=== PATIENT | male | born 1945 | race Caucasian/White ===

== ENCOUNTER 2023-01-15 10:12 | Outpatient (OUT) | payer OTHER, SELFPAY ==
[2023-01-15 10:37] LABS: Basophils Percent Auto 0.3 % (0.2-2.0); Eosinophils Absolute Auto 0.2 10^3/uL (0.0-0.7); Eosinophils Percent Auto 2.5 % (0.9-7.0); Hemoglobin 14.4 g/dL (14.0-18.0); Immature Granulocytes Abs Auto 0.03 10^3/uL (0.00-0.03); Immature Granulocytes Pct Auto 0.3 % (0.0-0.5); Lymphocytes Absolute Auto 1.6 10^3/uL (1.2-3.8); Lymphocytes Percent Auto 17.2 % (20.5-60.0); Mean Corpuscular HGB Conc 32.7 g/dL (29.9-35.2); Mean Corpuscular Hemoglobin 30.8 pg (25.9-34.0); Mean Corpuscular Volume 94.2 fL (80.0-94.0); Mean Platelet Volume 9.5 fL (9.5-13.5); Monocytes Percent Auto 10.6 % (1.7-12.0); Neutrophils Absolute Auto 6.4 10^3/uL (1.4-6.5); Neutrophils Percent Auto 69.1 % (43.0-75.0); Platelet Count 206 10^3/uL (150-450); Red Blood Count 4.67 10^6/uL (4.70-6.10); Red Cell Distribution Width 13.1 % (11.0-15.0); White Blood Count 9.3 10^3/uL (4.0-11.0)
[2023-01-15 11:14] LABS: Alanine Aminotransferase 27 U/L (16-63); Albumin Level 3.5 g/dL (3.4-5.0); Alkaline Phosphatase 115 U/L (46-116); Anion Gap 12.1; Aspartate Amino Transferase 23 U/L (15-37); BUN Creatinine Ratio 26.5; Bilirubin Total 0.8 mg/dL (0.2-1.0); Calcium 8.9 mg/dL (8.5-10.1); Carbon Dioxide 27.3 mmol/L (21.0-32.0); Chloride 105 mmol/L (98-107); Estimated GFR (African America >60 (>=60); Estimated GFR (Non-African Ame >60 (>=60); Globulin 3.5 g/dL; Glucose 100 mg/dL (74-106); Potassium 4.4 mmol/L (3.5-5.1); Sodium 140 mmol/L (136-145)
[2023-01-15 11:37] LABS: Magnesium 2.1 mg/dL (1.8-2.4)
== END 2023-01-15 10:13 | disposition home or self-care (01) ==
LOC: LAB 10:15
PROVIDERS: PCP Internal Medicine; Visit Provider Nurse Practitioner Acute Care
DX: I49.3 Ventricular premature depolarization (principal)
CPT/HCPCS: 36415; 80053; 83735; 85025

== ENCOUNTER 2023-01-25 09:32 | Outpatient (OUT) | payer OTHER, SELFPAY ==
[2023-01-25 10:06] LABS: Estimated Average Glucose 128 mg/dL; Glycohemoglobin A1C 6.1 % (4.5-6.2)
[2023-01-25 10:56] LABS: Chol HDL Ratio 3.4; Cholesterol 148 mg/dL (<=200); HDL Cholesterol 43 mg/dL (40-60); Thyroid Stimulating Hormone 1.427 uIU/mL (0.358-3.740); Triglycerides 153 mg/dL (<=150); VLDL CHOLESTEROL 30.6 mg/dL
== END 2023-01-25 09:33 | disposition home or self-care (01) ==
LOC: LAB 09:34
PROVIDERS: PCP Internal Medicine; Visit Provider Internal Medicine
DX: E78.5 Hyperlipidemia, unspecified (principal); R73.09 Other abnormal glucose; R63.5 Abnormal weight gain
CPT/HCPCS: 36415; 80061; 83036; 84443

== ENCOUNTER 2023-02-15 07:38 | Outpatient (RCR) | payer OTHER, SELFPAY | END 2023-02-16 11:01 | disposition home or self-care (01) | LOC: PT 07:38 | PROVIDERS: PCP Internal Medicine; Visit Provider Internal Medicine | DX: M25.561 Pain in right knee (principal); M25.562 Pain in left knee; G89.29 Other chronic pain; M54.42 Lumbago with sciatica, left side; M54.41 Lumbago with sciatica, right side; R29.3 Abnormal posture | CPT/HCPCS: 97110; 97161 ==

== ENCOUNTER 2023-03-07 15:27 | Outpatient (OUT) | payer OTHER, SELFPAY | END 2023-03-07 15:28 | disposition home or self-care (01) | LOC: MN 15:30 | PROVIDERS: PCP Internal Medicine | DX: Z71.3 Dietary counseling and surveillance (principal) | CPT/HCPCS: 97802 ==

== ENCOUNTER 2023-08-29 11:09 | Outpatient (OUT) | payer OTHER, SELFPAY ==
--- OUTSIDE RECORDS SUMMARY | 2023-08-29 11:32 | XMS_ITS ---
Patient Summarization (C-CDA 2.1 CCD) Created on: August 29, 2023 BELÉN KEENAN : 1945 Sex: Male Author Organization Sample organization Care Team Providers Care [place] Hand Name Role Phone PHYSICIAN, DEFAULT Unavailable Unavailable PHYSICIAN, DEFAULT Unavailable Unavailable JUAN HAYES Unavailable Unavailable DUPPS, BLAIR J Unavailable Unavailable DUPPS, BLAIR J Unavailable Unavailable DUPPS, BLAIR J Unavailable Unavailable DUPPS, BLAIR J Unavailable Unavailable DUPPS, BLAIR J Unavailable Unavailable DUPPS, BLAIR J Unavailable Unavailable DUPPS, BLAIR J Unavailable Unavailable DUPPS, BLAIR J Unavailable Unavailable DUPPS, BLAIR J Unavailable Unavailable DUPPS, BLAIR J Unavailable Unavailable Amburn, Estefani R Primary Care Provider Unavaila ble DENIA PIKE Referring Unavailable AMBURN, ESTEFANI R Primary Care Unavailable DENIA PIKE Referring Unavailable AMBURN, ESTEFANI R Primary Care Unavailable Sheldon Ball Unavailable DO Chaka Pulido Jr Attending Provider NON STAFF Primary Care Provider Unavailabl e FAWWAD, CHAUDHARI H Admitting Unavailable FAWWAD, CHAUDHARI H Attending Unavailable FAWWAD, CHAUDHARI H Primary Care Unavailable DR Rhonda Stevenson Consulting Unavailable FAWWAD, CHAUDHARI H Consulting Unavailable MISC, DR MURDOCK Admitting Unavailable MISC, DR MURDOCK Attending Unavailable FAWWAD, CHAUDHARI H Primary Care Unavailable MISCDR MURDOCK Consulting Unavailable FAWWAD, CHAUDHARI H Admitting Unavailable FAWWAD, CHAUDHARI H Attending Unavailable FAWWAD, CHAUDHARI H Primary Care Unavailable DR MARION LUIS V Consulting Unavailable FAWWAD, CHAUDHARI H Consulting Unavailable FAWWAD, CHAUDHARI H Admitting Unavailable FAWWAD, CHAUDHARI H Attending Unavailable FAWWAD, CHAUDHARI H Primary Care Unavailable FAWWAD, CHAUDHARI H Admitting Unavailable FAWWAD, CHAUDHARI H Attending Unavailable FAWWAD, CHAUDHARI H Primary Care Unavailable ELTAHAWY, DR STEARNS Admitting Unavailable ELTAHAWY, DR STEARNS Attending Unavailable FAWWAD, CHAUDHARI H Primary Care Unavailable WEST, DR MARION Herbert Consulting Unavailable ELTAHAWY, DR STEARNS Consulting Unavailable FAWWAD, CHAUDHARI H Admitting Unavailable FAWWAD, CHAUDHARI H Attending Unavailable FAWWAD, CHAUDHARI H Primary Care Unavailable FAWWAD, CHAUDHARI H Consulting Unavailable FAWWAD, CHAUDHARI H Admitting Unavailable FAWWAD, CHAUDHARI H Attending Unavailable FAWWAD, CHAUDHARI H Primary Care Unavailable FAWWAD, CHAUDHARI H Consulting Unavailable MISC, DOCTOR Admitting Unavailable MISC, DOCTOR Attending Unavailable FAWWAD, CHAUDHARI H Primary Care Unavailable MISC, DOCTOR Consulting Unavailable DES Feldman Other Provider Unavailable DES Burns Other Provider Unavailable Silas RN Etta Other Provider Unavailable Kurt RN Sanjana Other Provider Unavailable DES Lawrence Other Provider Unavailable DES Dunbar Other Provider Unavailable MD Jimmie Martin Other Provider MD Aydin Bartholomew Other Provider JR Mcgill Other Provider DO Viviana Hicks Other Provider [phone] MD Paul Connell Other Provider DO Yoshi Ascencio Other Provider MD Dm Lozano Other Provider [phone] MD Yuliana Herzog Other Provider Cat, ANP-BC Rachel Other Provider MD Perez Mattson Other Provider MD Wander Velázquez Other Provider MD Cory Em Other Provider MD Leeroy Doll Other Provider DO Jamie Rodriguez Other Provider MD Dank Tong Other Provider MD Mina Johnson Other Provider GARRETT Feldman Other Provider [phone] MD Chavez Pagan Other Provider MD Patricio Cook Other Provider MD Fabricio Willams Other Provider DO Angelina Doll Other Provider DO Alen Wheeler Other Provider DO Ben Carrizales Other Provider [phone] JR Fontanez Other Provider DO Mando Guy Other Provider [phone] MD Fanny France Other Provider JR Doll Other Provider DES Wilkinson Other Provider Unavailable Chaka Pulido Jr Admitting Unavailable Chaka Pulido Jr Attending Unavailable NON STAFF Primary Care Unavailable NON STAFF Primary Care Unavailable Chaka Pulido Jr Attending Unavailable Ashok Castro Chaka Admitting Unavailable FranciaLeanna mahajanndra Consulting Unavailable Gearheart, Cher Consulting Unavailable Etta Rosen Consulting Unavailable Denslow, Sanjana Consulting Unavailable Melnida, Maribel Consulting Unavailable Layne Dunbar Consulting Unavailable Massouh, Rafik Consulting Unavailable Puma, Aydin K Consulting Unavailable Dials, Zee M Consulting Unavailable Kurt, Ronobir Consulting Unavailable Becki, Paul Consulting Unavailable Lindbloom, Yoshi Consulting UnavailDm Swanson Consulting Unavailable Mino Yuliana Consulting Unavailable Rachel Shelton Consulting Unavailable Perez Mattson Consulting Unavailable Wander Velázquez Consulting Unavailable Cory Em Consulting Unavailable Leeroy Doll Consulting Unavailable Jamie Rodriguez Consulting Unavailable Dank Tong Consulting Unavailable Mina Johnson Consulting Unavailable Swapna Feldman Consulting Unavailable Chavez Pagan Consulting Unavailab Patricio Jj Consulting Unavailable Екатерина, Fabricio Consulting Unavailable Angelina Doll Consulting Unavailable LiamAlen sanchez Consulting Unavailable MiniaciBen Consulting Unavailable Obika, Mervat Consulting Unavailable Mando Guy Consulting Unavailable Daromar, Fanny M Consulting Unavailable Tory Doll Consulting Unavailable Wilkinson, Patricia Consulting Unavailable ELTAHAWY, EHAB Admitting Unavailable ELTAHAWY, EHAB Attending Unavailable SCOTT, CAN Attending Unavailable ELTAHAWHeriberto, DOUGLASAB Attending Unavailable ELTAHAWY, EHAB Referring Unavailable SHAIKH SHARP Attending Unavailable PERFECTO, Attending Unavailable Encounters Encounter Date Encounter Type Care Provider Facility Start: 08-08-2023 End: 08-08-2023 ambulatory SHAIKH PERFECTO Not Available Start: 02-26-2023 End: 02-26-2023 ambulatory SHAIKH PERFECTO Not Available Start: 01-15-2023 End: 01-15-2023 ambulatory [facility] Start: 09-04-2022 End: 09-04-2022 ambulatory [facility]YA [facility] Start: 04-27-2022 End: 04-28-2022 ambulatory NON STAFF Facility:[facility] Start: 04-27-2022 End: 04-28-2022 Admission to same day surgery center DO Chaka Pulido Jr Work Phone: [facility] [place] Start: 04-27-2022 End: 04-28-2022 ambulatory NON STAFF [facility] Work Phone: Start: 04-18-2022 End: 04-19-2022 ambulatory Connie PERFECTO Facility: Start: 04-10-2022 End: 04-10-2022 ambulatory Chaka Pulido Jr Facility:[facility] Start: 04-10-2022 End: 04-10-2022 ambulatory NON STAFF [facility] Work Phone: Start: 04-10-2022 End: 04-10-2022 Patient encounter procedure DO Chaka Pulido Jr Work Phone: [facility] Work Phone: Start: 02-08-2022 End: 02-08-2022 ambulatory [facility] Start: 02-06-2022 End: 02-07-2022 ambulatory CHAUDHARI H FAWWAD Facility:[facility] Start: 01-11-2022 End: 01-12-[address] DIYA BROWN Facility:[facility] Start: 11-29-2021 End: 11-29-2021 ambulatory Sheldon Ball Other [facility] [employer] Other Start: 11-29-2021 Office outpatient ne w 30 minutes Sheldon Ball [facility] Start: 11-01-2021 End: 11-02-2021 ambulatory CHAUDHARI H FAWMOSHED Facility:[facility] Start: 10-25-2021 End: 10-26-[address] DOCTOR BROUSSARD Facility:[facility] Start: 08-22-2021 End: 09-16-2021 ambulatory CHAUDHARI H FAWWAD Facility:[facility] Start: 08-11-2021 ambulatory CHAUDHARI H FAWWAD Facilit y:[facility] Start: 08-03-2021 End: 08-04-2021 ambulatory CHAUDHARI H FAWWAD Facility:[facility] Start: 05-02-2021 End: 05-03-[address] DOCTOR BROUSSARD Facility:[facility] Start: 05-04-2020 End: 05-05-2020 Patient encounter procedure DENIA Lopez [facility] Start: 05-04-2020 End: 05-04-2020 Subsequent hospital visit by physician Estefani MARIE Laboratory Comment on above: BPH with obstruction /lower urinary tract symptoms; Nocturia; Urgency of urination Start: 09-25-2019 End: 09-26-2019 Patient encounter procedure [place] Jessica [facility] Start: 09-25-2019 End: 09-25-2019 Subsequent hospital visit by physician Estefani MARIE Laboratory Comment on above: Nocturia; Urgency incontinence Start: 02-07-2018 End: 02-12-2018 Patient encounter procedure BLAIR AN [facility] Start: 10-04-2017 End: 10-04-2017 Patient encounter procedure BLAIR AN [facility] Start: 09-13-2017 End: 09-17-2017 Patient encounter procedure BLAIR AN [facility] Start: 09-06-2017 End: 09-11-2017 Patient encounter procedure BLAIR AN [facility] Start: 08-30-2017 End: 09-03-2017 Patient encounter procedure BLAIR AN [facility] Start: 08-07-2017 End: 08-08-2017 Ambulatory DEFAULT PHYSICIAN Facility:[facility] Start: 06-07-2017 End: 06-14-2017 Patient encounter procedure BLAIR AN [facility] Start: 05-17-2017 End: 05-17-2017 Patient encounter procedure BLAIR AN [facility] Goals Date Patient Goal Desired Activity /State Immunizations Immunization Date Immunization Notes Care Provider Kwabena gillette 11-04-2021 COVID-19 mRNA, Comirnaty (Pfizer) DO Chaka Pulido Work Phone: [facility] 02-12-2021 COVID-19 mRNA, Comirnaty (Pfizer) [facility] 06-05-2020 COVID-19 mRNA, Com[facility]naty (Pfizer) [facility] 05-15-2020 COVID-19 mRNA, Comirnaty (Pfizer) DO Chaka [facility] Work Phone: [facility] Medications Current Medications Medication Drug Class(es) Dates Sig (Normalized) Sig (Original) Aspir-81 (1 source) Aspir-81 Active aspirin 81 mg oral tablet (3 sources) Platelet Aggregation Inhibitor, Nonsteroidal Anti-inflammatory Drug Start: 04-27-2022 take 81 mg by mouth twice daily Aspirin Active 81 MG PO Twice daily April 27, 2022 12:00am Start: 04-10-2022 End: 04-27-2022 take 1 tablet by mouth once daily Aspirin (Aspir-81) 81 mg Tablet,Delayed Release (Dr/Ec) Discontinued 81 MG PO Daily April 10, 2022 12:00am April 27, 2022 10:56am atorvastatin 40 mg oral tablet (5 sources) HMG-CoA Reductase Inhibitor Start: 04-10-2022 take 40 mg by mouth once daily Atorvastatin Active 40 MG PO Daily April 10, 2022 12:00am Start: 08-18-2019 take 1 tablet by elizabeth th once daily atorvastatin (LIPITOR) 40 MG tablet TAKE 1 TABLET BY MOUTH EVERY DAY 0 08/18/2019 Active carvedilol 3.125 mg oral tablet (3 sources) alpha-Adrenergic Abad, beta-Adrenergic Abad Start: 04-10-2022 take 3.125 mg by mouth twice daily at mealtime Carvedilol Active 3.125 MG PO Twice daily April 10, 2022 12:00am must administer with a meal/food take 1 tablet by elizabeth th every twelve hours Carvedilol 3.125 MG 1 tablet with food Orally Twice a day Active cyclobenzaprine hydrochloride 10 mg oral tablet (1 source) Muscle Relaxant Cyclobenzaprine HCl 10 MG Oral for 30 Days Active enalapril maleate 2.5 mg oral tablet (2 sources) Angiotensin Converting Enzyme Inhibitor enalapril (VASOTEC) 2.5 MG tablet Take by mouth 0 Active folic acid 1 mg / polysaccharide iron complex 150 mg / vitamin b12 0.025 mg oral capsule (2 sources) Vitamin B12 Start: 023 take 1 capsule by mouth once daily Iron Ps Extniwd-Z84-Knqgr Acid (Poly-Iron 150 Forte) 150-25-1 mg-mcg-mg capsule Active 1 CAP PO Daily April 10, 2022 12:00am furosemide 20 mg oral tablet (2 sources) Loop Diuretic Start: 020 take 1 tablet by mouth once daily in the morning furosemide (LASIX) 20 MG tablet TAKE 1 TABLET BY MOUTH EVERY MORNING 0 08/18/2019 Active Garlic preparation (2 sources) Non-Standardized Food Allergenic Extract Garlic 10 MG CAPS garlic 0 Active loratadine 10 mg oral tablet (2 sources) Start: 020 take 1 tablet by mouth once daily loratadine (CLARITIN) 10 MG tablet TAKE 1 TABLET BY MOUTH EVERY DAY 0 08/26/2019 Active meloxicam 15 mg oral tablet (1 source) Nonsteroidal Anti-inflammatory Drug Meloxicam 15 MG Oral for 30 Days Active metFORMIN hydrochloride 500 mg oral tablet (3 sources) Biguanide Start: 023 take 500 mg by mouth twice daily Metformin Active 500 MG PO Twice daily April 10, 2022 12:00am metFORMIN HCl 50 0 MG Oral for 90 Days Active Multiple Vitamins-Minerals (EYE VITAMINS) CAPS (2 sources) Multiple Vitamins-Minerals (EYE VITAMINS) CAPS Take by mouth 0 Active Multiple Vitamins-Minerals (MULTIVITAMIN ADULT EXTRA C PO) (2 sources) Multiple Vitamins-Minerals (MULTIVITAMIN ADULT EXTRA C PO) multivitamin 0 Active Emjiywyuklqg-Lxsxmupk-Bz tein (Multivitamin 50 Plus) Tablet (2 sources) Start: 023 Eemljlanjldw-Kujqmmhd-Iy tein (Multivitamin 50 Plus) Tablet Active 1 TAB PO Daily April 10, 2022 12:00am [place] 8-Vxd-Bui-Fish Oil (Fish Oil) 1,200 (144-216) mg Capsule (2 sources) Start: 023 take 1 capsule by mouth once daily [place] 7-Zzi-Acs-Fish Oil (Fish Oil) 1,200 (144-216) mg Capsule Active 1 CAP PO Daily April 10, 2022 12:00am omeprazole 20 mg delayed release oral tablet (5 sources) Proton Pump Inhibitor Start: take 20 mg by mouth once daily Omeprazole Active 20 MG PO Daily April 10, 2022 12:00am Start: 08-18-2019 take 1 capsule by mo nhh once daily omeprazole (PRILOSEC) 20 MG delayed release capsule TAKE 1 CAPSULE BY MOUTH EVERY DAY 0 08/18/2019 Active sertraline 50 mg oral tablet (5 sources) Serotonin Reuptake Inhibitor Start: 04-10-2022 take 75 mg by mouth once daily Sertraline Active 75 MG PO Daily April 10, 2022 12:00am Start: 09-03-2019 take 1 tablet by elizabeth th once daily sertraline (ZOLOFT) 50 MG tablet TAKE 1 TABLET BY MOUTH EVERY DAY 0 09/03/2019 Active spironolactone 25 mg oral tablet (1 source) Aldosterone Antagonist Spironolactone 25 MG Oral for 90 Days Active tamsulosin hydrochloride 0.4 mg oral capsule (5 sources) alpha-Adrenergic Abad Start: 04-10-19 take 0.4 mg by mouth once daily Tamsulosin Active 0.4 MG PO Daily April 10, 2022 12:00am Start: 09-25-2019 take 1 capsule by mo ut once daily in the evening tamsulosin (FLOMAX) 0.4 MG capsule Take 1 capsule by mouth every evening 90 capsule 3 11/04/2019 Active Vitamin B Complex (1 source) Start: 04-10-2022 take 1 tablet by mouth once daily Vitamin B Complex Active 1 TAB PO Daily April 10, 2022 12:00am Vitamin B Complex (Super B Complex) Tablet (1 source) Start: 04-10-2022 take 1 tablet by mouth once daily Vitamin B Complex (Super B Complex) Tablet Active 1 TAB PO Daily April 10, 2022 12:00am Vitamins A,C,E-Zwzt-Surmsz (1 source) Start: 04-10-2022 take 1 capsule by mouth once daily Vitamins A,C,W-Drix-Cecfsg Active 1 CAP PO Daily April 10, 2022 12:00am Vitamins A,C,L-Snnv-Ockdnr (Vision Formula (N-B-P-Zn-Reji)) 14,320-226-200 uizg-vz-kane Capsule (1 source) Start: 04-10-2022 take 1 capsule by mouth once daily Vitamins A,C,Z-Tcgl-Fkibfc (Vision Formula (E-R-H-Zn-Reji)) 14,320-226-200 jqav-uw-qbhq Capsule Active 1 CAP PO Daily April 10, 2022 12:00am Payers Date Payer Category Payer Self-pay 2020 Medicare [id number] 2019 Medicare AETNA MEDICARE A ETNA MEDICARE-ADVANTAGE PPO [id number] 2019-Present [address] [place] [address] Medicare [id number] 2019 Medicare [id number] 1959 Medicare [id number] 1945 Unknown [id number] 1945 Unknown [id number] 1945 Unknown [id number] 1945 Unknown [id number] [id number] 1945 Unknown [id number] 1945 Unknown [id number] 1945 Unknown [id number] [id number] 1945 Unknown [id number] [id number] 1945 Unknown [id number] [id number] 1945 Unknown [id number] [id number] 1945 Unknown [id number] [id number] 1945 Unknown [id number] [id number] 9 1945 Unknown [id number] 9 Medicare Medicare [id number] Unknown Unknown [facility] Life Insurance C o [id number] Unknown [id number] Unknown [id number] Plan of Treatment Date Care Activity Detail Author Start: 04-29-2022 Blood chemistry [facility] Start: 04-29-2022 [facility] Start: 04-27-2022 [facility] Start: 04-27-2022 Referral to clinical medical technologist chemistry [facility] Start: 04-27-2022 Referral to [employer] [facility] Start: 04-27-2022 Hospital admission [facility] Start: 04-27-2022 Referral to occupati onal therapist [facility] Start: 04-27-2022 [facility] Start: 04-10-2022 Bacteria identified in Urine by Culture [facility] Start: 02-15-2021 Prostate specific antigen measurement PSA counseling [facility] Work Phone: Start: 11-02-2020 End: 11-02-2020 Office Visit 11/02/2020 Office Visit Urology Denia Piek MANAGER [facility] - COMPLIANCE MANAGER [address] [place] [phone] [facility] Start: 11-11-2019 Influenza vaccination Flu vaccine (# 1) [place], [place] Start: 11-04-2019 End: 11-04-2019 Office Visit 11/04/2019 Office Visit Urology Denia Pike MANAGER [facility] - COMPLIANCE MANAGER [address] [place] [phone] [facility] Start: 09-25-2019 Annual Wellness Visi t (AWV) Annual Wellness Visit (AWV) [place], [place] Start: 01-01-2013 Creatinine measurement Creatinine mo nitoring [place] Start: 12-28-2011 Pneumococcal 65+ yea rs Vaccine (1 of 1 - PPSV23) Pneumococcal 65+ years Vaccine (1 of 1 - PPSV23) [place], [place] Start: 1996 Screening for malign ant neoplasm of colon Colon cancer screen colonoscopy [place], [place] Start: 1996 Shingles Vaccine (1 of 2) Shingles Vaccine (1 of 2) [place] Start: 1965 DTaP/Tdap/Td vaccine (1 - Tdap) DTaP/Tdap/Td vaccine (1 - Tdap) [place], [place] Start: 1962 COVID-19 Vaccine (1 of 2) COVID-19 Vaccine (1 of 2) [facility] Phone: Start: 1956 Lipid panel Lipid screen [place], [place] Start: 1945 Hepatitis C screening Hepatitis C sc reen [place], [place] Start: 1945 Potassium monitoring Potassium monit oring [place] End: 09-25-2019 Culture, Urine Culture, Urine Microbiology Routine Nocturia Urgency incontinence 1 Occurrences starting 09/25/2019 until 09/25/2019 [place] Comment on above: 1 Occurrences starti ng 09/25/2019 until 09/25/2019 Culture, Urine [place] End: 05-04-2020 Culture, Urine Culture, Urine Microbiology Routine BPH with obstruction/lower urinary tract symptoms Nocturia Urgency of urination 1 Occurrences starting 05/04/2020 until 05/04/2020 [facility] Phone: Comment on above: 1 Occurrences starti ng 05/04/2020 until 05/04/2020 Patient referral [facility] Work Phone: Problems Active Problems Problem Classification Problem Date Documented Date Episodic/Chronic Cardiac dysrhythmias (4 sources) Ventricular premature depolarization; Translations: [Atrial premature depolarization] Onset: 01-15-2023 Chronic Complication of device; implant or graft (1 source) Atherosclerosis of coronary artery bypass graft(s) without angina pectoris; Translations: [ATS CA BP GRAFT NO ANGINA PECTORIS] Onset: 01-16-2022 Chronic Coronary atherosclerosis and other heart disease (6 sources) Atherosclerotic heart disease of [place] coronary artery without angina pectoris; Translations: [ASHD [place] CA W/O ANGINA PECTORIS] Onset: 01-11-2022 Chronic Coronary atherosclerosis and other heart disease (2 sources) Presence of aortocoronary bypass graft; Translations: [Presence of aortocoronary bypass graft] Onset: 01-15-2023 Episodic Disorders of lipid metabolism (4 sources) Hyperlipidemia, unspecified; Translations: [HYPERLIPIDEMIA UNSPECIFIED] Onset: 02-06-2022 Chronic Essential hypertension (1 source) Essential (primary) hypertension; Translations: [ESSENTIAL PRIMARY HYPERTENSION] Onset: 02-11-2022 Chronic Fluid and electrolyte disorders (4 sources) Hyperkalemia; Translations: [HYPERKALEMIA] Onset: 04-18-2022 Episodic Genitourinary symptoms and ill-defined conditions (1 source) Urge incontinence of urine; Translations: [Urgency incontinence] Chronic Genitourinary symptoms and ill-defined conditions (3 sources) Nocturia; Translations: [Urgent desire to urinate] Episodic Heart valve disorders (2 sources) Nonrheumatic tricuspid valve disorder, unspecified; Translations: [Nonrheumatic tricuspid valve disorder, unspecified] Onset: 01-15-2023 Chronic Hyperplasia of prostate (2 sources) Benign prostatic hypertrophy with outflow obstruction; Translations: [BPH with obstruction/lower urinary tract symptoms] Onset: 11-04-2019 11-04-2019 Chronic Osteoarthritis (5 sources) Arthropathy of right hip joint; Translations: [Unilateral primary osteoarthritis, right hip] Onset: 11-29-2021 Resolved: 11-29-2021 Chronic Other non-traumatic joint disorders (1 source) Knee pain; Translations: [Knee pain, left] Episodic Residual codes; unclassified (2 sources) Other specified postprocedural states; Translations: [Other specified postprocedural states] Onset: 01-15-2023 Episodic Spondylosis; intervertebral disc disorders; other back problems (1 source) Lumbar spondylosis; Translations: [Spondylosis without myelopathy or radiculopathy, lumbar region] Chronic Sprains and strains (1 source) Strain of knee; Translations: [Strain of left knee] Episodic Unclassified (3 sources) LOW BACK PAIN, UNSPECIFIED; Translations: [LOW BACK PAIN, UNSPECIFIED] Onset: 11-03-2021 Unclassified (1 source) Unilateral primary osteoarthritis, right hip; Translations: [Unilateral primary osteoarthritis, right hip] Onset: 04-27-2022 Unclassified (1 source) Encounter for preprocedural laboratory examination; Translations: [Encounter for preprocedural laboratory examination] Onset: 04-10-2022 Past or Other Problems Problem Classification Problem Date Documented Da te Episodic/Chronic Acquired foot deformities (1 source) Foot drop, right foot Onset: 11-29-2021 Resolved: 11-29-2021 Episodic Acquired foot deformities (1 source) Foot drop, left foot Onset: 11-29-2021 Resolved: 11-29-2021 Episodic Other connective tissue disease (1 source) Trochanteric bursitis, right hip Onset: 11-29-2021 Resolved: 11-29-2021 Episodic Other non-traumatic joint disorders (5 sources) Pain in left knee; Translations: [PAIN IN LEFT KNEE] Onset: 08-05-2021 Episodic Other screening for suspected conditions (not mental disorders or infectious disease) (7 sources) Raised prostate specific antigen; Translations: [Elevated prostate specific antigen [PSA]] Onset: 11-04-2019 11-04-2019 Episodic Unclassified (1 source) LOW BACK PAIN, UNSPECIFIED; Translations: [LOW BACK PAIN, UNSPECIFIED] Onset: 11-01-2021 Procedures Date Procedure Procedure Detail Performing Clinician Start: 04-27-2022 Revision of hip arthroplasty DO Chaka Pulido Jr Work Phone: Start: 04-27-2022 Plain X-ray of right hip DO Chaka Pulido Jr Work Phone: Start: 04-10-2022 Urine culture DO Chaka Pulido Jr Work Phone: Start: 04-10-2022 Plain X-ray of right hip DO Chaka Pulido Jr Work Phone: Start: 10-25-2021 PSA screening SHAIKH KWABENA ROGERS Comment on above: Performed By: #### P SAD #### [facility] [address] [place] [address] Dr. Isha Haq Start: 05-02-2021 PSA screening SHAIKH KWABENA ROGERS Comment on above: Performed By: #### P SAD #### [facility] [address] [place] [address] Dr. Isha Haq Start: 05-04-2020 Urnls dip stick/tabl et reagent auto microscopy Denia Pike Work Phone: Start: 09-25-2019 Culture bacterial quanttative colony count urine DENIA PIKE Start: 09-25-2019 Urnls dip stick/tabl et reagent auto microscopy Denia Pike Work Phone: Results Test Name Value Interpretation Reference Range Facility Office Visiton 01-15-2023 Follow-up visit [id number] ReeFrancisco Gomez 1945 M Date Provider Department Center 01/15/2023 [id number] CHAVEZ [facility] Melanie Hos Family History Problem Relation Age of Onset Heart attack Other Family Status - Relation Status Age at Other Level of Service:[id number] [place] OFFICE/OUTPATIENT ESTABLISHED MOD MDM 30-39 MIN [facility] Office Vis[facility] 09-04-2022 Follow-up visit [id number] KeenanFrancisco Gomez 1945 M Date Provider Department Center 09/04/2022 [id number] BROWN JESSICA [facility] No family history on file Level of Service:37667 [place] OFFICE/OUTPATIENT ESTABLISHED LOW MDM 20-29 MIN [facility] Anisocytosis LM Ql (Bld)Orde red By: Madhu Richardson on 04-28-2022 Anisocytosis Ql (Bld) Slight [facility] Band form neutrophils/100 WB C Manual cnt (Bld)Ordered By: Madhu Richardson on 04-28-2022 Band form neutrophils/100 WBC (Bld) 6 % 0-5 [facility] Basic Metabolic Panelon 04-12 Anion gap [Moles/Vol] 6.0 mmol/L Normal 6.0-15.0 [facility] Comment on above: Performed By: #### B MP, DIFF CBC #### [facility] [address] [id number] [place] Calcium [Mass/Vol] 8.8 mg/dL Normal 8.2-10.2 [facility] Comment on above: Performed By: #### B MP, DIFF CBC #### [facility] [address] [place] [address] [place] Chloride [Moles/Vol] 108 mmol/L Normal 95-114 [facility] Comment on above: Performed By: #### B MP, DIFF CBC #### [facility] [address] [place] [address] [place] CO2 [Moles/Vol] 30.6 mmol/L High 22.0-30.0 [facility] Comment on above: Performed By: #### B MP, DIFF CBC #### [facility] [address] [place] [address] [place] Creatinine [Mass/Vol] 0.77 mg/dL Normal 0.64-1.27 [facility] Comment on above: Performed By: #### B MP, DIFF CBC #### [facility] [address] [place] [address] [place] Creatinine Clr Calc Pharmacy 90.86 [facility] Comment on above: Result Comment: PERF ORMED BY: [place] [address] PATHOLOGIST OUTPATIENT PROGRAM COORDINATOR DELFIN GUEVARA M.D. Performed By: #### B MP, DIFF CBC #### [facility] [address] Estimated GFR ( Katie > 60 [facility] Comment on above: Result Comment: GFR estimated reference range: According to KDOQI guidelines, <60 ml/min/1.73m2 is sufficient to diagnose a patient with chronic kidney disease. Performed By: #### B MP, DIFF CBC #### [facility] [address] [place] [address] [place] Estimated GFR (Non- Am > 60 [facility] Comment on above: Performed By: #### B MP, DIFF CBC #### [facility] [address] [place] [address] [place] Glucose [Mass/Vol] 145 mg/dL High 70-100 [facility] Comment on above: Result Comment: [place] om Glucose Reference Range is dependent on time and content of last meal. Glucose of more than 200 mg/dL in a nonstressed, ambulatory subject supports the diagnosis of Diabetes Mellitus. ADA recommended reference range Performed By: #### B MP, DIFF CBC #### [facility] [address] [place] [address] [place] Potassium [Moles/Vol] 4.6 mmol/L Normal 3.5-5.1 [facility] Comment on above: Performed By: #### B MP, DIFF CBC #### [facility] [address] Sodium [Moles/Vol] 140 mmol/L Normal 136-146 [facility] Comment on above: Performed By: #### B MP, DIFF CBC #### [facility] [address] Urea nitrogen [Mass/Vol] 22 mg/dL Normal 9-23 [facility] Comment on above: Performed By: #### B MP, DIFF CBC #### [facility] [address] Basophils Auto (Bld) [#/Vol] Ordered By: Madhu Richardson on 04-28-2022 Basophils (Bld) [#/Vol] N/A F [facility] Basophils/100 WBC Auto (Bld) Ordered By: Madhu Richardson on 04-28-2022 Basophils/100 WBC (Bld) N/A F [facility] Creatinine and Glomerular fi ltration rate.predicted panel (S/P/Bld)Ordered By: Madhu Richardson on 04-28-2022 Creatinine [Mass/Vol] 0.77 mg/dL 0.64-1.27 [facility] Diff and CBCon 04-28-2022 Anisocytosis Ql (Bld) Slight Normal [facility] Comment on above: Performed By: #### B MP, DIFF CBC #### [address] Band form neutrophils/100 WBC (Bld) 6 % High 0-5 [facility] Comment on above: Performed By: #### B MP, DIFF CBC #### [facility] [address] Erythrocyte distribution width (RBC) [Ratio] 14.4 % Normal 12.0-14.8 [facility] Comment on above: Performed By: #### B MP, DIFF CBC #### [facility] [address] [place] [address] [place] Hematocrit (Bld) [Volume fraction] 35.4 % Low 38.8-50.0 [facility] Comment on above: Performed By: #### B MP, DIFF CBC #### [address] Hemoglobin (Bld) [Mass/Vol] 11.7 g/dL Low 13.0-17.0 [facility] Comment on above: Performed By: #### B MP, DIFF CBC #### [address] Lymphocytes/100 WBC (Bld) 3 % Low 18-42 [facility] Comment on above: Performed By: #### B MP, DIFF CBC #### [address] MCH (RBC) [Entitic mass] 30.6 pg Normal 27.5-35.2 [facility] Comment on above: Performed By: #### B MP, DIFF CBC #### [address] MCV (RBC) [Entitic vol] 92.8 fL Normal 83.5-101 F [facility] Comment on above: Performed By: #### B MP, DIFF CBC #### [address] Mean Corpuscular HGB Conc 33.0 g/dL Normal 32.5-35.6 [facility] Comment on above: Performed By: #### B MP, DIFF CBC #### [address] Monocytes/100 WBC (Bld) 3 % Normal 2-11 F [facility] Comment on above: Performed By: #### B MP, DIFF CBC #### [address] Platelet Estimate Normal Normal Normal [facility] Comment on above: Performed By: #### B MP, DIFF CBC #### [address] Platelet mean volume (Bld) [Entitic vol] 8.1 fL Normal 6.6-10.1 [facility] Comment on above: Performed By: #### B MP, DIFF CBC #### [facility] [address] [place] [address] Platelet Morphology Normal Normal Normal [facility] Comment on above: Result Comment: PERF ORMED BY: [place] [address] PATHOLOGIST OUTPATIENT PROGRAM COORDINATOR DELFIN GUEVARA M.D. Performed By: #### B MP, DIFF CBC #### [facility] [address] Platelets (Bld) [#/Vol] 198 10*3/uL Normal 150-450 [facility] Comment on above: Performed By: #### B MP, DIFF CBC #### [address] RBC (Bld) [#/Vol] 3.81 10*6/uL Low 3.90-5.60 [facility] Comment on above: Performed By: #### B MP, DIFF CBC #### [address] RBC morphology finding Nom (Bld) Normal Normal Normal [facility] Comment on above: Performed By: #### B MP, DIFF CBC #### [address] Segmented neutrophils/100 WBC (Bld) 89 % High 50-70 [facility] Comment on above: Performed By: #### B MP, DIFF CBC #### [facility] [address] [place] [address] [place] WBC (Bld) [#/Vol] 17.4 10*3/uL High 4.1-10.5 [facility] Comment on above: Performed By: #### B MP, DIFF CBC #### [facility] [address] [place] [address] [place] Eosinophils Auto (Bld) [#/Vo l]Ordered By: Madhu Richardson on 04-28-2022 Eosinophils (Bld) [#/Vol] N/A [facility] Eosinophils/100 WBC Auto (Bl d)Ordered By: Madhu Richardson on 04-28-2022 Eosinophils/100 WBC (Bld) N/A [facility] Erythrocyte distribution wid th Auto (RBC) [Ratio]Ordered By: Madhu Richardson on 04-28-2022 Erythrocyte distribution width (RBC) [Ratio] 14.4 % 12.0-14.8 [facility] Estimated glomerular filtrat ion rate (GFR) non- AmericanOrdered By: Madhu Richardson on 04-28-2022 GFR/1.73 sq M.predicted among non-blacks MDRD (S/P/Bld) [Vol rate/Area] > 60 mL/Min [facility] Hematocrit Auto (Bld) [Volum e fraction]Ordered By: Madhu Richardson on 04-28-2022 Hematocrit (Bld) [Volume fraction] 35.4 % 38.8-50.0 [facility] Hemoglobin [Mass/volume] in BloodOrdered By: Madhu Richardson on 04-28-2022 Hemoglobin (Bld) [Mass/Vol] 11.7 g/dL 13.0-17.0 [facility] Leukocytes [#/volume] correc trena for nucleated erythrocytes in Blood by Automated counOrdered By: Madhu Richardson on 04-28-2022 WBC corrected for nucl RBC Auto (Bld) [#/Vol] 17.4 10*3/uL 4.1-10.5 [facility] Lymphocytes Auto (Bld) [#/Vo l]Ordered By: Madhu Richardson on 04-28-2022 Lymphocytes (Bld) [#/Vol] N/A [facility] Lymphocytes/100 WBC Auto (Bl d)Ordered By: Madhu Richardson on 04-28-2022 Lymphocytes/100 WBC (Bld) N/A [facility] Lymphocytes/100 WBC Manual c nt (Bld)Ordered By: Madhu Richardson on 04-28-2022 Lymphocytes/100 WBC (Bld) 3 % 18-42 [facility] MCH Auto (RBC) [Entitic mass ]Ordered By: Madhu Richardson on 04-28-2022 MCH (RBC) [Entitic mass] 30.6 pg 27.5-35.2 [facility] MCHC Auto (RBC) [Mass/Vol]Or dered By: Madhu Richardson on 04-28-2022 MCHC (RBC) [Mass/Vol] 33.0 g/dL 32.5-35.6 [facility] MCV Auto (RBC) [Entitic vol] Ordered By: Madhu Richardson on 04-28-2022 MCV (RBC) [Entitic vol] 92.8 fL 83.5-101 F [facility] Monocytes Auto (Bld) [#/Vol] Ordered By: Madhu Richardson on 04-28-2022 Monocytes (Bld) [#/Vol] N/A F [facility] Monocytes/100 WBC Auto (Bld) Ordered By: Madhu Richardson on 04-28-2022 Monocytes/100 WBC (Bld) N/A F [facility] Monocytes/100 WBC Manual cnt (Bld)Ordered By: Madhu Richardson on 04-28-2022 Monocytes/100 WBC (Bld) 3 % 2-11 [facility] Neutrophils Auto (Bld) [#/Vo l]Ordered By: Madhu Richardson on 04-28-2022 Neutrophils (Bld) [#/Vol] N/A [facility] Neutrophils/100 WBC Auto (Bl d)Ordered By: Madhu Richardson on 04-28-2022 Neutrophils/100 WBC (Bld) N/A [facility] No Panel InformationOrdered By: Madhu Richardson on 04-28-2022 Estimated GFR () > 60 mL/Min [facility] Comment on above: GFR estimated refere nce range: According to KDOQI guidelines, <60 ml/min/1.73m2 is sufficient to diagnose a patient with chronic kidney disease. Pharmacy Creatinine Clearance (Chem 90.86 [facility] Nucleated erythrocytes [Pres ence] in Blood by Automated countOrdered By: Madhu Richardson on 04-28-2022 Nucleated RBC Auto Ql (Bld) N/A [facility] Platelet adequacy [Presence] in Blood by Light microscopyOrdered By: Madhu Richardson on 04-28-2022 Platelets LM Ql (Bld) Normal Normal [facility] Platelet mean volume Auto (B ld) [Entitic vol]Ordered By: Madhu Richardson on 04-28-2022 Platelet mean volume (Bld) [Entitic vol] 8.1 fL 6.6-10.1 [facility] Platelet morphology finding [Identifier] in BloodOrdered By: Madhu Richardson on 04-28-2022 Platelet morphology finding Nom (Bld) Normal Normal [facility] Platelets Auto (Bld) [#/Vol] Ordered By: Madhu Richardson on 04-28-2022 Platelets (Bld) [#/Vol] 198 10*3/uL 150-450 [facility] RBC Auto (Bld) [#/Vol]Ordere d By: Madhu Richardson on 04-28-2022 RBC (Bld) [#/Vol] 3.81 10*6/uL 3.90-5.60 [facility] RBC morphologyOrdered By: Selma Richardson on 04-28-2022 RBC morphology finding Nom (Bld) Normal Normal [facility] Segmented neutrophils/100 WB C Manual cnt (Bld)Ordered By: Madhu Richardson on 04-28-2022 Segmented neutrophils/100 WBC (Bld) 89 % 50-70 [facility] Serum or plasma anion gap de terminationOrdered By: Madhu Richardson on 04-28-2022 Anion gap [Moles/Vol] 6.0 mmol/L 6.0-15.0 [facility] Serum or plasma calcium ernesto urement (mass/volume)Ordered By: Madhu Richardson on 04-28-2022 Calcium [Mass/Vol] 8.8 mg/dL 8.2-10.2 [facility] Serum or plasma chloride cristina surement (moles/volume)Ordered By: Madhu Richardson on 04-28-2022 Chloride [Moles/Vol] 108 mmol/L 95-114 [facility] Serum or plasma glucose ernesto urement (mass/volume)Ordered By: Madhu Richardson on 04-28-2022 Glucose [Mass/Vol] 145 mg/dL 70-100 [facility] Comment on above: ADA recommended refe rence rangeRandom Glucose Reference Range is dependent on time and content of last meal. Glucose of more than 200 mg/dL in a nonstressed, ambulatory subject supports the diagnosis of Diabetes Mellitus. Serum or plasma potassium me asurement (moles/volume)Ordered By: Madhu Richardson on 04-28-2022 Potassium [Moles/Vol] 4.6 mmol/L 3.5-5.1 [facility] Serum or plasma sodium measu rement (moles/volume)Ordered By: Madhu Richardson on 04-28-2022 Sodium [Moles/Vol] 140 mmol/L 136-146 [facility] Serum or plasma total carbon dioxide measurement (moles/volume)Ordered By: Madhu Richardson on 04-28-2022 CO2 [Moles/Vol] 30.6 mmol/L 22.0-30.0 [facility] Serum or plasma urea nitroge n measurement (mass/volume)Ordered By: Madhu Richardson on 04-28-2022 Urea nitrogen [Mass/Vol] 22 mg/dL 9- [facility] WBC Auto (Bld) [#/Vol]Ordere d By: Madhu Richardson on 04-28-2022 WBC (Bld) [#/Vol] 17.4 10*3/uL 4.1-10.5 [facility] Jesus 04-27-2022 L -- ---- Specimen: [id number] Received: 04/27/22 Status: SHANTA Alcocer Num: [id number] Spec Type: Surgical Subm Dr: Chaka Pulido Jr, DO Tissues: A Femoral Head - Other than Fracture (RT HIP) Procedures: HE/2, Gross/Micro L3, Decalcification ---- Age/ Patient Sex Location Account Attending Physician ---- Belén Keenan 76/M DC [id number] Chaka Pulido Jr, ---- SPEC NUM: [id number] RECD: 04/27/22 STATUS: SHANTA BRIAN NUM: [id number] [place]: 04/27/[address] [facility] [address]: Chaka Pulido Jr, DO ENTERED: 04/27/[address] [facility] [address]: CHELSIE TYPE: Surgical DEPT: S ORDERED: HE/2, Gross/Micro L3, Decalcification ORDERED: HE/2, Gross/Micro L3, Decalcification Supplemental Report Addendum 1 Entered: 05/04/22 This case was interpreted at [facility], [place] [address]. Addendum Signed (signature on file) Jax Mcdonald MD 05/04/22 1211 ---- Pathological Diagnosis Right hip bone/femoral head, right total hip arthroplasty: - Right femoral head with degenerative change consistent with osteoarthritis. - Fragments of benign bone with trilineage marrow. Clinical Information DJD ---- Specimen: [id number] Received: 04/27/22 Status: SHANTA Alcocer Num: [id number] Spec Type: Surgical Subm Dr: Chaka Pulido Jr, DO Tissues: A Femoral Head - Other than Fracture (RT HIP) Procedures: HE/2, Gross/Micro L3, Decalcification ---- Patient: Belén Keenan SR [id number] (Continued) ---- Specimen: [id number] Received: 04/27/22 (Continued) Signed (signature on file) Jax Mcdonald MD 05/01/22 1449 ---- Specimen: [id number] Received: 04/27/22 Status: SHANTA Alcocer Num: [id number] Spec Type: Surgical Subm Dr: Chaka Pulido Jr, DO Tissues: A Femoral Head - Other than Fracture (RT HIP) Procedures: HE/2, Gross/Micro L3, Decalcification ---- Patient: Belén Keenan SR [id number] (Continued) ---- Specimen: [id number] Received: 04/27/22 (Continued) Gross Description Received in formalin labeled with the patient's name, number and right hip bone and tissue is a 5.7 x 5.7 x 5.4 cm femoral head with a detached 10.0 x 8.5 x 5.7 cm aggregate of cortes red bone and soft tissue. The femoral head has an attached 3.0 x 1.3 x 0.7 cm de leon white ligament. The articular surface is smooth to granular, cortes red with eburnation identified. The cut surface is cortes red, trabecular. Business Office Technician are submitted following decalcification in two cassettes labeled A1-A2. Microscopic Description Two glass slides with H E stained material have been examined. The microscopic findings support the above pathologic diagnosis. CPT Codes 07825, 87927 ---- ---- Specimen: [id number] Received: 04/27/22 Status: SHANTA Alcocer Num: [id number] Spec Type: Surgical Subm Dr: Chaka Pulido Jr, DO Tissues: A Femoral Head - Other than Fracture (RT HIP) Procedures: HE/2, Gross/Micro L3, Decalcification ---- Patient: Belén Keenan SR [id number] (Continued) ---- Signed (signature on file) Jax Mcdonald MD 05/01/22 1449 Normal [facility] XR low pelvis w/RT x-table h ipon 04-27-2022 XR low pelvis w/[place] [address] XRay Report Signed Patient: Belén Keenan SR MR#: [id number] : 1945 Acct:[id number] Age/Sex: 76 / M ADM Date: 04/27/22 Loc: Room: [address] [place] [address] Type: [facility] Attending Dr: Chaka Pulido Jr DO Copies to: Chaka Pulido Jr, DO Madhu Richardson PA-C Ordering Provider: Madhu Richardson PA-C Date of Service: 04/27/22 XR/XR low pelvis w/RT x-table hip: Total hip, do in PACU Right hip 2 views. Reason for exam: Postop right hip replacement. COMPARISON: Right hip series 04/10/2022. FINDINGS: Soft tissues demonstrate postoperative changes. No evidence of hardware complication. XR/XR low pelvis w/RT x-table hip IMPRESSION: No evidence of hardware complication. Impression dictated by: Salvador Freitas Jr., DDwaineODwaine04/27/2022 2:04 PM Dictation Location: [place] [address] Transcribed By: [facility] 04/27/221403 Dictated By: Salvador Freitas Jr, DO 04/27/221403 Signed By: 04/27/22 1404 [facility] PROF CHEM 8 (BAS METB)on Anion gap [Moles/Vol] 12.4 mmol/L Normal [facility] Comment on above: Performed By: #### B MP #### [facility] [address] [place] [address] Dr. Isha Haq Calcium [Mass/Vol] 9.5 mg/dL Normal 8.5-10.1 [place] Comment on above: Performed By: #### B MP #### [facility] [address] [address] [address] Isha Haq Chloride [Moles/Vol] 106 mmol/L Normal 98-107 [facility] Comment on above: Performed By: #### B MP #### [facility] [address] [address] [address] Isha Haq CO2 [Moles/Vol] 26.0 mmol/L Normal 21.0-32.0 [facility] Comment on above: Performed By: #### B MP #### [facility] [address] [address] [address] Isha Haq Creatinine [Mass/Vol] 0.75 mg/dL Normal 0.70-1.30 [facility] Comment on above: Performed By: #### B MP #### [facility] [address] [address] [address] Isha Haq EGFR-AF BERMUDIAN >60 Normal >=60 [facility] Comment on above: Performed By: #### B MP #### [facility] [address] [address] [address] Isha Haq EGFR-NON AF BERMUDIAN >60 Normal >=60 [facility] Comment on above: Performed By: #### B MP #### [facility] [address] [place] [address] Dr. Isha Haq Glucose [Mass/Vol] 104 mg/dL Normal 74-106 [facility] Comment on above: Performed By: #### B MP #### [facility] [address] [place] [address] Dr. Isha Haq Potassium [Moles/Vol] 4.4 mmol/L Normal 3.5-5.1 [facility] Comment on above: Performed By: #### B MP #### [facility] [address] [place] [address] Dr. Isha Haq Sodium [Moles/Vol] 140 mmol/L Normal 136-145 [facility] Comment on above: Performed By: #### B MP #### [facility] [address] [address] [address] Isha Haq Urea nitrogen [Mass/Vol] 15.0 mg/dL Normal 7.0-18.0 [facility] Comment on above: Performed By: #### B MP #### [facility] [address] [address] [address] Isha Haq Urea nitrogen/Creatinine [Mass ratio] 20.0 mg/mg Normal [facility] Comment on above: Performed By: #### B MP #### [facility] [address] [address] [address] Isha Haq Basic Metabolic Panelon 03-14 Anion gap [Moles/Vol] 13.6 mmol/L Normal 6.0-15.0 [facility] Comment on above: Performed By: #### B MP, CBC #### [facility] [address] Calcium [Mass/Vol] 9.6 mg/dL Normal 8.2-10.2 [facility] Comment on above: Result Comment: PERF ORMED BY: [place] [address] PATHOLOGIST OUTPATIENT PROGRAM COORDINATOR DELFIN GUEVARA M.D. Performed By: #### B MP, CBC #### [facility] [address] Chloride [Moles/Vol] 103 mmol/L Normal 95-114 [facility] Comment on above: Performed By: #### B MP, CBC #### [facility] [address] [place] [address] [place] CO2 [Moles/Vol] 24.9 mmol/L Normal 22.0-30.0 [facility] Comment on above: Performed By: #### B MP, CBC #### [facility] [address] [place] [address] [place] Creatinine [Mass/Vol] 0.67 mg/dL Normal 0.64-1.27 [facility] Comment on above: Performed By: #### B MP, CBC #### [facility] [address] [place] [address] [place] Estimated GFR ( Katie > 60 [facility] Comment on above: Result Comment: GFR estimated reference range: According to KDOQI guidelines, <60 ml/min/1.73m2 is sufficient to diagnose a patient with chronic kidney disease. Performed By: #### B MP, CBC #### [facility] [address] [place] [id number] [place] Estimated GFR (Non- Am > 60 Normal [facility] Comment on above: Performed By: #### B MP, CBC #### [facility] [address] Glucose [Mass/Vol] 100 mg/dL Normal 70-100 [facility] Comment on above: Result Comment: [place] Glucose Reference Range is dependent on time and content of last meal. Glucose of more than 200 mg/dL in a nonstressed, ambulatory subject supports the diagnosis of Diabetes Mellitus. ADA recommended reference range Performed By: #### B MP, CBC #### [facility] [address] Potassium [Moles/Vol] 4.5 mmol/L Normal 3.5-5.1 [facility] Comment on above: Performed By: #### B MP, CBC #### [facility] [address] Sodium [Moles/Vol] 137 mmol/L Normal 136-146 [facility] Comment on above: Performed By: #### B MP, CBC #### [facility] [address] Urea nitrogen [Mass/Vol] 18 mg/dL Normal 9-23 [facility] Comment on above: Performed By: #### B MP, CBC #### [facility] [address] Basophils Auto (Bld) [#/Vol] Ordered By: Chaka Pulido on 04-10-2022 Basophils (Bld) [#/Vol] 0.1 10*3/uL 0.0-0.2 [facility] Basophils/100 WBC Auto (Bld) Ordered By: Chaka Pulido on 04-10-2022 Basophils/100 WBC (Bld) 0.8 % . F [facility] Bilirubin Test strip Ql (U)O rdered By: Chaka Pulido on 04-10-2022 Bilirubin Ql (U) Negative Negative [facility] Color Auto (U)Ordered By: José Miguel Pulido on 04-10-2022 Color (U) Dark yellow Yellow [facility] Complete Blood Count Auto Di ffon 04-10-2022 Basophils (Bld) [#/Vol] 0.1 10*3/uL Normal 0.0-0.2 [facility] Comment on above: Result Comment: PERF ORMED BY: [place] [address] PATHOLOGIST OUTPATIENT PROGRAM COORDINATOR DELFIN GUEVARA M.D. Performed By: #### B MP, CBC #### [address] Basophils/100 WBC (Bld) 0.8 % Normal . F [facility] Comment on above: Performed By: #### B MP, CBC #### [place] [address] [place] Eosinophils (Bld) [#/Vol] 0.3 10*3/uL Normal 0.0-0.45 [facility] Comment on above: Performed By: #### B MP, CBC #### [address] Eosinophils/100 WBC (Bld) 2.9 % Normal . [facility] Comment on above: Performed By: #### B MP, CBC #### [address] Erythrocyte distribution width (RBC) [Ratio] 14.3 % Normal 12.0-14.8 [facility] Comment on above: Performed By: #### B MP, CBC #### [address] Hematocrit (Bld) [Volume fraction] 43.1 % Normal 38.8-50.0 [facility] Comment on above: Performed By: #### B MP, CBC #### [place] [address] [place] Hemoglobin (Bld) [Mass/Vol] 14.4 g/dL Normal 13.0-17.0 [facility] Comment on above: Performed By: #### B MP, CBC #### [address] Lymphocytes (Bld) [#/Vol] 1.7 10*3/uL Normal 1.00-4.8 [facility] Comment on above: Performed By: #### B MP, CBC #### [facility] [address] [place] [address] [place] Lymphocytes/100 WBC (Bld) 17.6 % Normal . [facility] Comment on above: Performed By: #### B MP, CBC #### [facility] [address] MCH (RBC) [Entitic mass] 30.9 pg Normal 27.5-35.2 [facility] Comment on above: Performed By: #### B MP, CBC #### [facility] [address] MCV (RBC) [Entitic vol] 92.2 fL Normal 83.5-101 F [facility] Comment on above: Performed By: #### B MP, CBC #### [facility] [address] Mean Corpuscular HGB Conc 33.5 g/dL Normal 32.5-35.6 [facility] Comment on above: Performed By: #### B MP, CBC #### [facility] [address] [place] [address] [place] Monocytes (Bld) [#/Vol] 1.1 10*3/uL High 0.0-0.8 [facility] Comment on above: Performed By: #### B MP, CBC #### [facility] [address] [place] [address] [place] Monocytes/100 WBC (Bld) 11.7 % Normal . F [facility] Comment on above: Performed By: #### B MP, CBC #### [facility] [address] [place] [address] [place] Neutrophils (Bld) [#/Vol] 6.5 10*3/uL Normal 1.8-7.7 [facility] Comment on above: Performed By: #### B MP, CBC #### [facility] [address] [place] [id number] [facility] Neutrophils/100 WBC (Bld) 67.0 % Normal . [facility] Comment on above: Performed By: #### B MP, CBC #### [facility] [address] NRBC% 0.1 /100{WBC} Normal 0-0.5 [facility] Comment on above: Performed By: #### B MP, CBC #### [facility] [address] Platelet mean volume (Bld) [Entitic vol] 7.5 fL Normal 6.6-10.1 [facility] Comment on above: Performed By: #### B MP, CBC #### [facility] [address] Platelets (Bld) [#/Vol] 197 10*3/uL Normal 150-450 [facility] Comment on above: Performed By: #### B MP, CBC #### [address] RBC (Bld) [#/Vol] 4.67 10*6/uL Normal 3.90-5.60 [facility] Comment on above: Performed By: #### B MP, CBC #### [facility] [address] [place] [address] [place] WBC (Bld) [#/Vol] 9.8 10*3/uL Normal 4.1-10.5 [facility] Comment on above: Performed By: #### B MP, CBC #### [address] Creatinine and Glomerular fi ltration rate.predicted panel (S/P/Bld)Ordered By: Chaka Pulido on 04-10-2022 Creatinine [Mass/Vol] 0.67 mg/dL 0.64-1.27 [facility] Eosinophils Auto (Bld) [#/Vo l]Ordered By: Chaka Pulido on 04-10-2022 Eosinophils (Bld) [#/Vol] 0.3 10*3/uL 0.0-0.45 [facility] Eosinophils/100 WBC Auto (Bl d)Ordered By: Chaka Pulido on 04-10-2022 Eosinophils/100 WBC (Bld) 2.9 % . [facility] Erythrocyte distribution wid th Auto (RBC) [Ratio]Ordered By: Chaka Pulido on 04-10-2022 Erythrocyte distribution width (RBC) [Ratio] 14.3 % 12.0-14.8 [facility] Estimated glomerular filtrat ion rate (GFR) non- AmericanOrdered By: Chaka Pulido on 04-10-2022 GFR/1.73 sq M.predicted among non-blacks MDRD (S/P/Bld) [Vol rate/Area] > 60 mL/Min [facility] Hematocrit Auto (Bld) [Volum e fraction]Ordered By: Chaka Pulido on 04-10-2022 Hematocrit (Bld) [Volume fraction] 43.1 % 38.8-50.0 [facility] Hemoglobin [Mass/volume] in BloodOrdered By: Chaka Pulido on 04-10-2022 Hemoglobin (Bld) [Mass/Vol] 14.4 g/dL 13.0-17.0 [facility] Ketones Auto test strip (U) [Mass/Vol]Ordered By: Chaka Pulido on 04-10-2022 Ketones (U) [Mass/Vol] Trace Negative Fi [facility] Leukocytes [#/volume] correc trena for nucleated erythrocytes in Blood by Automated counOrdered By: Chaka Pulido on 04-10-2022 WBC corrected for nucl RBC Auto (Bld) [#/Vol] 9.8 10*3/uL 4.1-10.5 [facility] Lymphocytes Auto (Bld) [#/Vo l]Ordered By: Chaka Pulido on 04-10-2022 Lymphocytes (Bld) [#/Vol] 1.7 10*3/uL 1.00-4.8 [facility] Lymphocytes/100 WBC Auto (Bl d)Ordered By: Chaka Pulido on 04-10-2022 Lymphocytes/100 WBC (Bld) 17.6 % . [facility] MCH Auto (RBC) [Entitic mass ]Ordered By: Chaka Pulido on 04-10-2022 MCH (RBC) [Entitic mass] 30.9 pg 27.5-35.2 [facility] MCHC Auto (RBC) [Mass/Vol]Or dered By: Chaka Pulido on 04-10-2022 MCHC (RBC) [Mass/Vol] 33.5 g/dL 32.5-35.6 [facility] MCV Auto (RBC) [Entitic vol] Ordered By: Chaka Pulido on 04-10-2022 MCV (RBC) [Entitic vol] 92.2 fL 83.5-101 F [facility] Monocytes Auto (Bld) [#/Vol] Ordered By: Chaka Pulido on 04-10-2022 Monocytes (Bld) [#/Vol] 1.1 10*3/uL 0.0-0.8 [facility] Monocytes/100 WBC Auto (Bld) Ordered By: Chaka Pulido on 04-10-2022 Monocytes/100 WBC (Bld) 11.7 % . F [facility] Neutrophils Auto (Bld) [#/Vo l]Ordered By: Chaka Pulido on 04-10-2022 Neutrophils (Bld) [#/Vol] 6.5 10*3/uL 1.8-7.7 [facility] Neutrophils/100 WBC Auto (Bl d)Ordered By: Chaka Pulido on 04-10-2022 Neutrophils/100 WBC (Bld) 67.0 % . [facility] Nitrite Test strip Ql (U)Ord ered By: Chaka Pulido on 04-10-2022 Nitrite Ql (U) Negative Negative [facility] No Panel InformationOrdered By: Chaka Puldio on 04-10-2022 Estimated GFR () > 60 mL/Min [facility] Comment on above: GFR estimated refere nce range: According to KDOQI guidelines, <60 ml/min/1.73m2 is sufficient to diagnose a patient with chronic kidney disease. Pharmacy Creatinine Clearance (Chem N/A [facility] Nucleated erythrocytes [Pres ence] in Blood by Automated countOrdered By: Chaka Pulido on 04-10-2022 Nucleated RBC Auto Ql (Bld) 0.1 /100{WBC} 0-0.5 [facility] Platelet mean volume Auto (B ld) [Entitic vol]Ordered By: Chaka Pulido on 04-10-2022 Platelet mean volume (Bld) [Entitic vol] 7.5 fL 6.6-10.1 [facility] Platelets Auto (Bld) [#/Vol] Ordered By: Chaka Pulido on 04-10-2022 Platelets (Bld) [#/Vol] 197 10*3/uL 150-450 [facility] Protein Auto test strip (U) [Mass/Vol]Ordered By: Chaka Pulido on 04-10-2022 Protein (U) [Mass/Vol] Negative Negative [facility] RBC Auto (Bld) [#/Vol]Ordere d By: Chaka Pulido on 04-10-2022 RBC (Bld) [#/Vol] 4.67 10*6/uL 3.90-5.60 [facility] Serum or plasma anion gap de terminationOrdered By: Chaka Pulido on 04-10-2022 Anion gap [Moles/Vol] 13.6 mmol/L 6.0-15.0 [facility] Serum or plasma calcium ernesto urement (mass/volume)Ordered By: Chaka Pulido on 04-10-2022 Calcium [Mass/Vol] 9.6 mg/dL 8.2-10.2 [facility] Serum or plasma chloride cristina surement (moles/volume)Ordered By: Chaka Pulido on 04-10-2022 Chloride [Moles/Vol] 103 mmol/L 95-114 [facility] Serum or plasma glucose ernesto urement (mass/volume)Ordered By: Chaka Pulido on 04-10-2022 Glucose [Mass/Vol] 100 mg/dL 70-100 [facility] Comment on above: ADA recommended refe rence rangeRandom Glucose Reference Range is dependent on time and content of last meal. Glucose of more than 200 mg/dL in a nonstressed, ambulatory subject supports the diagnosis of Diabetes Mellitus. Serum or plasma potassium me asurement (moles/volume)Ordered By: Chaka Pulido on 04-10-2022 Potassium [Moles/Vol] 4.5 mmol/L 3.5-5.1 [facility] Serum or plasma sodium measu rement (moles/volume)Ordered By: Chaka Pulido on 04-10-2022 Sodium [Moles/Vol] 137 mmol/L 136-146 [facility] Serum or plasma total carbon dioxide measurement (moles/volume)Ordered By: Chaka Pulido on 04-10-2022 CO2 [Moles/Vol] 24.9 mmol/L 22.0-30.0 [facility] Serum or plasma urea nitroge n measurement (mass/volume)Ordered By: Chaka Pulido on 04-10-2022 Urea nitrogen [Mass/Vol] 18 mg/dL 9-23 [facility] Specific gravity Auto test s trip (U) [Rel density]Ordered By: Chaka Pulido on 04-10-2022 Specific gravity (U) [Rel density] 1.030 1.001-1.030 [facility] Urinalysison 04-10-2022 Appearance (U) Clear Normal Clear [facility] Comment on above: Order Comment: Comme nt do C S if indicated by + UA Name Collection Type:: Clean-Voided Midstream Performed By: #### U A #### [facility] [address] [place] [address] Bilirubin,Urine Negative Normal Negative [facility] Comment on above: Order Comment: Comme nt do C S if indicated by + UA Name Collection Type:: Clean-Voided Midstream Performed By: #### U A #### [facility] [address] [place] [address] [place] Color (U) Dark Yellow Critically abnormal Yellow [facility] Comment on above: Order Comment: Comme nt do C S if indicated by + UA Name Collection Type:: Clean-Voided Midstream Performed By: #### U A #### [facility] [address] [place] [address] [place] Glucose Ql (U) Normal Normal Normal [facility] Comment on above: Order Comment: Comme nt do C S if indicated by + UA Name Collection Type:: Clean-Voided Midstream Performed By: #### U A #### [facility] [address] [place] [address] [place] Ketones Ql (U) Trace High Negative [facility] Comment on above: Order Comment: Comme nt do C S if indicated by + UA Name Collection Type:: Clean-Voided Midstream Performed By: #### U A #### [facility] [address] [place] [address] [place] Leukocyte esterase Test strip Ql (U) Negative Normal Negative [facility] Comment on above: Order Comment: Comme nt do C S if indicated by + UA Name Collection Type:: Clean-Voided Midstream Performed By: #### U A #### [facility] [address] [place] [address] Nitrite,Urine Negative Normal Negative [facility] Comment on above: Order Comment: Comme nt do C S if indicated by + UA Name Collection Type:: Clean-Voided Midstream Performed By: #### U A #### [address] Occult Blood,Urine Negative Normal Negative [facility] Comment on above: Order Comment: Comme nt do C S if indicated by + UA Name Collection Type:: Clean-Voided Midstream Result Comment: PERF ORMED BY: [place] [address] PATHOLOGIST OUTPATIENT PROGRAM COORDINATOR DELFIN GUEVARA M.D. Performed By: #### U A #### [address] pH (U) 5.5 [pH] Normal 5.0-9.0 [facility] Comment on above: Order Comment: Comme nt do C S if indicated by + UA Name Collection Type:: Clean-Voided Midstream Performed By: #### U A #### [facility] [address] [place] [address] Protein,Urine Negative Normal Negative [facility] Comment on above: Order Comment: Comme nt do C S if indicated by + UA Name Collection Type:: Clean-Voided Midstream Performed By: #### U A #### [facility] [address] [place] [address] Specificy [place],Urine 1.030 Normal 1.001-1.030 [facility] Comment on above: Order Comment: Comme nt do C S if indicated by + UA Name Collection Type:: Clean-Voided Midstream Performed By: #### U A #### [address] Urobilinogen,Urine Normal Normal Normal [facility] Comment on above: Order Comment: Comme nt do C S if indicated by + UA Name Collection Type:: Clean-Voided Midstream Performed By: #### U A #### [facility] [address] [place] [address] [place] Urine Cultureon 04-10-2022 Bacteria identified Cx Nom (U) Comment do if indicated by + UA No Growth 2 Days PERFORMED BY: [place] [address] PATHOLOGIST OUTPATIENT PROGRAM COORDINATOR DELFIN GUEVARA M.D. [facility] Comment on above: Performed By: #### C UU #### [facility] [address] [place] [address] Urine clarity by refractomet ry automatedOrdered By: Chaka Pulido on 04-10-2022 Clarity Refractometry automated (U) Clear Clear [facility] Urine culture routineOrdered By: Chaka Pulido on 04-10-2022 Bacteria identified Cx Nom (U) No Growth 2 Days [facility] Urine glucose measurement by automated test strip (mass/volume)Ordered By: Chaka Pulido on 04-10-2022 Glucose Auto test strip (U) [Mass/Vol] Normal mg/dL Normal [facility] Urine hemoglobin detection b y automated test stripOrdered By: Chaka Pulido on 04-10-2022 Hemoglobin Auto test strip Ql (U) Negative Negative [facility] Urine leukocyte esterase det ection by automated test stripOrdered By: Chaka Pulido on 04-10-2022 Leukocyte esterase Auto test strip Ql (U) Negative Negative [facility] Urobilinogen Auto test strip (U) [Mass/Vol]Ordered By: Chaka Pulido on 04-10-2022 Urobilinogen (U) [Mass/Vol] Normal mg/dL Normal [facility] WBC Auto (Bld) [#/Vol]Ordere d By: Chaka Pulido on 04-10-2022 WBC (Bld) [#/Vol] 9.8 10*3/uL 4.1-10.5 [facility] XR hip RT min 2V(w/wo pelvis )*on 04-10-2022 XR hip RT min 2V(w/wo pelvis)* [facility] Main [place] [address] [place] [address] XRay Report Signed Patient: Belén Keenan SR MR#: [id number] : 1945 Acct:[id number] Age/Sex: 76 / M ADM Date: 04/10/22 Loc: Room: Type: [facility] Attending Dr: Chaka Pulido Jr DO Copies to: Chaka Pulido Jr, DO Ordering Provider: Chaka Pulido Jr, DO Date of Service: 04/10/22 XR/XR hip RT min 2V(w/wo pelvis)*: PST XR hip RT min 2V(w/wo pelvis)* 04/10/2022 12:24 PM SIGNS AND SYMPTOMS: Presurgical testing right hip arthroplasty PROTOCOL: Frontal radiograph of the pelvis with frontal and frog-leg views of the right hip COMPARISON: None. FINDINGS: There is moderate narrowing of the right hip joint space is mild narrowing of the left hip joint space. There is no fracture or dislocation. The visualized bony pelvis is intact. XR/XR hip RT min 2V(w/wo pelvis)* IMPRESSION: No fracture or dislocation. Degenerative changes are noted right greater than left. Impression dictated by: Damien Ball M.D.04/10/2022 3:12 PM Dictation Location: [place] [address] Transcribed By: [facility] 04/10/22 1512 Dictated By: Damien Ball II, MD 04/10/22 1509 Signed By: 04/10/22 151 Normal [facility] pH Auto test strip (U)Ordere d By: Chaka Pulido on 04-10-2022 pH (U) 5.5 [pH] 5.0-9.0 [facility] HPon 02-08-2022 HP Doing very well; no new symptoms from a cardiac standpoint Shared the fact that he is still depressed 5 years after his ; they have been for 41-1/2 years. He is on antidepressants. Echocardiogram 10/05/2020 Global left ventricular systolic function is normal with akinesia of the basal inferolateral wall. Mildly dilated right ventricle with mildly reduced systolic function. Grade 3 diastolic dysfunction. Mild aortic regurgitation. Mitral valve s/p ring repair with normal function. Moderately elevated right-sided pressures. No pericardial effusion. Labs 04/05/2021: Creatinine 0.75 LFTs normal Cholesterol 157, HDL 42, triglycerides 205, LDL 74 The patient requires upcoming knee surgery ROS Patient reports no dry eyes and no irritation; diplopia. He reports difficulty hearing but reports no ear pain. He reports arthralgias/joint pain and back pain but reports no muscle aches, no muscle weakness, and no swelling in the extremities. He reports no chest pressure, no lightheadedness, no chest pain, no dyspnea on exertion, no fatigue, no leg edema, no syncope, no orthopnea, no palpitations, no PND, no shortness of breath, and no claudication. He reports no fever, no night sweats, no significant weight gain, no significant weight loss, and no exercise intolerance. He reports no frequent nosebleeds and no nose/sinus problems. He reports no sore throat, no bleeding gums, no snoring, no dry mouth, no mouth ulcers, no oral abnormalities, and no teeth problems. He reports no cough, no wheezing, no coughing up blood, and no sleep apnea. He reports no rash, no ulcer, no varicosities, no discoloration, and no pruritus. He reports no loss of consciousness, no weakness, no numbness, no seizures, no dizziness, and no headaches. He reports no depression, no sleep disturbances, feeling safe in relationship, and no alcohol abuse. He reports no swollen glands and no bruising. Physical Exam Basic Cardio PE: HEENT: normal thyroid, no bruit, and JVP < 6. Lungs: clear to auscultation. Cardio: no murmurs or gallops and s1 normal and s2 normal; RRR. Abdomen: non tender or distended and soft, normal bowel sounds, and no bruit; obese. Extremities: no edema and pulses 2+. Procedure Documentation None recorded. Patient: BELÉN KEENAN Exam Date: 01/11/2022 : 1945 Gender:M Ordering : DR DIYA BROWN M.D. Admission #: [id number] Family : Order #: [id number] CLICK HERE TO VIEW EXAM RADIOLOGY REPORT PROCEDURE: RADIONUCLIDE IMAGING STRESS/REST MULTI COMPARISON: None. INDICATIONS: Atherosclerosis of coronary artery without angina pectoris, TECHNIQUE: Exam Description: Stress/Rest one day protocol gated SPECT Rest Imagin.7 mCi Tc-99m Cardiolite IV on 01/11/2022 Stress Imaging 32.6 mCi Tc-99m Cardiolite IV on 01/11/2022 Exercise Protocol: 0.4 mg Lexiscan given IV Heart Rate (bpm): Rest: 62 Max: 70 PMHR: 48 Blood Pressure: Rest: 150/84 Max: 150/84 Symptoms: Rest and peak stress ECG findings were non-diagnostic and the exercise portion of the study was Non-diagnostic per attending physician Dr. Stein . For more details please see separate cardiac stress test report. FINDINGS: QUALITY OF STUDY: Good. PERFUSION DEFECT: LOCATION: Basal inferior. Mid-inferior. Apical inferior. [place]. SIZE: Medium (3-4 segments). SEVERITY: Moderate. TYPE: Mixed. WALL MOTION: Normal. LV SIZE: Enlarged; EDV 150 mL. TID / TCD: None; 0.9 LVEF: Normal. Calculated EF 60%. SUMMARY: Myocardial perfusion imaging study has ABNORMAL findings. CONCLUSION: 1. Moderate-sized moderate severity perfusion abnormality in the inferior wall, RCA distribution with suspected reversible ischemia in the basal inferior segment 2. Dilated left ventricle with end-diastolic volume of 152 milliliters 3. Nondiagnostic exercise test Dictated by: Marion Luis MD on 01/12/2022 at 07:01 Approved by: Marion Luis MD on 01/12/2022 at 07:05 Assessment / Plan 1. Coronary atherosclerosis - s/p CABG 2007 Denies any angina Continue ASA, statin, BB I25.10: Atherosclerotic heart disease of [place] coronary artery without angina pectoris 2. Mitral valve disorder - s/p Mitral ring I34.9: Nonrheumatic mitral valve disorder, unspecified MITRAL VALVE STENOSIS: CARE INSTRUCTIONS 3. Tricuspid valve disorder, non-rheumatic I36.9: Nonrheumatic tricuspid valve disorder, unspecified HEART VALVE DISEASE: CARE INSTRUCTIONS 4. Dyspnea on exertion - Stable R06.09: Other forms of dyspnea 5. Left ventricular diastolic dysfunction I50.30: Unspecified diastolic (congestive) heart failure 6. Preoperative evaluation; abnormal stress test Discussion Notes Plan: Given the need for better risk stratification prior to upcoming surgery and the abnormal stress test, we will proceed with coronary and graft angiography. Risks, benefits, and alternatives discussed with the patient. He understands (more content not included)... [facility] CBC AUTO DIFFon 02-06-2022 BASO # 0.0 103/ul Normal 0.0-0.1 [facility] Comment on above: Performed By: #### C BC #### [facility] [address] [place] [address] Dr. Isha Haq Basophils/100 WBC (Bld) 0.4 % Normal 0.2-2.0 [facility] Comment on above: Performed By: #### C BC #### [facility] [address] [place] [address] Dr. Isha Haq EO # 0.3 103/ul Normal 0.0-0.7 [facility] Comment on above: Performed By: #### C BC #### [facility] [address] [place] [address] Dr. Isha Haq Eosinophils/100 WBC (Bld) 3.8 % Normal 0.9-7.0 [facility] Comment on above: Performed By: #### C BC #### [facility] [address] [place] [address] Dr. Isha Haq Erythrocyte distribution width (RBC) [Ratio] 13.2 % Normal 11.0-15.0 [facility] Comment on above: Performed By: #### C BC #### [facility] [address] [place] [address] Dr. Isha Haq Hematocrit (Bld) [Volume fraction] 43.0 % Normal 42.0-54.0 [facility] Comment on above: Performed By: #### C BC #### [facility] [address] [place] [address] Dr. Isha Haq Hemoglobin (Bld) [Mass/Vol] 14.3 g/dL Normal 14.0-18.0 [facility] Comment on above: Performed By: #### C BC #### [facility] [address] [place] [address] Dr. Isha Haq IG # 0.04 10e3/ul Critically high 0.00-0.03 [facility] Comment on above: Performed By: #### C BC #### [facility] [address] [place] [address] Dr. Isha Haq IG % 0.4 % Normal 0.0-0.5 [facility] Comment on above: Performed By: #### C BC #### [facility] [address] [place] [address] Dr. Isha Haq LYMPH # 1.9 103/ul Normal 1.2-3.8 [facility] Comment on above: Performed By: #### C BC #### [facility] [address] [place] [address] Dr. Isha Haq Lymphocytes/100 WBC (Bld) 21.0 % Normal 20.5-60.0 [facility] Comment on above: Performed By: #### C BC #### [facility] [address] [place] [address] Dr. Isha Haq MANUAL DIFF REQ NO Normal [facility] Comment on above: Performed By: #### C BC #### [facility] [address] [place] [address] Dr. Isha Haq MCH (RBC) [Entitic mass] 30.4 pg Normal 25.9-34.0 [facility] Comment on above: Performed By: #### C BC #### [facility] [address] [place] [address] Dr. Isha Haq MCHC (RBC) [Mass/Vol] 33.3 g/dL Normal 29.9-35.2 [facility] Comment on above: Performed By: #### C BC #### [facility] [address] [place] [address] Dr. Isha Haq MCV (RBC) [Entitic vol] 91.3 fL Normal 80.0-94.0 [facility] Comment on above: Performed By: #### C BC #### [facility] [address] [place] [address] Dr. Isha Haq MONO # 1.0 103/ul Critically high 0.3-0.8 [facility] Comment on above: Performed By: #### C BC #### [facility] [address] [place] [address] [address] Isha Haq Monocytes/100 WBC (Bld) 11.4 % Normal 1.7-12.0 [facility] Comment on above: Performed By: #### C BC #### [facility] [address] [place] [address] Dr. Isha Haq NEUT # 5.6 103/ul Normal 1.4-6.5 [facility] Comment on above: Performed By: #### C BC #### [facility] [address] [place] [address] Dr. Isha Haq Neutrophils/100 WBC (Bld) 63.0 % Normal 43.0-75.0 [facility] Comment on above: Performed By: #### C BC #### [facility] [address] [place] [address] Dr. Isha Haq Platelet mean volume (Bld) [Entitic vol] 11.2 fL Normal 9.5-13.5 [facility] Comment on above: Performed By: #### C BC #### [facility] [address] [place] [address] Dr. Isha Haq PLT 191 103/ul Normal 150-450 [facility] Comment on above: Performed By: #### C BC #### [facility] [address] [place] [address] Dr. Isha Haq RBC 4.71 106/ul Normal 4.70-6.10 [facility] Comment on above: Performed By: #### C BC #### [facility] [address] [place] [address] Dr. Isha Haq WBC 8.9 103/ul Normal 4.0-11.0 [facility] Comment on above: Performed By: #### C BC #### [facility] [address] [place], [place] [id number] Dr. Isha Haq LIPID PROFILEon 02-06-2022 CHOL-HDL RATIO NORM SEE BELOW Normal [facility] Comment on above: Result Comment: 3.3 - 4.4 LOW RISK 4.4 - 7.1 AVERAGE RISK 7.1 - 11.0 MODERATE RISK >11.0 HIGH RISK Performed By: #### P SAD #### [facility] [address] [place] [address] [address] Isha Haq Cholesterol [Mass/Vol] 120 mg/dL Normal <=200 Th [facility] Comment on above: Performed By: #### P SAD #### [facility] [address] [address] [address] Isha Haq Cholesterol in HDL [Mass/Vol] 42 mg/dL Normal 40-60 [facility] Comment on above: Performed By: #### P SAD #### [facility] [address] [address] [address] Isha Haq Cholesterol in LDL [Mass/Vol] 46.2 mg/dL Normal [facility] Comment on above: Performed By: #### P SAD #### [facility] [address] [address] [address] Isha Haq Cholesterol.total/Domi sterol in HDL [Mass ratio] 2.9 {ratio} Normal [facility] Comment on above: Performed By: #### P SAD #### [facility] [address] [address] [address] Isha Haq HDL NORMAL > or = 60 mg/dl - LO W CARDIOVASCULAR RISK <40 mg/dl - HIGH CARDIOVASCULAR RISK Normal [facility] Comment on above: Performed By: #### P SAD #### [facility] [address] [address] [address] Isha Haq LDL CALC NORMAL SEE BELOW Normal [facility] Comment on above: Result Comment: <100 mg/dl OPTIMAL 100 - 129 mg/dl NEAR OR ABOVE OPTIMAL 130 - 159 mg/dl BORDERLINE HIGH 160 - 189 mg/dl HIGH >190 mg/dl VERY HIGH Performed By: #### P SAD #### [facility] [address] [address] [address] Isha Haq Triglyceride [Mass/Vol] 159 mg/dL Critically high <=150 [facility] Comment on above: Performed By: #### P SAD #### [facility] [address] [address] [address] Isha Haq VLDL CALC 31.8 mg/dL Normal [facility] Comment on above: Performed By: #### P SAD #### [facility] [address] [address] [address] Isha Haq PROF 14(COMP METB)on 02-06- 022 Albumin [Mass/Vol] 3.2 g/dL Critically low 3.4-5.0 [facility] Comment on above: Performed By: #### L IPID, CMP #### [facility] [address] [address] [address] Isha Haq Albumin/Globulin [Mass ratio] 0.8 {ratio} Normal [facility] Comment on above: Performed By: #### L IPID, CMP #### [facility] [address] [place] [address] Dr. Isha Haq ALP [Catalytic activity/Vol] 115 U/L Normal 46-116 [facility] Comment on above: Performed By: #### L IPID, CMP #### [facility] [address] [place] [address] Dr. Isha Haq ALT [Catalytic activity/Vol] 28 U/L Normal 16-63 [facility] Comment on above: Performed By: #### L IPID, CMP #### [facility] [address] [place] [address] Dr. Isha Haq Anion gap [Moles/Vol] 10.7 mmol/L Normal Th [facility] Comment on above: Performed By: #### L IPID, CMP #### [facility] [address] [address] [address] Isha Haq AST [Catalytic activity/Vol] 48 U/L Critically high 15-37 [facility] Comment on above: Performed By: #### L IPID, CMP #### [facility] [address] [address] [address] Isha Haq Bilirubin [Mass/Vol] 0.9 mg/dL Normal 0.2-1.0 [facility] Comment on above: Performed By: #### L IPID, CMP #### [facility] [address] [place] [address] Dr. Isha Haq Calcium [Mass/Vol] 9.2 mg/dL Normal 8.5-10.1 [facility] Comment on above: Performed By: #### L IPID, CMP #### [facility] [address] [place] [address] Dr. Isha Haq Chloride [Moles/Vol] 107 mmol/L Normal 98-107 [facility] Comment on above: Performed By: #### L IPID, CMP #### [facility] [address] [place] [address] Dr. Isha Haq CO2 [Moles/Vol] 24.5 mmol/L Normal 21.0-32.0 [facility] Comment on above: Performed By: #### L IPID, CMP #### [facility] [address] [place] [address] Dr. Isha Haq Creatinine [Mass/Vol] 0.52 mg/dL Critically low 0.70-1.30 [facility] Comment on above: Performed By: #### L IPID, CMP #### [facility] [address] [place] [address] Dr. Isha Haq EGFR-AF BERMUDIAN >60 Normal >=60 [facility] Comment on above: Performed By: #### L IPID, CMP #### [facility] [address] [place] [address] Dr. Isha Haq EGFR-NON AF BERMUDIAN >60 Normal >=60 [facility] Comment on above: Performed By: #### L IPID, CMP #### [facility] [address] [place] [address] Dr. Isha Haq Globulin (S) [Mass/Vol] 3.8 g/dL Normal T [facility] Comment on above: Performed By: #### L IPID, CMP #### [facility] [address] [place] [address] Dr. Isha Haq Glucose [Mass/Vol] 104 mg/dL Normal 74-106 [place] Comment on above: Performed By: #### L IPID, CMP #### [facility] [address] [place] [address] Dr. Isha Haq Potassium [Moles/Vol] 5.2 mmol/L Critically high 3.5-5.1 [facility] Comment on above: Performed By: #### L IPID, CMP #### [facility] [address] [place] [address] Dr. Isha Haq Protein [Mass/Vol] 7.0 g/dL Normal 6.4-8.2 [place] Comment on above: Performed By: #### L IPID, CMP #### [facility] [address] [place] [address] Dr. Isha Haq Sodium [Moles/Vol] 137 mmol/L Normal 136-145 [facility] Comment on above: Performed By: #### L IPID, CMP #### [facility] [address] [place] [address] Dr. Isha Haq Urea nitrogen [Mass/Vol] 25.0 mg/dL Critically high 7.0-18.0 [facility] Comment on above: Performed By: #### L IPID, CMP #### [facility] [address] [place] [address] Dr. Isha Haq Urea nitrogen/Creatinine [Mass ratio] 48.1 mg/mg Normal [facility] Comment on above: Performed By: #### L IPID, CMP #### [facility] [address] [place] [address] Dr. Isha Haq CARDIAC STRESS TESTon 2021 CARDIAC STRESS TEST CARDIAC STRESS TEST OPERATION DATE: 01/12/2022 SURGEON: Tl Kim M.D. PREOPERATIVE DIAGNOSIS: Nuclear sclerotic cataract right eye. POSTOPERATIVE DIAGNOSIS: Nuclear sclerotic cataract right eye. PROCEDURE: Cataract extraction with intraocular lens placed for the right eye. ANESTHESIA: Topical. ESTIMATED BLOOD LOSS: Zero. COMPLICATIONS: None. PROCEDURE: The patient was brought to the Operating Room in supine position. After proper identification, the right eye was prepped and draped in a sterile ophthalmic fashion. A paracentesis was created at the 11 o'clock position. Approximately 1 mL of unpreserved Xylocaine was injected into the anterior chamber followed by Amvisc Plus. Using a 2.6 mm Keratome blade, a clear corneal incision was created at the 9 o'clock limbus. A cystotome was then used to begin a curvilinear capsulorrhexis that was continued for 360 degrees with the Utrata forceps. BSS on a 26 gauge cannula was injected beneath the anterior capsule to hydrodissect as well as hydrodelineate the lens. After ensuring mobility, phacoemulsification was performed in a jdhdwpl-cax-yaceum-typ e fashion. After all nuclear material had been removed from the eye, IA was introduced and all residual cortical material was cleaned up. Additional Amvisc Plus was injected into the posterior bag and a lens model MX60, 23.0 diopters was injected and dialed into position. After ensuring centration, IA was reintroduced into the anterior chamber and all residual Amvisc Plus removed from the eye. BSS on a 30 gauge cannula was injected into the stroma of both the clear corneal incision as well as paracentesis to hydrate the wounds. Additional BSS was injected into the anterior chamber to pressurize the eye at approximately 20 to 22 mmHg by finger tension. 0.1 mL of antibiotic was injected into the anterior chamber. Weck-Lamar sponges were used to check the wounds to be watertight. One drop of apraclonidine and one drop of prednisolone acetate were placed into the eye and a shield was placed over top. The patient was sent to the postoperative area in satisfactory condition to follow up the following day for postoperative care. Normal [facility] NM STRESS/REST MULTIon 01-11 IN STRESS/REST MULTI Patient: KEVYN KEENAN Exam Date: 01/11/2022 : 1945 Gender:M Ordering : DR DIYA BROWN M.D. Admission #: [id number] Family : Order #: [id number] CLICK HERE TO VIEW EXAM RADIOLOGY REPORT PROCEDURE: RADIONUCLIDE IMAGING STRESS/REST MULTI COMPARISON: None. INDICATIONS: Atherosclerosis of coronary artery without angina pectoris, TECHNIQUE: Exam Description: Stress/Rest one day protocol gated SPECT Rest Imagin.7 mCi Tc-99m Cardiolite IV on 01/11/2022 Stress Imaging 32.6 mCi Tc-99m Cardiolite IV on 01/11/2022 Exercise Protocol: 0.4 mg Lexiscan given IV Heart Rate (bpm): Rest: 62 Max: 70 PMHR: 48 Blood Pressure: Rest: 150/84 Max: 150/84 Symptoms: Rest and peak stress ECG findings were non-diagnostic and the exercise portion of the study was Non-diagnostic per attending physician Dr. Stein . For more details please see separate cardiac stress test report. FINDINGS: QUALITY OF STUDY: Good. PERFUSION DEFECT: LOCATION: Basal inferior. Mid-inferior. Apical inferior. [place]. SIZE: Medium (3-4 segments). SEVERITY: Moderate. TYPE: Mixed. WALL MOTION: Normal. LV SIZE: Enlarged; EDV 150 mL. TID / TCD: None; 0.9 LVEF: Normal. Calculated EF 60%. SUMMARY: Myocardial perfusion imaging study has ABNORMAL findings. CONCLUSION: 1. Moderate-sized moderate severity perfusion abnormality in the inferior wall, RCA distribution with suspected reversible ischemia in the basal inferior segment 2. Dilated left ventricle with end-diastolic volume of 152 milliliters 3. Nondiagnostic exercise test Dictated by: Marion Luis MD on 01/12/2022 at 07:01 Approved by: Marion Luis MD on 01/12/2022 at 07:05 Normal [facility] MRI [facility] WO CONon 11-01-20 22 MRI [facility] WO CON EXAMINATION: MRI LSSTAPLES WO CON HISTORY: Low back pain COMPARISON: 10/18/2015 TECHNIQUE: A variety of imaging planes and parameters were utilized for visualization of suspected pathology. FINDINGS: For the purposes of numbering, sagittal T2 image # 9 extends from the 11th vertebral body superiorly to the S2-S3 level inferiorly. PARASPINAL AREA: Normal with no visible mass. BONES: Mild dextrocurvature. Moderate to severe diffuse degenerative spondylosis and facet osteoarthropathy. Modic 2 and 3 changes to the L1, L2, L4 and L5 vertebral bodies. Heterogeneous appearance of the marrow likely age-related CORD/CAUDA EQUINA: Normal caliber, contour, and signal intensity. DISC LEVELS: 12-L1: Early degenerative disc disease is present without focal protrusion or neural impingement. L1-L2: Disc collapse with endplate sclerosis. Moderate diffuse disc protrusion extending posteriorly up to 4.5 mm. And endplate hypertrophy. Moderate trefoil narrowing of the central canal. No right, mild to moderate left foraminal stenosis L2-L3: Mild disc space narrowing and disc desiccation. Mild diffuse disc/osteophyte complex and facet osteoarthropathy. No central canal stenosis. No right foraminal stenosis. Mild to moderate left foraminal stenosis L3-L4: Moderate disc space narrowing and disc desiccation. Moderate diffuse disc/osteophyte complex with right foraminal disc protrusion extending up to 3.5 mm. Ligamentum flavum hypertrophy and facet osteoarthropathy. Mild trefoil narrowing of the central canal. Moderate bilateral foraminal stenosis L4-L5: Moderate disc space narrowing and disc desiccation. Broad-based posterior disc herniation of the protrusion type extending posteriorly up to 5.7 mm. Moderate bilateral facet osteoarthropathy. No central canal stenosis. Moderate bilateral foraminal stenosis. L5-S1: Severe disc space narrowing and disc desiccation. Broad-based posterior central disc herniation the protrusion type measuring up to 4.4 mm. Facet osteoarthropathy. No central canal stenosis. Mild right and moderate left foraminal stenosis IMPRESSION: Progression of extensive degenerative changes with central and foraminal stenosis at multiple levels as detailed above Electronically authenticated by: MARION LUIS Date: 2021-11-01 18:11 Normal [facility] XR FOREIGN BODY EYEon 2021 XR FOREIGN BODY EYE EXAMINATION: XR FOREIGN BODY EYE HISTORY: Foreign body in eye COMPARISON: No relevant comparison available. FINDINGS: ORBITS: Negative for a metallic foreign body. OTHER: Negative. IMPRESSION: No metallic foreign body in the orbits Electronically authenticated by: MARION LUIS Date: 2021-11-01 10:33 Normal [facility] XR LSPINE 2_3 VIEWSon 2021 XR LSPINE 2_3 VIEWS EXAMINATION: XR LSPI NE 2_3 VIEWS HISTORY: Low back pain , chronic COMPARISON: MRI lumbar spine 10/18/2015 FINDINGS: BONES: Mild right convex curvature of the thoracolumbar spine. No fracture or spondylolisthesis. Moderate degenerative facet arthropathy L4-5, L5-S1. DISC SPACES: Moderate or greater narrowing at all lumbar levels and posterior disc-osteophyte complexes. Marked narrowing L5-S1. PARASPINOUS: Atherosclerotic disease of aorta without visible aneurysm. OTHER: Negative. IMPRESSION: 1. Multilevel moderate marked degenerative disc disease and moderate degenerative facet arthropathy likely narrowing the central canal and neural foramen. Allowing for differences in technique, findings have progressed since 2015. Electronically authenticated by: RHONDA STEVENSON Date: 2021-08-03 12:18 Normal [facility] Cult,Urineon 05-05-2020 Cult,Urine Specimen Description .CLEAN CATCH URINE Special Requests NOT REPORTED Culture NO GROWTH Report Status FINAL 05/05/2020 [facility] Comment on above: Performed By: #### U RC #### [facility] [address] [place], [place] [id number] Computer Consultant: Mendez Cabello MD [address] [place] [address] Computer Consultant: Marion Koo MD Urinalysis w/ Microon 2020 ----- Normal [facility] Comment on above: Performed By: #### U AMIC #### [address] [place], [place] [id number] Computer Consultant: Marion Koo MD Acetoacetic Acid,Ur Negative Normal NEG [facility] Comment on above: Performed By: #### U AMIC #### [address] [place], [place] [id number] Computer Consultant: Marion Koo MD Amorphous sediment LM Ql (Urine sed) TRACE Abnormal [facility] Comment on above: Performed By: #### U AMIC #### [address] [place], [place] [phone] Computer Consultant: Marion Koo MD Bacteria LM.HPF (Urine sed) [#/Area] TRACE Abnormal [facility] Comment on above: Performed By: #### U AMIC #### [address] [place], [place] [id number] Computer Consultant: Marion Koo MD Bilirubin, SemiQt,Ur Negative Normal NEG [facility] Comment on above: Performed By: #### U AMIC #### [address] [place] [address] Computer Consultant: Marion Koo MD Casts LM.LPF (Urine sed) [#/Area] NOT REPORTED [facility] Comment on above: Performed By: #### U AMIC #### [facility] [address] [place] [address] Dr. [place], [place] [phone] Computer Consultant: Marion Koo MD Color (U) YELLOW Normal YEL [facility] Comment on above: Performed By: #### U AMIC #### [facility] [address] [place], [place] [phone] Computer Consultant: Marion Koo MD Comment NOT REPORTED Normal [facility] Comment on above: Performed By: #### U AMIC #### [facility] [address] [place] [address] Dr. [place], [place] [phone] Computer Consultant: Marion Koo MD Crystals LM Nom (Urine sed) NOT REPORTED Normal NONE [facility] Comment on above: Performed By: #### U AMIC #### [address] [place], [place] [phone] Computer Consultant: Marion Koo MD Epithelial cells LM.HPF (Urine sed) [#/Area] 0 TO 2 Normal 0-5 [facility] Comment on above: Performed By: #### U AMIC #### [address] [place], [place] [phone] Computer Consultant: Marion Koo MD Epithelial, Renal NOT REPORTED Normal 0 [facility] Comment on above: Performed By: #### U AMIC #### [facility] [address] [place] [address] Dr. [place], [place] [phone] Computer Consultant: Marion Koo MD Glucose Ql (U) Negative Normal NEG [facility] Comment on above: Performed By: #### U AMIC #### [address] [place], [place] [phone] Computer Consultant: Marion Koo MD Hemoglobin, Ur Negative Normal NEG [facility] Comment on above: Performed By: #### U AMIC #### [facility] [address] [place] [address] Dr. [place], [place] [phone] Computer Consultant: Marion Koo MD Leukocyte esterase Test strip Ql (U) Negative Normal NEG [facility] Comment on above: Performed By: #### U AMIC #### [facility] [address] [place], [place] [phone] Computer Consultant: Marion Koo MD Mucus Strands 1+ Abnormal NONE [facility] Comment on above: Performed By: #### U AMIC #### [facility] [address] [place], [place] [phone] Computer Consultant: Marion Koo MD Nitrite,Ur Negative Normal NEG [facility] Comment on above: Performed By: #### U AMIC #### [facility] [address] [place] [address] Dr. [place], [place] [phone] Computer Consultant: Marion Koo MD Other Observations NOT REPORTED Normal NREQ [facility] Comment on above: Performed By: #### U AMIC #### [facility] [address] [place] [address] Dr. [place], [place] [id number] Computer Consultant: Marion Koo MD pH (U) 6.0 [pH] Normal 5.0-9.0 [facility] Comment on above: Performed By: #### U AMIC #### [facility] [address] [place] [address] Dr. [place], [place] [phone] Computer Consultant: Marion Koo MD Protein Ql (U) Negative Normal NEG [facility] Comment on above: Performed By: #### U AMIC #### [facility] [address] [place], [place] [phone] Computer Consultant: Marion Koo MD RBC (U) [#/Vol] None Normal 0-2 [facility] Comment on above: Performed By: #### U AMIC #### [facility] [address] [place], [place] [phone] Computer Consultant: Marion Koo MD Specific gravity (U) [Rel density] >1.030 High 1.010-1.020 [facility] Comment on above: Performed By: #### U AMIC #### [facility] [address] [place], [place] [phone] Computer Consultant: Marion Koo MD Trichomonas NOT REPORTED Normal [facility] Comment on above: Performed By: #### U AMIC #### [facility] [address] [place], [place] [phone] Computer Consultant: Marion Koo MD Turbidity CLEAR Normal CLEAR [facility] Comment on above: Performed By: #### U AMIC #### [facility] [address] [place] [address] Dr. [place], [place] [phone] Computer Consultant: Marion Koo MD Urobilinogen,Ur Normal Normal NORM [facility] Comment on above: Performed By: #### U AMIC #### [facility] [address] [place] [address] Dr. [place], [place] [phone] Computer Consultant: Marion Koo MD WBC (U) [#/Vol] 0 TO 2 Normal 0-5 [facility] Comment on above: Performed By: #### U AMIC #### [address] [place], [place] [phone] Computer Consultant: Marion Koo MD Yeast LM Ql (Urine sed) NOT REPORTED Normal [facility] Comment on above: Performed By: #### U AMIC #### [facility] [address] [place], [place] [phone] Computer Consultant: Marion Koo MD Urinalysis with Microscopico n 05-04-2020 Amorphous, UA TRACE Abnormal None [facility] Work Phone: Bacteria, UA TRACE Abnormal None [facility] Work Phone: Bilirubin Urine Negative NEGATIVE [facility] Work Phone: Casts UA NOT REPORTED /LPF [facility] Work Phone: Color, UA YELLOW YELLOW [facility] Work Phone: Crystals, UA NOT REPORTED None /HPF [facility] Work Phone: Epithelial Cells UA 0 TO 2 [facility] Work Phone: Glucose, Ur Negative NEGATIVE [facility] Work Phone: Interpretation and review of laboratory results Abnormal [facility] Work Phone: Ketones Ql (U) Negative NEGATIVE [facility] Work Phone: Leukocyte esterase Test strip Ql (U) Negative NEGATIVE [facility] Work Phone: Mucus, UA 1+ Abnormal None [facility] Work Phone: Nitrite, Urine Negative NEGATIVE [facility] Work Phone: Other Observations UA NOT REPORTED NOT REQ. M [facility] [employer] Work Phone: pH, UA 6.0 [facility] [employer] Work Phone: Protein (U) [Mass/Vol] Negative NEGATIVE [facility] Work Phone: RBC (U) [#/Vol] None [facility] Work Phone: Renal Epithelial, UA NOT REPORTED 0 /HPF [facility] Work Phone: Specific [place], UA >1.030 High [facility] [employer] Work Phone: Trichomonas, UA NOT REPORTED None [facility] Work Phone: Turbidity UA CLEAR CLEAR [facility] Work Phone: Urinalysis Comments NOT REPORTED [facility] [employer] Work Phone: Urine Hgb Negative NEGATIVE [facility] Work Phone: Urobilinogen, Urine Normal Normal [facility] Work Phone: WBC, UA 0 TO 2 [facility] Work Phone: Yeast, UA NOT REPORTED None [facility] [employer] Phone: - [facility] [employer] Phone: Cult,Urineon 09-26-2019 Cult,Urine Specimen Description .CLEAN CATCH URINE Special Requests NOT REPORTED Culture NO GROWTH Report Status FINAL 09/26/2019 [facility] Comment on above: Performed By: #### U RC #### [facility] [address] [place], [place] [phone] Computer Consultant: Mendez Cabello MD [address] [place] [address] Computer Consultant: Santos Solorio MD Urinalysis w/ Microon 2019 ----- [facility] Comment on above: Performed By: #### U AMIC #### [address] [place] [phone] Computer Consultant: Santos Solorio MD Acetoacetic Acid,Ur Negative Normal NEG [facility] Comment on above: Performed By: #### U AMIC #### [address] [place] [address] Computer Consultant: Santos Solorio MD Amorphous sediment LM Ql (Urine sed) NOT REPORTED Normal [facility] Comment on above: Performed By: #### U AMIC #### [facility] [address] [place] [phone] Computer Consultant: Santos Solorio MD Bacteria LM.HPF (Urine sed) [#/Area] NOT REPORTED Normal [facility] Comment on above: Performed By: #### U AMIC #### [facility] [address] [place] [address] Computer Consultant: Santos Solorio MD Bilirubin, SemiQt,Ur Negative Normal NEG [facility] Comment on above: Performed By: #### U AMIC #### [facility] [address] [place] [address] [place] [address] Computer Consultant: Santos Solorio MD Casts LM.LPF (Urine sed) [#/Area] NOT REPORTED Normal [facility] Comment on above: Performed By: #### U AMIC #### [facility] [address] [place] [address] Computer Consultant: Santos Solorio MD Color (U) YELLOW Normal YEL [facility] Comment on above: Performed By: #### U AMIC #### [facility] [address] [place] [address] Computer Consultant: Santos Solorio MD Comment NOT REPORTED Normal [facility] Comment on above: Performed By: #### U AMIC #### [facility] [address] [place] [address] Dr[address] [place], [place] [id number] Computer Consultant: Santos Solorio MD Crystals LM Nom (Urine sed) NOT REPORTED Normal NONE [facility] Comment on above: Performed By: #### U AMIC #### [address] [place] [address] Computer Consultant: Santos Solorio MD Epithelial cells LM.HPF (Urine sed) [#/Area] None Normal 0-5 [facility] Comment on above: Performed By: #### U AMIC #### [facility] [address] [place], [place] [id number] Computer Consultant: Santos Solorio MD Epithelial, Renal NOT REPORTED Normal 0 [facility] Comment on above: Performed By: #### U AMIC #### [facility] [address] [place] [address] Computer Consultant: Santos Solorio MD Glucose Ql (U) Negative Normal NEG [facility] Comment on above: Performed By: #### U AMIC #### [facility] [address] [place] [id number] Computer Consultant: Santos Solorio MD Hemoglobin, Ur Negative Normal NEG [facility] Comment on above: Performed By: #### U AMIC #### [facility] [address] [place] [address] Computer Consultant: Santos Solorio MD Leukocyte esterase Test strip Ql (U) Negative Normal NEG [facility] Comment on above: Performed By: #### U AMIC #### [facility] [address] [place] [address] Computer Consultant: Santos Solorio MD Mucus Strands NOT REPORTED Normal NONE [facility] Comment on above: Performed By: #### U AMIC #### [facility] [address] [place] [address] Computer Consultant: Santos Solorio MD Nitrite,Ur Negative Normal NEG [facility] Comment on above: Performed By: #### U AMIC #### [facility] [address] [place] [id number] Computer Consultant: Santos Solorio MD Other Observations NOT REPORTED Normal NREQ [facility] Comment on above: Performed By: #### U AMIC #### [address] [place] [address] Computer Consultant: Santos Solorio MD pH (U) 5.5 [pH] Normal 5.0-9.0 [facility] Comment on above: Performed By: #### U AMIC #### [facility] [address] [place] [address] Computer Consultant: Santos Solorio MD Protein Ql (U) Negative Normal NEG [facility] Comment on above: Performed By: #### U AMIC #### [facility] [address] [place] [address] Computer Consultant: Santos Solorio MD RBC (U) [#/Vol] None Normal 0-2 [facility] Comment on above: Performed By: #### U AMIC #### [facility] [address] [place] [address] Computer Consultant: Santos Solorio MD Specific gravity (U) [Rel density] 1.020 Normal 1.010-1.020 [facility] Comment on above: Performed By: #### U AMIC #### [facility] [address] [place] [id number] Computer Consultant: Santos Solorio MD Trichomonas NOT REPORTED Normal NONE [facility] Comment on above: Performed By: #### U AMIC #### [facility] [address] [place], [place] [phone] Computer Consultant: Santos Solorio MD Turbidity CLEAR Normal CLEAR [facility] Comment on above: Performed By: #### U AMIC #### [facility] [address] [place] [phone] Computer Consultant: Santos Solorio MD Urobilinogen,Ur Normal Normal NORM [facility] Comment on above: Performed By: #### U AMIC #### [facility] [address] [place] [address] Computer Consultant: Santos Solorio MD WBC (U) [#/Vol] None Normal 0-5 [facility] Comment on above: Performed By: #### U AMIC #### [facility] [address] [place] [address] Computer Consultant: Santos Solorio MD Yeast LM Ql (Urine sed) NOT REPORTED Normal [facility] Comment on above: Performed By: #### U AMIC #### [facility] [address] [place], [place] [phone] Computer Consultant: Santos Solorio MD Urinalysis with Microscopico n 09-25-2019 Amorphous, UA NOT REPORTED None [facility] [place], [place] Bacteria, UA NOT REPORTED None [facility] [place] Bilirubin Urine Negative NEGATIVE [facility] [place], [place] Casts UA NOT REPORTED /LPF [facility], [place] Color, UA YELLOW YELLOW [place], [place] Crystals, UA NOT REPORTED None /HPF [facility], [place] Epithelial Cells UA None [place], [place] Glucose, Ur Negative NEGATIVE [place] Ketones Ql (U) Negative NEGATIVE [place] Leukocyte esterase Test strip Ql (U) Negative NEGATIVE [place] Mucus, UA NOT REPORTED None [place] Nitrite, Urine Negative NEGATIVE [place] Other Observations UA NOT REPORTED NOT REQ. [facility], [place] pH, UA 5.5 [place] Protein (U) [Mass/Vol] Negative NEGATIVE [place] RBC (U) [#/Vol] None [place] Renal Epithelial, UA NOT REPORTED 0 /HPF [place], [place] Specific [place], UA 1.020 [place], [place] Trichomonas, UA NOT REPORTED None [place] Turbidity UA CLEAR CLEAR [place] Urinalysis Comments NOT REPORTED [place] Urine Hgb Negative NEGATIVE [place] Urobilinogen, Urine Normal Normal [place] WBC, UA None [place] Yeast, UA NOT REPORTED None [place] Auth for Release of Medical Recordson 09-02-2019 Auth for Release of Medical Records [id number] CD:127 Normal [facility] PROGRESSon 02-07-2018 Protein mass conc HNO ID: [id number]: Jamie (Res) Ray Heath: (none)Author Type: ResidentType: Progress NotesFiled: 02/07/2018 10:01 AMNote Text:Resolved ulcer Left eye, failed DSAEK and corneal scarWould still benefit from DSAEK repeat, then possible PTK for smoothing ofoptical centerPrimary open angle glaucomaOff PredForte OS for 3-4 weeks, ?discontinued by local optometristContinue glaucoma medsPatient interested in repeat DSAEK Normal [facility] Protein mass conc HNO ID: [id number]: Blair Green: (none)Author Type: PhysicianType: Progress NotesFiled: 02/07/2018 10:01 AMNote Text:Some limitation Left eye due to Primary open angle glaucoma (unable to seenerve today)Discuss with Dr. 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 I have seen andexamined this patient.I have discussed the case and the management of this patient's care withthe Resident/Fellow, if applicable. I also have reviewed and agree withthe assessment and plan as stated above and agree with all of its relevantcomponents. Normal [facility] PROGRESSon 10-04-2017 Protein mass conc HNO ID: [id number]: Blair Green: (none)Author Type: PhysicianType: Progress NotesFiled: 10/04/2017 7:56 AMNote Text:Resolved ulcer Left eye, failed DSAEK and corneal scarWould still benefit from DSAEK repeat, then possible PTK for smoothing ofoptical centerPrimary open angle glaucomaPredforte Once daily, d/c foritfied ATB, cont glaucoma medsWill consider DSAEK and call when ready to scheduleI have confirmed and edited as necessary the relevant ophthalmic history,ROS, and the neuro exam findings as obtained by others. I have seen andexamined this patient.I have discussed the case and the management of this patient's care withthe Resident/Fellow, if applicable. I also have reviewed and agree withthe assessment and plan as stated above and agree with all of its relevantcomponents. 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 Told patient we would call himwith next apt time)Continue fortified Vanc and Tobra- increase back to q2hrI have confirmed and edited as necessary the relevant ophthalmic history,ROS, and the neuro exam findings as obtained by others. I have seen andexamined this patient.I have discussed the case and the management of this patient's care withthe Resident/Fellow, if applicable. 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 I have seen andexamined this patient.I have discussed the case and the management of this patient's care withthe Resident/Fellow, if applicable. I also have reviewed and agree withthe assessment and plan as stated above and agree with all of its relevantcomponents.Alexx Ugalde MD September 06, 2017 10:25 AM Normal [facility] Protein mass conc HNO ID: [id number]: Blair Green: (none)Author Type: PhysicianType: Progress NotesFiled: 09/06/2017 10:33 AMNote Text:I have confirmed and edited as necessary the relevant ophthalmic history,ROS, and the neuro exam findings as obtained by others. I have seen andexamined this patient.I have discussed the case and the management of this patient's care withthe Resident/Fellow, if applicable. I also have reviewed and agree withthe assessment and plan as stated above and agree with all of its relevantcomponents. Normal [facility] Eye Cultureon 08-30-2017 Protein mass conc Sp. Request/Comment: - Specimen received already planted.Culture Result - Cutibacterium (Propionibacterium) acnes In thioglycollate broth only --> ABNORMAL ALERT Susceptibility testing on C. acnes not performed due to predictable susceptibility to penicillin. C. acnes is intrinsically resistant to metronidazole. --> ABNORMAL ALERT (NOTE) Positive result called to and read back by:Dr Jessica An I20 09/07/17 902A g jae Critically abnormal [facility]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 04/27/22 14:43 04/27/22 14:43 04/27/22 14:43 04/27/22 14:43 04/27/22 14:43 04/27/22 14:43 Narrative: General: cooperative, alert & oriented x3 HEENT: Normal oropharyngeal mucosa without any ulcers or exudates, Conjunctiva normal Lungs: diminished breath sounds bilaterally Heart: normal rate, regular rhythm, S1 normal, S2 normal and no murmurs GI: non-distended, soft, not firm and nontender. No rigidity or rebound. Neuro No obvious new focal deficit Musculoskeletal: Status post right hip replacement Extrem: no cyanosis, no pedal edema Skin: no significant ulcers, no rash noted Psych: appropriate affect. Grossly normal A&P - Hospitalist Assessment/Plan (1) Osteoarthritis of right hip: Plan Severe right hip osteoarthritis status post right total hip replacement diabetes mellitus, hypertension, hyperlipidemia, Morbid obesity, BPH Acute blood loss due to surgery Plan: Postoperative management per orthopedic surgery Monitor H&H Continue metformin, Accu-Cheks DVT prophylaxis per orthopedic surgery Thank you for your consultation, we will continue to follow Documented By: Dank Tong MD 04/27/22 1558 Signed By: <Electronically signed by Dank Tong MD> 04/27/22 9860 [facility] Work Phone: [phone]) 526-116611-30-2022 NoteCardiovascular Laboratory Report IMPRESSIONS: Severe two-vessel karuk coronary artery disease There are 4 out of 4 bypass grafts patent; mild to moderate disease of the saphenous vein graft to the posterior descending and moderate to severe disease of the saphenous vein graft to the diagonal branch Left ventricular systolic function by noninvasive imaging Peripheral arterial disease evidenced angiographically RECOMMENDATIONS: The patient is at acceptable risk to proceed with upcoming surgery with no further cardiovascular testing needed at this time; recommend strict heart rate control and blood pressure control perioperatively and avoidance of major fluid shifts Aspirin 81 mg lifelong Optimal medical therapy for coronary disease should include moderate to high intensity statin therapy, a beta-abad plus or minus an angiotensin-converting enzyme inhibitor Follow-up with Dr. Brown in 6 months or sooner should problems arise PROCEDURES: Ultrasound-guided access to the right common femoral artery, limited femoral angiography, bilateral selective coronary angiography, saphenous vein graft angiography, angiography of the left internal mammary artery graft, angiography of the left subclavian artery METHODS: After risks, benefits, and alternatives were explained, written informed consent was obtained. The patient was prepped and draped in usual sterile fashion over both groins. Using 1% lidocaine solution, local infiltration anesthesia was achieved. Using a modified Seldinger technique, a micropuncture kit, and under ultrasound guidance, access to the right common femoral vein and artery was obtained. Angiography via the inner cannula of the micropuncture kit was performed. This revealed tortuosity in the iliac arteries. Therefore, the micropuncture kit was exchanged out for a 30 cm long flexor sheath utilizing a soft angled Glidewire and an Amplatz superstiff wire. Bilateral selective coronary angiography was performed using JL4 and JR4 catheters. The JR4 was used to cannulate the left subclavian and exchanged out for an IM catheter. Angiography of internal mammary artery graft was performed. Angiography of the saphenous vein graft was performed using LCB and RCB catheters. After reviewing the images, it was elected to conclude the procedure. All catheters were removed. A 6 Finnish Mynx shell grader closure device was deployed however failed; therefore manual pressure was held for hemostasis. Overall the patient tolerated the procedure well. There were no overt complications. He was to be transferred to the holding area in stable condition. FINDINGS: Hemodynamics: AO 150/90 [125] LEFT VENTRICULOGRAPHY: This was not performed, ejection fraction is normal by noninvasive imaging. CORONARY ARTERIES: Left main coronary artery. This arises from the left coronary cusp and bifurcates into the left anterior descending and left circumflex coronary arteries it shows calcific plaque. Left anterior descending coronary artery. This an ostial 50% stenosis and is subsequently subtotally occluded in the midportion of the vessel. Distal filling is seen via a patent left internal mammary artery graft. The distal vessel shows luminal irregularities and caliber reduction. Left circumflex coronary artery. This shows luminal irregularities and mid vessel 30 to 40% stenosis and a presumed occluded obtuse marginal. It continues as a small caliber AV groove branch. Right coronary artery. This is a dominant vessel giving rise to the posterior descending and posterolateral branches it is occluded in the midportion. There are 90 to 95% stenosis proximally. The distal vessel is of small caliber with diffuse disease. GRAFT ANGIOGRAPHY: Left internal mammary artery graft to the left anterior descending. This is widely patent Saphenous vein graft to the diagonal branch: Proximal 40 to 50% stenosis and ectasia thereafter. There appears to be a significant touchdown stenosis estimated at 75 to 80%. The karuk diagonal appears subtotally occluded. Saphenous vein graft sequential to the posterior descending artery and posterolateral branch. This shows a proximal long segment 40% stenosis, there is significant ectasia throughout. The distal circulation shows caliber reduction with no discrete stenoses. Left subclavian: There is no significant stenoses. Limited femoral angiography: This shows a 50% stenosis in the distal common femoral artery at the site of the closure device. There is a 360 degree loop in the external iliac artery. Mynx shell grader closure device failed. 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 Use of blood products discussed with patient who. Pt does not want blood products; he is Restoration Diya Brown MD, MPH, [facility], [facility], [facility], [facility] Interventional Cardiology Pager Email: [email or web address] CARDIAC STRESS TEST Requesting Physician: Diya Brown M.D. Procedure Date:01/11/2022 Performing Physician: Farhana Stein M.D. INDICATION: Coronary atherosclerosis. STRESS TEST INFORMATION: Lexiscan. Resting Heart Rate: 63 beats per minute Maximum Heart Rate: 70 beats per minute Percentage of Peak Maximal Heart Rate: 48% Resting Blood Pressure: 150/84 Maximum Blood Pressure: 150/84 CONCLUSIONS: 1. Patient's baseline EKG is abnormal and appears to be a junctional rhythm. 2. There are no definitive EKG changes consistent with ischemia. 3. Follow up with separately interpreted and reported nuclear myocardial perfusion imaging report. 4. Clinical correlation recommended.[facility] [id number] Evaluation note* Encounter Date Diagnosis Assessment Notes Treatment Notes Treatment Clinical Notes Nov, Arthropathy of right hip (ICD-10 - M16.11) I have independently reviewed the MRI of the lumbar spine and the plain x-ray of the lumbar spine and report. This patient has diffuse arthritic changes. He has a patent canal with the exception of L1-2 which has moderate stenosis. He has diffuse foraminal narrowing bilaterally. His primary complaint is right hip which is all primary hip pathology and not radicular in nature. I do not believe his foot drop is related to the spine, as it is painless. The patient's primary complaints today are relative to the right hip. His symptoms are quite symptomatic I am sending him to orthopedics for evaluation. Nov, Greater trochanteric bursitis of right hip (ICD-10 - M70.61) Nov, Foot drop, right foot (ICD-10 - M21.371) Nov, Foot drop, left foot (ICD-10 - M21.372) [employer] Other 05-25-2022 NotePROCEDURE: XR KNEE LT 3V HISTORY: Pain of left knee joint , chronic COMPARISON: None. FINDINGS: BONES:Mild-moderate narrowing of the medial and anterior joint spaces. Tricompartmental moderate degenerative osteophytes, larger involving the anterior compartment. No fracture or dislocation. SOFT TISSUES:Numerous surgical clips posterior medial to the knee likely from prior vein harvesting. EFFUSION:Small joint effusion. OTHER: Negative. IMPRESSION: 1. Moderate degenerative joint disease. 2. No appreciable acute abnormality. Electronically authenticated by: RHONDA STEVENSON Date: 2021-08-03 12:21[facility] CenterEvaluation noteNo assessment information availableDetwiler [facility] Work Phone: Evaluation note* Diagnosis Onset Date Resolution Status Osteoarthritis of right hip acute [facility] Work Phone: History general Narrative - Reported* Type Description Date Medical History Hypertension Medical History cataracts Medical History gall bladder disease Medical History heart disease Surgical History cardiac bypass x 4 2005 Surgical History appendectomy Surgical History tonsillectomy Surgical History gall bladder Surgical History thumb Surgical History eye Hospitalization History see above surgical hx [employer] Other Hospital Discharge instructions Additional Instructions TOTAL HIP DISCHARGE: Recommended Equipment 1. Walker: to be used for post-operative gait. Will transition to straight cane. 2. Raised height toilet seat. 3. [employer]/grabber 4. Other: Long handled Shoe Horn, Sock Aid, Bath Sponge, Dressing stick, Elastic shoe laces, Shower Seat/Bath Bench Total Hip Precautions 1. No crossing over midline: do not cross your legs, once permitted to side sleep, utilize pillow between knees. 2. Do not excessively rotate your hip inwards or outwards. 3. Do not excessively extend your leg behind you against resistance (kicking backwards). 4. Do not flex hip past 90 degrees at the waist Sitting 1. Sit on a firm straight back chair with arm rests. 2. DO NOT cross your operative ankle over opposite knee. 3. do not flex hip past 90 degrees (do not sit on the low stool), do not externally rotate operative foot. No high impact to left hip. b. Use pulp plant supervisor to retrieve objects from the floor Dressing changes and showering 1. You may shower on the fourth day postoperatively. 2. Keep your dressing clean and dry. 3. Change your dressing daily, and as needed. You may remove dressing to shower. Do not sit longer than 30 minutes at a time, change position every 30 minutes. Avoid sitting in recliners, the position does not improve circulation or address swelling. Walk daily, working on increasing your walking distances. Blood clot prevention Aspirin 81 mg twice a day for 30 days and tedhose daily, can remove at night You have been given a prescription for Percocet, Percocet is a narcotic, Percocet is addictive, use it sparingly to help control pain only. If you feel you have issues with addiction contact Dr. Pulido, or your family physician, or proceed to the nearest hospital emergency services department. Your follow-up appointment has been made with physician licensed occupational therapy assistant Shawn Richardson as previously scheduled 05/12/22 in [facility] office [address] [place] [address] Work Phone: Progress note Author Cory Em [facility] April 28, 2022 3:23pm Note Date/Time April 28, 2022 3:17pm [facility] [address] [place] [address] Hospitalist Progress Note Signed Patient: Belén Keenan MR#: [id number] : 1945 Acct:[id number] Age/Sex: 76 / M Adm Date: 3 Loc: DC Room: Type: [facility] Attending Dr: Chaka Pulido Jr DO Copies to: ~ Date of Service: 04/28/2022 Subjective Subjective Narrative: Patient examined sitting on chair currently denies any complaint. He denies cough, chest pain, abdominal pain, dysuria, nausea or vomiting. He mentioned pain is better tolerated as well. Exam Physical Exam Vital Signs: Temp Pulse Resp BP Pulse Ox O2 Del Method O2 Flow Rate 98.8 F 75 16 161/68 H 97 Room Air 2 04/28/22 14:40 04/28/22 14:40 04/28/22 14:40 04/28/22 14:40 04/28/22 14:40 04/28/22 14:40 04/28/22 04:00 Const Orientation: alert, awake and oriented x3 Resp Effort & Inspection: normal respiratory effort and able to speak in complete sentences Auscultation: no rales, no rhonchi and no wheezes Cardio Rate: regular rate Rhythm: regular rhythm Heart Sounds: S1 normal and S2 normal GI Palpation: soft, not firm, no guarding and nontender Auscultation: normal bowel sounds Neuro General: patient alert, patient awake, patient oriented x3, moves all extremities and no focal motor deficits Extrem General: no clubbing, cyanosis or edema and no calf tenderness Objective Lab Results 04/28/22 04:39 04/28/22 04:39 Meds Allergies and Active Meds Allergies No Known Allergies Allergy (Verified 04/10/22 11:53) A&P - Hospitalist Assessment/Plan (1) Osteoarthritis of right hip: Plan Patient denies any complaint and appears he is getting discharged home today. Denies complaint of fever, chills, chest pain, shortness of breath or dysuria. Leukocytosis likely reactive from surgery. Discussed with the patient return toER if develops persistent fever or severe pain. Will recommend to resume his home medication on discharge. Documented By: Cory Em MD 04/28/22 1514 Signed By: <Electronically signed by Cory Em MD> 04/28/22 1523 [facility] Work Phone: Summary Purpose Family History No Family History Records Found Relationship Condition Age at Onset Recorded Date/T key Not Specified Heart murmur Unknown Malignant neoplasm Unknown daughter Malignant neoplasm of throat Unknown father Medical history unknown Unknown brother Myocardial infarction Unknown brother Traffic vehicular accidental Unknow n Advance Directives No Advanced Directives Records FoundDocuments on File Type Date Recorded Patient Business Office Technician Expl anation Advance Directives and Living Will Power of Sales Estimator Documents on File Type Date Recorded Patient Business Office Technician Expl anation ACP-Advance Directive ACP-Power of Sales Estimator Advance Directive Response Recorded Date/ Time Advance Directives No April 10, 2022 10:22am Assessments Diagnosis Nocturia Urgency incontinence Urge incontinence Diagnosis BPH with obstruction/lower urinary tract symptoms Hypertrophy of prostate with urinary obstruction and other lower urinary tract symptoms (LUTS) Nocturia Urgency of urination Reason for Referral Reason *FU 12/07 Evaluate and Treat Hip Pain Per Dr Lizzy Johansen Schedule Directly with Dr Pulido (not PA or SPORTS TEACHER) Diagnosis 1 Arthropathy of right hip (M16.11) Referral Organization [facility] u[facility] Referring Provider First Name Sheldon Referring Provider Last Name Lizzy Referring Provider Specialty Neurologica l Surgery Referred Organization [facility] Referred Provider Chaka Pulido Jr Referred Address ,[place], [place],[address] Referred Provider Specialty ORTHOPEDIC S URGEON Referral Priority Routine General Notes Fore, Kelin M 022 08:25:53 AM >Received today and sent P2P. Office will call patient and schedule Chief Complaint and Reason for Visit Chief Complaint DJD Chief Complaint DJD DJD Reason for Visit Osteoarthritis of ri ght hip Additional Source Comments (unrecognized sect ion and content) No Status Records FoundNo Status Records FoundNo Status Records FoundNo Status Records FoundNo Status Records FoundNo Status Records FoundNo Status Records FoundNo Status Records Found INFORMATION SOURCE (unrecogn ized section and content) DATE CREATED AUTHOR 08/29/2017 [facility] DATE CREATED AUTHOR AUTHOR'S ORGANIZ ATION 02/18/2018 [facility] DATE CREATED AUTHOR AUTHOR'S ORGANIZ ATION 09/29/2019 [facility] DATE CREATED AUTHOR AUTHOR'S ORGANIZ ATION 05/06/2020 [facility] DATE CREATED AUTHOR AUTHOR'S ORGANIZ ATION 04/21/2022 [facility] DATE CREATED AUTHOR AUTHOR'S ORGANIZ ATION 05/05/2022 [facility] DATE CREATED AUTHOR AUTHOR'S ORGANIZ ATION 01/15/2023 [facility] DATE CREATED AUTHOR AUTHOR'S ORGANIZ ATION 08/09/2023 [facility] EPIC REASON FOR VISIT (unrecogniz ed section and content) referred by Dr. Perfecto Barrios [facility] Pain Care Teams (unrecognized sec tion and content) Team Status: Inactive Member Role Status Dates Chaka Stepanic Jr, DO Attending Provider Active NON STAFF Primary Care Provider Active Team Status: Active Member Role Status Dates NON STAFF Primary Care Provider Active Team Status: Inactive Member Role Status Dates Chaka Pulido , DO Attending Provider Active NON STAFF Primary Care Provider Active Dolly Feldman , DES Other Provider Active Cher Burns , DES Other Provider Active Etta Rosen , DES Other Provider Active Sanjana Hicks , DES Other Provider Active Maribel Lawrence RN Other Provider Active Layne Dunbar RN Other Provider Active Jimmie Martin MD Other Provider Active Aydin Bartholomew MD Other Provider Active Zee Mcgill MANAGER FRENCH Other Provider Active Viviana Hicks , DO Other Provider Active Paul Connell MD Other Provider Active Yoshi Ascencio , DO Other Provider Active Dm Lozano MD Other Provider Active Yuliana Herzog MD Other Provider Active Rachel Shelton , ANP-BC Other Provider Active Perez Mattson MD Other Provider Active Wander Velázquez MD Other Provider Active Cory Em MD Other Provider Active Leeroy Doll MD Other Provider Active Jamie Rodriguez , DO Other Provider Active Dank Tong MD Other Provider Active Mina Johnson MD Other Provider Active Swapna Feldman , SPORTS TEACHER-C Other Provider Active Chavez Pagan MD Other Provider Active Patricio Cook MD Other Provider Active Fabricio Willams MD Other Provider Active Angelina Doll , DO Other Provider Active Alen Wheeler , DO Other Provider Active Ben Carrizales , DO Other Provider Active Mervat Fontanez MANAGER FRENCH Other Provider Active Mando Guy , DO Other Provider Active Fanny France MD Other Provider Active Tory Doll MANAGER FRENCH Other Provider Active Patricia Wilkinson , DES Other Provider Active Goals (unrecognized section and content) Goals may be documented in a n alternate section FOR RECORDS PERTAINING TO PATIENTS WHO ARE OR HAVE BEEN ENROLLED IN A CHEMICAL DEPENDENCY/SUBSTANCEABUSE PROGRAM, SOME INFORMATION MAY BE OMITTED. This clinical summary was aggregated from multiple sources. Caution should be exercised in using it in the provision of clinical care. This summary normalizes information from multiple sources, and as a consequence, information in this document may materially change the coding, format and clinical context of patient data. In addition, data may be omitted in some cases. CLINICAL DECISIONS SHOULD BE BASED ON THE PRIMARY CLINICAL RECORDS. [facility] [place] [facility]. provides no warranty or guarantee of the accuracy or completeness of information in this document.
[2023-08-29 11:46] LABS: Basophils Percent Auto 0.4 % (0.2-2.0); Eosinophils Absolute Auto 0.5 10^3/uL (0.0-0.7); Hematocrit 44.5 % (42.0-54.0); Hemoglobin 14.6 g/dL (14.0-18.0); Immature Granulocytes Abs Auto 0.02 10^3/uL (0.00-0.03); Immature Granulocytes Pct Auto 0.2 % (0.0-0.5); Lymphocytes Absolute Auto 1.9 10^3/uL (1.2-3.8); Lymphocytes Percent Auto 20.5 % (20.5-60.0); Mean Corpuscular HGB Conc 32.8 g/dL (29.9-35.2); Mean Corpuscular Hemoglobin 30.2 pg (25.9-34.0); Mean Corpuscular Volume 92.1 fL (80.0-94.0); Mean Platelet Volume 9.7 fL (9.5-13.5); Monocytes Percent Auto 10.6 % (1.7-12.0); Neutrophils Absolute Auto 5.9 10^3/uL (1.4-6.5); Neutrophils Percent Auto 63.3 % (43.0-75.0); Platelet Count 184 10^3/uL (150-450); Red Blood Count 4.83 10^6/uL (4.70-6.10); Red Cell Distribution Width 13.3 % (11.0-15.0); White Blood Count 9.3 10^3/uL (4.0-11.0)
[2023-08-29 12:38] LABS: Alanine Aminotransferase 25 U/L (16-63); Albumin Globulin Ratio 0.9; Albumin Level 3.3 g/dL (3.4-5.0); Alkaline Phosphatase 122 U/L (46-116); Anion Gap 9.9; Aspartate Amino Transferase 20 U/L (15-37); BUN Creatinine Ratio 26.6; Bilirubin Total 0.8 mg/dL (0.2-1.0); Calcium 9.3 mg/dL (8.5-10.1); Carbon Dioxide 28.5 mmol/L (21.0-32.0); Chloride 107 mmol/L (98-107); Chol HDL Ratio 3.1; Cholesterol 122 mg/dL (<=200); Estimated GFR (African America >60 (>=60); Estimated GFR (Non-African Ame >60 (>=60); Globulin 3.6 g/dL; Glucose 108 mg/dL (74-106); HDL Cholesterol 39 mg/dL (40-60); Potassium 4.4 mmol/L (3.5-5.1); Sodium 141 mmol/L (136-145); Total Protein 6.9 g/dL (6.4-8.2); Triglycerides 94 mg/dL (<=150); VLDL CHOLESTEROL 18.8 mg/dL
[2023-08-30 08:13] LABS: PSA, Free 1.84 ng/mL; Prostate Specific Ag 6.8 ng/mL (0.0-4.0)
== END 2023-08-29 11:10 | disposition home or self-care (01) ==
LOC: LAB 11:14
PROVIDERS: PCP Internal Medicine; Visit Provider Internal Medicine
DX: E78.2 Mixed hyperlipidemia (principal); I25.10 Atherosclerotic heart disease of native coronary artery without angina pectoris; N40.1 Benign prostatic hyperplasia with lower urinary tract symptoms; N13.8 Other obstructive and reflux uropathy
CPT/HCPCS: 36415; 80053; 80061; 84153; 84154; 85025

== ENCOUNTER 2023-10-17 20:36 | Outpatient (OUT) | payer OTHER, SELFPAY ==
--- OUTSIDE RECORDS SUMMARY | 2023-10-17 20:41 | XMS_ITS | CCD ---
Author Organization [facility] Care Team Providers Care Service Desk Lead Name Role Phone PHYSICIAN, DEFAULT Unavailable Unavailable [...] FAWWAD, CHAUDHARI H Primary Care Unavailable MISC, DR MURDOCK Consulting Unavailable FAWWAD, CHAUDHARI H Admitting [...] Other Provider DO Viviana Hicks Other Provider MD Paul Connell Other Provider [phone] DO Yoshi Ascencio Other Provider MD Dm Lozano Other Provider [phone] MD Yuliana Herzog Other Provider Cat, ANP-BC Rachel Other Provider MD Perez Mattson Other Provider MD Wander Velázquez Other Provider MD Cory Em Other Provider MD Leeroy Doll Other Provider DO Jamie Rodriguez Other Provider MD Dank Tong Other Provider MD Mina Johnson Other Provider GARRETT Feldman Other Provider MD Chavez Pagan Other Provider MD Patricio Cook Other Provider MD Fabricio Willams Other Provider DO Angelina Doll Other Provider DO Alen Wheeler Other Provider [phone] DO Ben Carrizales Other Provider JR Fontanez Other Provider DO Mando Guy Other Provider MD Fanny France Other Provider [phone] JR Doll Other Provider [phone] DES Wilkinson Other Provider Unavailable Chaka Pulido Jr Admitting Unavailable Chaka Pulido Jr Attending Unavailable NON STAFF Primary Care Unavailable NON STAFF Primary Care Unavailable Chaka Pulido Jr Attending Unavailable Chaka Pulido Jr Admitting Unavailable FranciaLeannaDolly Consulting Unavailable Gearheart, Cher Consulting Unavailable Silas Etta Consulting Unavailable Densradha, Sanjana Consulting Unavailable Melinda Maribel Consulting Unavailable Layne Dunbar Consulting Unavailable Massouh, Rafkenneth Consulting Unavailable Puma, Aydin K Consulting Unavailable Dials, Zee M Consulting Unavailable Kurt, Ronobir Consulting Unavailable Becki, Paul Consulting Unavailable Rk Ascencioistopher Consulting UnavailDm Swanson Consulting Unavailable Yuliana Herzog Consulting Unavailable Rachel Shelton Consulting Unavailable Perez Mattson Consulting Unavailable Wander Velázquez Consulting Unavailable Cory Em Consulting Unavailable Coni Dolln Consulting Unavailable Jamie Rodriguez Consulting Unavailable Dank Tong Consulting Unavailable Mina Johnson Consulting Unavailable Swapna Feldman Consulting Unavailable Chavez Pagan Consulting Unavailab Patricio Jj Consulting Unavailable Fabricio Willams Consulting Unavailable Angelina Doll Unavailable Alen Wheeler Consulting Unavailable Ben Carrizales Consulting Unavailable Mervat Fontanez Consulting Unavailable Mando Guy Consulting Unavailable Fanny France Consulting Unavailable Tory Doll Consulting Unavailable Patricia Wilkinson [facility]available [facility] Admitting [facility]available [facility] Attending Unavailable CAN CHAVEZ Attending Unavailable [facility] Attending Un[facility], Referring Unavailable SHAIKH SHARP Attending Unavailable SHAIKH SHARP Attending Unavailable Medications Current Medications Medication Drug Class(es) Dates [...] capsule by mouth once daily Iron Ps Lkjkiky-L07-Fayrc Acid (Poly-Iron 150 Forte) 150-25-1 mg-mcg-mg capsule Active 1 CAP PO Daily April 10, 2022 12:00am furosemide 20 mg oral tablet (2 sources) Loop Diuretic Start: take 1 tablet by mouth once daily in the morning furosemide (LASIX) 20 MG tablet TAKE 1 TABLET BY MOUTH EVERY MORNING 0 08/18/2019 Active Garlic preparation (2 sources) Non-Standardized Food Allergenic Extract Garlic 10 MG CAPS garlic 0 Active loratadine 10 mg oral tablet (2 sources) Start: take 1 tablet by mouth once daily loratadine (CLARITIN) 10 MG tablet TAKE 1 TABLET BY MOUTH EVERY DAY 0 08/26/2019 Active meloxicam 15 mg oral tablet (1 source) Nonsteroidal Anti-inflammatory Drug Meloxicam 15 MG Oral for 30 Days Active metFORMIN hydrochloride 500 mg oral tablet (3 sources) Biguanide Start: take 500 mg by mouth twice daily [...] ADULT EXTRA C PO) multivitamin 0 Active Yudsgybylusn-Dpdhatcz-Jt tein (Multivitamin 50 Plus) Tablet (2 sources) Start: Friavxzunxca-Efuvssud-Nj tein (Multivitamin 50 Plus) Tablet Active 1 TAB PO Daily April 10, 2022 12:00am [place] 0-Dlb-Kql-Fish Oil (Fish Oil) 1,200 (144-216) mg Capsule (2 sources) Start: 023 take 1 capsule by mouth once daily [place] 7-Fgb-Mks-Fish Oil (Fish Oil) 1,200 (144-216) mg Capsule Active 1 CAP PO Daily April 10, 2022 12:00am omeprazole 20 mg delayed release oral tablet (5 sources) Proton Pump Inhibitor Start: 023 take 20 mg by mouth once daily Omeprazole Active 20 MG PO Daily April 10, 2022 12:00am Start: 08-18-2019 take 1 capsule by [facility] once daily omeprazole (PRILOSEC) 20 MG delayed release capsule TAKE 1 CAPSULE BY MOUTH EVERY DAY 0 08/18/2019 Active sertraline 50 mg oral tablet (5 sources) Serotonin Reuptake Inhibitor Start: 04-10-2022 take 75 mg by mouth once daily Sertraline Active 75 MG PO Daily April 10, 2022 12:00am Start: 09-03-2019 take 1 tablet by [facility] once daily sertraline (ZOLOFT) 50 MG tablet [...] 12:00am Start: 09-25-2019 take 1 capsule by [facility] once daily in the evening tamsulosin (FLOMAX) [...] PO Daily April 10, 2022 12:00am Vitamins A,C,H-Hqzz-Pqoiez (1 source) Start: 04-10-2022 take 1 capsule by mouth once daily Vitamins A,C,E-Daei-Gtkfus Active 1 CAP PO Daily April 10, 2022 12:00am Vitamins A,C,D-Buoc-Ntertr (Vision Formula (B-K-U-Zn-Reji)) 14,320-226-200 ycwz-me-avco Capsule (1 source) Start: 04-10-2022 take 1 capsule by mouth once daily Vitamins A,C,M-Hlqr-Vbkpzb (Vision Formula (I-Y-D-Zn-Reji)) 14,320-226-200 klxj-pm-vkeq Capsule Active 1 CAP PO Daily April 10, 2022 12:00am Problems Active Problems Problem Classification Problem Date [...] disease (6 sources) Atherosclerotic heart disease of [place] coronary artery without angina pectoris; 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] Onset: 01-11-2022 Chronic [...] Translations: [LOW BACK PAIN, UNSPECIFIED] Onset: 11-01-2021 Results Test Name Value Interpretation Reference Range Facility Office Visiton 01-15-2023 Follow-up visit [id number] KeenanFrancisco Gomez 1945 M Date Provider Department Center 01/15/2023 [id number] CHAVEZ [facility] Family History Problem Relation Age of Onset Heart attack Other Family Status - Relation Status Age at Other Level of Service:07407 CT OFFICE/OUTPATIENT ESTABLISHED MOD MDM 30-39 MIN Normal [facility] Office Visiton 09-04-2022 Follow-up visit [id number] ReeFrancisco Gomez 1945 M Date Provider Department Center 09/04/2022 271-SONIA DIYA JESSCIA [facility] No family history on file Level of Service:67373 CT OFFICE/OUTPATIENT ESTABLISHED LOW MDM 20-29 MIN Normal [facility] Anisocytosis LM Ql (Bld)Orde red By: Madhu Richardson on 04-28-2022 Anisocytosis Ql (Bld) Slight [facility] Band form neutrophils/100 WB C Manual cnt (Bld)Ordered By: Madhu Richardson on 04-28-2022 Band form neutrophils/100 WBC (Bld) 6 % 0-5 [facility] Basic Metabolic Panelon 04-12 Anion gap [Moles/Vol] 6.0 mmol/L Normal 6.0-15.0 [facility] Comment on above: Performed By: #### B MP, DIFF CBC #### [facility] [address] [place] [address] [place] Calcium [Mass/Vol] 8.8 mg/dL Normal 8.2-10.2 [facility] Comment on above: Performed By: #### B MP, DIFF CBC #### [facility] [address] [place] [address] [place] Chloride [Moles/Vol] 108 mmol/L Normal 95-114 [facility] Comment on above: Performed By: #### B MP, DIFF CBC #### [facility] [address] [place] [id number] [place] CO2 [Moles/Vol] 30.6 mmol/L High 22.0-30.0 [facility] Comment on above: Performed By: #### B MP, DIFF CBC #### [facility] [address] Creatinine [Mass/Vol] 0.77 mg/dL Normal 0.64-1.27 [facility] Comment on above: Performed By: #### B MP, DIFF CBC #### [facility] [address] [place] [address] Creatinine Clr Calc Pharmacy 90.86 [facility] Comment on above: Result Comment: PERF ORMED BY: [place] [address] PATHOLOGIST [employer] DELFIN GUEVARA M.D. Performed By: #### B MP, DIFF CBC #### [facility] [address] [place] [address] Estimated GFR ( Katie > 60 [facility] Comment on above: Result Comment: GFR estimated reference range: According to KDOQI guidelines, <60 ml/min/1.73m2 is sufficient to diagnose a patient with chronic kidney disease. Performed By: #### B MP, DIFF CBC #### [facility] [address] [place] [address] Estimated GFR (Non- Am > 60 [facility] Comment on above: Performed By: #### B MP, DIFF CBC #### [address] Glucose [Mass/Vol] 145 mg/dL High 70-100 [facility] Comment on above: Result Comment: [place] Glucose Reference Range is dependent on time and content of last meal. Glucose of more than 200 mg/dL in a nonstressed, ambulatory subject supports the diagnosis of Diabetes Mellitus. ADA recommended reference range Performed By: #### B MP, DIFF CBC #### [facility] [address] [place] [address] [place] Potassium [Moles/Vol] 4.6 mmol/L Normal 3.5-5.1 [facility] Comment on above: Performed By: #### B MP, DIFF CBC #### [facility] [address] [place] [address] [place] Sodium [Moles/Vol] 140 mmol/L Normal 136-146 [facility] Comment on above: Performed By: #### B MP, DIFF CBC #### [facility] [address] Urea nitrogen [Mass/Vol] 22 mg/dL Normal 9-23 [facility] Comment on above: Performed By: #### B MP, DIFF CBC #### [facility] [address] [place] [address] [place] Basophils Auto (Bld) [#/Vol] Ordered By: Madhu Richardson on 04-28-2022 Basophils (Bld) [#/Vol] N/A [facility] Basophils/100 WBC Auto (Bld) Ordered By: Madhu Richardson on 04-28-2022 Basophils/100 WBC (Bld) N/A [facility] Creatinine and Glomerular fi ltration rate.predicted panel (S/P/Bld)Ordered By: Madhu Richardson on 04-28-2022 Creatinine [Mass/Vol] 0.77 mg/dL 0.64-1.27 [facility] Diff and CBCon 04-28-2022 Anisocytosis Ql (Bld) Slight Normal [facility] Comment on above: Performed By: #### B MP, DIFF CBC #### [facility] [address] Band form neutrophils/100 WBC (Bld) 6 % High 0-5 [facility] Comment on above: Performed By: #### B MP, DIFF CBC #### [facility] [address] Erythrocyte distribution width (RBC) [Ratio] 14.4 % Normal 12.0-14.8 [facility] Comment on above: Performed By: #### B MP, DIFF CBC #### [facility] [address] Hematocrit (Bld) [Volume fraction] 35.4 % Low 38.8-50.0 [facility] Comment on above: Performed By: #### B MP, DIFF CBC #### [facility] [address] Hemoglobin (Bld) [Mass/Vol] 11.7 g/dL Low 13.0-17.0 [facility] Comment on above: Performed By: #### B MP, DIFF CBC #### [facility] [address] Lymphocytes/100 WBC (Bld) 3 % Low 18-42 [facility] Comment on above: Performed By: #### B MP, DIFF CBC #### [facility] [address] MCH (RBC) [Entitic mass] 30.6 pg Normal 27.5-35.2 [facility] Comment on above: Performed By: #### B MP, DIFF CBC #### [address] MCV (RBC) [Entitic vol] 92.8 fL Normal 83.5-101 [facility] Comment on above: Performed By: #### B MP, DIFF CBC #### [address] Mean Corpuscular HGB Conc 33.0 g/dL Normal 32.5-35.6 [facility] Comment on above: Performed By: #### B MP, DIFF CBC #### [address] Monocytes/100 WBC (Bld) 3 % Normal 2-11 [facility] Comment on above: Performed By: #### B MP, DIFF CBC #### [address] Platelet Estimate Normal Normal Normal [facility] Comment on above: Performed By: #### B MP, DIFF CBC #### [address] Platelet mean volume (Bld) [Entitic vol] 8.1 fL Normal 6.6-10.1 [facility] Comment on above: Performed By: #### B MP, DIFF CBC #### [address] Platelet Morphology Normal Normal Normal [facility] Comment on above: Result Comment: PERF ORMED BY: [address] [address] PATHOLOGIST [employer] DELFIN GUEVARA M.D. Performed By: #### B MP, DIFF CBC #### [facility] [address] [place] [address] Platelets (Bld) [#/Vol] 198 10*3/uL Normal 150-450 [facility] Comment on above: Performed By: #### B MP, DIFF CBC #### [facility] [address] [place] [address] RBC (Bld) [#/Vol] 3.81 10*6/uL Low 3.90-5.60 [facility] Comment on above: Performed By: #### B MP, DIFF CBC #### [address] RBC morphology finding Nom (Bld) Normal Normal Normal [facility] Comment on above: Performed By: #### B MP, DIFF CBC #### [facility] [address] [place] [address] Segmented neutrophils/100 WBC (Bld) 89 % High 50-70 [facility] Comment on above: Performed By: #### B MP, DIFF CBC #### [facility] [address] [place] [address] WBC (Bld) [#/Vol] 17.4 10*3/uL High 4.1-10.5 [facility] Comment on above: Performed By: #### B MP, DIFF CBC #### [facility] [address] [place] [address] [place] Eosinophils Auto (Bld) [#/Vo l]Ordered By: Madhu Richardson on 04-28-2022 Eosinophils (Bld) [#/Vol] N/A [facility] Eosinophils/100 WBC Auto (Bl d)Ordered By: Madhu Richardson on 04-28-2022 Eosinophils/100 WBC (Bld) N/A [facility] Erythrocyte distribution wid th Auto (RBC) [Ratio]Ordered By: Madhu Richardson on 04-28-2022 Erythrocyte distribution width (RBC) [Ratio] 14.4 % 12.0-14.8 [facility] Estimated glomerular filtrat ion rate (GFR) non- AmericanOrdered By: Madhu Richardson on 04-28-2022 GFR/1.73 sq M.predicted among non-blacks MDRD (S/P/Bld) [Vol rate/Area] > 60 mL/Min [facility] Hematocrit Auto (Bld) [Volum e fraction]Ordered By: Madhu Richardson on 04-28-2022 Hematocrit (Bld) [Volume fraction] 35.4 % 38.8-50.0 [facility] Hemoglobin [Mass/volume] in BloodOrdered By: Madhu Richardson on 04-28-2022 Hemoglobin (Bld) [Mass/Vol] 11.7 g/dL 13.0-17.0 [facility] Leukocytes [#/volume] correc trena for nucleated erythrocytes in Blood by Automated counOrdered By: Madhu Richardson on 04-28-2022 WBC corrected for nucl RBC Auto (Bld) [#/Vol] 17.4 10*3/uL 4.1-10.5 [facility] Lymphocytes Auto (Bld) [#/Vo l]Ordered By: Madhu Richardson on 04-28-2022 Lymphocytes (Bld) [#/Vol] N/A [facility] Lymphocytes/100 WBC Auto (Bl d)Ordered By: Madhu Richardson on 04-28-2022 Lymphocytes/100 WBC (Bld) N/A [facility] Lymphocytes/100 WBC Manual c nt (Bld)Ordered By: Madhu Richardson on 04-28-2022 Lymphocytes/100 WBC (Bld) 3 % 18-42 [facility] MCH Auto (RBC) [Entitic mass ]Ordered By: Madhu Richardson on 04-28-2022 MCH (RBC) [Entitic mass] 30.6 pg 27.5-35.2 [facility] MCHC Auto (RBC) [Mass/Vol]Or dered By: Madhu Richardson on 04-28-2022 MCHC (RBC) [Mass/Vol] 33.0 g/dL 32.5-35.6 [facility] MCV Auto (RBC) [Entitic vol] Ordered By: Madhu Richardson on 04-28-2022 MCV (RBC) [Entitic vol] 92.8 fL 83.5-101 [facility] Monocytes Auto (Bld) [#/Vol] Ordered By: Madhu Richardson on 04-28-2022 Monocytes (Bld) [#/Vol] N/A [facility] Monocytes/100 WBC Auto (Bld) Ordered By: Madhu Richardson on 04-28-2022 Monocytes/100 WBC (Bld) N/A [facility] Monocytes/100 WBC Manual cnt (Bld)Ordered By: Madhu Richardson on 04-28-2022 Monocytes/100 WBC (Bld) 3 % 2-11 [facility] Neutrophils Auto (Bld) [#/Vo l]Ordered By: Madhu Richardson on 04-28-2022 Neutrophils (Bld) [#/Vol] N/A [facility] Neutrophils/100 WBC Auto (Bl d)Ordered By: Madhu Richardson on 04-28-2022 Neutrophils/100 WBC (Bld) N/A [facility] No Panel InformationOrdered By: Madhu Richardson on 04-28-2022 Estimated GFR () > 60 mL/Min [facility] Comment on above: GFR estimated refere nce range: According to KDOQI guidelines, <60 ml/min/1.73m2 is sufficient to diagnose a patient with chronic kidney disease. Pharmacy Creatinine Clearance (Chem 90.86 [facility] Nucleated erythrocytes [Pres ence] in Blood by Automated countOrdered By: Madhu Richardson on 04-28-2022 Nucleated RBC Auto Ql (Bld) N/A [facility] Platelet adequacy [Presence] in Blood by Light microscopyOrdered By: Madhu Richardson on 04-28-2022 Platelets LM Ql (Bld) Normal Normal [facility] Platelet mean volume Auto (B ld) [Entitic vol]Ordered By: Madhu Richardson on 04-28-2022 Platelet mean volume (Bld) [Entitic vol] 8.1 fL 6.6-10.1 [facility] Platelet morphology finding [Identifier] in BloodOrdered By: Madhu Richardson on 04-28-2022 Platelet morphology finding Nom (Bld) Normal Normal [facility] Platelets Auto (Bld) [#/Vol] Ordered By: Madhu Richardson on 04-28-2022 Platelets (Bld) [#/Vol] 198 10*3/uL 150-450 [facility] RBC Auto (Bld) [#/Vol]Ordere d By: Madhu Richardson on 04-28-2022 RBC (Bld) [#/Vol] 3.81 10*6/uL 3.90-5.60 [facility] RBC morphologyOrdered By: Selma Richardson on 04-28-2022 RBC morphology finding Nom (Bld) Normal Normal [facility] Segmented neutrophils/100 WB C Manual cnt (Bld)Ordered By: Madhu Richardson on 04-28-2022 Segmented neutrophils/100 WBC (Bld) 89 % 50-70 [facility] Serum or plasma anion gap de terminationOrdered By: Madhu Richardson on 04-28-2022 Anion gap [Moles/Vol] 6.0 mmol/L 6.0-15.0 [facility] Serum or plasma calcium ernesto urement (mass/volume)Ordered By: Madhu Richardson on 04-28-2022 Calcium [Mass/Vol] 8.8 mg/dL 8.2-10.2 [facility] Serum or plasma chloride cristina surement (moles/volume)Ordered By: Madhu Richardson on 04-28-2022 Chloride [Moles/Vol] 108 mmol/L 95-114 [facility] Serum or plasma glucose ernesto urement (mass/volume)Ordered By: Madhu Richardson on 04-28-2022 Glucose [Mass/Vol] 145 mg/dL 70-100 [facility] Comment on above: ADA recommended refe rence rangeRandom Glucose Reference Range is dependent on time and content of last meal. Glucose of more than 200 mg/dL in a nonstressed, ambulatory subject supports the diagnosis of Diabetes Mellitus. Serum or plasma potassium me asurement (moles/volume)Ordered By: Madhu iRchardson on 04-28-2022 Potassium [Moles/Vol] 4.6 mmol/L 3.5-5.1 [facility] Serum or plasma sodium measu rement (moles/volume)Ordered By: Madhu Richardson on 04-28-2022 Sodium [Moles/Vol] 140 mmol/L 136-146 [facility] Serum or plasma total carbon dioxide measurement (moles/volume)Ordered By: Madhu Richardson on 04-28-2022 CO2 [Moles/Vol] 30.6 mmol/L 22.0-30.0 [facility] Serum or plasma urea nitroge n measurement (mass/volume)Ordered By: Madhu Richardson on 04-28-2022 Urea nitrogen [Mass/Vol] 22 mg/dL 12-02 [facility] WBC Auto (Bld) [#/Vol]Ordere d By: Madhu Richardson on 04-28-2022 WBC (Bld) [#/Vol] 17.4 10*3/uL 4.1-10.5 [facility] Jesus 04-27-2022 L -- ---- Specimen: [id number] Received: 04/27/22 Status: SHANTA Torres Num: [id number] Spec Type: Surgical Subm Dr: Chaka Pulido Jr, DO Tissues: A Femoral Head - Other than Fracture (RT HIP) Procedures: HE/2, Gross/Micro L3, Decalcification ---- Age/ Patient Sex Location Account Attending Physician ---- Belén Keenan 76/M [place] [id number] Chaka Pulido Jr, ---- SPEC NUM: [id number] RECD: 04/27/22 STATUS: SHANTA TORRES NUM: [id number] [place]: 04/27/[address] [facility] [address]: Chaka Puildo Jr, DO ENTERED: 04/27/[address]: CHELSIE TYPE: Surgical DEPT: S ORDERED: HE/2, Gross/Micro L3, Decalcification ORDERED: HE/2, Gross/Micro L3, Decalcification Supplemental Report Addendum 1 Entered: 05/04/22 This case was interpreted at [facility], [place] [address]. 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 - Fragments of benign bone with trilineage marrow. Clinical Information DJD ---- Specimen: S2 Received: 04/27/22 Status: SHANTA Torres Num: [id number] Spec Type: Surgical Subm Dr: Chaka Pulido Jr, DO Tissues: A Femoral Head - Other than Fracture (RT HIP) Procedures: HE/2, Gross/Micro L3, Decalcification ---- Patient: Belén Keenan SR [id number] (Continued) ---- Specimen: S2 Received: 04/27/22 (Continued) Signed (signature on file) Jax Mcdonald MD 05/01/22 1449 ---- Specimen: Received: 04/27/22 Status: SHANTA Torres Num: [id number] Spec Type: Surgical Subm Dr: Chaka Pulido Jr, DO Tissues: A Femoral Head - Other than Fracture (RT HIP) Procedures: HE/2, Gross/Micro L3, Decalcification ---- Patient: Belén Keenan [id number] (Continued) ---- Specimen: [id number] Received: 04/27/22-1104 (Continued) Gross Description Received in formalin labeled [...] The cut surface is cortes red, trabecular. Java User Interface Developer are submitted following decalcification in two cassettes labeled A1-A2. Microscopic Description Two glass slides with H E stained material have been examined. The microscopic findings support the above pathologic diagnosis. CPT Codes 56687, 00305 ---- ---- Specimen: [id number] Received: 04/27/22 Status: SHANTA Torres Num: [id number] Spec Type: Surgical Subm Dr: Chaka Pulido Jr, DO Tissues: A Femoral Head - Other than Fracture (RT HIP) Procedures: HE/2, Gross/Micro L3, Decalcification ---- Patient: Belén Keenan [id number] (Continued) ---- Signed (signature on file) Jax Mcdonald MD 05/01/22 1449 Normal [facility] XR low pelvis w/RT x-table h ipon 04-27-2022 XR low pelvis w/RT x-table hip [address] [address] XRay Report Signed Patient: Belén Keenan MR#: [id number] : 1945 Acct:[id number] Age/Sex: 76 / M ADM Date: 04/27/22 Loc: Room: [address] [place] [address] Type: REG SDC Attending Dr: Chaka Pulido Jr, DO Copies to: Chaka Pulido Jr, DO [...] complication. Impression dictated by: Salvador Freitas Jr., LigiaODwaine04/27/2022 2:04 PM Dictation Location: [place] [address] Transcribed By: [facility] 04/27/22 1404 Dictated By: Salvador Freitas Jr, DO 04/27/22 140 Signed By: 04/27/22 140 [facility] PROF CHEM 8 (BAS METB)on Anion gap [Moles/Vol] 12.4 mmol/L Normal [facility] Comment on above: Performed By: #### B MP #### [facility] [address] [place] [address] [address] Isha Haq Calcium [Mass/Vol] 9.5 mg/dL Normal 8.5-10.1 [facility] Comment on above: Performed By: #### B MP #### [facility] [address] [place] [address] [address] Isha Haq Chloride [Moles/Vol] 106 mmol/L Normal 98-107 [facility] Comment on above: Performed By: #### B MP #### [facility] [address] [place] [address] [address] Isha Haq CO2 [Moles/Vol] 26.0 mmol/L Normal 21.0-32.0 [facility] Comment on above: Performed By: #### B MP #### [facility] [address] [place] [address] [address] Isha Haq Creatinine [Mass/Vol] 0.75 mg/dL Normal 0.70-1.30 [facility] Comment on above: Performed By: #### B MP #### [facility] [address] [place] [address] [address] Isha Haq EGFR-AF CROATIAN >60 Normal >=60 [facility] Comment on above: Performed By: #### B MP #### [facility] [facility] [address] [address] [address] Isha Haq EGFR-NON AF CROATIAN >60 Normal >=60 [facility] Comment on above: Performed By: #### B MP #### [facility] [address] [address] [address] Isha Haq Glucose [Mass/Vol] 104 mg/dL Normal 74-106 [facility] Comment on above: Performed By: #### B MP #### [facility] [address] [address] [address] Isha Haq Potassium [Moles/Vol] 4.4 mmol/L Normal 3.5-5.1 [facility] Comment on above: Performed By: #### B MP #### [facility] [address] [address] [address] Isha Haq Sodium [Moles/Vol] 140 mmol/L Normal 136-145 [facility] Comment on above: Performed By: #### B MP #### [facility] [address] [address] [address] Isha Haq Urea nitrogen [Mass/Vol] 15.0 mg/dL Normal 7.0-18.0 [facility] Comment on above: Performed By: #### B MP #### [facility] [address] [address] [address] Isha Haq Urea nitrogen/Creatinine [Mass ratio] 20.0 mg/mg Normal [facility] Comment on above: Performed By: #### B MP #### [facility] [address] [address] [address] Isha Haq Basic Metabolic Panelon 03-14 Anion gap [Moles/Vol] 13.6 mmol/L Normal 6.0-15.0 [facility] Comment on above: Performed By: #### B MP, CBC #### [facility] [address] [place] [address] [place] Calcium [Mass/Vol] 9.6 mg/dL Normal 8.2-10.2 [facility] Comment on above: Result Comment: PERF ORMED BY: [place] [address] PATHOLOGIST [employer] DELFIN GUEVARA M.D. Performed By: #### B MP, CBC #### [facility] [address] Chloride [Moles/Vol] 103 mmol/L Normal 95-114 [facility] Comment on above: Performed By: #### B MP, CBC #### [facility] [address] [place] [address] [place] CO2 [Moles/Vol] 24.9 mmol/L Normal 22.0-30.0 [facility] Comment on above: Performed By: #### B MP, CBC #### [facility] [address] [place] [address] [place] Creatinine [Mass/Vol] 0.67 mg/dL Normal 0.64-1.27 [facility] Comment on above: Performed By: #### B MP, CBC #### [facility] [address] [place] [address] [place] Estimated GFR ( Katie > 60 [facility] Comment on above: Result Comment: GFR estimated reference range: According to KDOQI guidelines, <60 ml/min/1.73m2 is sufficient to diagnose a patient with chronic kidney disease. Performed By: #### B MP, CBC #### [facility] [address] [place] [address] [place] Estimated GFR (Non- Am > 60 [facility] Comment on above: Performed By: #### B MP, CBC #### [facility] [address] [place] [address] [place] Glucose [Mass/Vol] 100 mg/dL Normal 70-100 [facility] Comment on above: Result Comment: [place] om Glucose Reference Range is dependent on time and content of last meal. Glucose of more than 200 mg/dL in a nonstressed, ambulatory subject supports the diagnosis of Diabetes Mellitus. ADA recommended reference range Performed By: #### B MP, CBC #### [facility] [address] Potassium [Moles/Vol] 4.5 mmol/L Normal 3.5-5.1 [facility] Comment on above: Performed By: #### B MP, CBC #### [facility] [address] Sodium [Moles/Vol] 137 mmol/L Normal 136-146 [facility] Comment on above: Performed By: #### B MP, CBC #### [facility] [address] Urea nitrogen [Mass/Vol] 18 mg/dL Normal 9-23 [facility] Comment on above: Performed By: #### B MP, CBC #### [facility] [address] Basophils Auto (Bld) [#/Vol] Ordered By: Chaka Pulido on 04-10-2022 Basophils (Bld) [#/Vol] 0.1 10*3/uL 0.0-0.2 [facility] Basophils/100 WBC Auto (Bld) Ordered By: Chaka Pulido on 04-10-2022 Basophils/100 WBC (Bld) 0.8 % . [facility] Bilirubin Test strip Ql (U)O rdered By: Chaka Pulido on 04-10-2022 Bilirubin Ql (U) Negative Negative [facility] Color Auto (U)Ordered By: Clifford Thames charlotte Pulido on 04-10-2022 Color (U) Dark yellow Yellow [facility] Complete Blood Count Auto Di ffon 04-10-2022 Basophils (Bld) [#/Vol] 0.1 10*3/uL Normal 0.0-0.2 [facility] Comment on above: Result Comment: PERF ORMED BY: [place] [address] PATHOLOGIST [employer] JIANLAN SUN M.D. Performed By: #### B MP, CBC #### [facility] [address] [place] [address] [place] Basophils/100 WBC (Bld) 0.8 % Normal . [facility] Comment on above: Performed By: #### B MP, CBC #### [facility] [address] Eosinophils (Bld) [#/Vol] 0.3 10*3/uL Normal 0.0-0.45 [facility] Comment on above: Performed By: #### B MP, CBC #### [facility] [address] Eosinophils/100 WBC (Bld) 2.9 % Normal . [facility] Comment on above: Performed By: #### B MP, CBC #### [address] Erythrocyte distribution width (RBC) [Ratio] 14.3 % Normal 12.0-14.8 [facility] Comment on above: Performed By: #### B MP, CBC #### [address] Hematocrit (Bld) [Volume fraction] 43.1 % Normal 38.8-50.0 [facility] Comment on above: Performed By: #### B MP, CBC #### [facility] [address] Hemoglobin (Bld) [Mass/Vol] 14.4 g/dL Normal 13.0-17.0 [facility] Comment on above: Performed By: #### B MP, CBC #### [facility] [address] [place] [address] [place] Lymphocytes (Bld) [#/Vol] 1.7 10*3/uL Normal 1.00-4.8 [facility] Comment on above: Performed By: #### B MP, CBC #### [facility] [address] [place] [address] [place] Lymphocytes/100 WBC (Bld) 17.6 % Normal . [facility] Comment on above: Performed By: #### B MP, CBC #### [facility] [address] MCH (RBC) [Entitic mass] 30.9 pg Normal 27.5-35.2 [facility] Comment on above: Performed By: #### B MP, CBC #### [facility] [address] MCV (RBC) [Entitic vol] 92.2 fL Normal 83.5-101 [facility] Comment on above: Performed By: #### B MP, CBC #### [facility] [address] Mean Corpuscular HGB Conc 33.5 g/dL Normal 32.5-35.6 [facility] Comment on above: Performed By: #### B MP, CBC #### [address] Monocytes (Bld) [#/Vol] 1.1 10*3/uL High 0.0-0.8 [facility] Comment on above: Performed By: #### B MP, CBC #### [place] [address] [place] Monocytes/100 WBC (Bld) 11.7 % Normal . [facility] Comment on above: Performed By: #### B MP, CBC #### [address] Neutrophils (Bld) [#/Vol] 6.5 10*3/uL Normal 1.8-7.7 [facility] Comment on above: Performed By: #### B MP, CBC #### [place] [address] [place] Neutrophils/100 WBC (Bld) 67.0 % Normal . [facility] Comment on above: Performed By: #### B MP, CBC #### [address] NRBC% 0.1 /100{WBC} Normal 0-0.5 [facility] Comment on above: Performed By: #### B MP, CBC #### [place] [id number] [place] Platelet mean volume (Bld) [Entitic vol] 7.5 fL Normal 6.6-10.1 [facility] Comment on above: Performed By: #### B MP, CBC #### [facility] [address] Platelets (Bld) [#/Vol] 197 10*3/uL Normal 150-450 [facility] Comment on above: Performed By: #### B MP, CBC #### [facility] [address] RBC (Bld) [#/Vol] 4.67 10*6/uL Normal 3.90-5.60 [facility] Comment on above: Performed By: #### B MP, CBC #### [facility] [address] WBC (Bld) [#/Vol] 9.8 10*3/uL Normal 4.1-10.5 [facility] Comment on above: Performed By: #### B MP, CBC #### [facility] [address] Creatinine and Glomerular fi ltration rate.predicted panel (S/P/Bld)Ordered By: Chaka Pulido on 04-10-2022 Creatinine [Mass/Vol] 0.67 mg/dL 0.64-1.27 [facility] Eosinophils Auto (Bld) [#/Vo l]Ordered By: Chaka Pulido on 04-10-2022 Eosinophils (Bld) [#/Vol] 0.3 10*3/uL 0.0-0.45 [facility] Eosinophils/100 WBC Auto (Bl d)Ordered By: Chaka Pulido on 04-10-2022 Eosinophils/100 WBC (Bld) 2.9 % . [facility] Erythrocyte distribution wid th Auto (RBC) [Ratio]Ordered By: Chaka Pulido on 04-10-2022 Erythrocyte distribution width (RBC) [Ratio] 14.3 % 12.0-14.8 [facility] Estimated glomerular filtrat ion rate (GFR) non- AmericanOrdered By: Chaka Pulido on 04-10-2022 GFR/1.73 sq M.predicted among non-blacks MDRD (S/P/Bld) [Vol rate/Area] > 60 mL/Min [facility] Hematocrit Auto (Bld) [Volum e fraction]Ordered By: Chaka Pulido on 04-10-2022 Hematocrit (Bld) [Volume fraction] 43.1 % 38.8-50.0 [facility] Hemoglobin [Mass/volume] in BloodOrdered By: Chaka Pulido on 04-10-2022 Hemoglobin (Bld) [Mass/Vol] 14.4 g/dL 13.0-17.0 [facility] Ketones Auto test strip (U) [Mass/Vol]Ordered By: Chaka Pulido on 04-10-2022 Ketones (U) [Mass/Vol] Trace Negative [facility] Leukocytes [#/volume] correc trena for nucleated erythrocytes in Blood by Automated counOrdered By: Chaka Pulido on 04-10-2022 WBC corrected for nucl RBC Auto (Bld) [#/Vol] 9.8 10*3/uL 4.1-10.5 [facility] Lymphocytes Auto (Bld) [#/Vo l]Ordered By: Chaka Pulido on 04-10-2022 Lymphocytes (Bld) [#/Vol] 1.7 10*3/uL 1.00-4.8 [facility] Lymphocytes/100 WBC Auto (Bl d)Ordered By: Chaka Pulido on 04-10-2022 Lymphocytes/100 WBC (Bld) 17.6 % . [facility] MCH Auto (RBC) [Entitic mass ]Ordered By: Chaka Pulido on 04-10-2022 MCH (RBC) [Entitic mass] 30.9 pg 27.5-35.2 [facility] MCHC Auto (RBC) [Mass/Vol]Or dered By: Chaka Pulido on 04-10-2022 MCHC (RBC) [Mass/Vol] 33.5 g/dL 32.5-35.6 [facility] MCV Auto (RBC) [Entitic vol] Ordered By: Chaka Pulido on 04-10-2022 MCV (RBC) [Entitic vol] 92.2 fL 83.5-101 [facility] Monocytes Auto (Bld) [#/Vol] Ordered By: Chaka Pulido on 04-10-2022 Monocytes (Bld) [#/Vol] 1.1 10*3/uL 0.0-0.8 [facility] Monocytes/100 WBC Auto (Bld) Ordered By: Chaka Pulido on 04-10-2022 Monocytes/100 WBC (Bld) 11.7 % . [facility] Neutrophils Auto (Bld) [#/Vo l]Ordered By: Chaka Pulido on 04-10-2022 Neutrophils (Bld) [#/Vol] 6.5 10*3/uL 1.8-7.7 [facility] Neutrophils/100 WBC Auto (Bl d)Ordered By: Chaka Pulido on 04-10-2022 Neutrophils/100 WBC (Bld) 67.0 % . [facility] Nitrite Test strip Ql (U)Ord ered By: Chaka Pulido on 04-10-2022 Nitrite Ql (U) Negative Negative [facility] No Panel InformationOrdered By: Chaka Pulido on 04-10-2022 Estimated GFR () > 60 mL/Min [facility] Comment on above: GFR estimated refere nce range: According to KDOQI guidelines, <60 ml/min/1.73m2 is sufficient to diagnose a patient with chronic kidney disease. Pharmacy Creatinine Clearance (Chem N/A [facility] Nucleated erythrocytes [Pres ence] in Blood by Automated countOrdered By: Chaka Pulido on 04-10-2022 Nucleated RBC Auto Ql (Bld) 0.1 /100{WBC} 0-0.5 [facility] Platelet mean volume Auto (B ld) [Entitic vol]Ordered By: Chaka Pulido on 04-10-2022 Platelet mean volume (Bld) [Entitic vol] 7.5 fL 6.6-10.1 [facility] Platelets Auto (Bld) [#/Vol] Ordered By: Chaka Pulido on 04-10-2022 Platelets (Bld) [#/Vol] 197 10*3/uL 150-450 [facility] Protein Auto test strip (U) [Mass/Vol]Ordered By: Chaka Pulido on 04-10-2022 Protein (U) [Mass/Vol] Negative Negative [facility] RBC Auto (Bld) [#/Vol]Ordere d By: Chaka Pulido on 04-10-2022 RBC (Bld) [#/Vol] 4.67 10*6/uL 3.90-5.60 [facility] Serum or plasma anion gap de terminationOrdered By: Chaka Pulido on 04-10-2022 Anion gap [Moles/Vol] 13.6 mmol/L 6.0-15.0 [facility] Serum or plasma calcium ernesto urement (mass/volume)Ordered By: Chaka Pulido on 04-10-2022 Calcium [Mass/Vol] 9.6 mg/dL 8.2-10.2 [facility] Serum or plasma chloride cristina surement (moles/volume)Ordered By: Chaka Pulido on 04-10-2022 Chloride [Moles/Vol] 103 mmol/L 95-114 [facility] Serum or plasma glucose ernesto urement (mass/volume)Ordered By: Chaka Pulido on 04-10-2022 Glucose [Mass/Vol] 100 mg/dL 70-100 [facility] Comment on above: ADA recommended refe rence rangeRandom Glucose Reference Range is dependent on time and content of last meal. Glucose of more than 200 mg/dL in a nonstressed, ambulatory subject supports the diagnosis of Diabetes Mellitus. Serum or plasma potassium me asurement (moles/volume)Ordered By: Chaka Pulido on 04-10-2022 Potassium [Moles/Vol] 4.5 mmol/L 3.5-5.1 [facility] Serum or plasma sodium measu rement (moles/volume)Ordered By: Chaka Pulido on 04-10-2022 Sodium [Moles/Vol] 137 mmol/L 136-146 [facility] Serum or plasma total carbon dioxide measurement (moles/volume)Ordered By: Chaka Pulido on 04-10-2022 CO2 [Moles/Vol] 24.9 mmol/L 22.0-30.0 [facility] Serum or plasma urea nitroge n measurement (mass/volume)Ordered By: Chaka Pulido on 04-10-2022 Urea nitrogen [Mass/Vol] 18 mg/dL 9-23 [facility] Specific gravity Auto test s trip (U) [Rel density]Ordered By: Chaka Pulido on 04-10-2022 Specific gravity (U) [Rel density] 1.030 1.001-1.030 [facility] Urinalysison 04-10-2022 Appearance (U) Clear Normal Clear [facility] Comment on above: Order Comment: Comme nt do C S if indicated by + UA Name Collection Type:: Clean-Voided Midstream Performed By: #### U A #### [facility] [address] [place] [address] Bilirubin,Urine Negative Normal Negative [facility] Comment on above: Order Comment: Comme nt do C S if indicated by + UA Name Collection Type:: Clean-Voided Midstream Performed By: #### U A #### [facility] [address] [place] [address] Color (U) Dark Yellow Critically abnormal Yellow [facility] Comment on above: Order Comment: Comme nt do C S if indicated by + UA Name Collection Type:: Clean-Voided Midstream Performed By: #### U A #### [facility] [address] [place] [address] [place] Glucose Ql (U) Normal Normal Normal [facility] Comment on above: Order Comment: Comme nt do C S if indicated by + UA Name Collection Type:: Clean-Voided Midstream Performed By: #### U A #### [facility] [address] [place] [address] [place] Ketones Ql (U) Trace High Negative [facility] Comment on above: Order Comment: Comme nt do C S if indicated by + UA Name Collection Type:: Clean-Voided Midstream Performed By: #### U A #### [facility] [address] [place] [address] [place] Leukocyte esterase Test strip Ql (U) Negative Normal Negative [facility] Comment on above: Order Comment: Comme nt do C S if indicated by + UA Name Collection Type:: Clean-Voided Midstream Performed By: #### U A #### [facility] [address] [place] [address] [place] Nitrite,Urine Negative Normal Negative [facility] Comment on above: Order Comment: Comme nt do C S if indicated by + UA Name Collection Type:: Clean-Voided Midstream Performed By: #### U A #### [facility] [address] [place] [address] Occult Blood,Urine Negative Normal Negative [facility] Comment on above: Order Comment: Comme nt do C S if indicated by + UA Name Collection Type:: Clean-Voided Midstream Result Comment: PERF ORMED BY: [place] [address] PATHOLOGIST [employer] DELFIN GUEVARA M.D. Performed By: #### U A #### [facility] [address] [place] [address] pH (U) 5.5 [pH] Normal 5.0-9.0 [facility] Comment on above: Order Comment: Comme nt do C S if indicated by + UA Name Collection Type:: Clean-Voided Midstream Performed By: #### U A #### [facility] [address] [place] [address] Protein,Urine Negative Normal Negative [facility] Comment on above: Order Comment: Comme nt do C S if indicated by + UA Name Collection Type:: Clean-Voided Midstream Performed By: #### U A #### [address] Specificy [place],Urine 1.030 Normal 1.001-1.030 [facility] Comment on above: Order Comment: Comme nt do C S if indicated by + UA Name Collection Type:: Clean-Voided Midstream Performed By: #### U A #### [facility] [address] [place] [address] [place] Urobilinogen,Urine Normal Normal Normal [facility] Comment on above: Order Comment: Comme nt do C S if indicated by + UA Name Collection Type:: Clean-Voided Midstream Performed By: #### U A #### [facility] [address] [place] [address] Urine Cultureon 04-10-2022 Bacteria identified Cx Nom (U) Comment do if indicated by + UA No Growth 2 Days PERFORMED BY: [place] [address] PATHOLOGIST [employer] DELFIN GUEVARA M.D. Normal [facility] Comment on above: Performed By: #### C UU #### [address] Urine clarity by refractomet ry automatedOrdered By: Chaka Pulido on 04-10-2022 Clarity Refractometry automated (U) Clear Clear [facility] Urine culture routineOrdered By: Chaka Pulido on 04-10-2022 Bacteria identified Cx Nom (U) No Growth 2 Days [facility] Urine glucose measurement by automated test strip (mass/volume)Ordered By: Chaka Pulido on 04-10-2022 Glucose Auto test strip (U) [Mass/Vol] Normal mg/dL Normal [facility] Urine hemoglobin detection b y automated test stripOrdered By: Chaka Pulido on 04-10-2022 Hemoglobin Auto test strip Ql (U) Negative Negative [facility] Urine leukocyte esterase det ection by automated test stripOrdered By: Chaka Pulido on 04-10-2022 Leukocyte esterase Auto test strip Ql (U) Negative Negative [facility] Urobilinogen Auto test strip (U) [Mass/Vol]Ordered By: Chaka Pulido on 04-10-2022 Urobilinogen (U) [Mass/Vol] Normal mg/dL Normal [facility] WBC Auto (Bld) [#/Vol]Ordere d By: Chaka Pulido on 04-10-2022 WBC (Bld) [#/Vol] 9.8 10*3/uL 4.1-10.5 [facility] XR hip RT min 2V(w/wo pelvis )*on 04-10-2022 XR hip RT min 2V(w/wo pelvis)* [facility] [place] [address] [place] [address] XRay Report Signed Patient: Belén Keenan SR MR#: [id number] : 1945 Acct:[id number] Age/Sex: 76 / M ADM Date: 01/30/23 Loc: PS Room: Type: [facility] Attending Dr: Chaka Pulido Jr, DO Copies to: Chaka Pulido Jr, DO [...] Damien Ball M.D.04/10/2022 3:12 PM Dictation Location: [place] [address] Transcribed By: [facility] 04/10/22 1512 Dictated By: Damien Ball II, MD 04/10/22 1509 Signed By: 04/10/22 1512 Normal [facility] pH Auto test strip (U)Ordere d By: Chaka Pulido on 04-10-2022 pH (U) 5.5 [pH] 5.0-9.0 [facility] HPon 02-08-2022 HP Doing very well; no [...] : DR DIYA BROWN M.D. Admission #: [id number] Family : Order #: [id number] CLICK HERE TO VIEW EXAM RADIOLOGY REPORT [...] DEFECT: LOCATION: Basal inferior. Mid-inferior. Apical inferior. Cost. SIZE: Medium (3-4 segments). SEVERITY: Moderate. TYPE: [...] statin, BB I25.10: Atherosclerotic heart disease of [place] coronary artery without angina pectoris 2. Mitral [...] He understands (more content not included)... Normal [facility] CBC AUTO DIFFon 02-06-2022 BASO # 0.0 103/ul Normal 0.0-0.1 [facility] Comment on above: Performed By: #### C BC #### [facility] [address] [address] [address] Isha Haq Basophils/100 WBC (Bld) 0.4 % Normal 0.2-2.0 [facility] Comment on above: Performed By: #### C BC #### [facility] [address] [place] [address] Dr. Isah Haq EO # 0.3 103/ul Normal 0.0-0.7 [facility] Comment on above: Performed By: #### C BC #### [facility] [address] [place] [address] Dr. Isha Haq Eosinophils/100 WBC (Bld) 3.8 % Normal 0.9-7.0 [facility] Comment on above: Performed By: #### C BC #### [facility] [address] [place] [address] Dr. Isha Haq Erythrocyte distribution width (RBC) [Ratio] 13.2 % Normal 11.0-15.0 [facility] Comment on above: Performed By: #### C BC #### [facility] [address] [place] [address] Dr. Isha Haq Hematocrit (Bld) [Volume fraction] 43.0 % Normal 42.0-54.0 [facility] Comment on above: Performed By: #### C BC #### [facility] [address] [place] [address] Dr. Isha Haq Hemoglobin (Bld) [Mass/Vol] 14.3 g/dL Normal 14.0-18.0 [facility] Comment on above: Performed By: #### C BC #### [facility] [address] [place] [address] Dr. Isha Haq IG # 0.04 10e3/ul Critically high 0.00-0.03 [facility] Comment on above: Performed By: #### C BC #### [facility] [address] [place] [address] Dr. Isha Haq IG % 0.4 % Normal 0.0-0.5 [facility] Comment on above: Performed By: #### C BC #### [facility] [address] [place], [place] [id number] Dr. Isha Haq LYMPH # 1.9 103/ul Normal 1.2-3.8 [facility] Comment on above: Performed By: #### C BC #### [facility] [address] [place] [address] Dr. Isha Haq Lymphocytes/100 WBC (Bld) 21.0 % Normal 20.5-60.0 [facility] Comment on above: Performed By: #### C BC #### [facility] [address] [place] [address] Dr. Isha Haq MANUAL DIFF REQ NO Normal [facility] Comment on above: Performed By: #### C BC #### [facility] [address] [place] [address] Dr. Isha Haq MCH (RBC) [Entitic mass] 30.4 pg Normal 25.9-34.0 [facility] Comment on above: Performed By: #### C BC #### [facility] [address] [place] [address] Dr. Isha Haq MCHC (RBC) [Mass/Vol] 33.3 g/dL Normal 29.9-35.2 [facility] Comment on above: Performed By: #### C BC #### [facility] [address] [place] [address] Dr. Isha Haq MCV (RBC) [Entitic vol] 91.3 fL Normal 80.0-94.0 [facility] Comment on above: Performed By: #### C BC #### [facility] [address] [place] [address] Dr. Isha Haq MONO # 1.0 103/ul Critically high 0.3-0.8 [facility] Comment on above: Performed By: #### C BC #### [facility] [address] [place] [address] Dr. Isha Haq Monocytes/100 WBC (Bld) 11.4 % Normal 1.7-12.0 [facility] Comment on above: Performed By: #### C BC #### [facility] [address] [place] [address] Dr. Isha Haq NEUT # 5.6 103/ul Normal 1.4-6.5 [facility] Comment on above: Performed By: #### C BC #### [facility] [address] [place] [address] Dr. Isha Haq Neutrophils/100 WBC (Bld) 63.0 % Normal 43.0-75.0 [facility] Comment on above: Performed By: #### C BC #### [facility] [address] [place] [address] Dr. Isha Haq Platelet mean volume (Bld) [Entitic vol] 11.2 fL Normal 9.5-13.5 [facility] Comment on above: Performed By: #### C BC #### [facility] [address] [place] [address] Dr. Isha Hqa PLT 191 103/ul Normal 150-450 [facility] Comment on above: Performed By: #### C BC #### [facility] [address] [place] [address] Dr. Isha Haq RBC 4.71 106/ul Normal 4.70-6.10 [facility] Comment on above: Performed By: #### C BC #### [facility] [address] [place] [address] Dr. Isha Haq WBC 8.9 103/ul Normal 4.0-11.0 [facility] Comment on above: Performed By: #### C BC #### [facility] [address] [place] [address] Dr. Isha Haq LIPID PROFILEon 02-06-2022 CHOL-HDL RATIO NORM SEE BELOW Normal [facility] Comment on above: Result Comment: 3.3 - 4.4 LOW RISK 4.4 - 7.1 AVERAGE RISK 7.1 - 11.0 MODERATE RISK >11.0 HIGH RISK Performed By: #### P SAD #### [facility] [address] [place] [address] Dr. Isha Haq Cholesterol [Mass/Vol] 120 mg/dL Normal <=200 Th [facility] Comment on above: Performed By: #### P SAD #### [facility] [address] [address] [address] Isha Haq Cholesterol in HDL [Mass/Vol] 42 mg/dL Normal 40-60 [facility] Comment on above: Performed By: #### P SAD #### [facility] [address] [address] [address] Isha Haq Cholesterol in LDL [Mass/Vol] 46.2 mg/dL Normal [facility] Comment on above: Performed By: #### P SAD #### [facility] [address] [address] [address] Isha Haq Cholesterol.total/Domi sterol in HDL [Mass ratio] 2.9 {ratio} Normal [facility] Comment on above: Performed By: #### P SAD #### [facility] [address] [address] [address] Isha Haq HDL NORMAL > or = 60 mg/dl - LO W CARDIOVASCULAR RISK <40 mg/dl - HIGH CARDIOVASCULAR RISK Normal [facility] Comment on above: Performed By: #### P SAD #### [facility] [address] [address] [address] Isha Haq LDL CALC NORMAL SEE BELOW Normal [facility] Comment on above: Result Comment: <100 mg/dl OPTIMAL 100 - 129 mg/dl NEAR OR ABOVE OPTIMAL 130 - 159 mg/dl BORDERLINE HIGH 160 - 189 mg/dl HIGH >190 mg/dl VERY HIGH Performed By: #### P SAD #### [facility] [address] [address] [address] Isha Haq Triglyceride [Mass/Vol] 159 mg/dL Critically high <=150 [facility] Comment on above: Performed By: #### P SAD #### [facility] [address] [address] [address] Isha Haq VLDL CALC 31.8 mg/dL Normal [facility] Comment on above: Performed By: #### P SAD #### [facility] [address] [address] [address] Isha Haq PROF 14(COMP METB)on 022 Albumin [Mass/Vol] 3.2 g/dL Critically low 3.4-5.0 Th e [facility] Comment on above: Performed By: #### L IPID, CMP #### [facility] [address] [address] [address] Isha Haq Albumin/Globulin [Mass ratio] 0.8 {ratio} Normal [facility] Comment on above: Performed By: #### L IPID, CMP #### [facility] [address] [address] [address] Isha Haq ALP [Catalytic activity/Vol] 115 U/L Normal 46-116 [facility] Comment on above: Performed By: #### L IPID, CMP #### [facility] [address] [address] [address] Isha Haq ALT [Catalytic activity/Vol] 28 U/L Normal 16-63 [facility] Comment on above: Performed By: #### L IPID, CMP #### [facility] [address] [address] [address] Isha Haq Anion gap [Moles/Vol] 10.7 mmol/L Normal [facility] Comment on above: Performed By: #### L IPID, CMP #### [facility] [address] [address] [address] Isha Haq AST [Catalytic activity/Vol] 48 U/L Critically high 15-37 [facility] Comment on above: Performed By: #### L IPID, CMP #### [facility] [address] [address] [address] Isha Haq Bilirubin [Mass/Vol] 0.9 mg/dL Normal 0.2-1.0 [facility] Comment on above: Performed By: #### L IPID, CMP #### [facility] [address] [address] [address] Isha Haq Calcium [Mass/Vol] 9.2 mg/dL Normal 8.5-10.1 [facility] Comment on above: Performed By: #### L IPID, CMP #### [facility] [address] [address] [address] Isha Haq Chloride [Moles/Vol] 107 mmol/L Normal 98-107 [facility] Comment on above: Performed By: #### L IPID, CMP #### [facility] [address] [address] [address] Isha Haq CO2 [Moles/Vol] 24.5 mmol/L Normal 21.0-32.0 [facility] Comment on above: Performed By: #### L IPID, CMP #### [facility] [address] [address] [address] Isha Haq Creatinine [Mass/Vol] 0.52 mg/dL Critically low 0.70-1.30 [facility] Comment on above: Performed By: #### L IPID, CMP #### [facility] [address] [place] [address] Dr. Isha Haq EGFR-AF CROATIAN >60 Normal >=60 [facility] Comment on above: Performed By: #### L IPID, CMP #### [facility] [address] [address] [address] Isha Haq EGFR-NON AF CROATIAN >60 Normal >=60 [facility] Comment on above: Performed By: #### L IPID, CMP #### [facility] [address] [address] [address] Isha Haq Globulin (S) [Mass/Vol] 3.8 g/dL Normal T [facility] Comment on above: Performed By: #### L IPID, CMP #### [facility] [address] [address] [address] Isha Haq Glucose [Mass/Vol] 104 mg/dL Normal 74-106 [facility] Comment on above: Performed By: #### L IPID, CMP #### [facility] [address] [address] [address] Isha Haq Potassium [Moles/Vol] 5.2 mmol/L Critically high 3.5-5.1 [facility] Comment on above: Performed By: #### L IPID, CMP #### [facility] [address] [address] [address] Isha Haq Protein [Mass/Vol] 7.0 g/dL Normal 6.4-8.2 [facility] Comment on above: Performed By: #### L IPID, CMP #### [facility] [address] [place] [address] Dr. Isha Haq Sodium [Moles/Vol] 137 mmol/L Normal 136-145 [facility] Comment on above: Performed By: #### L IPID, CMP #### [facility] [address] [place] [address] Dr. Isha Haq Urea nitrogen [Mass/Vol] 25.0 mg/dL Critically high 7.0-18.0 [facility] Comment on above: Performed By: #### L IPID, CMP #### [facility] [address] [place] [address] Dr. Isha Haq Urea nitrogen/Creatinine [Mass ratio] 48.1 mg/mg Normal [facility] Comment on above: Performed By: #### L IPID, CMP #### [facility] [address] [place] [address] Dr. Isha Haq CARDIAC STRESS TESTon 2021 [...] ensuring mobility, phacoemulsification was performed in a [id number] fashion. After all nuclear material had [...] antibiotic was injected into the anterior chamber. Weck-Lamra sponges were used to check the wounds to be watertight. One drop of apraclonidine and one drop of prednisolone acetate were placed into the eye and a shield was placed over top. The patient was sent to the postoperative area in satisfactory condition to follow up the following day for postoperative care. Normal [facility] NM STRESS/REST MULTIon 01-11 [place] STRESS/REST MULTI Patient: KEVYN KEENAN Exam Date: 01/11/2022 : 1945 Gender:M Ordering : DR DIYA BROWN M.D. Admission #: [id number] Family : Order #: [id number] CLICK HERE TO VIEW EXAM RADIOLOGY REPORT [...] DEFECT: LOCATION: Basal inferior. Mid-inferior. Apical inferior. Cost. SIZE: Medium (3-4 segments). SEVERITY: Moderate. TYPE: [...] Luis MD on 01/12/2022 at 07:05 Normal [facility] MRI LSPLUMMER WO CONon 08-23-20 22 MRI [facility] WO CON EXAMINATION: MRI [facility] WO CON HISTORY: Low back pain COMPARISON: [...] by: MARION LUIS Date: 2021-11-01 18:11 Normal [facility] XR FOREIGN BODY EYEon 2021 XR FOREIGN BODY EYE EXAMINATION: XR FOREIGN BODY EYE HISTORY: Foreign body in eye COMPARISON: No relevant comparison available. FINDINGS: ORBITS: Negative for a metallic foreign body. OTHER: Negative. IMPRESSION: No metallic foreign body in the orbits Electronically authenticated by: MARION LUIS Date: 2021-11-01 10:33 Normal [facility] XR LSPINE 2_3 VIEWSon 2021 [...] differences in technique, findings have progressed since 2016. Electronically authenticated by: RHONDA STEVENSON Date: 2021-08-03 12:18 Normal [facility] Cult,Urineon 05-05-2020 Cult,Urine Specimen Description .CLEAN CATCH URINE Special Requests NOT REPORTED Culture NO GROWTH Report Status FINAL 05/05/2020 Normal [facility] Comment on above: Performed By: #### U #### [facility] [employer] [address] [place] [address] Event Producer: Mendez Cabello MD [facility] [address] [place], [place] [id number] Event Producer: Marion Koo MD Urinalysis w/ Microon 2020 ----- Normal [facility] Comment on above: Performed By: #### U AMIC #### [facility] [address] [place], [place] [id number] Event Producer: Marion Koo MD Acetoacetic Acid,Ur Negative Normal NEG [facility] Comment on above: Performed By: #### U AMIC #### [facility] [address] [place], [place] [address] Event Producer: Marion Koo MD Amorphous sediment LM Ql (Urine sed) TRACE Abnormal [facility] Comment on above: Performed By: #### U AMIC #### [address] [place], [facility] Event Producer: Marion Koo MD Bacteria LM.HPF (Urine sed) [#/Area] TRACE Abnormal [facility] Comment on above: Performed By: #### U AMIC #### [address] [place], [place] [id number] Event Producer: Marion Koo MD Bilirubin, SemiQt,Ur Negative Normal NEG [facility] Comment on above: Performed By: #### U AMIC #### [facility] [address] [place] [address] Dr. [place], [facility] Event Producer: Marion Koo MD Color (U) YELLOW Normal YEL [facility] Comment on above: Performed By: #### U AMIC #### [facility] [address] [place] [address] Event Producer: Marion Koo MD Epithelial cells LM.HPF (Urine sed) [#/Area] 0 TO 2 Normal 0-5 [facility] Comment on above: Performed By: #### U AMIC #### [facility] [address] [place], [place] [address]77483 Event Producer: Marion Koo MD Glucose Ql (U) Negative Normal NEG [facility] Comment on above: Performed By: #### U AMIC #### [facility] [address] [place], [place] [address]683 Event Producer: Marion Koo MD Hemoglobin, Ur Negative Normal NEG [facility] Comment on above: Performed By: #### U AMIC #### [facility] [address] [place], [place] [address]83 Event Producer: Marion Koo MD Leukocyte esterase Test strip Ql (U) Negative Normal NEG [facility] Comment on above: Performed By: #### U AMIC #### [facility] [address] [place] [address] Dr. [place], [place] [address] Event Producer: Marion Koo MD Mucus Strands 1+ Abnormal NONE [facility] Comment on above: Performed By: #### U AMIC #### [facility] [address] [place] [address] Dr. [place], [place] 3275[address] Event Producer: Marion Koo MD Nitrite,Ur Negative Normal NEG [facility] Comment on above: Performed By: #### U AMIC #### [facility] [address] [place] [address] Dr. [place], [place] 3287383 Event Producer: Marion Koo MD pH (U) 6.0 [pH] Normal 5.0-9.0 [facility] Comment on above: Performed By: #### U AMIC #### [facility] [address] [place] [address] Dr. [place], [place] [address]83 Event Producer: Marion Koo MD Protein Ql (U) Negative Normal NEG [facility] Comment on above: Performed By: #### U AMIC #### [facility] [address] [place], [place] [address]83 Event Producer: Marion Koo MD RBC (U) [#/Vol] None Normal 0-2 [facility] Comment on above: Performed By: #### U AMIC #### [facility] [address] [place], [place] [address]885283 Event Producer: Marion Koo MD Specific gravity (U) [Rel density] >1.030 High 1.010-1.020 [facility] Comment on above: Performed By: #### U AMIC #### [facility] [address] [place], [place] [address]83 Event Producer: Marion Koo MD Turbidity CLEAR Normal CLEAR [facility] Comment on above: Performed By: #### U AMIC #### [facility] [address] [place] [address] Dr. [place], [facility] Event Producer: Marion Koo MD Urobilinogen,Ur Normal Normal NORM [facility] Comment on above: Performed By: #### U AMIC #### [facility] [address] [place] [address] Dr. [place], [place] [address] Event Producer: Marion Koo MD WBC (U) [#/Vol] 0 TO 2 Normal 0-5 [facility] Comment on above: Performed By: #### U AMIC #### [address] [place], [facility] Event Producer: Marion Koo MD Casts LM.LPF (Urine sed) [#/Area] NOT REPORTED Normal [facility] Comment on above: Performed By: #### U AMIC #### [facility] [address] [place], [place] [address]83 Event Producer: Marion Koo MD Comment NOT REPORTED Normal [facility] Comment on above: Performed By: #### U AMIC #### [facility] [address] [place], [place] [id number] Event Producer: Marion Koo MD Crystals LM Nom (Urine sed) NOT REPORTED Normal NONE [facility] Comment on above: Performed By: #### U AMIC #### [facility] [address] [place], [place] [address]83 Event Producer: Marion Koo MD Epithelial, Renal NOT REPORTED Normal 0 [facility] Comment on above: Performed By: #### U AMIC #### [facility] [address] [place], [place] 8520383 Event Producer: Marion Koo MD Other Observations NOT REPORTED Normal NREQ [facility] Comment on above: Performed By: #### U AMIC #### [facility] [address] [place], [place] [address]83 Event Producer: Marion Koo MD Trichomonas NOT REPORTED Normal NONE [facility] Comment on above: Performed By: #### U AMIC #### [facility] [address] [place], [place] [id number] Event Producer: Marion Koo MD Yeast LM Ql (Urine sed) NOT REPORTED Normal [facility] Comment on above: Performed By: #### U AMIC #### [facility] [address] [place], [place] [id number] Event Producer: Marion Koo MD Urinalysis with Microscopico n 05-04-2020 Amorphous, UA TRACE Abnormal None [facility] Work Phone: Bacteria, UA TRACE Abnormal None [facility] Work Phone: Bilirubin Urine Negative NEGATIVE [facility] Work Phone: Casts UA NOT REPORTED /LPF [facility] Work Phone: Color, UA YELLOW YELLOW [facility] Work Phone: Crystals, UA NOT REPORTED None /HPF [facility] Work Phone: Epithelial Cells UA 0 TO 2 [facility] Work Phone: Glucose, Ur Negative NEGATIVE [facility] [employer] Work Phone: Interpretation and review of laboratory results Abnormal [facility] [employer] Work Phone: Ketones Ql (U) Negative NEGATIVE [facility] Work Phone: Leukocyte esterase Test strip Ql (U) Negative NEGATIVE [facility] [employer] Work Phone: Mucus, UA 1+ Abnormal None [facility] [employer] Work Phone: Nitrite, Urine Negative NEGATIVE [facility] Work Phone: Other Observations UA NOT REPORTED NOT REQ. [facility] [employer] Work Phone: pH, UA 6.0 [facility] [employer] Work Phone: Protein (U) [Mass/Vol] Negative NEGATIVE [facility] [employer] Work Phone: RBC (U) [#/Vol] None [facility] Work Phone: Renal Epithelial, UA NOT REPORTED 0 /HPF [facility] [employer] Work Phone: Specific [place], UA >1.030 High [facility] [employer] Work Phone: Trichomonas, UA NOT REPORTED None [facility] [employer] Work Phone: Turbidity UA CLEAR CLEAR [facility] [employer] Work Phone: Urinalysis Comments NOT REPORTED [facility] [employer] Work Phone: Urine Hgb Negative NEGATIVE [facility] [employer] Work Phone: Urobilinogen, Urine Normal Normal [facility] [employer] Work Phone: WBC, UA 0 TO 2 [facility] [employer] Work Phone: Yeast, UA NOT REPORTED None [facility] [employer] Work Phone: - [facility] [employer] Work Phone: Cult,Urineon 09-26-2019 Cult,Urine Specimen Description .CLEAN CATCH URINE Special Requests NOT REPORTED Culture NO GROWTH Report Status FINAL 09/26/2019 [facility] Comment on above: Performed By: #### U RC #### [facility] [address] [facility] [place] [address] Event Producer: Mendez Cabello MD [facility] [address] [place], [place] 1206483 Event Producer: Santos Solorio MD Urinalysis w/ Microon 2019 ----- Normal [facility] Comment on above: Performed By: #### U AMIC #### [facility] [address] [place] [address]83 Event Producer: Santos Solorio MD Acetoacetic Acid,Ur Negative Normal [facility] Comment on above: Performed By: #### U AMIC #### [facility] [address] [place] [address] Event Producer: Santos Solorio MD Bilirubin, SemiQt,Ur Negative Normal [facility] Comment on above: Performed By: #### U AMIC #### [facility] [address] [place], [place] [address] Event Producer: Santos Solorio MD Color (U) YELLOW Normal [facility] Comment on above: Performed By: #### U AMIC #### [facility] [address] [place], [place] [address]309683 Event Producer: Santos Solorio MD Epithelial cells LM.HPF (Urine sed) [#/Area] None Normal 0-5 [facility] Comment on above: Performed By: #### U AMIC #### [facility] [address] [place] [address] Event Producer: Santos Solorio MD Glucose Ql (U) Negative Normal [facility] Comment on above: Performed By: #### U AMIC #### [facility] [address] [place] [address] Event Producer: Santos Solorio MD Hemoglobin, Ur Negative Normal NEG [facility] Comment on above: Performed By: #### U AMIC #### [facility] [address] [place], [place] [address]83 Event Producer: Santos Solorio MD Leukocyte esterase Test strip Ql (U) Negative Normal NEG [facility] Comment on above: Performed By: #### U AMIC #### [facility] [address] [place], [place] 4940783 Event Producer: Santos Solorio MD Nitrite,Ur Negative Normal NEG [facility] Comment on above: Performed By: #### U AMIC #### [address] [place] [id number] Event Producer: Santos Solorio MD pH (U) 5.5 [pH] Normal 5.0-9.0 [facility] Comment on above: Performed By: #### U AMIC #### [facility] [address] [place] [address] Dr. [place], [facility] Event Producer: Santos Solorio MD Protein Ql (U) Negative Normal NEG [facility] Comment on above: Performed By: #### U AMIC #### [address] [place] [id number] Event Producer: Santos Solorio MD RBC (U) [#/Vol] None Normal 0-2 [facility] Comment on above: Performed By: #### U AMIC #### [facility] [address] [place], [place] [id number] Event Producer: Santos Solorio MD Specific gravity (U) [Rel density] 1.020 Normal 1.010-1.020 [facility] Comment on above: Performed By: #### U AMIC #### [facility] [address] [place], [place] [address]159[address] Event Producer: Santos Solorio MD Turbidity CLEAR Normal CLEAR [facility] Comment on above: Performed By: #### U AMIC #### [facility] [address] [place] [address] Event Producer: Santos Solorio MD Urobilinogen,Ur Normal Normal NORM [facility] Comment on above: Performed By: #### U AMIC #### [facility] [address] [place] [address] Event Producer: Santos Solorio MD WBC (U) [#/Vol] None Normal 0-5 [facility] Comment on above: Performed By: #### U AMIC #### [facility] [address] [place] [id number] Event Producer: Santos Solorio MD Amorphous sediment LM Ql (Urine sed) NOT REPORTED Normal [facility] Comment on above: Performed By: #### U AMIC #### [facility] [address] [place] [id number] Event Producer: Santos Solorio MD Bacteria LM.HPF (Urine sed) [#/Area] NOT REPORTED Normal [facility] Comment on above: Performed By: #### U AMIC #### [address] [place] [id number] Event Producer: Santos Solorio MD Casts LM.LPF (Urine sed) [#/Area] NOT REPORTED Normal [facility] Comment on above: Performed By: #### U AMIC #### [facility] [address] [place] [id number] Event Producer: Santos Solorio MD Comment NOT REPORTED Normal [facility] Comment on above: Performed By: #### U AMIC #### [facility] [address] [place] [address] Event Producer: Santos Solorio MD Crystals LM Nom (Urine sed) NOT REPORTED Normal [facility] Comment on above: Performed By: #### U AMIC #### [facility] [address] [place], [place] 325[address]83 Event Producer: Santos Solorio MD Epithelial, Renal NOT REPORTED Normal 0 [facility] Comment on above: Performed By: #### U AMIC #### [facility] [address] [place], [place] [address]83 Event Producer: Santos Solorio MD Mucus Strands NOT REPORTED Normal [facility] Comment on above: Performed By: #### U AMIC #### [facility] [address] [place], [place] [id number] Event Producer: Santos Solorio MD Other Observations NOT REPORTED Normal NREQ [facility] Comment on above: Performed By: #### U AMIC #### [facility] [address] [place], [place] 569[address]83 Event Producer: Santos Solorio MD Trichomonas NOT REPORTED Normal NONE [facility] Comment on above: Performed By: #### U AMIC #### [facility] [address] [place], [place] 5607683 Event Producer: Santos Solorio MD Yeast LM Ql (Urine sed) NOT REPORTED Normal [facility] Comment on above: Performed By: #### U AMIC #### [facility] [address] [place], [place] [id number] Event Producer: Santos Solorio MD Urinalysis with Microscopico n 09-25-2019 Amorphous, UA NOT REPORTED None [facility] [place], [place] Bacteria, UA NOT REPORTED None [facility] [place], [place] Bilirubin Urine Negative NEGATIVE [facility] [place] Casts UA NOT REPORTED /LPF [facility] [place], [place] Color, UA YELLOW YELLOW [facility] [place] Crystals, UA NOT REPORTED None /HPF [facility] [place] Epithelial Cells UA None [facility] [place] Glucose, Ur Negative NEGATIVE [facility] [place] Ketones Ql (U) Negative NEGATIVE [facility] [place] Leukocyte esterase Test strip Ql (U) Negative NEGATIVE [place] Mucus, UA NOT REPORTED None [place] Nitrite, Urine Negative NEGATIVE [place] Other Observations UA NOT REPORTED NOT REQ. M [place] pH, UA 5.5 [place] Protein (U) [Mass/Vol] Negative NEGATIVE [place], [place] RBC (U) [#/Vol] None [place] Renal Epithelial, UA NOT REPORTED 0 /HPF [place] Specific [place], UA 1.020 [place], [place] Trichomonas, UA NOT REPORTED None [place] Turbidity UA CLEAR CLEAR [place] Urinalysis Comments NOT REPORTED [place] Urine Hgb Negative NEGATIVE [place] Urobilinogen, Urine Normal Normal [place] WBC, UA None [place] Yeast, UA NOT REPORTED [place] Auth for Release of Medical Recordson 09-02-2019 Auth for Release of Medical Records [id number] CD:127 Normal [facility] PROGRESSon 02-07-2018 Protein mass conc HNO ID: [id number]: Blair Green: (none)Author Type: PhysicianType: Progress NotesFiled: [...] agree with all of its relevantcomponents. Normal [facility] Protein mass conc HNO ID: [id number]: Jamie (Res) Ray Heath: (none)Author Type: ResidentType: Progress NotesFiled: 02/07/2018 10:01 AMNote Text:Resolved ulcer Left eye, failed DSAEK and corneal scarWould still benefit from DSAEK repeat, then possible PTK for smoothing ofoptical centerPrimary open angle glaucomaOff PredForte OS for 3-4 weeks, ?discontinued by local optometristContinue glaucoma medsPatient interested in repeat DSAEK Normal [facility] PROGRESSon 10-04-2017 Protein mass conc HNO ID: [id number]: Blair Green: (none)Author Type: PhysicianType: Progress NotesFiled: [...] agree with all of its relevantcomponents. Normal 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 PROGRESSon 09-06-2017 Protein mass conc HNO ID: [id number]: Blair Green: (none)Author Type: PhysicianType: Progress NotesFiled: [...] agree with all of its relevantcomponents. Normal 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 Eye Cultureon 08-30-2017 Protein mass conc Sp. Request/Comment: - Specimen received already planted.Culture Result - Cutibacterium (Propionibacterium) acnes In thioglycollate broth only --> ABNORMAL ALERT Susceptibility testing on C. acnes not performed due to predictable susceptibility to penicillin. C. acnes is intrinsically resistant to metronidazole. --> ABNORMAL ALERT (NOTE) Positive result called to and read back by:Dr Jessica An I20 09/07/17 Lynne2A g jae Critically abnormal [facility] Comment on above: Performed By: #### E YEC ####[id number] [place], [place] [phone] Fungal Cultureon 08-30-2017 Fungal Culture Sp. Request/Comment: - Specimen received already planted. Culture Result - No Fungus isolated after 33 days [address] [facility] Comment on above: Performed By: #### F CUL ####[id number] [place], [place] [phone] PROGRESSon 08-30-2017 Protein mass conc HNO ID: [id number]: Blair Green: (none)Author Type: PhysicianType: Progress NotesFiled: [...] agree with all of its relevantcomponents. Normal 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 PROGRESSon 06-07-2017 Protein mass conc HNO ID: [id number]: Blair Green: (none)Author Type: PhysicianType: Progress NotesFiled: [...] agree with all of its relevantcomponents. Normal [facility] Protein mass conc HNO ID: [id number]: Caorl Reyes (Fel): (none)Author Type: FellowType: Progress NotesFiled: [...] MD June 07, 2017 11:31 AM Normal [facility] PROGRESSon 05-17-2017 Protein mass conc HNO ID: [id number]: Blair Green: (none)Author Type: PhysicianType: Progress NotesFiled: [...] agree with all of its relevantcomponents. Normal [facility] Protein mass conc HNO ID: [id number]: Maldonado (Johnna) Jeramy: (none)Author Type: ResidentType: Progress [...] poor view2. Pseudophakia OD 05/2016Doing well Normal [facility] Vital Signs Date Time Vital Sign Value Performing Clinician Facility 04-28-2022 14:40-0500 Body temperature 98.8 [degF] DO Chaka Pulido Jr Work Phone: [facility] 04-28-2022 14:40-0500 Diastolic blood pressure 68 mm[Hg] DO Chaka Hickeyanic Work Phone: [facility] 04-28-2022 14:40-0500 Heart rate 75 /min DO Chaka Stepanic Work Phone: [facility] 04-28-2022 14:40-0500 Respiratory rate 16 /min DO Chaka Pulido Jr Work Phone: [facility] 04-28-2022 14:40-0500 SaO2% (BldA) [Mass fraction] 97 % DO Chaka Stepanic Work Phone: [facility] 04-28-2022 14:40-0500 Systolic blood pressure 161 mm[Hg] DO Chaka Stepanic Work Phone: [facility] 04-28-2022 11:00-0500 Body height 168.91 cm DO Chaka Pulido Jr Work Phone: [facility] 04-28-2022 04:00-0500 Inhaled oxygen flow rate 2 L/min DO Chaka Pulido Jr Work Phone: [facility] 04-28-2022 03:16-0500 Body weight 105.6 kg DO Chaka Pulido Jr Work Phone: [facility] 04-27-2022 07:13-0500 Body mass index (BMI) [Ratio] 35 kg/m2 DO Chaka Pulido Jr Work Phone: [facility] 11-29-2021 10:20-0400 Body height 170.18 cm Sheldon Ball Other [facility] Other 11-29-2021 10:20-0400 Body mass index (BMI) [Ratio] 34.77 kg/m2 Sheldon Ball Other [facility] Other 11-29-2021 10:20-0400 Body weight 100.7 kg Sheldon Ball Other [facility] [employer] Other Encounters Encounter Date Encounter Type Care Provider Facility Start: 08-08-2023 End: 08-08-2023 ambulatory SHAIKH PERFECTO Not Available Start: 02-26-2023 End: 02-26-2023 ambulatory CHAUDHARI PERFECTO Not Available Start: 01-15-2023 End: 01-15-2023 ambulatory CAN CHAVEZ [facility] Start: 09-04-2022 End: 09-04-2022 ambulatory [facility] Start: 04-27-2022 End: 04-28-2022 ambulatory NON STAFF Facility:[facility] Start: 04-27-2022 End: 04-28-2022 Admission to same day surgery center DO Chaka Pulido Jr Work Phone: [facility] [place] Start: 04-27-2022 End: 04-28-2022 ambulatory NON STAFF [facility] Work Phone: Start: 04-18-2022 End: 04-19-2022 ambulatory SHAIKH Connie SHARP Facility:[facility] Start: 04-10-2022 End: 04-10-2022 ambulatory Chaka Pulido Facility:[facility] Start: 04-10-2022 End: 04-10-2022 ambulatory NON STAFF [facility] Work Phone: Start: 04-10-2022 End: 04-10-2022 Patient encounter procedure DO Chaka Pulido Work Phone: [facility]Jqgbr[facility] Work Phone: Start: 02-08-2022 End: 02-08-2022 ambulatory [facility] Start: 02-06-2022 End: 02-07-2022 ambulatory SHAIKH Connie SHARP Facility:[facility] Start: 01-11-2022 End: 01-12-[address] [facility] Start: 11-29-2021 End: 11-29-2021 ambulatory Sheldon Ball Other [facility] [employer] Other Start: 11-29-2021 Office outpatient ne w 30 minutes Sheldon Ball [facility] Start: 11-01-2021 End: 11-02-2021 ambulatory SHAIKH Connie HAROD Facility:[facility] Start: 10-25-2021 End: 10-26-[address] DOCTOR BROUSSARD Facility:[facility] Start: 08-22-2021 End: 09-16-2021 ambulatory CHAUDHARI H FAWWAD Facility:[facility] Start: 08-11-2021 ambulatory CHAUDHARI H FAWWAD Facilit y:[facility]1 Start: 08-03-2021 End: 08-04-2021 ambulatory CHAUDHARI H FAWWAD Facility:[facility] Start: 05-02-2021 End: 05-03-[address] DOCTOR BROUSSARD Facility:[facility] Start: 05-04-2020 End: 05-05-2020 Patient encounter procedure DENIA W [facility] Start: 05-04-2020 End: 05-04-2020 Subsequent hospital visit by physician Estefani MARIE Laboratory Comment on above: BPH with obstruction /lower urinary tract symptoms; Nocturia; Urgency of urination Start: 09-25-2019 End: 09-26-2019 Patient encounter procedure DENIA W [facility] Start: 09-25-2019 End: 09-25-2019 Subsequent hospital visit by physician Estefani MARIE Laboratory Comment on above: Nocturia; Urgency incontinence Start: 02-07-2018 End: 02-12-2018 Patient encounter procedure BLAIR AN [facility] Start: 10-04-2017 End: 10-04-2017 Patient encounter procedure BLAIR AN [facility] Start: 09-13-2017 End: 09-17-2017 Patient encounter procedure BLAIR AN [facility] Start: 09-06-2017 End: 09-11-2017 Patient encounter procedure BLAIR AN [facility] Start: 08-30-2017 End: 09-03-2017 Patient encounter procedure BLAIR AN [facility] Start: 08-07-2017 End: 08-08-2017 Ambulatory DEFAULT PHYSICIAN Facility:[facility] Start: 06-07-2017 End: 06-14-2017 Patient encounter procedure BLAIR AN [facility] Start: 05-17-2017 End: 05-17-2017 Patient encounter procedure BLAIR AN [facility] Procedures Date Procedure Procedure Detail Performing Clinician [...] above: Performed By: #### P SAD #### [facility] [address] [place] [address] Dr. Isha Haq Start: 05-02-2021 PSA screening SHAIKH KWABENA ROGERS Comment on above: Performed By: #### P SAD #### [facility] [address] [place] [address] Dr. Isha Haq Start: 05-04-2020 Urnls dip stick/tabl et reagent auto microscopy Denia Pike Work Phone: Start: 09-25-2019 Culture bacterial quanttative colony count urine DENIA PIKE Start: 09-25-2019 Urnls dip stick/tabl et reagent auto microscopy Denia Pike Work Phone: Plan of Treatment Date Care Activity Detail Author Start: 04-29-2022 Blood chemistry [facility] Start: 04-29-2022 [facility] Start: 04-27-2022 [facility] Start: 04-27-2022 Referral to clinical christian science healer [facility] Start: 04-27-2022 Referral to Dragger Out [facility] Start: 04-27-2022 Hospital admission [facility] Start: 04-27-2022 Referral to occupati onal therapist [facility] Start: 04-27-2022 [facility] Start: 04-10-2022 Bacteria identified in Urine by Culture [facility] Start: 02-15-2021 Prostate specific antigen measurement PSA counseling [facility] [employer] Work Phone: Start: 11-02-2020 End: 11-02-2020 Office Visit 11/02/2020 Office Visit Urology Denia Pike, 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 [address] [place] [address] [facility] Start: 11-11-2019 Influenza vaccination Flu vaccine (# 1) [place] Start: 11-04-2019 End: 11-04-2019 Office Visit 11/04/2019 Office Visit Urology Denia Pike, 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 [address] [place] [address] [facility] Start: 09-25-2019 Annual Wellness Visi t (AWV) Annual Wellness Visit (AWV) [place] Start: 01-01-2013 Creatinine measurement Creatinine mo [place]itoring [place] Start: 12-28-2011 Pneumococcal 65+ yea rs Vaccine (1 of 1 - PPSV23) Pneumococcal 65+ years Vaccine (1 of 1 - PPSV23) [place], [place] Start: 1996 Screening for malign ant neoplasm of colon Colon cancer screen colonoscopy [place] Start: 1996 Shingles Vaccine (1 of 2) Shingles Vaccine (1 of 2) [place] Start: 1965 DTaP/Tdap/Td vaccine (1 - Tdap) DTaP/Tdap/Td vaccine (1 - Tdap) [place] Start: 1962 COVID-19 Vaccine (1 of 2) COVID-19 Vaccine (1 of 2) [facility] [employer] Phone: Start: 1956 Lipid panel Lipid screen [place], [place] Start: 1946 Hepatitis C screening Hepatitis C sc nikki [place], [place] Start: 1946 Potassium monitoring Potassium monit oring [place] End: 09-25-2019 Culture, Urine Culture, Urine Microbiology Routine Nocturia Urgency incontinence 1 Occurrences starting 09/25/2019 until 09/25/2019 [place] Comment on above: 1 Occurrences starti ng 09/25/2019 until 09/25/2019 Culture, Urine [place] End: 05-04-2020 Culture, Urine Culture, Urine Microbiology Routine BPH with obstruction/lower urinary tract symptoms Nocturia Urgency of urination 1 Occurrences starting 05/04/2020 until 05/04/2020 [facility] Work Phone: Comment on above: 1 Occurrences starti ng 05/04/2020 until 05/04/2020 Patient referral [facility] Work Phone: Immunizations Immunization Date Immunization Notes Care Provider Kwabena gillette 11-04-2021 COVID-19 mRNA, Comirnaty (Pfizer) DO Chaka Pulido Work Phone: [facility] 02-12-2021 COVID-19 mRNA, Comirnaty (Pfizer) DO Chaka Pulido Work Phone: [facility] 06-05-2020 COVID-19 mRNA, Comirnaty (Pfizer) DO Chaka Pulido Work Phone: [facility] 05-15-2020 COVID-19 mRNA, Comirnaty (Pfizer) [facility]: [facility] Payers Date Payer Category Payer Self-pay 2020 Medicare [id number] 2019 Medicare AETNA MEDICARE A ETNA MEDICARE-ADVANTAGE PPO [id number] 2019-Present [address] [place] [address] Medicare [id number] 2019 Medicare [id number] 1959 Medicare [id number] 1946 Unknown [id number] [id number] 1946 Unknown [id number] 2.16.840.1.821929.3.579.2.173 1946 Unknown [id number] 2.16.840.1.808009.3.579.2.593 1946 Unknown [id number] 2.16.840.1.036485.3.579.2.593 1946 Unknown [id number] 2.16.840.1.358926.3.579.2.593 1946 Unknown [id number] 2.16.840.1.007147.3.579.2.593 1946 Unknown [id number] 2.16.840.1.370239.3.579.2.593 1946 Unknown [id number] 2.16.840.1.099669.3.579.2.593 1946 Unknown [id number] 2.16.840.1.141181.3.579.2.593 1946 Unknown [id number] 2.16.840.1.212986.3.579.2.593 1946 Unknown [id number] 2.16.840.1.225481.3.579.2.593 1946 Unknown [id number] 2.16.840.1.886415.3.579.2.125 9 1946 Unknown [id number] 2.16.840.1.408274.3.579.2.125 9 Medicare Medicare [id number] Unknown Unknown [employer] C o [id number] Unknown [id number] [id number] Unknown [id number] Social History Date Type Detail Facility Start: 09-25-2019 End: 05-04-2020 Tobacco smoking status NHIS Never smoker [employer] [place] Start: 09-25-2019 End: 05-04-2020 Tobacco use and exposure Never used [employer] Start: 09-25-2019 End: 05-04-2020 Alcohol intake [facility]drinker (finding) [facility] [place] Start: 09-25-2019 History SDOH Alcohol Frequency 1 [facility] [place] Sex Assigned At Not on file [facility] [place] [address] [place] Exposure to SARS-CoV -2 (event) Not sure [facility] [place] [employer] [place] Sex Assigned At Sex Assigned At Bir th [employer] 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 Assessment Ama (more content not included)... [facility] 01-15-2023 Note Patient here today w ith concerns of bigeminy. He had a nurse from his insurance [...] All other systems reviewed and are negative. [facility] 09-04-2022 Note [facility] Cardiology Clinic Note Chief Complaint: 6 month [...] Investigations: Cardiovascular Laboratory Report IMPRESSIONS: Severe two-vessel tazlina coronary artery disease There are 4 out [...] should problems arise Diya Brown MD, MPH, [facility], [facility], [facility] Interventional Cardiology Pager Email: [email or web address] 04-27-2022 Consult note Note Date/Time April 27, 2022 4:02pm [facility] [address] [place] [address] Hospitalist Consult Note Signed Patient: Belén Keenan SR MR#: [id number] : 1945 Acct:[id number] Age/Sex: 76 / M Adm Date: 3 Loc: N Room: [address] [place] [address] Type: REG SDC Attending Dr: Chaka Pulido [...] Surgical History History of cardiac catheterization 02/08/22 [facility] History of cataract extraction right eye History [...] BID weight loss 04/10/22 [History Confirmed 04/10/22] icllglvzpvck-solinqgc-uqrjsj tablet (Multivitamin 50 Plus tablet) 1 tab PO DAILY04/10/22 [History Confirmed 04/10/22] omega 6-gkp-uvs-fish oil 1,200 mg (144 mg-216 mg) capsule [...] PO DAILY 04/10/22 [History Confirmed 04/10/22] vitamins A,C,W-zxyf-hvavoz 4,296 mcg-226 mg-90 mg capsule 1 cap [...] 324 Mg Tablet. PO 04/27/23 16:59 BID.WITH.MEALS [facility] Fish Oil 1,000 mg 04/27/22 09:00 04/27/22 13:04 [place]-3/Fish Oil 1,000 Mg Capsule PO 04/27/23 08:59 Not Given DAILY [facility] Folic Acid 1 tab 04/27/22 09:00 04/27/22 13:04 Cyanocobalamin/Fa/Pyridoxine 1 Tab Tablet PO 04/27/23 08:59 Not Given DAILY [facility] Hydromorphone HCl 0.5 mg 04/27/22 07:13 04/27/22 [...] Lactated Ringers IV 04/27/23 07:14 75 mls/hr .[id number] ALEXX Administration Metformin HCl 500 mg 04/27/22 17:00 Metformin 500 Mg Tablet PO 04/27/23 16:59 BID.WITH.MEALS ALEXX Mineral Oil 1 each 04/30/22 07:14 Mineral Oil (Dickinson) [address] ONCE PRN Constipation Morphine Sulfate 15 mg [...] follow Documented By: Dank Tong MD 04/27/22 1555 Signed By: <Electronically signed by Dank Tong MD> 04/27/22 5292 [facility] Work Phone: 1(189) 291-245111-30-2022 NoteCardiovascular Laboratory Report IMPRESSIONS: Severe two-vessel tazlina coronary artery disease There are 4 out [...] procedure. All catheters were removed. A 6 [place] [employer] computer technical specialist closure device was deployed however failed; therefore [...] stenosis estimated at 75 to 80%. The tazlina diagonal appears subtotally occluded. Saphenous vein graft [...] loop in the external iliac artery. Mynx computer technical specialist closure device failed. INDICATIONS: Preoperative evaluation, [facility] NotePatient: Belén Keenan Procedure Information Date/Time: 02/08/2230 Procedure: Cardiac catheterization and bypass grafts (Left) Location: [facility] RENTAL SALES AGENT 2 BIPLANE / [facility] (Cath) Providers: Diya Brown MD Clinical information reviewed: Allergies Meds Physical Exam Airway Mallampati: III TM distance: >3 FB Neck ROM: full Cardiovascular Rhythm: regular Dental Pulmonary Breath sounds clear to auscultation Abdominal (+) obese Anesthesia Plan CSE Anesthetic plan and risks discussed with patient. Use of blood products discussed with patient who. Pt does not want blood products; he is Sabianist Diya Brown MD, MPH, [facility], [facility], [facility] Interventional Cardiology Pager Email: [email or web address] Additional Equipment [facility]2022 Note CARDIAC STRESS TEST Requesting Physician: [...] perfusion imaging report. 4. Clinical correlation recommended.[facility] [id number] Evaluation note* Encounter Date Diagnosis Assessment Notes [...] Foot drop, left foot (ICD-10 - M21.372) [employer] Other 05-25-2022 NotePROCEDURE: XR KNEE LT 3V [...] Electronically authenticated by: RHONDA STEVENSON Date: 2021-08-03 12:21[facility]No assessment information available[facility] Work Phone: Evaluation note* Diagnosis Onset Date Resolution Status Osteoarthritis of right hip acute [facility] Work Phone: History general Narrative - Reported* Type Description Date Medical History Hypertension Medical History cataracts Medical History gall bladder disease Medical History heart disease Surgical History cardiac bypass x 4 2005 Surgical History appendectomy Surgical History tonsillectomy Surgical History gall bladder Surgical History thumb Surgical History eye Hospitalization History see above surgical hx [facility] Other Hospital Discharge instructions Additional Instructions TOTAL HIP DISCHARGE: Recommended Equipment 1. Walker: to be used for post-operative gait. Will transition to straight cane. 2. Raised height toilet seat. 3. Residential Sales Manager/grabber 4. Other: Long handled Shoe Horn, Sock [...] high impact to left hip. b. Use two needle machine operator to retrieve objects from the floor Dressing [...] follow-up appointment has been made with physician offset press assistant Shawn Richardson as previously scheduled 05/12/22 in [facility] office [address] [place] [address] Work Phone: Progress note Author Cory Em [facility] April 28, 2022 3:23pm Note Date/Time April 28, 2022 3:17pm [facility] [address] [place] [address] Hospitalist Progress Note Signed Patient: Belén Keenan MR#: [id number] : 1945 Acct:[id number] Age/Sex: 76 / M Adm Date: 3 Loc: [place] Room: Type: [facility] Attending Dr: Chaka Pulido Jr DO Copies [...] signed by Cory Em MD> 04/28/22 1523 [facility] Work Phone: Summary Purpose Family History No Family History Records Found Relationship Condition Age at Onset Recorded Date/T key Not Specified Heart murmur Unknown Malignant neoplasm Unknown daughter Malignant neoplasm of throat Unknown father Medical history unknown Unknown brother Myocardial infarction Unknown brother Traffic vehicular accidental Unknow n Advance Directives No Advanced Directives Records FoundDocuments on File Type Date Recorded Patient Java User Interface Developer Expl anation Advance Directives and Living Will Power of Uniform Room Attendant Documents on File Type Date Recorded Patient Java User Interface Developer Expl anation ACP-Advance Directive ACP-Power of Uniform Room Attendant Advance Directive Response Recorded Date/ Time Advance [...] Directly with Dr Pulido (not PA or WAGON PERSON) Diagnosis 1 Arthropathy of right hip (M16.11) Referral Organization [facility] urosurgery Referring Provider First Name Sheldon Referring Provider Last Name Lizzy Referring Provider Specialty Neurologica l Surgery Referred Organization [facility] Referred Provider Chaka Pulido Jr Referred Address ,[place], [place],[address] Referred Provider Specialty ORTHOPEDIC S URGEON Referral [...] section and content) DATE CREATED AUTHOR 08/29/2017 [facility] DATE CREATED AUTHOR AUTHOR'S ORGANIZ ATION 02/18/[address] [facility] DATE CREATED AUTHOR AUTHOR'S ORGANIZ ATION 09/29/2019 [facility] DATE CREATED AUTHOR AUTHOR'S ORGANIZ ATION 05/06/2020 [facility] DATE CREATED AUTHOR AUTHOR'S ORGANIZ ATION 04/21/2022 [facility] DATE CREATED AUTHOR AUTHOR'S ORGANIZ ATION 05/05/2022 [facility] DATE CREATED AUTHOR AUTHOR'S ORGANIZ ATION 01/15/2023 [facility] DATE CREATED AUTHOR AUTHOR'S ORGANIZ ATION 08/09/2023 [facility] EPIC REASON FOR VISIT (unrecogniz [...] Status: Inactive Member Role Status Dates Chaka Hickeycj Castro, DO Attending Provider Active NON STAFF Primary [...] Bartholomew MD Other Provider Active Zee Mcgill , BILINGUAL OPERATOR Other Provider Active Viviana Hicks , DO [...] MD Other Provider Active Swapna Feldman , WAGON PERSON-C Other Provider Active Chavez Pagan MD Other Provider Active Patricio Cook MD Other Provider Active Fabricio Willams MD Other Provider Active Angelina Doll , DO Other Provider Active Alen Wheeler , DO Other Provider Active Ben Carrizales , DO Other Provider Active Mervat Fontanez BILINGUAL OPERATOR Other Provider Active Mando Guy , DO Other Provider Active Fanny France MD Other Provider Active Tory Doll BILINGUAL OPERATOR Other Provider Active Patricia Wilkinson RN Other Provider Active Goals (unrecognized section and [...] BE BASED ON THE PRIMARY CLINICAL RECORDS. [facility] [employer] [facility]. provides no warranty or guarantee of the accuracy or completeness of information in this document.
== END 2023-10-17 20:37 | disposition home or self-care (01) ==
LOC: SLEEP 20:38
PROVIDERS: PCP Internal Medicine; Visit Provider Internal Medicine
DX: G47.33 Obstructive sleep apnea (adult) (pediatric) (principal)
CPT/HCPCS: 95810

== ENCOUNTER 2024-01-02 19:31 | Outpatient (OUT) | payer OTHER, SELFPAY ==
--- OUTSIDE RECORDS SUMMARY | 2024-01-02 19:34 | XMS_ITS | CCD ---
Author Organization [facility] Care Team Providers Care Aluminum Siding Installer Name Role Phone PHYSICIAN, DEFAULT Unavailable Unavailable [...] DES Dunbar Other Provider Unavailable MD Jimmie Martni Other Provider MD Aydin Bartholomew Other Provider JR Mcgill Other Provider DO Viviana Hicks Other Provider [phone] MD Paul Connell Other Provider DO Yoshi Ascencio Other Provider MD Dm Lozano Other Provider MD Yuliana Herzog Other Provider Cat, ANP-BC [...] Other Provider DO Ben Carrizales Other Provider JR Fontanez Other Provider DO Mando Guy Other Provider MD Fanny France Other Provider JR Doll Other Provider DES Wilkinson Other Provider Unavailable Chaka Pulido Jr Admitting Unavailable Chaka Pulido Jr Attending Unavailable NON STAFF Primary Care Unavailable NON STAFF Primary Care Unavailable Chaka Pulido Jr Attending Unavailable Ashok Castro Chaka Admitting Unavailable Francia, Dolly Consulting Unavailable Gearasaf, Cher Consulting Unavailable Etta Rosen Consulting Unavailable Densradha, Sanjana Consulting Unavailable Melinda Maribel Consulting Unavailable Layne Dunbar Consulting Unavailable Massouh, Rafik Consulting Unavailable Puma, Aydin K Consulting Unavailable Dials, Zee M Consulting Unavailable Kurt, Ronobir Consulting Unavailable Becki, Paul Consulting Unavailable Lindforrest, Yoshi Consulting UnavailDm Swanson Consulting Unavailable Yuliana Herzog [...] Angelina Doll Unavailable Alen Wheeler Consulting Unavailable MiniBne segovia Consulting Unavailable ObikaMervat Consulting Unavailable Mando Guy Consulting Unavailable DaromarFanny Consulting Unavailable Tory Doll Consulting Unavailable Patricia Wilkinson Unavailable [facility] Admitting Unavailable [place] Attending Unavailable CAN CHAVEZ Attending Unavailable [place], [facility] Attending Unavailable [place] Referring Unavailable SHAIKH GROVE Attending Unavailable SHAIKH GROVE Attending Unavailable SHAIKH GROVE Attending Unavailable JEANETTE MURILLO Attending Unavailwing Grove MD, Unavailable Sony Rao MD Primary Care Provider Jeanette Murillo NP Unavailable Medications Current Medications Medication Drug Class(es) Dates Sig (Normalized) Sig (Original) [id number] 200 actuat albuterol 0.09 mg/actuat metered dose inhaler (1 source) beta2-Adrenergic Agonist take 2 puff(s) by inhalation every four hours for wheezing albuterol HFA 90 mcg/act inhaler Inhale 2 puffs every 4 (four) hours if needed for wheezing Active Aspir-81 (1 source) Aspir-81 Active aspirin 81 mg oral tablet (4 sources) Platelet Aggregation Inhibitor, Nonsteroidal Anti-inflammatory Drug Start: 04-27-2022 take 81 mg by mouth twice daily Aspirin Active 81 MG PO Twice daily April 27, 2022 12:00am Start: 04-10-2022 End: 04-27-2022 take 1 tablet by mouth once daily Aspirin (Aspir-81) 81 mg Tablet,Delayed Release (Dr/Ec) Discontinued 81 MG PO Daily April 10, 2022 12:00am April 27, 2022 10:56am aspirin 81 MG ch ewable tablet Chew 1 tablet in the morning. Active atorvastatin 40 mg oral tablet (7 sources) HMG-CoA Reductase Inhibitor Start: 12-12-2023 take 1 tablet by mouth once daily atorvastatin (Lipitor) 40 MG tablet Indications: Mixed hyperlipidemia (CMS/HCC) Take 1 tablet (40 mg) by mouth Daily 5PM 30 tablet 2 12/12/2023 Active Start: 04-10-2022 take 40 mg by mouth once daily Atorvastatin Active 40 MG PO Daily April 10, 2022 12:00am Start: 08-18-2019 End: 12-11-2023 take 1 tablet by mouth once daily atorvastatin (LIPITOR) 40 MG tablet TAKE 1 TABLET BY MOUTH EVERY DAY 0 08/18/2019 Active carvedilol 3.125 mg oral tablet (5 sources) alpha-Adrenergic Abad, beta-Adrenergic Abad Start: 12-12-2023 take 1 tablet by mouth in the morning carvedilol (Coreg) 3.125 MG tablet Indications: Primary hypertension (CMS/HCC) Take 1 tablet (3.125 mg) by mouth in the morning and 1 tablet (3.125 mg) before bedtime. 60 tablet 2 12/12/2023 Active Start: 04-10-2022 End: 12-11-2023 take 3.125 mg by mouth twice daily at mealtime Carvedilol Active 3.125 MG PO Twice daily April 10, 2022 12:00am must administer with a meal/food cyclobenzaprine hydrochloride 10 mg oral tablet (1 source) Muscle Relaxant Cyclobenzaprine HCl 10 MG Oral for 30 Days Active docosahexaenoic acid 120 mg / eicosapentaenoic acid 180 mg oral capsule (1 source) take 1 capsule by mouth in the morning omega-3 (Fish Oil) 1000 MG capsule Take 1,000 mg by mouth in the morning. 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 Shake gently. Before first use, prime pump. After use, clean tip and replace cap.. 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 (CMS/HCC) , Chronic heart failure with preserved ejection fraction (CMS/HCC) Take 1 tablet (20 mg) by mouth Daily 90 tablet 1 09/06/2023 03/04/2024 Active Start: 08-18-2019 take 1 tablet by elizabeth th once daily in the morning furosemide (LASIX) 20 MG tablet TAKE 1 TABLET BY MOUTH EVERY MORNING 0 08/18/2019 Active Garlic preparation (2 sources) Non-Standardized Food Allergenic Extract Garlic 10 MG CAPS garlic 0 Active loratadine 10 mg oral tablet (2 sources) Start: 08-26-19 20 take 1 tablet by mouth once daily loratadine (CLARITIN) 10 MG tablet TAKE 1 TABLET BY MOUTH EVERY DAY 0 08/26/2019 Active meloxicam 15 mg oral tablet (3 sources) Nonsteroidal Anti-inflammatory Drug Start: 12-12-19 24 take 1 tablet by mouth once daily as needed for pain meloxicam (Mobic) 15 MG tablet Indications: Unspecified osteoarthritis, unspecified site Take 1 tablet (15 mg) by mouth Daily as needed for mild pain 30 tablet 12/12/2023 Active Start: 05-08-2023 End: 12-11-2023 take 1 tablet by mouth once daily as needed for pain meloxicam (Mobic) 15 MG tablet Indications: Unspecified osteoarthritis, unspecified site TAKE ONE TABLET BY MOUTH EVERY DAY NEEDED FOR PAIN (VIAL) 90 tablet 05/08/2023 12/11/2023 Discontinued (Reorder) Meloxicam 15 MG Oral for 30 Days Active metFORMIN hydrochloride 500 mg oral tablet (3 sources) Biguanide Start: 04-10-2022 take 500 mg by mouth twice daily Metformin Active 500 MG PO Twice daily April 10, 2022 12:00am metFORMIN HCl 50 0 MG Oral for 90 Days Active Multiple Vitamins-Minerals (EYE VITAMINS) CAPS (2 sources) Multiple Vitamins-Minerals (EYE VITAMINS) CAPS Take by mouth 0 Active Multiple Vitamins-Minerals (Eye Vitamins) capsule (1 source) take 1 capsule by mouth in the morning Multiple Vitamins-Minerals (Eye Vitamins) capsule Take 1 capsule by mouth in the morning. Active Multiple Vitamins-Minerals (MULTIVITAMIN ADULT EXTRA C PO) (2 sources) Multiple Vitamins-Minerals (MULTIVITAMIN ADULT EXTRA C PO) multivitamin 0 Active Bqyzhnuhscec-Risvwmku-Ul tein (Multivitamin 50 Plus) Tablet (2 sources) Start: 023 Piqxxaunhfre-Hpgncwkr-Ba tein (Multivitamin 50 Plus) Tablet Active 1 TAB PO Daily April 10, 2022 12:00am Adel 0-Hkq-Gyy-Fish Oil (Fish Oil) 1,200 (144-216) mg Capsule (2 sources) Start: 023 take 1 capsule by mouth once daily Adel 8-Xni-Hpl-Fish Oil (Fish Oil) 1,200 (144-216) mg Capsule Active 1 CAP PO Daily April 10, 2022 12:00am omeprazole 20 mg delayed release oral capsule (6 sources) Proton Pump Inhibitor Start: 024 take 1 capsule by mouth once daily omeprazole (PriLOSEC) [address] capsule Indications: Gastro-esophageal reflux disease without esophagitis TAKE 1 CAPSULE BY MOUTH DAILY 90 capsule 10/31/2023 Active Start: 04-10-2022 take 20 mg by mouth once daily Omeprazole Active 20 MG PO Daily April 10, 2022 12:00am Start: 08-18-2019 take 1 capsule by mo [facility] once daily omeprazole (PRILOSEC) 20 MG delayed release capsule TAKE 1 CAPSULE BY MOUTH EVERY DAY 0 08/18/2019 Active sertraline 50 mg oral tablet (6 sources) Serotonin Reuptake Inhibitor Start: 05-20-2023 take 1.5 tablets by mouth once daily sertraline (Zoloft) 50 MG tablet Indications: Depression, unspecified (CMS/HCC) Take 1.5 tablets (75 mg) by mouth Daily 135 tablet 1 05/20/2023 Active Start: 04-10-2022 take 75 mg by mouth once daily Sertraline Active 75 MG PO Daily April 10, 2022 12:00am Start: 09-03-2019 take 1 tablet by elizabeth once daily sertraline (ZOLOFT) 50 MG tablet TAKE 1 TABLET BY MOUTH EVERY DAY 0 09/03/2019 Active spironolactone 25 mg oral tablet (1 source) Aldosterone Antagonist Spironolactone 25 MG Oral for 90 Days Active tamsulosin hydrochloride 0.4 mg oral capsule (6 sources) alpha-Adrenergic Abad Start: 08-08-19 End: 02-04-20 take 1 capsule by mouth once daily tamsulosin (Flomax) 0.4 MG 24 hr capsule Indications: Benign prostatic hyperplasia without lower urinary tract symptoms Take 1 capsule (0.4 mg) by mouth Daily 90 capsule 1 08/08/2023 02/04/2024 Active Start: 04-10-2022 take 0.4 mg by mouth once alethea y Tamsulosin Active 0.4 MG PO Daily April 10, 2022 12:00am Start: 09-25-2019 take 1 capsule by mo [facility] once daily in the evening tamsulosin (FLOMAX) [...] PO Daily April 10, 2022 12:00am Vitamins A,C,D-Xpoy-Ihejlh (1 source) Start: 04-10-2022 take 1 capsule by mouth once daily Vitamins A,C,M-Mdrr-Nhdsyd Active 1 CAP PO Daily April 10, 2022 12:00am Vitamins A,C,E-Rhms-Bweekg (Vision Formula (H-L-J-Zn-Reji)) 14,320-226-200 nbdx-ol-xcmk Capsule (1 source) Start: 04-10-2022 take 1 capsule by mouth once daily Vitamins A,C,Q-Ocii-Lrcbmi (Vision Formula (X-W-X-Zn-Reji)) 14,[id number] mjxh-qw-vitz Capsule Active 1 CAP PO Daily April 10, 2022 12:00am Problems Active Problems Problem Classification Problem Date Documented Date Episodic/Chronic Cataract (2 sources) Nuclear sclerotic cataract; Translations: [Age-related nuclear cataract, unspecified eye] Onset: 10-23-2013 08-08-2023 Chronic Complication of device; implant or graft (1 source) Atherosclerosis of coronary artery bypass graft(s) without angina pectoris; Translations: [ATS CA BP GRAFT NO ANGINA PECTORIS] Onset: 01-16-2022 Chronic Coronary atherosclerosis and other heart disease (7 sources) 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; Translations: [Coronary arteriosclerosis] Onset: 01-11-2022 Chronic Coronary atherosclerosis and other heart disease (2 sources) Presence of aortocoronary bypass graft; Translations: [Presence of aortocoronary bypass graft] Onset: 01-15-2023 Episodic Disorders of lipid metabolism (6 sources) Hyperlipidemia, unspecified; Translations: [Mixed hyperlipidemia] Onset: 02-06-2022 Chronic Essential hypertension (3 sources) Essential (primary) hypertension; Translations: [Essential hypertension] Onset: 02-11-2022 12-12-2023 Chronic Fluid and electrolyte disorders (4 sources) Hyperkalemia; Translations: [HYPERKALEMIA] Onset: 04-18-2022 Episodic Genitourinary symptoms and ill-defined conditions (1 source) Urge incontinence of urine; Translations: [Urgency incontinence] Chronic Genitourinary symptoms and ill-defined conditions (3 sources) Nocturia; Translations: [Urgent desire to urinate] Episodic Glaucoma (1 source) Open-angle glaucoma of right eye; Translations: [Unspecified open-angle glaucoma, moderate stage] Onset: 10-04-2017 08-08-2023 Chronic Heart valve disorders (4 sources) Nonrheumatic tricuspid valve disorder, unspecified; Translations: [Mitral valve disorder] Onset: 04-22-2012 Chronic Hyperplasia of prostate (3 sources) Benign prostatic hypertrophy with outflow obstruction; Translations: [Benign prostatic hyperplasia with lower urinary tract symptoms] Onset: 11-04-2019 11-04-2019 Chronic Osteoarthritis (8 sources) Arthropathy of right hip joint; Translations: [Unilateral primary osteoarthritis, right hip] Onset: 11-29-2021 Resolved: 11-29-2021 Chronic Other bone disease and musculoskeletal deformities (1 source) Avascular necrosis of bone of hip; Translations: [Idiopathic aseptic necrosis of unspecified femur] Onset: 08-08-2023 08-08-2023 Chronic Other connective tissue disease (1 source) History of total hip arthroplasty; Translations: [Presence of unspecified artificial hip joint] Onset: 08-08-2023 08-08-2023 Chronic Other eye disorders (1 source) Bullous keratopathy; 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, unspecified eye] Onset: 10-23-2013 08-08-2023 Chronic Other non-traumatic joint disorders (1 source) Knee pain; Translations: [Knee pain, left] Episodic Other nutritional; endocrine; and metabolic disorders (1 source) Obesity caused by energy imbalance; Translations: [Class 2 obesity due to excess calories without serious comorbidity with body mass index (BMI) of 35.0 to 35.9 in adult] Onset: 02-26-2023 02-26-2023 Chronic Residual codes; unclassified (1 source) Obstructive sleep apnea syndrome; Translations: [Obstructive sleep apnea (adult) (pediatric)] Onset: 09-19-2023 09-19-2023 Chronic Residual codes; unclassified (2 sources) Other specified [...] Other Problems Problem Classification Problem Date Documented Date Episodic/Chronic Abdominal hernia (1 source) Diaphragmatic hernia; Translations: [Diaphragmatic hernia without obstruction or gangrene] Onset: 04-22-2012 08-08-2023 Episodic Acquired foot deformities (2 sources) Foot drop, right foot; Translations: [Left foot drop] Onset: 11-29-2021 Resolved: 11-29-2021 Episodic Acquired foot deformities (1 source) Foot drop, left foot Onset: 11-29-2021 Resolved: 11-29-2021 Episodic Cardiac dysrhythmias (5 sources) Ventricular premature depolarization; Translations: [Atrial premature depolarization] Onset: 06-12-2012 Resolved: 02-26-2023 Chronic Mood disorders (1 source) Mood disorders Onset: 02-26-2023 02-26-2023 Other and unspecified benign neoplasm (1 source) Adenomatous polyp of colon ; Translations: [Benign neoplasm of colon, unspecified] Onset: 12-16-2018 08-08-2023 Episodic Other and unspecified benign neoplasm (1 source) History of adenomatous polyp of colon; Translations: [History of adenomatous polyp of colon] Onset: 11-21-2018 08-08-2023 Episodic Other connective tissue disease (1 source) Trochanteric bursitis, right hip Onset: 11-29-2021 Resolved: 11-29-2021 Episodic Other connective tissue disease (1 source) H/O: musculoskeletal disease; Translations: [Personal history of other diseases of the musculoskeletal system and connective tissue] Onset: 08-08-2023 08-08-2023 Episodic Other eye disorders (1 source) Central corneal ulcer, left eye; Translations: [Central corneal ulcer] Onset: 09-06-2017 08-08-2023 Episodic Other non-traumatic joint disorders (5 sources) [...] [facility] Facility Office Visiton 01-15-2023 Follow-up visit [id number] Francisco Keenan L 1945 M Date Provider Department Center 01/15/2023 [id number] CHAVEZ JESSICA [facility] Family History Problem Relation Age of Onset Heart attack Other Family Status - Relation Status Age at Other Level of Service:07178 [place] OFFICE/OUTPATIENT ESTABLISHED MOD MDM 30-39 MIN Normal [facility] Office Visiton 09-04-2022 Follow-up visit [id number] Francisco Keenan Jason 1945 M Date Provider Department Center 09/04/2022 [id number] BROWN CARD [facility] No family history on file Level of Service:18989 [place] OFFICE/OUTPATIENT ESTABLISHED LOW MDM 20-29 MIN Normal [facility] Anisocytosis LM Ql (Bld)Orde red By: Madhu Richardson on 04-28-2022 Anisocytosis Ql (Bld) Slight [facility] Band form neutrophils/100 WB C Manual cnt (Bld)Ordered By: Madhu Richardson on 04-28-2022 Band form neutrophils/100 WBC (Bld) 6 % 0-5 [facility] Basic Metabolic Panelon 04-12 Anion gap [Moles/Vol] 6.0 mmol/L Normal 6.0-15.0 [facility] Comment on above: Performed By: #### B MP, DIFF CBC #### [facility] [address] [place] [address] [place] Calcium [Mass/Vol] 8.8 mg/dL Normal 8.2-10.2 [facility] Comment on above: Performed By: #### B MP, DIFF CBC #### [facility] [address] [place] [address] [place] Chloride [Moles/Vol] 108 mmol/L Normal 95-114 [facility] Comment on above: Performed By: #### B MP, DIFF CBC #### [facility] [address] [place] [address] [place] CO2 [Moles/Vol] 30.6 mmol/L High 22.0-30.0 [facility] Comment on above: Performed By: #### B MP, DIFF CBC #### [facility] [address] [place] [address] [place] Creatinine [Mass/Vol] 0.77 mg/dL Normal 0.64-1.27 [facility] Comment on above: Performed By: #### B MP, DIFF CBC #### [facility] [address] [place] [address] [place] Creatinine Clr Calc Pharmacy 90.[address] [facility] Comment on above: Result Comment: PERF ORMED BY: [facility] [address] [place] [address] PATHOLOGIST TABLE WORKER PACKAGER DELFIN GUEVARA M.D. Performed By: #### B MP, DIFF CBC #### [facility] [address] Estimated GFR ( Katie > [address] [facility] Comment on above: Result Comment: GFR estimated reference range: According to KDOQI guidelines, <60 ml/min/1.73m2 is sufficient to diagnose a patient with chronic kidney disease. Performed By: #### B MP, DIFF CBC #### [facility] [address] [place] [address] [place] Estimated GFR (Non- Am > [address] [facility] Comment on above: Performed By: #### B MP, DIFF CBC #### [facility] [address] [place] [address] [place] Glucose [Mass/Vol] 145 mg/dL High 70-100 [facility] Comment on above: Result Comment: [place] Glucose Reference Range is dependent on time and content of last meal. Glucose of more than 200 mg/dL in a nonstressed, ambulatory subject supports the diagnosis of Diabetes Mellitus. ADA recommended reference range Performed By: #### B MP, DIFF CBC #### [facility] [address] [place] [address] [place] Potassium [Moles/Vol] 4.6 mmol/L Normal 3.5-5.1 [facility] Comment on above: Performed By: #### B MP, DIFF CBC #### [facility] [address] [place] [address] [place] Sodium [Moles/Vol] 140 mmol/L Normal 136-146 [facility] Comment on above: Performed By: #### B MP, DIFF CBC #### [facility] [address] Urea nitrogen [Mass/Vol] 22 mg/dL Normal 9-23 [facility] Comment on above: Performed By: #### B MP, DIFF CBC #### [facility] [address] Basophils Auto (Bld) [#/Vol] Ordered By: Madhu Richardson on 04-28-2022 Basophils (Bld) [#/Vol] N/A F [facility] Basophils/100 WBC Auto (Bld) Ordered By: Madhu Richardson on 04-28-2022 Basophils/100 WBC (Bld) N/A F [facility] Creatinine and Glomerular fi ltration rate.predicted panel (S/P/Bld)Ordered By: Madhu Richardson on 04-28-2022 Creatinine [Mass/Vol] 0.77 mg/dL 0.64-1.27 [facility] Diff and CBCon 04-28-2022 Anisocytosis Ql (Bld) Slight Normal [facility] Comment on above: Performed By: #### B MP, DIFF CBC #### [address] Band form neutrophils/100 WBC (Bld) 6 % High 0-5 [facility] Comment on above: Performed By: #### B MP, DIFF CBC #### [address] Erythrocyte distribution width (RBC) [Ratio] 14.4 % Normal 12.0-14.8 [facility] Comment on above: Performed By: #### B MP, DIFF CBC #### [address] Hematocrit (Bld) [Volume fraction] 35.4 % Low 38.8-50.0 [facility] Comment on above: Performed By: #### B MP, DIFF CBC #### [address] Hemoglobin (Bld) [Mass/Vol] 11.7 g/dL Low 13.0-17.0 [facility] Comment on above: Performed By: #### B MP, DIFF CBC #### [address] Lymphocytes/100 WBC (Bld) 3 % Low 18-42 [facility] Comment on above: Performed By: #### B MP, DIFF CBC #### [address] MCH (RBC) [Entitic mass] 30.6 pg Normal 27.5-35.2 [facility] Comment on above: Performed By: #### B MP, DIFF CBC #### [address] MCV (RBC) [Entitic vol] 92.8 fL Normal 83.5-101 F [facility] Comment on above: Performed By: #### B MP, DIFF CBC #### [address] Mean Corpuscular HGB Conc 33.0 g/dL Normal 32.5-35.6 [facility] Comment on above: Performed By: #### B MP, DIFF CBC #### [address] Monocytes/100 WBC (Bld) 3 % Normal 2-11 [facility] Comment on above: Performed By: #### B MP, DIFF CBC #### [address] Platelet Estimate Normal Normal Normal [facility] Comment on above: Performed By: #### B MP, DIFF CBC #### [address] Platelet mean volume (Bld) [Entitic vol] 8.1 fL Normal 6.6-10.1 [facility] Comment on above: Performed By: #### B MP, DIFF CBC #### [address] Platelet Morphology Normal Normal Normal [facility] Comment on above: Result Comment: PERF ORMED BY: [place] [address] PATHOLOGIST TABLE WORKER PACKAGER DELFIN GUEVARA M.D. Performed By: #### B MP, DIFF CBC #### [facility] [address] [place] [address] [place] Platelets (Bld) [#/Vol] 198 10*3/uL Normal 150-450 [facility] Comment on above: Performed By: #### B MP, DIFF CBC #### [facility] [address] [place] [address] RBC (Bld) [#/Vol] 3.81 10*6/uL Low 3.90-5.60 [facility] Comment on above: Performed By: #### B MP, DIFF CBC #### [address] RBC morphology finding Nom (Bld) Normal Normal Normal [facility] Comment on above: Performed By: #### B MP, DIFF CBC #### [facility] [address] [place] [address] [place] Segmented neutrophils/100 WBC (Bld) 89 % High 50-70 [facility] Comment on above: Performed By: #### B MP, DIFF CBC #### [place] [address] [place] WBC (Bld) [#/Vol] 17.4 10*3/uL High 4.1-10.5 [facility] Comment on above: Performed By: #### B MP, DIFF CBC #### [place] [address] [place] Eosinophils Auto (Bld) [#/Vo l]Ordered By: Madhu Richardson on 04-28-2022 Eosinophils (Bld) [#/Vol] N/A [facility] Eosinophils/100 WBC Auto (Bl d)Ordered By: Madhu Richardson on 04-28-2022 Eosinophils/100 WBC (Bld) N/A [facility] Erythrocyte distribution wid th Auto (RBC) [Ratio]Ordered By: Madhu Richardson on 04-28-2022 Erythrocyte distribution width (RBC) [Ratio] 14.4 % 12.0-14.8 [facility] Estimated glomerular filtrat ion rate (GFR) non- AmericanOrdered By: Madhu Richardson on 04-28-2022 GFR/1.73 sq M.predicted among non-blacks MDRD (S/P/Bld) [Vol rate/Area] > 60 mL/Min [facility] Hematocrit Auto (Bld) [Volum e fraction]Ordered By: Madhu Richardson on 04-28-2022 Hematocrit (Bld) [Volume fraction] 35.4 % 38.8-50.0 [facility] Hemoglobin [Mass/volume] in BloodOrdered By: Madhu Richardson on 04-28-2022 Hemoglobin (Bld) [Mass/Vol] 11.7 g/dL 13.0-17.0 [facility] Leukocytes [#/volume] correc trena for nucleated erythrocytes in Blood by Automated counOrdered By: Madhu Richardson on 04-28-2022 WBC corrected for nucl RBC Auto (Bld) [#/Vol] 17.4 10*3/uL 4.1-10.5 [facility] Lymphocytes Auto (Bld) [#/Vo l]Ordered By: Madhu Richardson on 04-28-2022 Lymphocytes (Bld) [#/Vol] N/A [facility] Lymphocytes/100 WBC Auto (Bl d)Ordered By: Madhu Richardson on 04-28-2022 Lymphocytes/100 WBC (Bld) N/A [facility] Lymphocytes/100 WBC Manual c nt (Bld)Ordered By: Madhu Richardson on 04-28-2022 Lymphocytes/100 WBC (Bld) 3 % 18-42 [facility] MCH Auto (RBC) [Entitic mass ]Ordered By: Madhu Richardson on 04-28-2022 MCH (RBC) [Entitic mass] 30.6 pg 27.5-35.2 [facility] MCHC Auto (RBC) [Mass/Vol]Or dered By: Madhu Richardson on 04-28-2022 MCHC (RBC) [Mass/Vol] 33.0 g/dL 32.5-35.6 [facility] MCV Auto (RBC) [Entitic vol] Ordered By: Madhu Richardson on 04-28-2022 MCV (RBC) [Entitic vol] 92.8 fL 83.5-101 F [facility] Monocytes Auto (Bld) [#/Vol] Ordered By: Madhu Richardson on 04-28-2022 Monocytes (Bld) [#/Vol] N/A [facility] Monocytes/100 WBC Auto (Bld) Ordered By: Madhu Richardson on 04-28-2022 Monocytes/100 WBC (Bld) N/A [facility] Monocytes/100 WBC Manual cnt (Bld)Ordered By: Madhu Richardson on 04-28-2022 Monocytes/100 WBC (Bld) 3 % 2-11 [facility] Neutrophils Auto (Bld) [#/Vo l]Ordered By: Madhu Richardson on 04-28-2022 Neutrophils (Bld) [#/Vol] N/A [facility] Neutrophils/100 WBC Auto (Bl d)Ordered By: Madhu Richardson on 04-28-2022 Neutrophils/100 WBC (Bld) N/A [facility] No Panel InformationOrdered By: Madhu Richardson on 04-28-2022 Estimated GFR () > 60 mL/Min [facility] Comment on above: GFR estimated refere nce range: According to KDOQI guidelines, <60 ml/min/1.73m2 is sufficient to diagnose a patient with chronic kidney disease. Pharmacy Creatinine Clearance (Chem 90.86 [facility] Nucleated erythrocytes [Pres ence] in Blood by Automated countOrdered By: Madhu Richardson on 04-28-2022 Nucleated RBC Auto Ql (Bld) N/A [facility] Platelet adequacy [Presence] in Blood by Light microscopyOrdered By: Madhu Richardson on 04-28-2022 Platelets LM Ql (Bld) Normal Normal [facility] Platelet mean volume Auto (B ld) [Entitic vol]Ordered By: Madhu Richardson on 04-28-2022 Platelet mean volume (Bld) [Entitic vol] 8.1 fL 6.6-10.1 [facility] Platelet morphology finding [Identifier] in BloodOrdered By: Madhu Richardson on 04-28-2022 Platelet morphology finding Nom (Bld) Normal Normal [facility] Platelets Auto (Bld) [#/Vol] Ordered By: Madhu Richardson on 04-28-2022 Platelets (Bld) [#/Vol] 198 10*3/uL 150-450 [facility] RBC Auto (Bld) [#/Vol]Ordere d By: Madhu Richardson on 04-28-2022 RBC (Bld) [#/Vol] 3.81 10*6/uL 3.90-5.60 [facility] RBC morphologyOrdered By: Selma Richardson on 04-28-2022 RBC morphology finding Nom (Bld) Normal Normal [facility] Segmented neutrophils/100 WB C Manual cnt (Bld)Ordered By: Madhu Richardson on 04-28-2022 Segmented neutrophils/100 WBC (Bld) 89 % 50-70 [facility] Serum or plasma anion gap de terminationOrdered By: Madhu Richardson on 04-28-2022 Anion gap [Moles/Vol] 6.0 mmol/L 6.0-15.0 [facility] Serum or plasma calcium ernesto urement (mass/volume)Ordered By: Madhu Richardson on 04-28-2022 Calcium [Mass/Vol] 8.8 mg/dL 8.2-10.2 [facility] Serum or plasma chloride cristina surement (moles/volume)Ordered By: Madhu Richardson on 04-28-2022 Chloride [Moles/Vol] 108 mmol/L 95-114 [facility] Serum or plasma glucose ernesto urement (mass/volume)Ordered By: Madhu Richardson on 04-28-2022 Glucose [Mass/Vol] 145 mg/dL 70-100 [facility] Comment on above: ADA recommended refe rence rangeRandom Glucose Reference Range is dependent on time and content of last meal. Glucose of more than 200 mg/dL in a nonstressed, ambulatory subject supports the diagnosis of Diabetes Mellitus. Serum or plasma potassium me asurement (moles/volume)Ordered By: Madhu Richardson on 04-28-2022 Potassium [Moles/Vol] 4.6 mmol/L 3.5-5.1 [facility] Serum or plasma sodium measu rement (moles/volume)Ordered By: Madhu Richardson on 04-28-2022 Sodium [Moles/Vol] 140 mmol/L 136-146 [facility] Serum or plasma total carbon dioxide measurement (moles/volume)Ordered By: Madhu Richardson on 04-28-2022 CO2 [Moles/Vol] 30.6 mmol/L 22.0-30.0 [facility] Serum or plasma urea nitroge n measurement (mass/volume)Ordered By: Madhu Richardson on 04-28-2022 Urea nitrogen [Mass/Vol] 22 mg/dL 9- [facility] WBC Auto (Bld) [#/Vol]Ordere d By: Madhu Richardson on 04-28-2022 WBC (Bld) [#/Vol] 17.4 10*3/uL 4.1-10.5 [facility] Jesus 04-27-2022 L -- ---- Specimen: [id number] Received: 04/27/22 Status: SHANTA Torres Num: [id number] Spec Type: Surgical Subm Dr: Chaka Pulido Jr, DO Tissues: A Femoral Head - Other than Fracture (RT HIP) Procedures: HE/2, Gross/Micro L3, Decalcification ---- Age/ Patient Sex Location Account Attending Physician ---- Belén Keenan 76/M HI [id number] Chaka Pulido Jr, DO ---- SPEC NUM: [id number] RECD: 04/27/22 STATUS: SHANTA TORRES NUM: [id number] [place]: 04/27/22 [facility] DR: Chaka Pulido Jr, DO ENTERED: 04/27/[address]: CHELSIE TYPE: Surgical DEPT: S ORDERED: HE/2, Gross/Micro L3, Decalcification ORDERED: HE/2, Gross/Micro L3, Decalcification Supplemental Report Addendum 1 Entered: 05/04/22 This case was interpreted at [facility], [place] [address]. Addendum Signed (signature on file) Jax Mcdonald MD 05/04/22 1211 ---- Pathological Diagnosis Right hip bone/femoral head, right total hip arthroplasty: - Right femoral head with degenerative change consistent with osteoarthritis. - Fragments of benign bone with trilineage marrow. Clinical Information DJD ---- Specimen: [id number] Received: 04/27/22 Status: SHANTA Torres Num: [id number] Spec Type: Surgical Subm Dr: Chaka Pulido Jr DO Tissues: A Femoral Head - Other than Fracture (RT HIP) Procedures: HE/2, Gross/Micro L3, Decalcification ---- Patient: Belén Keenan SR [id number] (Continued) ---- Specimen: [id number] Received: 04/27/22 (Continued) Signed (signature on file) Jax Mcdonald MD 05/01/22 1449 ---- Specimen: [id number] Received: 04/27/22 Status: SHANTA Torres Num: [id number] Spec Type: Surgical Subm Dr: Chaka Pulido Jr, DO Tissues: A Femoral Head - Other than Fracture (RT HIP) Procedures: HE/2, Gross/Micro L3, Decalcification ---- Patient: Belén Keenan [id number] (Continued) ---- Specimen: [id number] Received: 04/27/22-1104 (Continued) [...] The cut surface is cortes red, trabecular. Brim Pouncer are submitted following decalcification in two cassettes labeled A1-A2. Microscopic Description Two glass slides with H E stained material have been examined. The microscopic findings support the above pathologic diagnosis. CPT Codes 51832, 77132 ---- ---- Specimen: [id number] Received: 04/27/22 Status: SHANTA Cormierbaldo Num: [id number] Spec Type: Surgical Subm Dr: Chaka Pulido Jr, DO Tissues: A Femoral Head - Other than Fracture (RT HIP) Procedures: HE/2, Gross/Micro L3, Decalcification ---- Patient: ReeBelénbeena Gomez SR [id number] (Continued) ---- Signed (signature on file) Jax Mcdonald MD 05/01/22 1449 Normal [facility] XR low pelvis w/RT x-table h ipon 04-27-2022 XR low pelvis w/RT x-table hip [address] [address] XRay Report Signed Patient: Belén Keenan Jason WRIGHT MR#: [id number] : 1945 Acct:[id number] Age/Sex: 76 / M ADM Date: 04/27/22 Loc: 4N Room: 7L2840-1 Type: [facility] Attending Dr: Chaka Pulido Jr DO Copies [...] complication. Impression dictated by: Salvador Freitas Jr., D.O.04/27/2022 2:04 PM Dictation Location: [place] [address] Transcribed By: [facility] 04/27/22 140 Dictated By: Salvador Freitas Jr, DO 04/27/221403 Signed By: 04/27/[address] [facility] PROF CHEM 8 (BAS METB)on Anion gap [Moles/Vol] 12.4 mmol/L Normal [facility] Comment on above: Performed By: #### B MP #### [facility] [address] [place] [address] Dr. Isha Haq Calcium [Mass/Vol] 9.5 mg/dL Normal 8.5-10.1 [facility] Comment on above: Performed By: #### B MP #### [facility] [address] [place] [address] Dr. Isha Haq Chloride [Moles/Vol] 106 mmol/L Normal 98-107 [facility] Comment on above: Performed By: #### B MP #### [facility] [address] [address] [address] Isha Haq CO2 [Moles/Vol] 26.0 mmol/L Normal 21.0-32.0 [facility] Comment on above: Performed By: #### B MP #### [facility] [address] [address] [address] Isha Haq Creatinine [Mass/Vol] 0.75 mg/dL Normal 0.70-1.30 [facility] Comment on above: Performed By: #### B MP #### [facility] [address] [address] [address] Isha Haq EGFR-AF [place] >60 Normal >=60 [facility] Comment on above: Performed By: #### B MP #### [facility] [address] [address] [address] Isha Haq EGFR-NON AF [place] >60 Normal >=60 [facility] Comment on above: Performed By: #### B MP #### [facility] [address] [address] [address] Isha Haq Glucose [Mass/Vol] 104 mg/dL Normal 74-106 [facility] Comment on above: Performed By: #### B MP #### [facility] [address] [place] [address] Dr. Isha Haq Potassium [Moles/Vol] 4.4 mmol/L Normal 3.5-5.1 [facility] Comment on above: Performed By: #### B MP #### [facility] [address] [place] [address] Dr. Isha Haq Sodium [Moles/Vol] 140 mmol/L Normal 136-145 [facility] Comment on above: Performed By: #### B MP #### [facility] [address] [address] [address] Isha Haq Urea nitrogen [Mass/Vol] 15.0 mg/dL Normal 7.0-18.0 [facility] Comment on above: Performed By: #### B MP #### [facility] [address] [address] [address] Isha Haq Urea nitrogen/Creatinine [Mass ratio] 20.0 mg/mg Normal [facility] Comment on above: Performed By: #### B MP #### [facility] [address] [place] [address] Dr. Isha Haq Basic Metabolic Panelon 03-14 Anion gap [Moles/Vol] 13.6 mmol/L Normal 6.0-15.0 [facility] Comment on above: Performed By: #### B MP, CBC #### [facility] [address] Calcium [Mass/Vol] 9.6 mg/dL Normal 8.2-10.2 [facility] Comment on above: Result Comment: PERF ORMED BY: [place] [address] PATHOLOGIST TABLE WORKER PACKAGER DELFIN GUEVARA M.D. Performed By: #### B MP, CBC #### [facility] [address] [place] [address] [place] Chloride [Moles/Vol] 103 mmol/L Normal 95-114 [facility] Comment on above: Performed By: #### B MP, CBC #### [facility] [address] [place] [address] [place] CO2 [Moles/Vol] 24.9 mmol/L Normal 22.0-30.0 [facility] Comment on above: Performed By: #### B MP, CBC #### [facility] [address] [place] [address] [place] Creatinine [Mass/Vol] 0.67 mg/dL Normal 0.64-1.27 [facility] Comment on above: Performed By: #### B MP, CBC #### [facility] [address] [place] [address] [place] Estimated GFR ( Katie > [address] [facility] Comment on above: Result Comment: GFR estimated reference range: According to KDOQI guidelines, <60 ml/min/1.73m2 is sufficient to diagnose a patient with chronic kidney disease. Performed By: #### B MP, CBC #### [facility] [address] [place] [address] [place] Estimated GFR (Non- Am > [address] [facility] Comment on above: Performed By: #### B MP, CBC #### [facility] [address] [place] [address] [place] Glucose [Mass/Vol] 100 mg/dL Normal 70-100 [facility] Comment on above: Result Comment: [place] Glucose Reference Range is dependent on time and content of last meal. Glucose of more than 200 mg/dL in a nonstressed, ambulatory subject supports the diagnosis of Diabetes Mellitus. ADA recommended reference range Performed By: #### B MP, CBC #### [facility] [address] Potassium [Moles/Vol] 4.5 mmol/L Normal 3.5-5.1 [facility] Comment on above: Performed By: #### B MP, CBC #### [facility] [address] Sodium [Moles/Vol] 137 mmol/L Normal 136-146 [facility] Comment on above: Performed By: #### B MP, CBC #### [facility] [address] Urea nitrogen [Mass/Vol] 18 mg/dL Normal 9-23 [facility] Comment on above: Performed By: #### B MP, CBC #### [facility] [address] [place] [address] [place] Basophils Auto (Bld) [#/Vol] Ordered By: Chaka Pulido on 04-10-2022 Basophils (Bld) [#/Vol] 0.1 10*3/uL 0.0-0.2 [facility] Basophils/100 WBC Auto (Bld) Ordered By: Chaka Pulido on 04-10-2022 Basophils/100 WBC (Bld) 0.8 % . [facility] Bilirubin Test strip Ql (U)O rdered By: Chaka Pulido on 04-10-2022 Bilirubin Ql (U) Negative Negative [facility] Color Auto (U)Ordered By: Cloud Floor charlotte Pulido on 04-10-2022 Color (U) Dark yellow Yellow [facility] Complete Blood Count Auto Di ffon 04-10-2022 Basophils (Bld) [#/Vol] 0.1 10*3/uL Normal 0.0-0.2 [facility] Comment on above: Result Comment: PERF ORMED BY: [facility] [address] [place] [address] PATHOLOGIST TABLE WORKER PACKAGER DELFIN GUEVARA M.D. Performed By: #### B MP, CBC #### [facility] [address] [place] [address] [place] Basophils/100 WBC (Bld) 0.8 % Normal . [facility] Comment on above: Performed By: #### B MP, CBC #### [facility] [address] [place] [address] [place] Eosinophils (Bld) [#/Vol] 0.3 10*3/uL Normal 0.0-0.45 [facility] Comment on above: Performed By: #### B MP, CBC #### [facility] [address] [place] [address] [place] Eosinophils/100 WBC (Bld) 2.9 % Normal . [facility] Comment on above: Performed By: #### B MP, CBC #### [facility] [address] Erythrocyte distribution width (RBC) [Ratio] 14.3 % Normal 12.0-14.8 [facility] Comment on above: Performed By: #### B MP, CBC #### [facility] [address] [place] [address] [place] Hematocrit (Bld) [Volume fraction] 43.1 % Normal 38.8-50.0 [facility] Comment on above: Performed By: #### B MP, CBC #### [facility] [address] [place] [address] [place] Hemoglobin (Bld) [Mass/Vol] 14.4 g/dL Normal 13.0-17.0 [facility] Comment on above: Performed By: #### B MP, CBC #### [facility] [address] [place] [address] [place] Lymphocytes (Bld) [#/Vol] 1.7 10*3/uL Normal 1.00-4.8 [facility] Comment on above: Performed By: #### B MP, CBC #### [facility] [address] [place] [id number] [place] Lymphocytes/100 WBC (Bld) 17.6 % Normal . [facility] Comment on above: Performed By: #### B MP, CBC #### [facility] [address] MCH (RBC) [Entitic mass] 30.9 pg Normal 27.5-35.2 [facility] Comment on above: Performed By: #### B MP, CBC #### [facility] [address] MCV (RBC) [Entitic vol] 92.2 fL Normal 83.5-101 F [facility] Comment on above: Performed By: #### B MP, CBC #### [facility] [address] Mean Corpuscular HGB Conc 33.5 g/dL Normal 32.5-35.6 [facility] Comment on above: Performed By: #### B MP, CBC #### [facility] [address] [place] [address] [place] Monocytes (Bld) [#/Vol] 1.1 10*3/uL High 0.0-0.8 [facility] Comment on above: Performed By: #### B MP, CBC #### [facility] [address] [place] [address] [place] Monocytes/100 WBC (Bld) 11.7 % Normal . [facility] Comment on above: Performed By: #### B MP, CBC #### [facility] [address] [place] [address] [place] Neutrophils (Bld) [#/Vol] 6.5 10*3/uL Normal 1.8-7.7 [facility] Comment on above: Performed By: #### B MP, CBC #### [facility] [address] [place] [address] [place] Neutrophils/100 WBC (Bld) 67.0 % Normal . [facility] Comment on above: Performed By: #### B MP, CBC #### [facility] [address] NRBC% 0.1 /100{WBC} Normal 0-0.5 [facility] Comment on above: Performed By: #### B MP, CBC #### [facility] [address] [place] [address] [place] Platelet mean volume (Bld) [Entitic vol] 7.5 fL Normal 6.6-10.1 [facility] Comment on above: Performed By: #### B MP, CBC #### [facility] [address] Platelets (Bld) [#/Vol] 197 10*3/uL Normal 150-450 [facility] Comment on above: Performed By: #### B MP, CBC #### [facility] [address] RBC (Bld) [#/Vol] 4.67 10*6/uL Normal 3.90-5.60 [facility] Comment on above: Performed By: #### B MP, CBC #### [facility] [address] WBC (Bld) [#/Vol] 9.8 10*3/uL Normal 4.1-10.5 [facility] Comment on above: Performed By: #### B MP, CBC #### [facility] [address] Creatinine and Glomerular fi ltration rate.predicted panel (S/P/Bld)Ordered By: Chaka Pulido on 04-10-2022 Creatinine [Mass/Vol] 0.67 mg/dL 0.64-1.27 [facility] Eosinophils Auto (Bld) [#/Vo l]Ordered By: Chaka Pulido on 04-10-2022 Eosinophils (Bld) [#/Vol] 0.3 10*3/uL 0.0-0.45 [facility] Eosinophils/100 WBC Auto (Bl d)Ordered By: Chaka Pulido on 04-10-2022 Eosinophils/100 WBC (Bld) 2.9 % . [facility] Erythrocyte distribution wid th Auto (RBC) [Ratio]Ordered By: Chaka Pulido on 04-10-2022 Erythrocyte distribution width (RBC) [Ratio] 14.3 % 12.0-14.8 [facility] Estimated glomerular filtrat ion rate (GFR) non- AmericanOrdered By: Chaka Pulido on 04-10-2022 GFR/1.73 sq M.predicted among non-blacks MDRD (S/P/Bld) [Vol rate/Area] > 60 mL/Min [facility] Hematocrit Auto (Bld) [Volum e fraction]Ordered By: Chaka Pulido on 04-10-2022 Hematocrit (Bld) [Volume fraction] 43.1 % 38.8-50.0 [facility] Hemoglobin [Mass/volume] in BloodOrdered By: Chaka Pulido on 04-10-2022 Hemoglobin (Bld) [Mass/Vol] 14.4 g/dL 13.0-17.0 [facility] Ketones Auto test strip (U) [Mass/Vol]Ordered By: Chaka Pulido on 04-10-2022 Ketones (U) [Mass/Vol] Trace Negative Fi [facility] Leukocytes [#/volume] correc trena for nucleated erythrocytes in Blood by Automated counOrdered By: Chaka Pulido on 04-10-2022 WBC corrected for nucl RBC Auto (Bld) [#/Vol] 9.8 10*3/uL 4.1-10.5 [facility] Lymphocytes Auto (Bld) [#/Vo l]Ordered By: Chaka Pulido on 04-10-2022 Lymphocytes (Bld) [#/Vol] 1.7 10*3/uL 1.00-4.8 [facility] Lymphocytes/100 WBC Auto (Bl d)Ordered By: Chaka Pulido on 04-10-2022 Lymphocytes/100 WBC (Bld) 17.6 % . [facility] MCH Auto (RBC) [Entitic mass ]Ordered By: Chaka Pulido on 04-10-2022 MCH (RBC) [Entitic mass] 30.9 pg 27.5-35.2 [facility] MCHC Auto (RBC) [Mass/Vol]Or dered By: Chaka Pulido on 04-10-2022 MCHC (RBC) [Mass/Vol] 33.5 g/dL 32.5-35.6 [facility] MCV Auto (RBC) [Entitic vol] Ordered By: Chaka Pulido on 04-10-2022 MCV (RBC) [Entitic vol] 92.2 fL 83.5-101 F [facility] Monocytes Auto (Bld) [#/Vol] Ordered By: Chaka Pulido on 04-10-2022 Monocytes (Bld) [#/Vol] 1.1 10*3/uL 0.0-0.8 [facility] Monocytes/100 WBC Auto (Bld) Ordered By: Chaka Pulido on 04-10-2022 Monocytes/100 WBC (Bld) 11.7 % . F [facility] Neutrophils Auto (Bld) [#/Vo l]Ordered By: Chaka Pulido on 04-10-2022 Neutrophils (Bld) [#/Vol] 6.5 10*3/uL 1.8-7.7 [facility] Neutrophils/100 WBC Auto (Bl d)Ordered By: Chaka Pulido on 04-10-2022 Neutrophils/100 WBC (Bld) 67.0 % . [facility] Nitrite Test strip Ql (U)Ord ered By: Chaka Pulido on 04-10-2022 Nitrite Ql (U) Negative Negative [facility] No Panel InformationOrdered By: Chaka Pulido on 04-10-2022 Estimated GFR () > 60 mL/Min [facility] Comment on above: GFR estimated refere nce range: According to KDOQI guidelines, <60 ml/min/1.73m2 is sufficient to diagnose a patient with chronic kidney disease. Pharmacy Creatinine Clearance (Chem N/A [facility] Nucleated erythrocytes [Pres ence] in Blood by Automated countOrdered By: Chaka Pulido on 04-10-2022 Nucleated RBC Auto Ql (Bld) 0.1 /100{WBC} 0-0.5 [facility] Platelet mean volume Auto (B ld) [Entitic vol]Ordered By: Chaka Pulido on 04-10-2022 Platelet mean volume (Bld) [Entitic vol] 7.5 fL 6.6-10.1 [facility] Platelets Auto (Bld) [#/Vol] Ordered By: Chaka Pulido on 04-10-2022 Platelets (Bld) [#/Vol] 197 10*3/uL 150-450 [facility] Protein Auto test strip (U) [Mass/Vol]Ordered By: Chaka Pulido on 04-10-2022 Protein (U) [Mass/Vol] Negative Negative [facility] RBC Auto (Bld) [#/Vol]Ordere d By: Chaka Pulido on 04-10-2022 RBC (Bld) [#/Vol] 4.67 10*6/uL 3.90-5.60 [facility] Serum or plasma anion gap de terminationOrdered By: Chaka Pulido on 04-10-2022 Anion gap [Moles/Vol] 13.6 mmol/L 6.0-15.0 [facility] Serum or plasma calcium ernesto urement (mass/volume)Ordered By: Chaka Pulido on 04-10-2022 Calcium [Mass/Vol] 9.6 mg/dL 8.2-10.2 [facility] Serum or plasma chloride cristina surement (moles/volume)Ordered By: Chaka Pulido on 04-10-2022 Chloride [Moles/Vol] 103 mmol/L 95-114 [facility] Serum or plasma glucose ernesto urement (mass/volume)Ordered By: Chaka Pulido on 04-10-2022 Glucose [Mass/Vol] 100 mg/dL 70-100 [facility] Comment on above: ADA recommended refe rence rangeRandom Glucose Reference Range is dependent on time and content of last meal. Glucose of more than 200 mg/dL in a nonstressed, ambulatory subject supports the diagnosis of Diabetes Mellitus. Serum or plasma potassium me asurement (moles/volume)Ordered By: Chaka Pulido on 04-10-2022 Potassium [Moles/Vol] 4.5 mmol/L 3.5-5.1 [facility] Serum or plasma sodium measu rement (moles/volume)Ordered By: Chaka Pulido on 04-10-2022 Sodium [Moles/Vol] 137 mmol/L 136-146 [facility] Serum or plasma total carbon dioxide measurement (moles/volume)Ordered By: Chaka Pulido on 04-10-2022 CO2 [Moles/Vol] 24.9 mmol/L 22.0-30.0 [facility] Serum or plasma urea nitroge n measurement (mass/volume)Ordered By: Chaka Pulido on 04-10-2022 Urea nitrogen [Mass/Vol] 18 mg/dL 12-02 [facility] Specific gravity Auto test s trip (U) [Rel density]Ordered By: Chaka Pulido on 04-10-2022 Specific gravity (U) [Rel density] 1.030 1.001-1.030 [facility] Urinalysison 04-10-2022 Appearance (U) Clear Normal Clear [facility] Comment on above: Order Comment: Comme nt do C S if indicated by + UA Name Collection Type:: Clean-Voided Midstream Performed By: #### U A #### [facility] [address] [place] [address] [place] Bilirubin,Urine Negative Normal Negative [facility] Comment on above: Order Comment: Comme nt do C S if indicated by + UA Name Collection Type:: Clean-Voided Midstream Performed By: #### U A #### [facility] [address] [place] [address] Color (U) Dark Yellow Critically abnormal Yellow [facility] Comment on above: Order Comment: Comme nt do C S if indicated by + UA Name Collection Type:: Clean-Voided Midstream Performed By: #### U A #### [facility] [address] [place] [address] [place] Glucose Ql (U) Normal Normal Normal [facility] Comment on above: Order Comment: Comme nt do C S if indicated by + UA Name Collection Type:: Clean-Voided Midstream Performed By: #### U A #### [facility] [address] [place] [address] [place] Ketones Ql (U) Trace High Negative [facility] Comment on above: Order Comment: Comme nt do C S if indicated by + UA Name Collection Type:: Clean-Voided Midstream Performed By: #### U A #### [facility] [address] [place] [address] [place] Leukocyte esterase Test strip Ql (U) Negative Normal Negative [facility] Comment on above: Order Comment: Comme nt do C S if indicated by + UA Name Collection Type:: Clean-Voided Midstream Performed By: #### U A #### [facility] [address] [place] [address] [place] Nitrite,Urine Negative Normal Negative [facility] Comment on above: Order Comment: Comme nt do C S if indicated by + UA Name Collection Type:: Clean-Voided Midstream Performed By: #### U A #### [address] Occult Blood,Urine Negative Normal Negative [facility] Comment on above: Order Comment: Comme nt do C S if indicated by + UA Name Collection Type:: Clean-Voided Midstream Result Comment: PERF ORMED BY: [place] [address] PATHOLOGIST TABLE WORKER PACKAGER DELFIN GUEVARA M.D. Performed By: #### U A #### [address] pH (U) 5.5 [pH] Normal 5.0-9.0 [facility] Comment on above: Order Comment: Comme nt do C S if indicated by + UA Name Collection Type:: Clean-Voided Midstream Performed By: #### U A #### [address] Protein,Urine Negative Normal Negative [facility] Comment on above: Order Comment: Comme nt do C S if indicated by + UA Name Collection Type:: Clean-Voided Midstream Performed By: #### U A #### [address] Specificy [place],Urine 1.030 Normal 1.001-1.030 [facility] Comment on above: Order Comment: Comme nt do C S if indicated by + UA Name Collection Type:: Clean-Voided Midstream Performed By: #### U A #### [address] Urobilinogen,Urine Normal Normal Normal [facility] Comment on above: Order Comment: Comme nt do C S if indicated by + UA Name Collection Type:: Clean-Voided Midstream Performed By: #### U A #### [address] Urine Cultureon 01-30-2023 Bacteria identified Cx Nom (U) Comment do if indicated by + UA No Growth 2 Days PERFORMED BY: [place] [address] PATHOLOGIST TABLE WORKER PACKAGER DELFIN GUEVARA M.D. [facility] Comment on above: Performed By: #### C UU #### [address] Urine clarity by refractomet ry automatedOrdered By: Chaka Pulido on 04-10-2022 Clarity Refractometry automated (U) Clear Clear [facility] Urine culture routineOrdered By: Chaka Pulido on 04-10-2022 Bacteria identified Cx Nom (U) No Growth 2 Days [facility] Urine glucose measurement by automated test strip (mass/volume)Ordered By: Chaka Pulido on 04-10-2022 Glucose Auto test strip (U) [Mass/Vol] Normal mg/dL Normal [facility] Urine hemoglobin detection b y automated test stripOrdered By: Chaka Pulido on 04-10-2022 Hemoglobin Auto test strip Ql (U) Negative Negative [facility] Urine leukocyte esterase det ection by automated test stripOrdered By: Chaka Pulido on 04-10-2022 Leukocyte esterase Auto test strip Ql (U) Negative Negative [facility] Urobilinogen Auto test strip (U) [Mass/Vol]Ordered By: Chaka Pulido on 04-10-2022 Urobilinogen (U) [Mass/Vol] Normal mg/dL Normal [facility] WBC Auto (Bld) [#/Vol]Ordere d By: Chaka Pulido on 04-10-2022 WBC (Bld) [#/Vol] 9.8 10*3/uL 4.1-10.5 [facility] XR hip RT min 2V(w/wo pelvis )*on 04-10-2022 XR hip RT min 2V(w/wo pelvis)* [facility] [place] [address] [place] [id number] XRay Report Signed Patient: Belén Keenan SR MR#: [id number] : 1945 Acct:[id number] Age/Sex: 76 / M ADM Date: 04/10/22 Loc: PS Room: Type: [facility] Attending Dr: Chaka Pulido Jr DO Copies [...] Damien Ball M.D.04/10/2022 3:12 PM Dictation Location: [place] [address] Transcribed By: [facility] 04/10/22 1512 Dictated By: Damien Ball II, MD 04/10/22 1509 Signed By: 04/10/22 1512 Normal [facility] pH Auto test strip (U)Ordere d By: Chaka Pulido on 04-10-2022 pH (U) 5.5 [pH] 5.0-9.0 [facility] HPon 02-08-2022 HP Doing very well; [...] : DR DIYA BROWN M.D. Admission #: [id number] Family : Order #: [id number] CLICK HERE TO VIEW EXAM RADIOLOGY REPORT [...] DEFECT: LOCATION: Basal inferior. Mid-inferior. Apical inferior. [place]. SIZE: Medium (3-4 segments). SEVERITY: Moderate. TYPE: [...] statin, BB I25.10: 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 2. Mitral [...] He understands (more content not included)... Normal [facility] CBC AUTO DIFFon 02-06-2022 BASO # 0.0 103/ul Normal 0.0-0.1 [facility]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
== END 2024-01-02 19:32 | disposition home or self-care (01) ==
LOC: SLEEP 19:31
PROVIDERS: PCP Internal Medicine; Visit Provider Internal Medicine
DX: G47.33 Obstructive sleep apnea (adult) (pediatric) (principal)
CPT/HCPCS: 95811

== ENCOUNTER 2024-02-01 12:27 | Emergency (ER) | payer OTHER, SELFPAY ==
[2024-02-01 12:32] VITALS: BP 123/68; PULSE 77; TEMP 36.5; O2SAT 98; BMI 36.0
--- NOTE | 2024-02-01 12:40 | XR_ITS ---
The [address] [address] Patient Name: BELÉN ZAMORA MRN: [id number] date: 1945 Sex: M Assigned Patient Location: ER Current Patient Location: ER Accession/Order Number: [id number] Exam Date: 02/01/2024 13:05 Report Date: 02/01/2024 13:30 At the request of: MAGUE CERVANTES Procedure: XR humerus RT PROCEDURE: XR shoulder RT min 2V, XR humerus RT HISTORY: fall ; right shoulder pain COMPARISON: None. FINDINGS: BONES:Mild widening of the acromioclavicular joint, 10 mm. Small undersurface osteophytes. Unremarkable humeral head and glenoid. Surface contour irregularity of mid humerus; developmental versus sequela of remote fractures/injury. SOFT TISSUES:No visible soft tissue swelling. EFFUSION:None visible. OTHER: Negative. XR/XR humerus RT IMPRESSION: 1. Suspect mild strain of the supraclavicular joint. 2. No fracture or dislocation. 3. Surface contour deformity of the mid humeral diaphysis; no prior studies. Suspect sequela of remote injury. Electronically authenticated by: RHONDA STEVENSON Date: 02/01/2024 13:30
--- NOTE | 2024-02-01 12:40 | XR_ITS ---
The [address] [address] Patient Name: BELÉN ZAMORA MRN: [id number] date: 1945 Sex: M Assigned Patient Location: ER Current Patient Location: ER Accession/Order Number: [id number] Exam Date: 02/01/2024 13:05 Report Date: 02/01/2024 13:30 At the request of: MAGUE CERVANTES Procedure: XR shoulder RT min 2V PROCEDURE: XR shoulder RT min 2V, XR humerus RT HISTORY: fall ; right shoulder pain COMPARISON: None. FINDINGS: BONES:Mild widening of the acromioclavicular joint, 10 mm. Small undersurface osteophytes. Unremarkable humeral head and glenoid. Surface contour irregularity of mid humerus; developmental versus sequela of remote fractures/injury. SOFT TISSUES:No visible soft tissue swelling. EFFUSION:None visible. OTHER: Negative. XR/XR shoulder RT min 2V IMPRESSION: 1. Suspect mild strain of the supraclavicular joint. 2. No fracture or dislocation. 3. Surface contour deformity of the mid humeral diaphysis; no prior studies. Suspect sequela of remote injury. Electronically authenticated by: RHONDA STEVENSON Date: 02/01/2024 13:30
[2024-02-01] MEDS: KETOROLAC TROMETHAMINE 30 MG/ML VIAL 15 MG IM (13:30)
[2024-02-01] MEDS: PREDNISONE 20 MG TABLET 40 MG PO (13:30)
--- OUTSIDE RECORDS SUMMARY | 2024-02-01 13:45 | XMS_ITS | CCD ---
Author Organization [facility] Care Team Providers Care Cork Wirer Name Role Phone PHYSICIAN, DEFAULT Unavailable Unavailable [...] Other Provider MD Paul Connell Other Provider DO Yoshi Ascencio Other Provider MD Dm Lozano Other Provider MD Yuliana Herzog Other Provider Cat, ANP-BC Rachel Other Provider MD Perez Mattson Other Provider MD Wander Velázquez Other Provider MD Cory Em Other Provider MD Leeroy Doll Other Provider DO Jamie Rodriguez Other Provider [phone] MD Dank Tong Other Provider MD Mina Johnson Other Provider GARRETT Feldman Other Provider [phone] MD Chavez Pagan Other Provider MD Patricio Cook Other Provider MD Fabricio Willams Other Provider DO Angelina Doll Other Provider DO Alen Wheeler Other Provider DO Ben Carrizales Other Provider [phone] JR Fontanez Other Provider DO Mando Guy Other Provider MD Fanny France Other Provider JR Doll Other Provider DES Wilkinson Other Provider Unavailable EL[place]HAWY, EHAB Admitting Unavailable EL[facility]HAWY, EHAB Attending Unavailable TIFFANYERECAN VALDES Attending Unavailable EL[facility]HAWY, EHAB Attending Unavailable [facility]Y, EHAB Referring Unavailable FAWWAD, CHAUDHARI Attending Unavailable FAWWAD, CHAUDHARI Attending Unavailable FAWWAHoward, CHAUDHARI Attending Unavailable JEANETTE MURILLO Attending UnavailShaikh Omalley MD Unavailable Sony Rao MD Primary Care Provider [phone] Jeanette Murillo NP Unavailable NON STAFF Primary Care Provider UnavailMD Phillip Agosto Attending Provider Shaikh Grove MD Unavailable Phillip Alves Attending Unavailable Phillip Alves Admitting Unavailable NON STAFF Primary Care Unavailable Medications Current Medications Medication Drug Class(es) Dates Sig (Normalized) Sig (Original) [id number] 200 actuat albuterol 0.09 mg/actuat metered dose inhaler (2 sources) beta2-Adrenergic Agonist take 2 puff(s) by inhalation every four hours for wheezing albuterol HFA 90 mcg/act inhaler Inhale 2 puffs every 4 (four) hours if needed for wheezing Active Aspir-81 (1 source) Aspir-81 Active aspirin 81 mg oral tablet (8 sources) Platelet Aggregation Inhibitor, Nonsteroidal Anti-inflammatory Drug Start: 01-04-2024 take 81 mg by mouth once daily Aspirin Active 81 MG PO Daily January 03, 2024 11:00pm Start: 04-27-2022 End: 01-04-2024 take 81 mg by mouth twice daily Aspirin Discontinued 8 1 MG PO Twice daily April 27, 2022 12:00am January 04, 2024 9:02am Start: 04-10-2022 End: 04-27-2022 take 1 tablet by mouth once daily Aspirin (Aspir-81) 81 mg Tablet,Delayed Release (Dr/Ec) Discontinued 81 MG PO Daily April 10, 2022 12:00am April 27, 2022 10:56am aspirin 81 MG ch ewable tablet Chew 1 tablet in the morning. Active atorvastatin 40 mg oral tablet (9 sources) HMG-CoA Reductase Inhibitor Start: 12-12-2023 take 1 tablet by mouth once daily atorvastatin (Lipitor) 40 MG tablet Indications: Mixed hyperlipidemia (CMS/HCC) Take 1 tablet (40 mg) by mouth Daily 5PM 30 tablet 2 12/12/2023 Active Start: 08-18-2019 End: 12-11-2023 take 40 mg by mouth once daily Atorvastatin Active 40 MG PO Daily April 10, 2022 12:00am carvedilol 3.125 mg oral tablet (7 sources) alpha-Adrenergic Abad, beta-Adrenergic Abad Start: 12-12-2023 [...] / eicosapentaenoic acid 180 mg oral capsule (2 sources) take 1 capsule by mouth in the morning omega-3 (Fish Oil) 1000 MG capsule Take 1,000 mg by mouth in the morning. Active enalapril maleate 2.5 mg oral tablet (4 sources) Angiotensin Converting Enzyme Inhibitor Start: End: take 1 tablet by mouth once daily enalapril (Vasotec) 2.5 MG tablet Indications: Coronary artery disease involving [place] coronary artery of [place] heart without angina pectoris (CMS/HCC) , Chronic heart failure with preserved ejection fraction (CMS/HCC) Take 1 tablet (2.5 mg) by mouth Daily 90 tablet 1 09/06/2023 03/04/2024 Active enalapril (VASOT EC) 2.5 MG tablet Take by mouth 0 Active fluticasone propionate 0.05 mg/actuat metered dose nasal spray (2 sources) Corticosteroid take 2 spray(s) nasal route in the morning fluticasone (Flonase) 50 MCG/ACT nasal spray Administer 2 sprays into each nostril in the morning. Shake gently. Before first use, prime pump. After use, clean tip and replace cap.. Active furosemide 20 mg oral tablet (4 sources) Loop Diuretic Start: 09-06-2023 End: 03-04-2024 take 1 tablet by mouth once daily furosemide (Lasix) 20 MG tablet Indications: Coronary artery disease involving [place] coronary artery of [place] heart without angina pectoris (CMS/HCC) , Chronic [...] 08/26/2019 Active meloxicam 15 mg oral tablet (5 sources) Nonsteroidal Anti-inflammatory Drug Start: 12-12-19 24 take 1 tablet by mouth once daily Meloxicam Active 15 MG PO Daily January 03, 2024 11:00pm FreeTextSig: Oral; Note: Source Status: Taking; Qty: 30 Tablet; Provider: Lizzy Chung ( ) Start: 05-08-2023 End: 12-11-2023 take 1 tablet by mouth once daily as needed for pain meloxicam (Mobic) 15 MG tablet Indications: Unspecified osteoarthritis, unspecified site TAKE ONE TABLET BY MOUTH EVERY DAY NEEDED FOR PAIN (VIAL) 90 tablet 05/08/2023 12/11/2023 Discontinued (Reorder) Meloxicam 15 MG Oral for 30 Days Active Multiple Vitamins-Minerals (EYE VITAMINS) CAPS (2 sources) Multiple Vitamins-Minerals (EYE VITAMINS) CAPS Take by mouth 0 Active Multiple Vitamins-Minerals (Eye Vitamins) capsule (2 sources) take 1 capsule by mouth in the morning Multiple Vitamins-Minerals (Eye Vitamins) capsule Take 1 capsule by mouth in the morning. Active Multiple Vitamins-Minerals (MULTIVITAMIN ADULT EXTRA C PO) (2 sources) Multiple Vitamins-Minerals (MULTIVITAMIN ADULT EXTRA C PO) multivitamin 0 Active Vczsplyawqfr-Nlyardfl-Ub tein (Multivitamin 50 Plus) Tablet (3 sources) Start: 023 Hqsnsjngcrvk-Ztldjqey-Mh tein (Multivitamin 50 Plus) Tablet Active 1 TAB PO Daily April 10, 2022 12:00am [place] 9-Vwn-Pat-Fish Oil (Fish Oil) 1,200 (144-216) mg Capsule (3 sources) Start: 023 take 1 capsule by mouth once daily [place] 7-Ipx-Cnc-Fish Oil (Fish Oil) 1,200 (144-216) mg Capsule Active 1 CAP PO Daily April 10, 2022 12:00am omeprazole 20 mg delayed release oral capsule (9 sources) Proton Pump Inhibitor Start: 024 take 1 capsule by mouth once daily omeprazole (PriLOSEC) [address] capsule Indications: Gastro-esophageal reflux disease without esophagitis TAKE 1 CAPSULE BY MOUTH DAILY 90 capsule 01/21/2024 Active Start: 10-31-2023 End: 01-21-2024 take 1 capsule by mouth once daily omeprazole (PriLOSEC) [address] capsule Indications: Gastro-esophageal reflux disease without esophagitis TAKE 1 CAPSULE BY MOUTH DAILY 90 capsule 10/31/2023 01/21/2024 Discontinued Start: 04-10-2022 take 20 mg by mouth once daily Omeprazole Active 20 MG PO Daily April 10, 2022 12:00am Start: 08-18-2019 take 1 capsule by mo uth once daily omeprazole (PRILOSEC) 20 MG delayed release capsule TAKE 1 CAPSULE BY MOUTH EVERY DAY 0 08/18/2019 Active sertraline 50 mg oral tablet (7 sources) Serotonin Reuptake Inhibitor Start: 05-20-2023 take 1.5 tablets by mouth once daily sertraline (Zoloft) 50 MG tablet Indications: Depression, unspecified (CMS/HCC) Take 1.5 tablets (75 mg) by mouth Daily 135 tablet 1 05/20/2023 Active Start: 04-10-2022 End: 01-04-2024 take 75 mg by mouth once daily Sertraline Discontinued 75 MG PO Daily April 10, 2022 12:00am January 04, 2024 9:01am Start: 09-03-2019 take 1 tablet by elizabeth once daily sertraline (ZOLOFT) 50 MG tablet TAKE 1 TABLET BY MOUTH EVERY DAY 0 09/03/2019 Active spironolactone 25 mg oral tablet (1 source) Aldosterone Antagonist Spironolactone 25 MG Oral for 90 Days Active tamsulosin hydrochloride 0.4 mg oral capsule (8 sources) alpha-Adrenergic Abad Start: 04-10-19 End: 02-04-20 24 take 1 capsule by mouth once daily tamsulosin (Flomax) 0.4 MG 24 hr capsule Indications: Benign prostatic hyperplasia without lower urinary tract symptoms Take 1 capsule (0.4 mg) by mouth Daily 90 capsule 1 08/08/2023 02/04/2024 Active Start: 09-25-2019 take 1 capsule by mo uth once daily in the evening tamsulosin (FLOMAX) 0.4 MG capsule Take 1 capsule by mouth every evening 90 capsule 3 11/04/2019 Active Vitamin B Complex (2 sources) Start: 04-10-2022 take 1 tablet by mouth once daily Vitamin B Complex Active 1 TAB PO Daily April 10, 2022 12:00am Vitamin B Complex (Super B Complex) Tablet (1 source) Start: 04-10-2022 take 1 tablet by mouth once daily Vitamin B Complex (Super B Complex) Tablet Active 1 TAB PO Daily April 10, 2022 12:00am Vitamins A,C,F-Lpto-Sjrsjo (2 sources) Start: 04-10-2022 take 1 capsule by mouth once daily Vitamins A,C,G-Kqfd-Jenumi Active 1 CAP PO Daily April 10, 2022 12:00am Vitamins A,C,M-Zocj-Nfvsry (Vision Formula (Y-D-G-Zn-Reji)) 14,320-226-200 guxa-om-zgvo Capsule (1 source) Start: 04-10-2022 take 1 capsule by mouth once daily Vitamins A,C,K-Bdtp-Ffevml (Vision Formula (J-J-H-Zn-Reji)) 14,320-226-200 zmwt-zp-hlth Capsule Active 1 CAP PO Daily April 10, 2022 12:00am Completed/Discontinued Medications Medication Drug Class(es) Dates Sig (Normalized) Sig (Original) [id number] Num-Qtlf-Szr-Asb-C (2 sources) Osmotic Laxative, Vitamin C Start: 11-30-2023 End: 01-04-2024 [id number] Pde-Oihg-Qay-Asb-C (Plenvu) 140-9-5.2 gram powder in packet, sequential Discontinued 0 .ROUTE .COMPLEX 3 November 30, 2023 9:18am January 04, 2024 8:58am take first at AT 4 PM the day before the colonscopy, then take second dose at 11pm the night before colonscopy Start: 11-30-2023 End: 11-30-2023 [id number] Meq-Idhf-Lvf-Asb -C (Plenvu) 140-9-5.2 gram powder in packet, sequential Discontinued 140 ML PO .COMPLEX 1 1 November 29, 2023 11:00pm November 30, 2023 9:18am First does at 4pm the day before the colonoscopy; second dose at 11pm the night before the colonoscopy. folic acid 1 mg / polysaccharide iron complex 150 mg / vitamin b12 0.025 mg oral capsule (3 sources) Vitamin B12 Start: 04-10-2022 End: 01-04-2024 take 1 capsule by mouth once daily Iron Ps Pbmpntf-L18-Vnlog Acid (Poly-Iron 150 Forte) 150-25-1 mg-mcg-mg capsule Discontinued 1 CAP PO Daily April 10, 2022 12:00am January 04, 2024 8:58am metFORMIN hydrochloride 500 mg oral tablet (4 sources) Biguanide Start: 04-10-2022 End: 01-04-2024 take 500 mg by mouth twice daily Metformin Discontinued 500 MG PO Twice daily April 10, 2022 12:00am January 04, 2024 8:58am metFORMIN HCl 50 0 MG Oral for 90 Days Active Problems Active Problems Problem Classification Problem Date Documented Date Episodic/Chronic Cataract (4 sources) Nuclear sclerotic cataract; Translations: [Age-related nuclear cataract, unspecified eye] Onset: 10-23-2013 08-08-2023 Chronic Complication of device; implant or graft (1 source) Atherosclerosis of coronary artery bypass graft(s) without angina pectoris; Translations: [ATS CA BP GRAFT NO ANGINA PECTORIS] Onset: 01-16-2022 Chronic Coronary atherosclerosis and other heart disease (8 sources) Atherosclerotic heart disease of [place] coronary artery without angina pectoris; Translations: [Coronary arteriosclerosis] Onset: 01-11-2022 Chronic Coronary atherosclerosis and other heart disease (2 sources) Presence of aortocoronary bypass graft; Translations: [Presence of aortocoronary bypass graft] Onset: 01-15-2023 Episodic Disorders of lipid metabolism (7 sources) Hyperlipidemia, unspecified; Translations: [Mixed hyperlipidemia] Onset: 02-06-2022 Chronic Esophageal disorders (1 source) Gastroesophageal reflux disease without esophagitis; Translations: [Gastro-esophageal reflux disease without esophagitis] 01-19-2024 Chronic Essential hypertension (4 sources) Essential (primary) hypertension; Translations: [Essential hypertension] Onset: 02-11-2022 12-12-2023 Chronic Fluid and electrolyte disorders (4 sources) Hyperkalemia; Translations: [HYPERKALEMIA] Onset: 04-18-2022 Episodic Genitourinary symptoms and ill-defined conditions (1 source) Urge incontinence of urine; Translations: [Urgency incontinence] Chronic Genitourinary symptoms and ill-defined conditions (3 sources) Nocturia; Translations: [Urgent desire to urinate] Episodic Glaucoma (2 sources) Open-angle glaucoma of right eye; Translations: [Unspecified open-angle glaucoma, moderate stage] Onset: 10-04-2017 08-08-2023 Chronic Heart valve disorders (6 sources) Nonrheumatic tricuspid valve disorder, unspecified; Translations: [Mitral valve disorder] Onset: 04-22-2012 Chronic Hyperplasia of prostate (4 sources) Benign prostatic hypertrophy with outflow obstruction; Translations: [Benign prostatic hyperplasia with lower urinary tract symptoms] Onset: 11-04-2019 11-04-2019 Chronic Osteoarthritis (11 sources) Arthropathy of right hip joint; Translations: [Unilateral primary osteoarthritis, right hip] Onset: 11-29-2021 Resolved: 11-29-2021 Chronic Other bone disease and musculoskeletal deformities (2 sources) Avascular necrosis of bone of hip; Translations: [Idiopathic aseptic necrosis of unspecified femur] Onset: 08-08-2023 08-08-2023 Chronic Other connective tissue disease (2 sources) History of total hip arthroplasty; Translations: [Presence of unspecified artificial hip joint] Onset: 08-08-2023 08-08-2023 Chronic Other eye disorders (2 sources) Bullous keratopathy; 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, unspecified eye] Onset: 10-23-2013 08-08-2023 Chronic Other non-traumatic joint disorders (1 source) Knee pain; Translations: [Knee pain, left] Episodic Other nutritional; endocrine; and metabolic disorders (2 sources) Obesity caused by energy imbalance; Translations: [Class 2 obesity due to excess calories without serious comorbidity with body mass index (BMI) of 35.0 to 35.9 in adult] Onset: 02-26-2023 02-26-2023 Chronic Other screening for suspected conditions (not mental disorders or infectious disease) (8 sources) Raised prostate specific antigen; Translations: [Elevated prostate specific antigen [PSA]] Onset: 11-04-2019 11-04-2019 Episodic Residual codes; unclassified (2 sources) Obstructive sleep apnea syndrome; Translations: [Obstructive sleep [...] Translations: [LOW BACK PAIN, UNSPECIFIED] Onset: 11-03-2021 Past or Other Problems Problem Classification Problem Date Documented Date Episodic/Chronic Abdominal hernia (2 sources) Diaphragmatic hernia; Translations: [Diaphragmatic hernia without obstruction or gangrene] Onset: 04-22-2012 08-08-2023 Episodic Acquired foot deformities (3 sources) Foot drop, right foot; Translations: [Left foot drop] Onset: 11-29-2021 Resolved: 11-29-2021 Episodic Acquired foot deformities (1 source) Foot drop, left foot Onset: 11-29-2021 Resolved: 11-29-2021 Episodic Cardiac dysrhythmias (6 sources) Ventricular premature depolarization; Translations: [Atrial premature depolarization] Onset: 06-12-2012 Resolved: 02-26-2023 Chronic Mood disorders (2 sources) Mood disorders Onset: 02-26-2023 02-26-2023 Other and unspecified benign neoplasm (2 sources) Adenomatous polyp of colon ; Translations: [Benign neoplasm of colon, unspecified] Onset: 12-16-2018 08-08-2023 Episodic Other and unspecified benign neoplasm (2 sources) History of adenomatous polyp of colon; Translations: [History of adenomatous polyp of colon] Onset: 11-21-2018 08-08-2023 Episodic Other connective tissue disease (1 source) Trochanteric bursitis, right hip Onset: 11-29-2021 Resolved: 11-29-2021 Episodic Other connective tissue disease (2 sources) H/O: musculoskeletal disease; Translations: [Personal history of other diseases of the musculoskeletal system and connective tissue] Onset: 08-08-2023 08-08-2023 Episodic Other eye disorders (2 sources) Central corneal ulcer, left eye; Translations: [Central corneal ulcer] Onset: 09-06-2017 08-08-2023 Episodic Other non-traumatic joint disorders (5 sources) Pain in left knee; Translations: [PAIN IN LEFT KNEE] Onset: 08-05-2021 Episodic Unclassified (1 source) LOW BACK PAIN, UNSPECIFIED; Translations: [LOW BACK PAIN, UNSPECIFIED] Onset: 11-01-2021 Results Test Name Value Interpretation Reference Range Facility Office Visiton 01-15-2023 Follow-up visit [id number] ReeFrancisco Gomez 1945 M Date Provider Department Center 01/15/2023 [id number] CHAVEZ CARD [facility] Family History Problem Relation Age of Onset Heart attack Other Family Status - Relation Status Age at Other Level of Service:29635 OR OFFICE/OUTPATIENT ESTABLISHED MOD MDM 30-39 MIN Normal [facility] Office Visiton 09-04-2022 Follow-up visit [id number] Francisco Keenan 1945 M Date Provider Department Center 09/04/2022 [id number] BROWN CARD [facility] No family history on file Level of Service:40645 OR OFFICE/OUTPATIENT ESTABLISHED LOW MDM 20-29 MIN Normal [facility] Anisocytosis LM Ql (Bld)Orde red By: Madhu Richardson on 04-28-2022 Anisocytosis Ql (Bld) Slight [facility] Band form neutrophils/100 WB C Manual cnt (Bld)Ordered By: Madhu Richardson on 04-28-2022 Band form neutrophils/100 WBC (Bld) 6 % 0-5 [facility] Basophils Auto (Bld) [#/Vol] Ordered By: Madhu Richardson on 04-28-2022 Basophils (Bld) [#/Vol] N/A F [facility] Basophils/100 WBC Auto (Bld) Ordered By: Madhu Richardson on 04-28-2022 Basophils/100 WBC (Bld) N/A F [facility] Creatinine and Glomerular fi ltration rate.predicted panel (S/P/Bld)Ordered By: Madhu Richardson on 04-28-2022 Creatinine [Mass/Vol] 0.77 mg/dL 0.64-1.27 [facility] Eosinophils Auto (Bld) [#/Vo l]Ordered By: Madhu Richardson on 04-28-2022 Eosinophils (Bld) [#/Vol] N/A [facility] Eosinophils/100 WBC Auto (Bl d)Ordered By: Madhu Richardson on 04-28-2022 Eosinophils/100 WBC (Bld) N/A [facility] Erythrocyte distribution wid th Auto (RBC) [Ratio]Ordered By: Madhu Richardson on 04-28-2022 Erythrocyte distribution width (RBC) [Ratio] 14.4 % 12.0-14.8 [facility] Estimated glomerular filtrat ion rate (GFR) non- AmericanOrdered By: Madhu Richardson on 04-28-2022 GFR/1.73 sq M.predicted among non-blacks MDRD (S/P/Bld) [Vol rate/Area] > 60 mL/Min [facility] Hematocrit Auto (Bld) [Volum e fraction]Ordered By: Madhu Richardson on 04-28-2022 Hematocrit (Bld) [Volume fraction] 35.4 % 38.8-50.0 [facility] Hemoglobin [Mass/volume] in BloodOrdered By: Madhu Richardson on 04-28-2022 Hemoglobin (Bld) [Mass/Vol] 11.7 g/dL 13.0-17.0 [facility] Leukocytes [#/volume] correc trena for nucleated erythrocytes in Blood by Automated counOrdered By: Madhu Richardson on 04-28-2022 WBC corrected for nucl RBC Auto (Bld) [#/Vol] 17.4 10*3/uL 4.1-10.5 [facility] Lymphocytes Auto (Bld) [#/Vo l]Ordered By: Madhu Richardson on 04-28-2022 Lymphocytes (Bld) [#/Vol] N/A [facility] Lymphocytes/100 WBC Auto (Bl d)Ordered By: Madhu Richardson on 04-28-2022 Lymphocytes/100 WBC (Bld) N/A [facility] Lymphocytes/100 WBC Manual c nt (Bld)Ordered By: Madhu Richardson on 04-28-2022 Lymphocytes/100 WBC (Bld) 3 % 18-42 [facility] MCH Auto (RBC) [Entitic mass ]Ordered By: Madhu Richardson on 04-28-2022 MCH (RBC) [Entitic mass] 30.6 pg 27.5-35.2 [facility] MCHC Auto (RBC) [Mass/Vol]Or dered By: Madhu Richardson on 04-28-2022 MCHC (RBC) [Mass/Vol] 33.0 g/dL 32.5-35.6 [facility] MCV Auto (RBC) [Entitic vol] Ordered By: Madhu Richardson on 04-28-2022 MCV (RBC) [Entitic vol] 92.8 fL 83.5-101 F [facility] Monocytes Auto (Bld) [#/Vol] Ordered By: Madhu Richardson on 04-28-2022 Monocytes (Bld) [#/Vol] N/A F [facility] Monocytes/100 WBC Auto (Bld) Ordered By: Madhu Richardson on 04-28-2022 Monocytes/100 WBC (Bld) N/A F [facility] Monocytes/100 WBC Manual cnt (Bld)Ordered By: Madhu Richardson on 04-28-2022 Monocytes/100 WBC (Bld) 3 % 2-11 F [facility] Neutrophils Auto (Bld) [#/Vo l]Ordered By: Madhu Richardson on 04-28-2022 Neutrophils (Bld) [#/Vol] N/A [facility] Neutrophils/100 WBC Auto (Bl d)Ordered By: Madhu Richardson on 04-28-2022 Neutrophils/100 WBC (Bld) N/A [facility] No Panel InformationOrdered By: Madhu Richardson on 04-28-2022 Estimated GFR () > 60 mL/Min [facility] Comment on above: GFR estimated refere nce range: According to KDOQI guidelines, <60 ml/min/1.73m2 is sufficient to diagnose a patient with chronic kidney disease. Pharmacy Creatinine Clearance (Chem 90.86 [facility] Nucleated erythrocytes [Pres ence] in Blood by Automated countOrdered By: Madhu Richardson on 04-28-2022 Nucleated RBC Auto Ql (Bld) N/A [facility] Platelet adequacy [Presence] in Blood by Light microscopyOrdered By: Madhu Richardson on 04-28-2022 Platelets LM Ql (Bld) Normal Normal [facility] Platelet mean volume Auto (B ld) [Entitic vol]Ordered By: Madhu Richardson on 04-28-2022 Platelet mean volume (Bld) [Entitic vol] 8.1 fL 6.6-10.1 [facility] Platelet morphology finding [Identifier] in BloodOrdered By: Madhu Richardson on 04-28-2022 Platelet morphology finding Nom (Bld) Normal Normal [facility] Platelets Auto (Bld) [#/Vol] Ordered By: Madhu Richardson on 04-28-2022 Platelets (Bld) [#/Vol] 198 10*3/uL 150-450 [facility] RBC Auto (Bld) [#/Vol]Ordere d By: Madhu Richardson on 04-28-2022 RBC (Bld) [#/Vol] 3.81 10*6/uL 3.90-5.60 [facility] RBC morphologyOrdered By: Selma Richardson on 04-28-2022 RBC morphology finding Nom (Bld) Normal Normal [facility] Segmented neutrophils/100 WB C Manual cnt (Bld)Ordered By: Madhu Richardsno on 04-28-2022 Segmented neutrophils/100 WBC (Bld) 89 % 50-70 [facility] Serum or plasma anion gap de terminationOrdered By: Madhu Richardson on 04-28-2022 Anion gap [Moles/Vol] 6.0 mmol/L 6.0-15.0 [facility] Serum or plasma calcium ernesto urement (mass/volume)Ordered By: Madhu Richardson on 04-28-2022 Calcium [Mass/Vol] 8.8 mg/dL 8.2-10.2 [facility] Serum or plasma chloride cristina surement (moles/volume)Ordered By: Madhu Richardson on 04-28-2022 Chloride [Moles/Vol] 108 mmol/L 95-114 [facility] Serum or plasma glucose ernesto urement (mass/volume)Ordered By: Madhu Richardson on 04-28-2022 Glucose [Mass/Vol] 145 mg/dL 70-100 [facility] Comment on above: ADA recommended refe rence rangeRandom Glucose Reference Range is dependent on time and content of last meal. Glucose of more than 200 mg/dL in a nonstressed, ambulatory subject supports the diagnosis of Diabetes Mellitus. Serum or plasma potassium me asurement (moles/volume)Ordered By: Madhu Richardson on 04-28-2022 Potassium [Moles/Vol] 4.6 mmol/L 3.5-5.1 [facility] Serum or plasma sodium measu rement (moles/volume)Ordered By: Madhu Richardson on 04-28-2022 Sodium [Moles/Vol] 140 mmol/L 136-146 [facility] Serum or plasma total carbon dioxide measurement (moles/volume)Ordered By: Madhu Richardson on 04-28-2022 CO2 [Moles/Vol] 30.6 mmol/L 22.0-30.0 [facility] Serum or plasma urea nitroge n measurement (mass/volume)Ordered By: Madhu Richardson on 04-28-2022 Urea nitrogen [Mass/Vol] 22 mg/dL 9-23 [facility] WBC Auto (Bld) [#/Vol]Ordere d By: Madhu Richardson on 04-28-2022 WBC (Bld) [#/Vol] 17.4 10*3/uL 4.1-10.5 [facility] PROF CHEM 8 (BAS METB)on Anion gap [Moles/Vol] 12.4 mmol/L Normal [facility] Comment on above: Performed By: #### B MP #### [facility] [address] [address] [address] Isha Haq Calcium [Mass/Vol] 9.5 mg/dL Normal 8.5-10.1 [facility] Comment on above: Performed By: #### B MP #### [facility] [address] [address] [address] Isha Haq Chloride [Moles/Vol] 106 mmol/L Normal 98-107 [facility] Comment on above: Performed By: #### B MP #### [facility] [address] [address] [address] Isha Haq CO2 [Moles/Vol] 26.0 mmol/L Normal 21.0-32.0 [facility] Comment on above: Performed By: #### B MP #### [facility] Laboratory [address] [address] [address] Isha Haq Creatinine [Mass/Vol] 0.75 mg/dL Normal 0.70-1.30 [facility] Comment on above: Performed By: #### B MP #### [facility] Laboratory [address] [address] [address] Isha Haq EGFR-AF ALBANIAN >60 Normal >=60 [facility] Comment on above: Performed By: #### B MP #### [facility] [address] [address] [address] Isha Haq EGFR-NON AF ALBANIAN >60 Normal >=60 [facility] Comment on above: Performed By: #### B MP #### [facility] Laboratory [address] [address] [address] Isha Haq Glucose [Mass/Vol] 104 mg/dL Normal 74-106 [facility] Comment on above: Performed By: #### B MP #### [facility] Laboratory [address] [address] [address] Isha Haq Potassium [Moles/Vol] 4.4 mmol/L Normal 3.5-5.1 [facility] Comment on above: Performed By: #### B MP #### [facility] Laboratory [address] [address] [address] Isha Haq Sodium [Moles/Vol] 140 mmol/L Normal 136-145 [facility] Comment on above: Performed By: #### B MP #### [facility] Laboratory [address] [address] [address] Isha Haq Urea nitrogen [Mass/Vol] 15.0 mg/dL Normal 7.0-18.0 [facility] Comment on above: Performed By: #### B MP #### [facility] Laboratory [address] [address] [address] Isha Haq Urea nitrogen/Creatinine [Mass ratio] 20.0 mg/mg Normal [facility] Comment on above: Performed By: #### B MP #### [facility] Laboratory [address] [address] [address] Isha Haq Basophils Auto (Bld) [#/Vol] Ordered By: Chaka Pulido on 04-10-2022 Basophils (Bld) [#/Vol] 0.1 10*3/uL 0.0-0.2 [facility] Basophils/100 WBC Auto (Bld) Ordered By: Chaka Pulido on 04-10-2022 Basophils/100 WBC (Bld) 0.8 % . F [facility] Bilirubin Test strip Ql (U)O rdered By: Chaka Pulido on 04-10-2022 Bilirubin Ql (U) Negative Negative [facility] Color Auto (U)Ordered By: José Miguel Pulido on 04-10-2022 Color (U) Dark yellow Yellow [facility] Creatinine and Glomerular fi ltration rate.predicted panel (S/P/Bld)Ordered By: Chaka Pulido on 04-10-2022 Creatinine [Mass/Vol] 0.67 mg/dL 0.64-1.27 [facility] Eosinophils Auto (Bld) [#/Vo l]Ordered By: Chaka Pulido on 04-10-2022 Eosinophils (Bld) [#/Vol] 0.3 10*3/uL 0.0-0.45 [facility] Eosinophils/100 WBC Auto (Bl d)Ordered By: Chaka Pulido on 04-10-2022 Eosinophils/100 WBC (Bld) 2.9 % . [facility] Erythrocyte distribution wid th Auto (RBC) [Ratio]Ordered By: Chaka Pulido on 04-10-2022 Erythrocyte distribution width (RBC) [Ratio] 14.3 % 12.0-14.8 [facility] Estimated glomerular filtrat ion rate (GFR) non- AmericanOrdered By: Chaka Pulido on 04-10-2022 GFR/1.73 sq M.predicted among non-blacks MDRD (S/P/Bld) [Vol rate/Area] > 60 mL/Min [facility] Hematocrit Auto (Bld) [Volum e fraction]Ordered By: Chaka Pulido on 04-10-2022 Hematocrit (Bld) [Volume fraction] 43.1 % 38.8-50.0 [facility] Hemoglobin [Mass/volume] in BloodOrdered By: Chaka Pulido on 04-10-2022 Hemoglobin (Bld) [Mass/Vol] 14.4 g/dL 13.0-17.0 [facility] Ketones Auto test strip (U) [Mass/Vol]Ordered By: Chaka Pulido on 04-10-2022 Ketones (U) [Mass/Vol] Trace Negative Fi [facility] Leukocytes [#/volume] correc trena for nucleated erythrocytes in Blood by Automated counOrdered By: Chaka Pulido on 04-10-2022 WBC corrected for nucl RBC Auto (Bld) [#/Vol] 9.8 10*3/uL 4.1-10.5 [facility] Lymphocytes Auto (Bld) [#/Vo l]Ordered By: Chaka Pulido on 04-10-2022 Lymphocytes (Bld) [#/Vol] 1.7 10*3/uL 1.00-4.8 [facility] Lymphocytes/100 WBC Auto (Bl d)Ordered By: Chaka Pulido on 04-10-2022 Lymphocytes/100 WBC (Bld) 17.6 % . [facility] MCH Auto (RBC) [Entitic mass ]Ordered By: Chaka Pulido on 04-10-2022 MCH (RBC) [Entitic mass] 30.9 pg 27.5-35.2 [facility] MCHC Auto (RBC) [Mass/Vol]Or dered By: Chaka Pulido on 04-10-2022 MCHC (RBC) [Mass/Vol] 33.5 g/dL 32.5-35.6 [facility] MCV Auto (RBC) [Entitic vol] Ordered By: Chaka Pulido on 04-10-2022 MCV (RBC) [Entitic vol] 92.2 fL 83.5-101 F [facility] Monocytes Auto (Bld) [#/Vol] Ordered By: Chaka Pulido on 04-10-2022 Monocytes (Bld) [#/Vol] 1.1 10*3/uL 0.0-0.8 [facility] Monocytes/100 WBC Auto (Bld) Ordered By: Chaka Pulido on 04-10-2022 Monocytes/100 WBC (Bld) 11.7 % . F [facility] Neutrophils Auto (Bld) [#/Vo l]Ordered By: Chaka Pulido on 04-10-2022 Neutrophils (Bld) [#/Vol] 6.5 10*3/uL 1.8-7.7 [facility] Neutrophils/100 WBC Auto (Bl d)Ordered By: Chaka Pulido on 04-10-2022 Neutrophils/100 WBC (Bld) 67.0 % . [facility] Nitrite Test strip Ql (U)Ord ered By: Chaka Pulido on 04-10-2022 Nitrite Ql (U) Negative Negative [facility] No Panel InformationOrdered By: Chaka Pulido on 04-10-2022 Estimated GFR () > 60 mL/Min [facility] Comment on above: GFR estimated refere nce range: According to KDOQI guidelines, <60 ml/min/1.73m2 is sufficient to diagnose a patient with chronic kidney disease. Pharmacy Creatinine Clearance (Chem N/A [facility] Nucleated erythrocytes [Pres ence] in Blood by Automated countOrdered By: Chaka Pulido on 04-10-2022 Nucleated RBC Auto Ql (Bld) 0.1 /100{WBC} 0-0.5 [facility] Platelet mean volume Auto (B ld) [Entitic vol]Ordered By: Chaka Pulido on 04-10-2022 Platelet mean volume (Bld) [Entitic vol] 7.5 fL 6.6-10.1 [facility] Platelets Auto (Bld) [#/Vol] Ordered By: Chaka Pulido on 04-10-2022 Platelets (Bld) [#/Vol] 197 10*3/uL 150-450 [facility] Protein Auto test strip (U) [Mass/Vol]Ordered By: Chaka Pulido on 04-10-2022 Protein (U) [Mass/Vol] Negative Negative [facility] RBC Auto (Bld) [#/Vol]Ordere d By: Chaka Pulido on 04-10-2022 RBC (Bld) [#/Vol] 4.67 10*6/uL 3.90-5.60 [facility] Serum or plasma anion gap de terminationOrdered By: Chaka Pulido on 04-10-2022 Anion gap [Moles/Vol] 13.6 mmol/L 6.0-15.[address] [facility] Serum or plasma calcium ernesto urement (mass/volume)Ordered By: Chaka Pulido on 04-10-2022 Calcium [Mass/Vol] 9.6 mg/dL 8.2-10.2 [facility] Serum or plasma chloride cristina surement (moles/volume)Ordered By: Chaka Pulido on 04-10-2022 Chloride [Moles/Vol] 103 mmol/L 95-114 [facility] Serum or plasma glucose ernesto urement (mass/volume)Ordered By: Chaka Pulido on 04-10-2022 Glucose [Mass/Vol] 100 mg/dL 70-100 [facility] Comment on above: ADA recommended refe rence rangeRandom Glucose Reference Range is dependent on time and content of last meal. Glucose of more than 200 mg/dL in a nonstressed, ambulatory subject supports the diagnosis of Diabetes Mellitus. Serum or plasma potassium me asurement (moles/volume)Ordered By: Chaka Pulido on 04-10-2022 Potassium [Moles/Vol] 4.5 mmol/L 3.5-5.1 [facility] Serum or plasma sodium measu rement (moles/volume)Ordered By: Chaka Pulido on 04-10-2022 Sodium [Moles/Vol] 137 mmol/L 136-146 [facility] Serum or plasma total carbon dioxide measurement (moles/volume)Ordered By: Chaka Pulido on 04-10-2022 CO2 [Moles/Vol] 24.9 mmol/L 22.0-30.0 [facility] Serum or plasma urea nitroge n measurement (mass/volume)Ordered By: Chaka Pulido on 04-10-2022 Urea nitrogen [Mass/Vol] 18 mg/dL 9-23 [facility] Specific gravity Auto test s trip (U) [Rel density]Ordered By: Chaka Pulido on 04-10-2022 Specific gravity (U) [Rel density] 1.030 1.001-1.030 [facility] Urine clarity by refractomet ry automatedOrdered By: Chaka Pulido on 04-10-2022 Clarity Refractometry automated (U) Clear Clear [facility] Urine culture routineOrdered By: Chaka Pulido on 04-10-2022 Bacteria identified Cx Nom (U) No Growth 2 Days [facility] Urine glucose measurement by automated test strip (mass/volume)Ordered By: Chaka Pulido on 04-10-2022 Glucose Auto test strip (U) [Mass/Vol] Normal mg/dL Normal [facility] Urine hemoglobin detection b y automated test stripOrdered By: Chaka Ashok on 04-10-2022 Hemoglobin Auto test strip Ql (U) Negative Negative [facility] Urine leukocyte esterase det ection by automated test stripOrdered By: Chaka Pulido on 04-10-2022 Leukocyte esterase Auto test strip Ql (U) Negative Negative [facility] Urobilinogen Auto test strip (U) [Mass/Vol]Ordered By: Chaka Pulido on 04-10-2022 Urobilinogen (U) [Mass/Vol] Normal mg/dL Normal [facility] WBC Auto (Bld) [#/Vol]Ordere d By: Chaka Pulido on 04-10-2022 WBC (Bld) [#/Vol] 9.8 10*3/uL 4.1-10.5 [facility] pH Auto test strip (U)Ordere d By: Chaka Pulido on 04-10-2022 pH (U) 5.5 [pH] 5.0-9.0 [facility] HPon 02-08-2022 HP Doing very [...] : DR DIYA BROWN M.D. Admission #: [id number] Family : Order #: [id number] CLICK HERE TO VIEW EXAM RADIOLOGY REPORT [...] DEFECT: LOCATION: Basal inferior. Mid-inferior. Apical inferior. Roxana. SIZE: Medium (3-4 segments). SEVERITY: Moderate. TYPE: [...] statin, BB I25.10: Atherosclerotic heart disease of [place] coronary artery without angina pectoris 2. Mitral [...] He understands (more content not included)... Normal [facility] CBC AUTO DIFFon 02-06-2022 BASO # 0.0 103/ul Normal 0.0-0.1 [facility] Comment on above: Performed By: #### C BC #### [facility] Laboratory [address] [address] [address] Isha Haq Basophils/100 WBC (Bld) 0.4 % Normal 0.2-2.0 [facility] Comment on above: Performed By: #### C BC #### [facility] Laboratory [address] [address] [address] Isha Haq EO # 0.3 103/ul Normal 0.0-0.7 [facility] Comment on above: Performed By: #### C BC #### [facility] Laboratory [address] [place] [address] Dr. Isha Haq Eosinophils/100 WBC (Bld) 3.8 % Normal 0.9-7.0 [facility] Comment on above: Performed By: #### C BC #### [facility] [address] [place] [address] Dr. Isha Haq Erythrocyte distribution width (RBC) [Ratio] 13.2 % Normal 11.0-15.0 [facility] Comment on above: Performed By: #### C BC #### [facility] [address] [place] [address] Dr. Isha Haq Hematocrit (Bld) [Volume fraction] 43.0 % Normal 42.0-54.0 [facility] Comment on above: Performed By: #### C BC #### [facility] [address] [place] [address] Dr. Isha Haq Hemoglobin (Bld) [Mass/Vol] 14.3 g/dL Normal 14.0-18.0 [facility] Comment on above: Performed By: #### C BC #### [facility] [address] [place] [address] Dr. Isha Haq IG # 0.04 10e3/ul Critically high 0.00-0.03 [facility] Comment on above: Performed By: #### C BC #### [facility] [address] [place] [address] Dr. Isha Haq IG % 0.4 % Normal 0.0-0.[address] [facility] Comment on above: Performed By: #### C BC #### [facility] [address] [place] [address] Dr. Isha Haq LYMPH # 1.9 103/ul Normal 1.2-3.[address] [facility] Comment on above: Performed By: #### C BC #### [facility] [address] [place] [address] Dr. Isha Haq Lymphocytes/100 WBC (Bld) 21.0 % Normal 20.5-60.0 [facility] Comment on above: Performed By: #### C BC #### [facility] [address] [place] [address] Dr. Isha Haq MANUAL DIFF REQ NO Normal [facility] Comment on above: Performed By: #### C BC #### [facility] [address] [place] [address] Dr. Isha Haq MCH (RBC) [Entitic mass] 30.4 pg Normal 25.9-34.0 [facility] Comment on above: Performed By: #### C BC #### [facility] [address] [place] [address] Dr. Isha Haq MCHC (RBC) [Mass/Vol] 33.3 g/dL Normal 29.9-35.2 [facility] Comment on above: Performed By: #### C BC #### [facility] [address] [place] [address] Dr. Isha Haq MCV (RBC) [Entitic vol] 91.3 fL Normal 80.0-94.0 [facility] Comment on above: Performed By: #### C BC #### [facility] [address] [place] [address] Dr. Isha Haq MONO # 1.0 103/ul Critically high 0.3-0.8 [facility] Comment on above: Performed By: #### C BC #### [facility] [address] [place] [address] Dr. Isha Haq Monocytes/100 WBC (Bld) 11.4 % Normal 1.7-12.0 [facility] Comment on above: Performed By: #### C BC #### [facility] [address] [place] [address] Dr. Isha Haq NEUT # 5.6 103/ul Normal 1.4-6.5 [facility] Comment on above: Performed By: #### C BC #### [facility] [address] [place] [address] Dr. Isha Haq Neutrophils/100 WBC (Bld) 63.0 % Normal 43.0-75.0 [facility] Comment on above: Performed By: #### C BC #### [facility] [address] [place] [address] Dr. Isha Haq Platelet mean volume (Bld) [Entitic vol] 11.2 fL Normal 9.5-13.5 [facility] Comment on above: Performed By: #### C BC #### [facility] [address] [place] [address] Dr. Isha Haq PLT 191 103/ul Normal 150-450 [facility] Comment on above: Performed By: #### C BC #### [facility] [address] [place] [address] Dr. Isha Haq RBC 4.71 106/ul Normal 4.70-6.10 [facility] Comment on above: Performed By: #### C BC #### [facility] [address] [place] [address] Dr. Isha Haq WBC 8.9 103/ul Normal 4.0-11.0 [facility] Comment on above: Performed By: #### C BC #### [facility] [address] [place] [address] Dr. Isha Haq LIPID PROFILEon 02-06-2022 CHOL-HDL RATIO NORM SEE BELOW Normal [facility] Comment on above: Result Comment: 3.3 - 4.4 LOW RISK 4.4 - 7.1 AVERAGE RISK 7.1 - 11.0 MODERATE RISK >11.0 HIGH RISK Performed By: #### P SAD #### [facility] [address] [place] [address] Dr. Isha Haq Cholesterol [Mass/Vol] 120 mg/dL Normal <=200 Th [facility] Comment on above: Performed By: #### P SAD #### [facility] [address] [place] [address] Dr. Isha Haq Cholesterol in HDL [Mass/Vol] 42 mg/dL Normal 40-60 [facility] Comment on above: Performed By: #### P SAD #### [facility] [address] [place] [address] Dr. Isha Haq Cholesterol in LDL [Mass/Vol] 46.2 mg/dL Normal [facility] Comment on above: Performed By: #### P SAD #### [facility] [address] [address] [address] Isha Haq Cholesterol.total/Domi sterol in HDL [Mass ratio] 2.9 {ratio} Normal [facility] Comment on above: Performed By: #### P SAD #### [facility] [address] [address] [address] Isha Haq HDL NORMAL > or = 60 mg/dl - LO W CARDIOVASCULAR RISK <40 mg/dl - HIGH CARDIOVASCULAR RISK Normal [facility] Comment on above: Performed By: #### P SAD #### [facility] [address] [address] [address] Isha Haq LDL CALC NORMAL SEE BELOW Normal [facility] Comment on above: Result Comment: <100 mg/dl OPTIMAL 100 - 129 mg/dl NEAR OR ABOVE OPTIMAL 130 - 159 mg/dl BORDERLINE HIGH 160 - 189 mg/dl HIGH >190 mg/dl VERY HIGH Performed By: #### P SAD #### [facility] [address] [address] [address] Isha Haq Triglyceride [Mass/Vol] 159 mg/dL Critically high <=150 [facility] Comment on above: Performed By: #### P SAD #### [facility] [address] [address] [address] Isha Haq VLDL CALC 31.8 mg/dL Normal [facility] Comment on above: Performed By: #### P SAD #### [facility] [address] [address] [address] Isha Haq PROF 14(COMP METB)on 022 Albumin [Mass/Vol] 3.2 g/dL Critically low 3.4-5.0 Th [facility] Comment on above: Performed By: #### L IPID, CMP #### [facility] [address] [address] [address] Isha Haq Albumin/Globulin [Mass ratio] 0.8 {ratio} Normal [facility] Comment on above: Performed By: #### L IPID, CMP #### [facility] [address] [address] [address] Isha Haq ALP [Catalytic activity/Vol] 115 U/L Normal 46-116 [facility] Comment on above: Performed By: #### L IPID, CMP #### [facility] [address] [address] [address] Isha Haq ALT [Catalytic activity/Vol] 28 U/L Normal 16-63 [facility] Comment on above: Performed By: #### L IPID, CMP #### [facility] [address] [address] [address] Isha Haq Anion gap [Moles/Vol] 10.7 mmol/L Normal [facility] Comment on above: Performed By: #### L IPID, CMP #### [facility] [address] [address] [address] Isha Haq AST [Catalytic activity/Vol] 48 U/L Critically high 15-37 [facility] Comment on above: Performed By: #### L IPID, CMP #### [facility] [address] [address] [address] Isha Haq Bilirubin [Mass/Vol] 0.9 mg/dL Normal 0.2-1.0 [facility] Comment on above: Performed By: #### L IPID, CMP #### [facility] [address] [address] [address] Isha Haq Calcium [Mass/Vol] 9.2 mg/dL Normal 8.5-10.1 [facility] Comment on above: Performed By: #### L IPID, CMP #### [facility] [address] [address] [address] Isha Haq Chloride [Moles/Vol] 107 mmol/L Normal 98-107 [facility] Comment on above: Performed By: #### L IPID, CMP #### [facility] [address] [address] [address] Isha Haq CO2 [Moles/Vol] 24.5 mmol/L Normal 21.0-32.0 [facility] Comment on above: Performed By: #### L IPID, CMP #### [facility] [address] [address] [address] Isha Haq Creatinine [Mass/Vol] 0.52 mg/dL Critically low 0.70-1.30 [facility] Comment on above: Performed By: #### L IPID, CMP #### [facility] [address] [address] [address] Isha Haq EGFR-AF [place] >60 Normal >=60 [facility] Comment on above: Performed By: #### L IPID, CMP #### [facility] [address] [address] [address] Isha Haq EGFR-NON AF [place]IAN >60 Normal >=60 [facility] Comment on above: Performed By: #### L IPID, CMP #### [facility] [address] [address] [address] Isha Haq Globulin (S) [Mass/Vol] 3.8 g/dL Normal [facility] Comment on above: Performed By: #### L IPID, CMP #### [facility] [address] [address] [address] Isha Haq Glucose [Mass/Vol] 104 mg/dL Normal 74-106 [facility] Comment on above: Performed By: #### L IPID, CMP #### [facility] [address] [address] [address] Isha Haq Potassium [Moles/Vol] 5.2 mmol/L Critically high 3.5-5.1 [facility] Comment on above: Performed By: #### L IPID, CMP #### [facility] [address] [address] [address] Isha Haq Protein [Mass/Vol] 7.0 g/dL Normal 6.4-8.2 [facility] Comment on above: Performed By: #### L IPID, CMP #### [facility] [address] [address] [address] Isha Haq Sodium [Moles/Vol] 137 mmol/L Normal 136-145 [facility] Comment on above: Performed By: #### L IPID, CMP #### [facility] [address] [address] [address] Isha Haq Urea nitrogen [Mass/Vol] 25.0 mg/dL Critically high 7.0-18.0 [facility] Comment on above: Performed By: #### L IPID, CMP #### [facility] [address] [address] [address] Isha Haq Urea nitrogen/Creatinine [Mass ratio] 48.1 mg/mg Normal [facility] Comment on above: Performed By: #### L IPID, CMP #### [facility] [address] [address] [address] Isha Haq CARDIAC STRESS TESTon 2021 [...] ensuring mobility, phacoemulsification was performed in a [id number] fashion. After all nuclear material had [...] following day for postoperative care. Normal [facility] NM STRESS/REST MULTIon 01-11 NM STRESS/REST MULTI Patient: KEVYN KEENAN Exam Date: 01/11/2022 : 1945 Gender:M Ordering : DR DIYA BROWN M.D. Admission #: [id number] Family : Order #: [id number] CLICK HERE TO VIEW EXAM RADIOLOGY REPORT [...] DEFECT: LOCATION: Basal inferior. Mid-inferior. Apical inferior. Roxana. SIZE: Medium (3-4 segments). SEVERITY: Moderate. TYPE: [...] at 07:05 Normal [facility] MRI [place] WO CONon -23-20 22 MRI [facility] WO CON EXAMINATION: MRI [place] WO CON HISTORY: Low back pain COMPARISON: [...] Culture NO GROWTH Report Status FINAL 05/05/2020 [facility] Comment on above: Performed By: #### U #### [facility] [employer] [address] [place] [address] Rolling Machine Operator: Mendez Cabello MD [facility] [address] [place] [address] Rolling Machine Operator: Marion Koo MD Urinalysis w/ Microon 2020 ----- Normal [facility] Comment on above: Performed By: #### U AMI #### [facility] [address] [place], [place] [id number] Rolling Machine Operator: Marion Koo MD Acetoacetic Acid,Ur Negative Normal NEG [facility] Comment on above: Performed By: #### U AMIC #### [facility] [address] [place], [place] [id number] Rolling Machine Operator: Marion Koo MD Amorphous sediment LM Ql (Urine sed) TRACE Abnormal [facility] Comment on above: Performed By: #### U AMIC #### [facility] [address] [place], [place] [id number] Rolling Machine Operator: Marion Koo MD Bacteria LM.HPF (Urine sed) [#/Area] TRACE Abnormal [facility] Comment on above: Performed By: #### U AMIC #### [facility] [address] [place] [address] [address] [place] [id number] Rolling Machine Operator: Marion Koo MD Bilirubin, SemiQt,Ur Negative Normal [facility] Comment on above: Performed By: #### U AMIC #### [address] [place], [place] [id number] Rolling Machine Operator: Marion Koo MD Color (U) YELLOW Normal L [facility] Comment on above: Performed By: #### U AMIC #### [facility] [address] [place] [address] Dr. [place], [facility]83 Rolling Machine Operator: Marion Koo MD Epithelial cells LM.HPF (Urine sed) [#/Area] 0 TO 2 Normal 0-5 [facility] Comment on above: Performed By: #### U AMIC #### [address] [place], [place] [id number] Rolling Machine Operator: Marion Koo MD Glucose Ql (U) Negative Normal NEG [facility] Comment on above: Performed By: #### U AMIC #### [facility] [address] [place], [place] 969[address]83 Rolling Machine Operator: Marion Koo MD Hemoglobin, Ur Negative Normal NEG [facility] Comment on above: Performed By: #### U AMIC #### [facility] [address] [place], [place] [id number] Rolling Machine Operator: Marion Koo MD Leukocyte esterase Test strip Ql (U) Negative Normal NEG [facility] Comment on above: Performed By: #### U AMIC #### [facility] [address] [place], [place] 901[address]83 Rolling Machine Operator: Marion Koo MD Mucus Strands 1+ Abnormal NONE [facility] Comment on above: Performed By: #### U AMIC #### [facility] [address] [place] [address] Dr. [place], [place] 0342683 Rolling Machine Operator: Marion Koo MD Nitrite,Ur Negative Normal NEG [facility] Comment on above: Performed By: #### U AMIC #### [facility] [address] [place] [address] Dr. [place], [place] 0767883 Rolling Machine Operator: Marion Koo MD pH (U) 6.0 [pH] Normal 5.0-9.0 [facility] Comment on above: Performed By: #### U AMIC #### [facility] [address] [place] [address] Dr. [place], [place] 7571383 Rolling Machine Operator: Marion Koo MD Protein Ql (U) Negative Normal NEG [facility] Comment on above: Performed By: #### U AMIC #### [facility] [address] [place], [place] 2553783 Rolling Machine Operator: Marion Koo MD RBC (U) [#/Vol] None Normal 0-2 [facility] Comment on above: Performed By: #### U AMIC #### [facility] [address] [place], [place] 1521383 Rolling Machine Operator: Marion Koo MD Specific gravity (U) [Rel density] >1.030 High 1.010-1.020 [facility] Comment on above: Performed By: #### U AMIC #### [facility] [address] [place], [place] 957[address]83 Rolling Machine Operator: Marion Koo MD Turbidity CLEAR Normal CLEAR [facility] Comment on above: Performed By: #### U AMIC #### [facility] [address] [place] [address] Rolling Machine Operator: Marion Koo MD Urobilinogen,Ur Normal Normal NORM [facility] Comment on above: Performed By: #### U AMIC #### [facility] [address] [place], [place] 0347883 Rolling Machine Operator: Marion Koo MD WBC (U) [#/Vol] 0 TO 2 Normal 0-5 [facility] Comment on above: Performed By: #### U AMIC #### [facility] [address] [place], [place] 0508183 Rolling Machine Operator: Marion Koo MD Casts LM.LPF (Urine sed) [#/Area] NOT REPORTED Normal [facility] Comment on above: Performed By: #### U AMIC #### [facility] [address] [place], [place] 1703783 Rolling Machine Operator: Marion Koo MD Comment NOT REPORTED Normal [facility] Comment on above: Performed By: #### U AMIC #### [facility] [address] [place], [place] 63[address]83 Rolling Machine Operator: Marion Koo MD Crystals LM Nom (Urine sed) NOT REPORTED Normal NONE [facility] Comment on above: Performed By: #### U AMIC #### [facility] [address] [place], [place] 308[address]83 Rolling Machine Operator: Marion Koo MD Epithelial, Renal NOT REPORTED Normal 0 [facility] Comment on above: Performed By: #### U AMIC #### [facility] [address] [place] [address] Rolling Machine Operator: Marion Koo MD Other Observations NOT REPORTED Normal NREQ [facility] Comment on above: Performed By: #### U AMIC #### [facility] [address] [place], [place] 3799383 Rolling Machine Operator: Marion Koo MD Trichomonas NOT REPORTED Normal NONE [facility] Comment on above: Performed By: #### U AMIC #### [facility] [address] [place] [address] Rolling Machine Operator: Marion Koo MD Yeast LM Ql (Urine sed) NOT REPORTED Normal NONE [facility] Comment on above: Performed By: #### U AMIC #### [facility] [address] [place] [address] Rolling Machine Operator: Marion Koo MD Urinalysis with Microscopico n 05-04-2020 Amorphous, UA TRACE Abnormal None [facility] Work Phone: Bacteria, UA TRACE Abnormal None [facility] Work Phone: Bilirubin Urine Negative NEGATIVE [facility] Work Phone: Casts UA NOT REPORTED /LPF [facility] Work Phone: Color, UA YELLOW YELLOW [facility] Work Phone: Crystals, UA NOT REPORTED None /HPF [facility] Work Phone: Epithelial Cells UA 0 TO 2 [facility] Work Phone: Glucose, Ur Negative NEGATIVE [facility] Work Phone: Interpretation and review of laboratory results Abnormal [facility] Work Phone: Ketones Ql (U) Negative NEGATIVE [facility] Work Phone: Leukocyte esterase Test strip Ql (U) Negative NEGATIVE [facility] Work Phone: Mucus, UA 1+ Abnormal None [facility] Work Phone: Nitrite, Urine Negative NEGATIVE [facility] Work Phone: Other Observations UA NOT REPORTED NOT REQ. M [facility] [employer] Work Phone: pH, UA 6.0 [facility] [employer] Work Phone: Protein (U) [Mass/Vol] Negative NEGATIVE [facility] [employer] Work Phone: RBC (U) [#/Vol] None [facility] Work Phone: Renal Epithelial, UA NOT REPORTED 0 /HPF [facility] Work Phone: Specific [place], UA >1.030 High [facility] [employer] Work Phone: Trichomonas, UA NOT REPORTED None [facility] [employer] Work Phone: Turbidity UA CLEAR CLEAR [facility] Work Phone: Urinalysis Comments NOT REPORTED [facility] [employer] Work Phone: Urine Hgb Negative NEGATIVE [facility] [employer] Phone: Urobilinogen, Urine Normal Normal [facility] [employer] Phone: WBC, UA 0 TO 2 [facility] [employer] Work Phone: Yeast, UA NOT REPORTED None [facility] [employer] Work Phone: - [facility] Work Phone: Cult,Urineon 09-26-2019 Cult,Urine Specimen Description .CLEAN CATCH URINE Special Requests NOT REPORTED Culture NO GROWTH Report Status FINAL 09/26/2019 Normal [facility] Comment on above: Performed By: #### U #### [facility] [employer] [address] [place] [address] Rolling Machine Operator: Mendez Cabello MD [facility] [address] [place], [place] 6980383 Rolling Machine Operator: Santos Solorio MD Urinalysis w/ Microon 2019 ----- Normal [facility] Comment on above: Performed By: #### U AMIC #### [facility] [address] [place] [address] Rolling Machine Operator: Santos Solorio MD Acetoacetic Acid,Ur Negative Normal NEG [facility] Comment on above: Performed By: #### U AMIC #### [facility] [address] [place] [address] Rolling Machine Operator: Santos Solorio MD Bilirubin, SemiQt,Ur Negative Normal [facility] Comment on above: Performed By: #### U AMIC #### [facility] [address] [place], [place] 04[address]83 Rolling Machine Operator: Santos Solorio MD Color (U) YELLOW Normal L [facility] Comment on above: Performed By: #### U AMIC #### [facility] [address] [place] [address] Rolling Machine Operator: Santos Solorio MD Epithelial cells LM.HPF (Urine sed) [#/Area] None Normal 0-5 [facility] Comment on above: Performed By: #### U AMIC #### [facility] [address] [place], [place] 1713083 Rolling Machine Operator: Santos Solorio MD Glucose Ql (U) Negative Normal NEG [facility] Comment on above: Performed By: #### U AMIC #### [facility] [address] [place], [place] 4854183 Rolling Machine Operator: Santos Solorio MD Hemoglobin, Ur Negative Normal NEG [facility] Comment on above: Performed By: #### U AMIC #### [facility] [address] [place], [place] 87[address]83 Rolling Machine Operator: Santos Solorio MD Leukocyte esterase Test strip Ql (U) Negative Normal NEG [facility] Comment on above: Performed By: #### U AMIC #### [facility] [address] [place], [place] 896[address]83 Rolling Machine Operator: Santos Solorio MD Nitrite,Ur Negative Normal NEG [facility] Comment on above: Performed By: #### U AMIC #### [facility] [address] [place], [place] 602[address]83 Rolling Machine Operator: Santos Solorio MD pH (U) 5.5 [pH] Normal 5.0-9.0 [facility] Comment on above: Performed By: #### U AMIC #### [facility] [address] [place], [place] 7619083 Rolling Machine Operator: Santos Solorio MD Protein Ql (U) Negative Normal NEG [facility] Comment on above: Performed By: #### U AMIC #### [facility] [address] [place], [place] 3588483 Rolling Machine Operator: Santos Solorio MD RBC (U) [#/Vol] None Normal 0-2 [facility] Comment on above: Performed By: #### U AMIC #### [address] [place], [place] 3912083 Rolling Machine Operator: Santos Solorio MD Specific gravity (U) [Rel density] 1.020 Normal 1.010-1.020 [facility] Comment on above: Performed By: #### U AMIC #### [facility] [address] [place], [place] 0910683 Rolling Machine Operator: Santos Solorio MD Turbidity CLEAR Normal CLEAR [facility] Comment on above: Performed By: #### U AMIC #### [facility] [address] [place], [place] 27[address]83 Rolling Machine Operator: Santos Solorio MD Urobilinogen,Ur Normal Normal NORM [facility] Comment on above: Performed By: #### U AMIC #### [facility] [address] [place] [address] Rolling Machine Operator: Santos Solorio MD WBC (U) [#/Vol] None Normal 0-5 [facility] Comment on above: Performed By: #### U AMIC #### [facility] [address] [place], [place] 8189283 Rolling Machine Operator: Santos Solorio MD Amorphous sediment LM Ql (Urine sed) NOT REPORTED Normal [facility] Comment on above: Performed By: #### U AMIC #### [facility] [address] [place], [place] 286[address] Rolling Machine Operator: Santos Solorio MD Bacteria LM.HPF (Urine sed) [#/Area] NOT REPORTED Normal [facility] Comment on above: Performed By: #### U AMIC #### [facility] [address] [place] [address] Rolling Machine Operator: Santos Solorio MD Casts LM.LPF (Urine sed) [#/Area] NOT REPORTED Normal [facility] Comment on above: Performed By: #### U AMIC #### [address] [place] [address] Rolling Machine Operator: Santos Solorio MD Comment NOT REPORTED Normal [facility] Comment on above: Performed By: #### U AMIC #### [facility] [address] [place] [address] Rolling Machine Operator: Santos Solorio MD Crystals LM Nom (Urine sed) NOT REPORTED Normal [facility] Comment on above: Performed By: #### U AMIC #### [facility] [address] [place], [place] 40[address]83 Rolling Machine Operator: Santos Solorio MD Epithelial, Renal NOT REPORTED Normal 0 [facility] Comment on above: Performed By: #### U AMIC #### [facility] [address] [place], [place] 805[address]83 Rolling Machine Operator: Santos Solorio MD Mucus Strands NOT REPORTED Normal [facility] Comment on above: Performed By: #### U AMIC #### [facility] [address] [place], [place] 0826183 Rolling Machine Operator: Santos Solorio MD Other Observations NOT REPORTED Normal NREQ [facility] Comment on above: Performed By: #### U AMIC #### [facility] [address] [place], [place] [address]37[address]83 Rolling Machine Operator: Santos Solorio MD Trichomonas NOT REPORTED Normal [facility] Comment on above: Performed By: #### U AMIC #### [facility] [address] [place], [place] [address]55[address]83 Rolling Machine Operator: Santos Solorio MD Yeast LM Ql (Urine sed) NOT REPORTED Normal [facility] Comment on above: Performed By: #### U AMIC #### [facility] [address] [place], [place] 0635483 Rolling Machine Operator: Santos Solorio MD Urinalysis with Microscopico n 09-25-2019 Amorphous, UA NOT REPORTED None [facility] [place] Bacteria, UA NOT REPORTED None [facility] [place] Bilirubin Urine Negative NEGATIVE [facility] [place] Casts UA NOT REPORTED /LPF [facility] [place] Color, UA YELLOW YELLOW [facility] [place] Crystals, UA NOT REPORTED None /HPF [facility] [place] Epithelial Cells UA None [facility] [place] Glucose, Ur Negative NEGATIVE [facility] [place] Ketones Ql (U) Negative NEGATIVE [facility] [place] [place] Leukocyte esterase Test strip Ql (U) Negative NEGATIVE [facility] [place] Mucus, UA NOT REPORTED None [facility] [place] Nitrite, Urine Negative NEGATIVE [facility] [place] Other Observations UA NOT REPORTED NOT REQ. M [facility] [place] [place] pH, UA 5.5 [facility] [place] Protein (U) [Mass/Vol] Negative NEGATIVE [facility], [place] RBC (U) [#/Vol] None [facility], [place] Renal Epithelial, UA NOT REPORTED 0 /HPF Me [facility], [place] Specific [place], UA 1.020 [facility], [place] Trichomonas, UA NOT REPORTED None [facility] Turbidity UA CLEAR CLEAR [place], [place] Urinalysis Comments NOT REPORTED [facility], [place] Urine Hgb Negative NEGATIVE [facility] Urobilinogen, Urine Normal Normal [place], [place] WBC, UA None [facility] Yeast, UA NOT REPORTED None [facility] [facility] Auth for Release of Medical Recordson 09-02-2019 Auth for Release of Medical Records [id number] CD:127 Normal [facility] PROGRESSon 02-07-2018 Protein mass conc HNO ID: [id number]: Blair Green: (none)Author Type: PhysicianType: Progress NotesFiled: [...] agree with all of its relevantcomponents. Normal [facility] Protein mass conc HNO ID: [id number]: Jamie (Ray Mays: (none)Author Type: ResidentType: Progress NotesFiled: 02/07/2018 10:01 AMNote Text:Resolved ulcer Left eye, failed DSAEK and corneal scarWould still benefit from DSAEK repeat, then possible PTK for smoothing ofoptical centerPrimary open angle glaucomaOff PredForte OS for 3-4 weeks, ?discontinued by local optometristContinue glaucoma medsPatient interested in repeat DSAEK Normal [facility] PROGRESSon 10-04-2017 Protein mass conc HNO ID: [id number]: Blair Green: (none)Author Type: PhysicianType: Progress NotesFiled: [...] agree with all of its relevantcomponents. 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 Request/Comment: - Specimen received already planted.Culture Result - Cutibacterium (Propionibacterium) acnes In thioglycollate broth only --> ABNORMAL ALERT Susceptibility testing on C. acnes not performed due to predictable susceptibility to penicillin. C. acnes is intrinsically resistant to metronidazole. --> ABNORMAL ALERT (NOTE) Positive result called to and read back by:Dr Jessica An I20 09/07/17 yLnneSabrina catie rowe Critically abnormal [facility] Comment on above: Performed By: #### E YEC ####[facility] [id number] [place], [place] [phone] Fungal Cultureon 08-30-2017 Fungal Culture Sp. Request/Comment: - Specimen received already planted. Culture Result - No Fungus isolated after 33 days Normal [facility] Comment on above: Performed By: #### F CUL ####[address] [phone] PROGRESSon 08-30-2017 Protein mass conc HNO ID: [id number]: Blair Green: (none)Author Type: PhysicianType: Progress NotesFiled: [...] agree with all of its relevantcomponents. Normal [facility] Protein mass conc HNO ID: [id number]: Ivelisse Azul (Fel): (none)Author Type: FellowType: Progress [...] MD August 30, 2017 7:51 AM Normal [facility] PROGRESSon 06-07-2017 Protein mass conc HNO ID: [id number]: Blair Green: (none)Author Type: PhysicianType: Progress NotesFiled: [...] agree with all of its relevantcomponents. Normal [facility] Protein mass conc HNO ID: [id number]: Carol Reyes (Fel): (none)Author Type: FellowType: Progress [...] MD June 07, 2017 11:31 AM Normal [facility] PROGRESSon 05-17-2017 Protein mass conc HNO ID: [id number]: Blair Green: (none)Author Type: PhysicianType: Progress NotesFiled: [...] agree with all of its relevantcomponents. Normal [facility] Protein mass conc HNO ID: [id number]: Maldonado (Xiomy Deshpande: (none)Author Type: ResidentType: Progress NotesFiled: 05/17/2017 [...] poor view2. Pseudophakia OD 05/2016Doing well Normal [facility] Vital Signs Date Time Vital Sign Value Performing Clinician Facility 01-16-2024 09:30-0500 Diastolic blood pressure 79 mm[Hg] [facility] 01-16-2024 09:30-0500 Heart rate 73 /min [facility] 01-16-2024 09:30-0500 Respiratory rate 20 /min [facility] 01-16-2024 09:30-0500 SaO2% (BldA) [Mass fraction] 93 % [facility] 01-16-2024 09:30-0500 Systolic blood pressure 133 mm[Hg] [facility] 01-16-2024 07:47-0500 Body height 170.18 cm [facility] 01-16-2024 07:47-0500 Body weight 104.32 kg [facility] 04-28-2022 14:40-0500 Body temperature 98.8 [degF] DO Chaka Stepanic Jr Work Phone: [facility] 04-28-2022 14:40-0500 Diastolic blood pressure 68 mm[Hg] DO Chaka Stepanic Jr Work Phone: [facility] 04-28-2022 14:40-0500 Heart rate 75 /min DO Chaka Stepanic Jr Work Phone: [facility] 04-28-2022 14:40-0500 Respiratory rate 16 /min DO Chaka Stepanic Jr Work Phone: [facility] 04-28-2022 14:40-0500 SaO2% (BldA) [Mass fraction] 97 % DO Chaka Stepanic Jr Work Phone: [facility] 04-28-2022 14:40-0500 Systolic blood pressure 161 mm[Hg] DO Chaka Stepanic Jr Work Phone: [facility] 04-28-2022 11:00-0500 Body height 168.91 cm DO Chaka Stepanic Jr Work Phone: [facility] 04-28-2022 04:00-0500 Inhaled oxygen flow rate 2 L/min DO Chaka Stepanic Jr Work Phone: [facility] 04-28-2022 03:16-0500 Body weight 105.6 kg DO Chaka Stepanic Jr Work Phone: [facility] 04-27-2022 07:13-0500 Body mass index (BMI) [Ratio] 35 kg/m2 DO Chaka Stepanic Jr Work Phone: [facility] 11-29-2021 10:20-0400 Body height 170.18 cm Sheldon Guzman [employer] Other 11-29-2021 10:20-0400 Body mass index (BMI) [Ratio] 34.77 kg/m2 Sheldon Ball Other [employer] Other 11-29-2021 10:20-0400 Body weight 100.7 kg Sheldon Ball Other [employer] Other Encounters Encounter Date Encounter Type Care Provider Facility Start: 01-19-2024 End: 01-21-2024 Refill Jeanette Murillo [employer] Work Phone: [facility] Comment on above: Gastro-esophageal re flux disease without esophagitis Start: 01-16-2024 Non-patient / Non-visit [facility] G[facility] Work Phone: Start: 01-16-2024 End: 01-16-2024 Admission to same day surgery center [facility] Work Phone: Start: 01-16-2024 End: 01-16-2024 ambulatory NON STAFF [facility] Work Phone: Start: 12-11-2023 End: 12-12-2023 Refill Jeanette Murillo [employer] Work Phone: [facility] Comment on above: Mixed hyperlipidemia (CMS/HCC) (Primary Dx); Unspecified osteoarthritis, unspecified site; Primary hypertension (CMS/HCC) Start: 12-10-2023 End: 12-10-2023 ambulatory JEANETTE MURILLO Not Available Start: 09-19-2023 End: 09-19-2023 ambulatory CHAUDHARI FAWWAD Not Available Start: 08-08-2023 Patient encounter procedure Jeanette Murillo YARN EXAMINER Work Phone: [facility] Start: 08-08-2023 End: 08-08-2023 ambulatory CHAUDHARI FAWWAD Not Available Start: 02-26-2023 End: 02-26-2023 ambulatory SHAIKH LILA Not Available Start: 02-26-2023 Patient encounter procedure Jeanette Villagomezzpatrick YARN EXAMINER Work Phone: [facility] Start: 01-15-2023 End: 01-15-2023 [facility] Start: 09-04-2022 End: 09-04-2022 ambulatory [facility] Start: 04-27-2022 End: 04-28-2022 Admission to same day surgery center DO Chaka Pulido Jr Work Phone: [facility] [place] Start: 04-27-2022 End: 04-28-2022 ambulatory NON STAFF [facility] Work Phone: Start: 04-18-2022 End: 04-19-2022 ambulatory SHAIKH Connie GROVE Facility:H1 Start: 04-10-2022 End: 04-10-2022 ambulatory NON STAFF [facility] Work Phone: Start: 04-10-2022 End: 04-10-2022 Patient encounter procedure DO Chaka Pulido Jr Work Phone: [facility] Work Phone: Start: 02-08-2022 End: 02-08-2022 ambulatory [facility] Start: 02-06-2022 End: 02-07-2022 ambulatory SHAIKH Connie GROVE Facility:H1 Start: 01-11-2022 End: 01-12-2022 ambulatory [facility] Facility:H1 Start: 11-29-2021 End: 11-29-2021 ambulatory Sheldon Ball Other [facility] Other Start: 11-29-2021 Office outpatient ne w 30 minutes Sheldon Ball [facility] Start: 11-01-2021 End: 11-02-2021 ambulatory SHAIKH Connie GROVE Facility:H1 Start: 10-25-2021 End: 10-26-[address] DOCTOR BROUSSARD Facility:H1 Start: 08-22-2021 End: 09-16-2021 ambulatory SHAIKH Connie RODRIGUEZMCKENZIE Facility:H1 Start: 08-11-2021 ambulatory SHAIKH Connie RODRIGUEZMCKENZIE Facilit y:H1 Start: 08-03-2021 End: 08-04-2021 ambulatory CHAUDHARI Connie LILA Facility:H1 Start: 05-02-2021 End: 05-03-[address] DO[address] BROUSSARD Facility:H1 Start: 05-04-2020 End: 05-05-2020 Patient encounter procedure DENIA W [facility] Start: 05-04-2020 End: 05-04-2020 Subsequent hospital visit by physician Estefani MARIE Laboratory Comment on above: BPH with obstruction /lower urinary tract symptoms; Nocturia; Urgency of urination Start: 09-25-2019 End: 09-26-2019 Patient encounter procedure DENIA W [facility] Start: 09-25-2019 End: 09-25-2019 Subsequent hospital visit by physician Estefani MARIE Laboratory Comment on above: Nocturia; Urgency incontinence Start: 02-07-2018 End: 02-12-2018 Patient encounter procedure BLAIR AN [facility] Start: 10-04-2017 End: 10-04-2017 Patient encounter procedure BLAIR Erlin AN [facility] Start: 09-13-2017 End: 09-17-2017 Patient encounter procedure BLAIR AN [facility] Start: 09-06-2017 End: 09-11-2017 Patient encounter procedure BLAIR Kern NATALIYA [facility] Start: 08-30-2017 End: 09-03-2017 Patient encounter procedure BLAIR Kern NATALIYA [facility] Start: 08-07-2017 End: 08-08-2017 Ambulatory DEFAULT PHYSICIAN Facility:[facility] Start: 06-07-2017 End: 06-14-2017 Patient encounter procedure BLAIR Kern NATALIYA [facility] Start: 05-17-2017 End: 05-17-2017 Patient encounter procedure BLAIR AN [facility] Procedures Date Procedure Procedure Detail Performing Clinician Start: 01-16-2024 Screening colonoscopy Start: 04-27-2022 Revision of hip arthroplasty DO [...] above: Performed By: #### P SAD #### [facility] [address] [place] [address] Dr. Isha Haq Start: 05-02-2021 PSA screening SHAIKH KWABENA ROGERS Comment on above: Performed By: #### P SAD #### [facility] [address] [place] [address] Dr. Isha Haq Start: 05-04-2020 Urnls dip [...] 12/15/2024 1:00 PM EDT Office Visit [facility] [address] [place] [address] Jr. Chaka Pulido, [address] [place] [address] [facility] Start: 08-07-2024 Medicare Annual Wellness (AWV) Medicare Annual Wellness (AWV) [facility] Start: 03-17-2024 End: 03-17-2024 Patient encounter procedure 03/17/2024 9:00 AM EST Office Visit [facility] [address] [place] [address] Jeanette Murillo, [place] [address] [place] [address] [facility] Start: 02-27-2024 Pneumococcal Vaccine : 65+ Years (1 of 2 - PCV) Pneumococcal Vaccine: 65+ Years (1 of 2 - PCV) [facility] Comment on above: Postponed from 12/27 (Patient Refused) Start: 01-16-2024 [facility] Start: 11-11-2023 Influenza vaccination Influenza Vacc ine (#1) [facility] Start: 04-29-2022 Blood chemistry [facility] Start: 04-29-2022 [facility] Start: 04-27-2022 [facility] Start: 04-27-2022 Referral to clinical evp of products & co founder [facility] Start: 04-27-2022 Referral to Manager Market [facility] Start: 04-27-2022 Hospital admission [facility] Start: 04-27-2022 Referral to occupational therapist [facility] Start: 04-27-2022 [facility] Start: 04-10-2022 Bacteria identified in Urine by Culture [facility] Start: 02-15-2021 Prostate specific antigen measurement PSA counseling [facility] Work Phone: Start: 11-02-2020 End: 11-02-2020 Office Visit 11/02/2020 Office Visit Urology Denia Pike ROLL OPERATOR - R DEVELOPER [address] [place] [address] [facility] Start: 11-11-2019 Influenza vaccination Flu vaccine (# 1) [facility] [place] Start: 11-04-2019 End: 11-04-2019 Office Visit 11/04/2019 Office Visit Urology Denia Pike ROLL OPERATOR - R DEVELOPER [address] [place] [id number] [facility] Start: 09-25-2019 Annual Wellness Visi t (AWV) Annual Wellness Visit (AWV) [place], [place] Start: 01-01-2013 Creatinine measurement Creatinine mo nitoring [place] Start: 12-28-2011 Pneumococcal 65+ yea rs Vaccine (1 of 1 - PPSV23) Pneumococcal 65+ years Vaccine (1 of 1 - PPSV23) [place] Start: 1996 Screening for malign ant neoplasm of colon Colon cancer screen colonoscopy [place], [place] Start: 1996 Shingles Vaccine (1 of 2) Shingles Vaccine (1 of 2) [place] Start: 1965 DTaP/Tdap/Td vaccine (1 - Tdap) DTaP/Tdap/Td vaccine (1 - Tdap) [place] Start: 1962 COVID-19 Vaccine (1 of 2) COVID-19 Vaccine (1 of 2) [facility] [employer] Phone: Start: 1956 Lipid panel Lipid screen [place], [place] Start: 1946 Hepatitis C screening Hepatitis C sc reen [place], [place] Start: 1946 Potassium monitoring Potassium monit oring [place] End: 09-25-2019 Culture, Urine Culture, Urine Microbiology Routine Nocturia Urgency incontinence 1 Occurrences starting 09/25/2019 until 09/25/2019 [place] Comment on above: 1 Occurrences starti ng 09/25/2019 until 09/25/2019 Culture, Urine [place] End: 05-04-2020 Culture, Urine Culture, Urine Microbiology Routine BPH with obstruction/lower urinary tract symptoms Nocturia Urgency of urination 1 Occurrences starting 05/04/2020 until 05/04/2020 [facility] [employer] Phone: Comment on above: 1 Occurrences starti ng 05/04/2020 until 05/04/2020 Patient Education Hemorrhoids (D C) Diverticulosis (DC) Know your Meds [facility] Work Phone: Patient referral [facility] Work Phone: Immunizations Immunization Date Immunization Notes Care Provider Kwabena gillette 03-01-2023 Shingrix 50 MCG/0.5M L vaccine Jeanette Murillo YARN EXAMINER Work Phone: [facility] 11-04-2021 COVID-19 mRNA, Comirnaty (Pfizer) DO Chaka Pulido Jr Work Phone: [facility] 02-12-2021 COVID-19 mRNA, Comirnaty (Pfizer) DO Chaka Pulido Jr Work Phone: [facility] 06-05-2020 COVID-19 mRNA, Comirnaty (Pfizer) DO Chaka Pulido Jr Work Phone: [facility] 05-15-2020 COVID-19 mRNA, Comirnaty (Pfizer) DO Chaka Pulido Jr Work Phone: [facility] Payers Date Payer Category Payer Self-pay 2022 Medicare (Managed Care) [employer] [id number] 2022 Unknown 2020 Medicare [id number] 2019 Medicare AETNA MEDICARE A ETNA MEDICARE-ADVANTAGE PPO [id number] 2019-Present [address] [place] [address] Medicare [id number] 2019 Medicare [id number] 1959 Medicare [id number] 1946 Unknown [id number] 2.16.840.1.828802.3.579.2 .173 1946 Unknown [id number] 2.16.840.1.059425.3.579.2 .173 1946 Unknown [id number] 2.16.840.1.392984.3.579.2 .593 1946 Unknown [id number] 2.16.840.1.158546.3.579.2 .593 1946 Unknown [id number] 2.16.840.1.055085.3.579.2 .593 1946 Unknown [id number] 2.16.840.1.158577.3.579.2 .593 1946 Unknown [id number] 2.16.840.1.128771.3.579.2 .593 1946 Unknown [id number] 2.16.840.1.242563.3.579.2 .593 1946 Unknown [id number] 2.16.840.1.825357.3.579.2 .593 1946 Unknown [id number] 2.16.840.1.804361.3.579.2 .593 1946 Unknown [id number] 2.16.840.1.927934.3.579.2 .593 1946 Unknown [id number] 2.16.840.1.576166.3.579.2 .1259 1946 Unknown [id number] 2.16.840.1.667862.3.579.2 .1259 1946 Unknown [id number] 2.16.840.1.871371.3.579.2 .1259 1946 Unknown [id number] 2.16.840.1.952611.3.579.2 .1259 Medicare Medicare [id number] Unknown [employer] [id number] Unknown [id number] 2.16.840.1.868827.3.579.2 .531 Social History Date Type Detail Facility Start: 09-25-2019 End: 09-19-2023 Tobacco smoking status WYIS Never smoker [facility] Start: 09-25-2019 End: 09-19-2023 Tobacco use and exposure Never used [email or web address] [place] Start: 09-25-2019 End: 09-19-2023 Alcohol intake Lifetime [facility]-drinker (finding) [facility] [email or web address] [place] Start: 09-25-2019 History SDOH Alcohol Frequency 1 [facility] [place] Start: 1945 Sex Assigned At Not on file [facility] [place] Exposure to SARS-CoV-2 (event) Not sure [facility] [email or web address] [place] Start: 09-19-2023 Sex Assigned At [employer] Other Start: 04-10-2022 End: 01-16-2024 Tobacco smoking status [facility] Ex-smoker (finding) [facility] Start: 1945 Sex Assigned At Male [facility] Start: 09-19-2023 History of Social function [facility] NEGATED: Highlighted rowStart: NINF History of tobacco use Passive smoker [facility] Medical Equipment Procedure Code Equipment Code Equipment Origin al Text Equipment Identifier Dates 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 Orthopaedic bone screw, non-bioabsorbable, sterile [id number] FDA Start: 04-27-2022 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 Acetabular shell [id number] FDA Start: 04-27-2022 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 Non-constrained polyethylene acetabular liner [id number] FDA Start: 04-27-2022 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 Acetabulum prosthesis hole plug [id number] FDA Start: 04-27-2022 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 Metallic femoral head prosthesis ()[id number] FDA Start: 04-27-2022 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, modular [id number] FDA Start: 04-27-2022 Goals Date Patient Goal Desired Activity /State Functional Status Date Assessment Result Facility 04-28-2022 Functional status Patient is Pro gressing Toward Baseline [facility] Work Phone: Mental Status Date Assessment Result Facility 04-28-2022 Cognitive function Cognitive Sta tus Patient is Progressing Toward Baseline [facility] Work Phone: Clinical Notes 08-03-2021 to 01-16-2024 Note Date & Type Note Facility 01-16-2024 Procedure note [facility] 01-15-2023 Note Cardiology Clinic No te Subjective [...] 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 Assessment Ama (more content not included)... [facility] 01-15-2023 Note Patient here today w [...] All other systems reviewed and are negative. [facility] 09-04-2022 Note [facility] Cardiology Clinic Note Chief Complaint: 6 month [...] Investigations: Cardiovascular Laboratory Report IMPRESSIONS: Severe two-vessel [place] coronary artery disease There are 4 out [...] problems arise Diya Brown MD, MPH, FACC, [facility], [facility] Interventional Cardiology Pager Email: [email or web address] 04-27-2022 Consult note Note Date/Time April 27, 2022 4:02pm [facility] [address] [place] [address] Hospitalist Consult Note Signed Patient: Belén Keenan MR#: [id number] : 1945 Acct:[id number] Age/Sex: 76 / M Adm Date: 3 Loc: 4N Room: 8M6301-6 Type: [facility] Attending Dr: Chaka Pulido Jr DO Copies [...] Surgical History History of cardiac catheterization 02/08/22 [facility] History of [...] BID weight loss 04/10/22 [History Confirmed 04/10/22] rapkhswdidye-btjusgkg-osipcr tablet (Multivitamin 50 Plus tablet) 1 tab PO DAILY04/10/22 [History Confirmed 04/10/22] omega 5-oaw-jli-fish oil 1,200 mg (144 mg-216 mg) capsule [...] PO DAILY 04/10/22 [History Confirmed 04/10/22] vitamins A,C,Q-trde-qdiccu 4,296 mcg-226 mg-90 mg capsule 1 cap PO DAILY 04/10/22 [History Confirmed 04/10/22] aspirin 81 mg capsule 81 mg PO BID 30 days #60 caps 04/27/22 [Rx] Active Medications: Active Medications Generic Name Dose Route Start Last Admin Trade Name Sofya PRN Reason Stop Dose Admin Acetaminophen 1,000 [...] mg 04/27/22 17:00 Ferrous Sulfate 324 Mg Tablet.Dr PO 04/27/23 16:59 BID.WITH.MEALS ALEXX Fish Oil 1,000 mg 04/27/22 09:00 04/27/22 13:04 [place]-3/Fish Oil 1,000 Mg Capsule PO 04/27/23 08:59 Not Given DAILY ALEXX Folic Acid 1 tab 04/27/22 09:00 04/27/22 [...] Lactated Ringers IV 04/27/23 07:14 75 mls/hr .[id number] ALEXX Administration Metformin HCl 500 mg 04/27/22 17:00 Metformin 500 Mg Tablet PO 04/27/23 16:59 BID.WITH.MEALS ALEXX Mineral Oil 1 each 04/30/22 07:14 Mineral Oil (Tennyson) 1 Each Enema OR ONCE PRN Constipation Morphine Sulfate 15 mg [...] Cap.Er.24h PO 04/27/23 13:59 0.4 mg DAILY LAEXX Administration Exam Physical Exam Vital Signs: Temp [...] follow Documented By: Dank Tong MD 04/27/22 0869 Signed By: <Electronically signed by Dank Tong MD> 04/27/22 0725 [facility] Work Phone: 1(941) 635-958011-30-2022 NoteCardiovascular Laboratory Report IMPRESSIONS: Severe two-vessel [place] coronary artery disease There are 4 out [...] procedure. All catheters were removed. A 6 Nigerian [employer] research laboratory manager closure device was deployed however failed; therefore [...] stenosis estimated at 75 to 80%. The e[place] diagonal appears subtotally occluded. Saphenous vein graft [...] loop in the external iliac artery. [employer]yn[employer] research laboratory manager closure device failed. INDICATIONS: Preoperative evaluation, abnormal [facility]-30-2022 NotePatient: Belén Keenan Procedure Information Date/Time: 02/08/22 0830 Procedure: Cardiac catheterization and bypass grafts (Left) Location: [facility] GAMING DEALER 2 BIPLANE / [facility] (Cath) Providers: Diya Brown [...] does not want blood products; he is Rastafarian Diya Brown MD, MPH, [facility], [facility], [facility] Interventional Cardiology Pager Email: [email or web address] Note CARDIAC STRESS TEST Requesting Physician: [...] perfusion imaging report. 4. Clinical correlation recommended.[facility] [id number] Evaluation note* Encounter Date Diagnosis Assessment Notes [...] Foot drop, left foot (ICD-10 - M21.372) [employer] Other 05-25-2022 NotePROCEDURE: XR KNEE LT 3V [...] appreciable acute abnormality. Electronically authenticated by: RHONDA STEVNESON Date: 2021-08-03 12:21[facility] noteNo assessment information available[facility] Work Phone: Evaluation note* Diagnosis Onset Date Resolution Status Osteoarthritis of right hip acute [facility] Work Phone: Evaluation note* Diagnosis Mixed hyperlipidemia (CMS/HCC)- Primary Mixed hyperlipidemia Unspecified osteoarthritis, unspecified site Primary hypertension (CMS/HCC) Unspecified essential hypertension documented in this encounter [facility]* Diagnosis Coronary artery disease involving e[place] coronary artery of e[place] heart without angina pectoris (CMS/HCC)- Primary BPH with obstruction/lower urinary tract symptoms Class 2 obesity due to excess calories without serious comorbidity with body mass index (BMI) of 35.0 to 35.9 in adult Mixed hyperlipidemia (CMS/HCC) Mixed hyperlipidemia Encounter for Medicare annual wellness exam Coronary artery disease involving e[place] coronary artery of e[place] heart without angina pectoris (CMS/HCC)- Primary Benign prostatic hyperplasia without lower urinary tract symptoms BPH with obstruction/lower urinary tract symptoms Mixed hyperlipidemia (CMS/HCC) Mixed hyperlipidemia Medicare annual wellness visit, subsequent ARLEEN (obstructive sleep apnea)- Primary Obstructive sleep apnea (adult) (pediatric) Coronary artery disease involving e[place]gik coronary artery of egeg[place] heart without angina pectoris (CMS/HCC) Class 2 obesity due to excess calories without serious comorbidity with body mass index (BMI) of 35.0 to 35.9 in adult- Primary Mixed hyperlipidemia (CMS/HCC) Mixed hyperlipidemia Primary hypertension (CMS/HCC) Unspecified essential hypertension Gastro-esophageal reflux disease without esophagitis documented in this encounter [facility] HealthcareHistory and physical note Author Phillip Alves [facility] January 16, 2024 8:40am Note Date/Time January 16, 2024 8 :40am [facility] [address] [place] [address] Gastroenterology H&P Signed Patient: Belén Keenan SR MR#: [id number] : 1945 Acct:[id number] Age/Sex: 78 / M Adm Date: 4 Loc: Room: Type: [facility] Attending Dr: Phillip Alves MD Copies to: NON STAFF Phillip Alves MD~ Date of Service: 01/16/2024 HISTORY & PHYSICAL: Patient's history with special attention to the cardiovascular, pulmonary systems and the current problem was reviewed with the patient immediately prior to the procedure. Present medications and doses reviewed in the EMR. Allergies and pertinent laboratory tests were also reviewedat this time in the EMR. The physical examination, as below, was then performed. Indication, assessment and HPI: 78-year-old male presents for screening colonoscopy Family history of GI malignancy? no PHYSICAL EXAMINATION Mouth and Pharynx : moist mucus membranes, normal dentition Cardiac: regular rate, regular rhythm Pulmonary: normal respiratory effort, able to speak in complete sentences Neurological: alert and oriented x3, no focal deficits noted Abdomen: Abdomen soft, non-tender REVIEW OF SYSTEMS Constitutional: Denies malaise, fevers Cardiovascular: Denies chest pain, palpitations Respiratory: Denies shortness of breath, wheezing Gastrointestinal: Per HPI Genitourinary: Denies dysuria, polyuria Musculoskeletal: Denies joint swelling, joint stiffness Neurological: Denies numbness, tingling Integumentary: Denies rashes, skin lesions Endocrine: Denies fatigue, weight loss Written informed consent obtained from the patient. Risks (including but not limited to perforation, infection, bloating, bleeding, need for emergent surgeryand loss of life), benefits and alternatives explained and questions answered. The patient verbalized understanding. Based on history patient is an appropriate candidate for the procedure. Phillip Alves MD Documented By: Phillip Alves MD 01/16/24839 Signed By: <Electronically signed by Phillip Alves MD> 01/16/24839 [facility] Work Phone: History general Narrative - Reported* Type Description Date Medical History Hypertension Medical History cataracts Medical History gall bladder disease Medical History heart disease Surgical History cardiac bypass x 4 2005 Surgical History appendectomy Surgical History tonsillectomy Surgical History gall bladder Surgical History thumb Surgical History eye Hospitalization History see above surgical hx [employer] Other Hospital Discharge instructions Additional Instructions TOTAL HIP DISCHARGE: Recommended Equipment 1. Walker: to be used for post-operative gait. Will transition to straight cane. 2. Raised height toilet seat. 3. Senior Software Analyst/grabber 4. Other: Long handled Shoe Horn, Sock [...] high impact to left hip. b. Use radiation therapy technologist to retrieve objects from the floor Dressing [...] follow-up appointment has been made with physician case assistant Shawn Richardson as previously scheduled 05/12/22 in [facility] office [address] [place] [address] Work Phone: Hospital Discharge instructions Additional Instructions DISCHARGE INSTRUCTIONS FOR COLONOSCOPY WHAT TO EXPECT: - You may feel full, gassy or cramping after your procedure. In some cases, this may be from a few hours to a day. Walking may help relieve the discomfort. - If you have polyp(s) removed you may note some minor bloody discharge after your first bowel movements. - You should begin to recover from anesthesia within 1 hour of the procedure, however may feel groggy for the next 24 hours. DO's AND DON'Ts: - Call your doctor right away if you have a hard abdomen, severe pain, are passing lots of bright red blood or clots. - Call your doctor if you develop any rashes, hives or difficulty breathing. - Let your doctor know if you have not had a bowel movement by 3 days after your procedure. - If you take 81 mg aspirin for your heart it is safe to resume this medication. - If you take other blood thinner medications your doctor will instruct you when these can safely be resumed. - Do NOT drive for 24 hours. - Do NOT operate machinery such as power tools, lawn mowers, snow blowers, sewing machines, etc. for 24 hours. - Avoid alcoholic beverages and drugs for allergies, nerves, or sleep. - Do NOT stay alone. Do NOT leave your child unattended. - Do NOT make important personal or business decisions or sign any legal documents. - Eat solid foods and drink liquids in smaller amounts than usual until normal appetite returns. If you should experience an upset stomach, liquids high in sugar content (soda, Sam-Aid, non-acid juices) are recommended. - You can resume normal activities tomorrow. FOLLOW UP & RECOMMENDATIONS: -You do not need any further colonoscopy. -Notify the doctor if you have any problems. -Follow-up with the GI office as needed. -Follow up with PCP. -Office number [phone].[facility] Work Phone: Progress note Author Cory Em [facility] April 28, 2022 3:23pm Note Date/Time April 28, 2022 3:17pm [facility] [address] [place] [address] Hospitalist Progress Note Signed Patient: Belén Keenan MR#: [id number] : 1945 Acct:[id number] Age/Sex: 76 / M Adm Date: 3 Loc: ME Room: Type: [facility] Attending Dr: Chaka Pulido Jr DO Copies [...] discharge. Documented By: Cory Em MD 04/28/22 0178 Signed By: <Electronically signed by Cory Em MD> 04/28/22 1834 [facility] Work Phone: Summary Purpose Family History No Family History Records Found Relationship Condition Age at Onset Recorded Date/T key Not Specified Heart murmur Unknown Malignant neoplasm Unknown daughter Malignant neoplasm of throat Unknown father Medical history unknown Unknown brother Myocardial infarction Unknown brother Traffic vehicular accidental Unknow n Relationship Condition Age at Onset Recorded Date/T key mother Heart murmur Unknown Malignant neoplasm Unknown daughter Malignant neoplasm of throat Unknown father Medical history unknown Unknown brother Myocardial infarction Unknown brother Traffic vehicular accidental Unknow n father Unknown mother Unknown Advance Directives No Advanced Directives Records FoundDocuments on File Type Date Recorded 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 [employer] Wheel Operator Expl anation Advance Directives and Living Will Power of Hand Or Machine Paster Documents on File Type Date Recorded 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 [employer] Wheel Operator Expl anation ACP-Advance Directive ACP-Power of Hand Or Machine Paster Advance Directive Response Recorded Date/ Time Advance [...] Directly with Dr Pulido (not PA or YARN EXAMINER) Diagnosis 1 Arthropathy of right hip (M16.11) Referral Organization [facility] Referring Provider First Name Sheldon Referring Provider Last Name Lizzy Referring Provider Specialty Neurologica l Surgery Referred Organization [facility] Referred Provider Chaka Pulido Jr Referred Address ,[place], [place],[address] Referred Provider Specialty ORTHOPEDIC S URGEON Referral Priority Routine General Notes Fore, Kelin M 022 08:25:53 AM >Received today and sent P2P. Office will call patient and schedule Chief Complaint and Reason for Visit Chief Complaint DJD Chief Complaint DJD DJD Reason for Visit Osteoarthritis of ri ght hip Chief Complaint Screening Screening Additional Source Comments (unrecognized sect ion and content) No Status Records FoundNo Status Records FoundNo Status Records FoundNo Status Records FoundNo Status Records FoundNo Status Records FoundNo Status Records FoundNo Status Records Found INFORMATION SOURCE (unrecogn ized section and content) DATE CREATED AUTHOR 08/29/2017 [facility] DATE CREATED AUTHOR AUTHOR'S ORGANIZ ATION 02/18/2018 [facility] DATE CREATED AUTHOR AUTHOR'S ORGANIZ ATION 09/29/2019 [facility] DATE CREATED AUTHOR AUTHOR'S ORGANIZ ATION 05/06/2020 [facility] DATE CREATED AUTHOR AUTHOR'S ORGANIZ ATION 04/21/2022 [facility] DATE CREATED AUTHOR AUTHOR'S ORGANIZ ATION 01/15/2023 [facility] DATE CREATED AUTHOR AUTHOR'S ORGANIZ ATION 12/10/2023 [facility] EP[facility] DATE CREATED AUTHOR AUTHOR'S ORGANIZ ATION 01/30/2024 [facility] REASON FOR VISIT (unrecogniz ed section and content) Reason Onset Date Comments Med Refill 12/11/2023 Reason Comments Med Refill Care Teams (unrecognized sec tion and content) Team Status: Inactive Member Role Status Dates Chaka Pulido Jr DO Attending Provider Active NON STAFF Primary [...] , DES Other Provider Active Maribel Lawrence , DES Other Provider Active Layne Dunbar , DES Other Provider Active Jimmie Martin MD Other Provider Active Aydin Bartholomew MD Other Provider Active Zee Mcgill APRN Other Provider Active Viviana Hicks , DO [...] MD Other Provider Active Swapna Feldman , YARN EXAMINER-C Other Provider Active Chavez Pagan MD Other [...] Doll APRN Other Provider Active Patricia Wilkinson , RN Other Provider Active Cork Wirer Relationship Specialty Start Date End Date Shaikh Grove MD [address] [place] [phone] PCP - [facility] 03/12/22 Sony Rao MD [address] [place] [phone] PCP - General Family Medicine 10/15/23 Jeanette Murillo NP [address] [place] [phone] Nurse Practitioner Family Medicine 10/15/23 Team Status: Inactive Member Role Status Dates NON STAFF Primary Care Provider Active Start: January 16, 2024 End: January 16, 2024 Phillip Alves MD Attending Provider Active S tart: January 16, 2024 End: January 16, 2024 Team Status: Active Member Role Status Dates NON STAFF Primary Care Provider Active Start: January 16, 2024 Phillip Alves MD Attending Provider, Other Provider Active Start: January 16, 2024 Cork Wirer Relationship Specialty Start Date End Date Shaikh Grove MD [address] [place] [phone] PCP - [facility] 03/12/22 03/11/24 Sony Rao MD [address] [place] [phone] PCP - General Family Medicine 10/15/23 Jeanette Murillo NP [address] [place], [place] [address] [place] [phone] Nurse Practitioner Family Medicine 10/15/23 Goals (unrecognized [...] BE BASED ON THE PRIMARY CLINICAL RECORDS. [employer] provides no warranty or guarantee of the accuracy or completeness of information in this document.
--- NOTE | 2024-02-01 15:44 | ED_ITS ---
HPI HPI - General Adult General Chief complaint: Extremity Injury, Upper Stated complaint: UPPER EXTREMITY INJURY Time Seen by Provider: 02/01/24 12:37 Source: patient Mode of arrival: Wheelchair History of Present Illness HPI narrative: The patient is coming to us with a right shoulder pain that started a few days ago after he fell down while walking, patient mentioned that he just fell on his right shoulder has been having some limited movement since then Patient denies any other complaint Related Data Previous Rx's ?Medication ?Instructions ?Recorded diclofenac sodium 50 mg 50 mg PO Q12H PRN pain #10 tabs 02/01/24 tablet,delayed release Allergies Allergy/AdvReac Type Severity Reaction Status Date / Time No Known Drug Allergies Allergy Verified 02/01/24 12:36 Opioid HPI Opioid Management Most Recent Opioid Data: No Data to Display Review of Systems ROS Status of ROS 10 or more systems reviewed and unremark able except as noted in history and below Exam Narrative Exam Narrative: Nurses notes and vital signs reviewed and patient is not hypoxic. General: Well-appearing and in no apparent distress. Skin: Warm, dry, no pallor noted. No rash. Head: Normocephalic, atraumatic. Neck: Supple, non-tender. Eye: Pupils are equal, round and EOMI. No scleral icterus. Ears, Nose, Mouth, and Throat: TM are clear, no nasal mucosal hypertrophy. Oral mucosa is moist, no posterior oropharynx erythema, uvula is mid-line Cardiovascular: Regular Rate and Rhythm without murmur, gallop or rub. Respiratory: No accessory muscle use or respiratory distress. Lungs are clear to auscultation, no wheezing, rales or rhonchi Chest Wall: no tenderness Back: No midline thoracic or lumbar vertebral tenderness. No CVA tenderness Musculoskeletal: normal ROM, no calf or popliteal tenderness, there is tende rness upon palpation of the anterior of the right shoulder and the patient have limited abduction to only 45 degrees with a painful abduction, the patient passive movement have better range GI: Abdomen is soft, non-distended. Normal bowel sounds. No masses appreciated. No tenderness to palpation. No rebound, guarding, or rigidity noted. Neurological: A&O x4. No cranial nerve dysfunction observed. No truncal ataxia. Moves all extremities. Sensation intact. Psychiatric: Cooperative and interactive. Normal mood and affect. Constitutional Vital Signs, click to edit/add: Last Vital Signs Temp 97.7 F 02/01/24 12:32 Pulse 77 02/01/24 12:32 Resp 18 02/01/24 12:32 BP 123/68 02/01/24 12:32 Pulse Ox 98 02/01/24 12:32 O2 Del Method Room Air 02/01/24 12:32 Course Vital Signs Vital signs: Vital Signs Temperature 97.7 F 02/01/24 12:32 Pulse Rate 77 02/01/24 12:32 Respiratory Rate 18 02/01/24 12:32 Blood Pressure 123/68 02/01/24 12:32 Pulse Oximetry 98 02/01/24 12:32 Oxygen Delivery Method Room Air 02/01/24 12:32 Temperature 97.7 F 02/01/24 12:32 Pulse Rate 77 02/01/24 12:32 Respiratory Rate 18 02/01/24 12:32 Blood Pressure 123/68 02/01/24 12:32 Pulse Oximetry 98 02/01/24 12:32 Oxygen Delivery Method Room Air 02/01/24 12:32 Medical Decision Making MDM Narrative Medical decision making narrative: X-ray of the right shoulder shows acromioclavicular widening which could be the reason for the patient pain and the patient x-ray of the humerus shows no acute pathology The patient right now had a sling applied, he was provided in the ER with Toradol and prednisone 1 dose ,he was discharged home with Voltaren The patient is to follow up with primary care physician in next 2-3 days or to return to the emergency department should any of the signs or symptoms worsen or new symptoms develop. The patient agrees with the following Diagnosis and Treatment plan and the patient will be discharged home. Discharge Plan Discharge Chief Complaint: Extremity Injury, Upper Clinical Impression: Acromioclavicular (AC) joint injury Patient Disposition: Home, Self-Care Time of Disposition Decision: 14:00 Condition: Good Prescriptions / Home Meds: New diclofenac sodium 50 mg tablet,delayed release (DR/EC) 50 mg PO Q12H PRN (Reason: pain) Qty: 10 0RF Print Language: Fijian Instructions: How to Use a Sling (ED) Referrals: Anmol Aviles MD [Physician] - 1 week Shaikh Grove MD [Primary Care Provider] - 1 week Discharge Date/Time: 02/01/24 14:19
== END 2024-02-01 14:19 | disposition home or self-care (01) ==
PROVIDERS: Emergency Provider Emergency Medicine; PCP Internal Medicine
DX: S49.81XA Other specified injuries of right shoulder and upper arm, initial encounter (principal); W18.39XA Other fall on same level, initial encounter
CPT/HCPCS: 73030; 73060; 96372; 99284; J1885; J7512

== ENCOUNTER 2024-02-26 07:34 | Outpatient (OUT) | payer OTHER, SELFPAY ==
--- OUTSIDE RECORDS SUMMARY | 2024-02-26 07:38 | XMS_ITS | CCD ---
Author Organization [facility] Care Team Providers Care Industrial Specialist Name Role Phone PHYSICIAN, DEFAULT Unavailable Unavailable [...] Provider Unavailable DES Burns Other Provider Unavailable DES Rosen Other Provider Unavailable Kurt RN Sanjana Other Provider Unavailable DES Lawrence Other Provider Unavailable DES Dunbar Other Provider Unavailable MD Jimmie Martin Other Provider MD Aydin Bartholomew Other Provider JR Mcgill Other Provider DO Viviana Hicks Other Provider [phone] MD Paul Connell Other Provider DO Yoshi Ascencio Other Provider MD Dm Lozano Other Provider MD Yuliana Herzog Other Provider Cat, ANP-BC Rachel Other Provider MD Perez Mattson Other Provider MD Wander Velázquez Other Provider MD Cory Em Other Provider MD Leeroy Doll Other Provider DO Jamie Rodriguez Other Provider [phone] MD Dank Tong Other Provider MD Mina Johnson Other Provider GARRETT Feldman Other Provider [phone] MD Chavez Pagan Other Provider MD Patricio Cook Other Provider MD Fabricio Willams Other Provider DO Angelina Doll Other Provider DO Alen Wheeler Other Provider DO Ben Carrizales Other Provider JR Fontanez Other Provider DO Mando Guy Other Provider MD Fanny France Other Provider JR Doll Other Provider Jaja, RN Patricia Other Provider Unavailable SHAIKH GROVE Attending Unavailable SHAIKH GROVE Attending Unavailable SHAIKH GROVE Attending Unavailable JEANETTE MURILLO Attending UnavailShaikh Omalley MD Unavailable Sony Rao MD Primary Care Provider [phone] Jeanette Murillo NP Unavailable [phone] NON STAFF Primary Care Provider UnavailMD Phillip Agosto Attending Provider [phone] Shaikh Grove MD Unavailable Phillip Alves Attending Unavailable Phillip Alves Admitting Unavailable NON STAFF Primary Care Unavailable DIYA BROWN Attending Unavailable Medications Current Medications Medication Drug Class(es) Dates Sig (Normalized) Sig (Original) [id number] 200 actuat albuterol 0.09 mg/actuat metered dose inhaler (3 sources) beta2-Adrenergic Agonist take 2 puff(s) by inhalation every four hours for wheezing albuterol HFA 90 mcg/act inhaler Inhale 2 puffs every 4 (four) hours if needed for wheezing Active Aspir-81 (1 source) Aspir-81 Active aspirin 81 mg oral tablet (9 sources) Platelet Aggregation Inhibitor, Nonsteroidal Anti-inflammatory Drug [...] morning. Active atorvastatin 40 mg oral tablet (10 sources) HMG-CoA Reductase Inhibitor Start: 08-18-2019 End: 12-11-2023 take 1 tablet by mouth once daily atorvastatin (Lipitor) 40 MG tablet Indications: Mixed hyperlipidemia (CMS/HCC) Take 1 tablet (40 mg) by mouth Daily 5PM 30 tablet 2 12/12/2023 Active carvedilol 3.125 mg oral tablet (8 sources) alpha-Adrenergic Abad, beta-Adrenergic Abad Start: 04-10-2022 End: 12-11-2023 take 1 tablet by mouth in the morning carvedilol (Coreg) 3.125 MG tablet Indications: Primary hypertension (CMS/HCC) Take 1 tablet (3.125 mg) by mouth in the morning and 1 tablet (3.125 mg) before bedtime. 60 tablet 2 12/12/2023 Active cyclobenzaprine hydrochloride 10 mg oral tablet (1 source) Muscle Relaxant Cyclobenzaprine HCl 10 MG Oral for 30 Days Active docosahexaenoic acid 120 mg / eicosapentaenoic acid 180 mg oral capsule (3 sources) take 1 capsule by mouth in the morning omega-3 (Fish Oil) 1000 MG capsule Take 1,000 mg by mouth in the morning. Active enalapril maleate 2.5 mg oral tablet (5 sources) Angiotensin Converting Enzyme Inhibitor Start: 09-06-2023 End: 03-04-2024 take 1 tablet by mouth once daily enalapril (Vasotec) 2.5 MG tablet Indications: Coronary artery disease involving [place] coronary artery of [place] heart without angina pectoris (CMS/HCC) , Chronic heart failure with preserved ejection fraction (CMS/HCC) Take 1 tablet (2.5 mg) by mouth Daily 90 tablet 1 09/06/2023 03/04/2024 Active enalapril (VASOT EC) 2.5 MG tablet Take by mouth 0 Active fluticasone propionate 0.05 mg/actuat metered dose nasal spray (3 sources) Corticosteroid take 2 spray(s) nasal route in the morning fluticasone (Flonase) 50 MCG/ACT nasal spray Administer 2 sprays into each nostril in the morning. Shake gently. Before first use, prime pump. After use, clean tip and replace cap.. Active furosemide 20 mg oral tablet (5 sources) Loop Diuretic Start: 09-06-2023 End: 03-04-2024 take 1 tablet by mouth once daily furosemide (Lasix) 20 MG tablet Indications: Coronary artery disease involving [place] coronary artery of [place] heart without angina pectoris (CMS/HCC) , Chronic [...] mg oral tablet (2 sources) Start: 08-26-19 take 1 tablet by mouth once daily loratadine (CLARITIN) 10 MG tablet TAKE 1 TABLET BY MOUTH EVERY DAY 0 08/26/2019 Active meloxicam 15 mg oral tablet (6 sources) Nonsteroidal Anti-inflammatory Drug Start: 05-08-19 End: 12-11-19 take 1 tablet by mouth once daily Meloxicam Active 15 MG PO Daily January 03, 2024 11:00pm FreeTextSig: Oral; Note: Source Status: Taking; Qty: 30 Tablet; Provider: Lizzy Chung ( ) Meloxicam 15 MG Oral for 30 Days Active Multiple Vitamins-Minerals (EYE VITAMINS) CAPS (2 sources) Multiple Vitamins-Minerals (EYE VITAMINS) CAPS Take by mouth 0 Active Multiple Vitamins-Minerals (Eye Vitamins) capsule (3 sources) take 1 capsule by mouth in the morning Multiple Vitamins-Minerals (Eye Vitamins) capsule Take 1 capsule by mouth in the morning. Active Multiple Vitamins-Minerals (MULTIVITAMIN ADULT EXTRA C PO) (2 sources) Multiple Vitamins-Minerals (MULTIVITAMIN ADULT EXTRA C PO) multivitamin 0 Active Sqmegplhmwyv-Rkoygfqd-Cb tein (Multivitamin 50 Plus) Tablet (3 sources) Start: 023 Weynjunbcbfq-Qgmasloq-Vt tein (Multivitamin 50 Plus) Tablet Active 1 TAB PO Daily April 10, 2022 12:00am [place] 2-Bdz-Wgf-Fish Oil (Fish Oil) 1,200 (144-216) mg Capsule (3 sources) Start: 023 take 1 capsule by mouth once daily [place] 2-Snu-Ntp-Fish Oil (Fish Oil) 1,200 (144-216) mg Capsule Active 1 CAP PO Daily April 10, 2022 12:00am omeprazole 20 mg delayed release oral capsule (10 sources) Proton Pump Inhibitor Start: 024 take [...] Start: 08-18-2019 take 1 capsule by mo txh once daily omeprazole (PRILOSEC) 20 MG delayed release capsule TAKE 1 CAPSULE BY MOUTH EVERY DAY 0 08/18/2019 Active sertraline 50 mg oral tablet (8 sources) Serotonin Reuptake Inhibitor Start: 05-20-2023 take [...] Active tamsulosin hydrochloride 0.4 mg oral capsule (9 sources) alpha-Adrenergic Abad Start: 04-10-19 End: 02-04-20 take 1 capsule by mouth once daily tamsulosin (Flomax) 0.4 MG 24 hr capsule Indications: Benign prostatic hyperplasia without lower urinary tract symptoms Take 1 capsule (0.4 mg) by mouth Daily 90 capsule 1 08/08/2023 02/04/2024 Active Start: 09-25-2019 take 1 capsule by mo [facility] once daily in the evening tamsulosin (FLOMAX) [...] PO Daily April 10, 2022 12:00am Vitamins A,C,J-Diln-Yumneg (2 sources) Start: 04-10-2022 take 1 capsule by mouth once daily Vitamins A,C,S-Ewqe-Bgzwbc Active 1 CAP PO Daily April 10, 2022 12:00am Vitamins A,C,Y-Ejtu-Hzddry (Vision Formula (W-Z-N-Zn-Reji)) 14,320-226-200 pdfa-xd-nwqk Capsule (1 source) Start: 04-10-2022 take 1 capsule by mouth once daily Vitamins A,C,U-Zfnn-Zlwjqk (Vision Formula (O-X-G-Zn-Reji)) 14,320-226-200 jsza-zs-zesu Capsule Active 1 CAP PO Daily April 10, 2022 12:00am Completed/Discontinued Medications Medication Drug Class(es) Dates Sig (Normalized) Sig (Original) [id number] Rxx-Ylov-Gmb-Asb-C (2 sources) Osmotic Laxative, Vitamin C Start: 11-30-2023 End: 01-04-2024 [id number] Xlr-Cart-Fqo-Asb-C (Plenvu) 140-9-5.2 gram powder in packet, sequential Discontinued 0 .ROUTE .COMPLEX 3 November 30, 2023 9:18am January 04, 2024 8:58am take first at AT 4 PM the day before the colonscopy, then take second dose at 11pm the night before colonscopy Start: 11-30-2023 End: 11-30-2023 [id number] Ttx-Bfgr-Nyi-Asb -C (Plenvu) 140-9-5.2 gram powder in packet, [...] capsule by mouth once daily Iron Ps Gpvimff-X90-Kloke Acid (Poly-Iron 150 Forte) 150-25-1 mg-mcg-mg capsule [...] Classification Problem Date Documented Date Episodic/Chronic Cataract (6 sources) Nuclear sclerotic cataract; Translations: [Age-related nuclear cataract, unspecified eye] Onset: 10-23-2013 08-08-2023 Chronic Complication of device; implant or graft (1 source) Atherosclerosis of coronary artery bypass graft(s) without angina pectoris; Translations: [ATS CA BP GRAFT NO ANGINA PECTORIS] Onset: 01-16-2022 Chronic Coronary atherosclerosis and other heart disease (9 sources) Atherosclerotic heart disease of [place] coronary artery without angina pectoris; Translations: [Coronary arteriosclerosis] Onset: 01-11-2022 Chronic Disorders of lipid metabolism (8 sources) Hyperlipidemia, unspecified; Translations: [Mixed hyperlipidemia] Onset: [...] Translations: [Urgent desire to urinate] Episodic Glaucoma (3 sources) Open-angle glaucoma of right eye; Translations: [Unspecified open-angle glaucoma, moderate stage] Onset: 10-04-2017 08-08-2023 Chronic Heart valve disorders (6 sources) Mitral valve disorder; Translations: [Rheumatic mitral valve disease, unspecified] Onset: 04-22-2012 08-08-2023 Chronic Hyperplasia of prostate (5 sources) Benign prostatic hypertrophy with outflow obstruction; Translations: [Benign prostatic hyperplasia with lower urinary tract symptoms] Onset: 11-04-2019 11-04-2019 Chronic Osteoarthritis (13 sources) Arthropathy of right hip joint; Translations: [Unilateral primary osteoarthritis, right hip] Onset: 11-29-2021 Resolved: 11-29-2021 Chronic Other bone disease and musculoskeletal deformities (3 sources) Avascular necrosis of bone of hip; Translations: [Idiopathic aseptic necrosis of unspecified femur] Onset: 08-08-2023 08-08-2023 Chronic Other connective tissue disease (3 sources) History of total hip arthroplasty; Translations: [Presence of unspecified artificial hip joint] Onset: 08-08-2023 08-08-2023 Chronic Other eye disorders (3 sources) Bullous keratopathy; 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, unspecified eye] Onset: 10-23-2013 08-08-2023 Chronic Other non-traumatic joint disorders (1 source) Knee pain; Translations: [Knee pain, left] Episodic Other nutritional; endocrine; and metabolic disorders (3 sources) Obesity caused by energy imbalance; Translations: [Class 2 obesity due to excess calories without serious comorbidity with body mass index (BMI) of 35.0 to 35.9 in adult] Onset: 02-26-2023 02-26-2023 Chronic Other screening for suspected conditions (not mental disorders or infectious disease) (7 sources) Raised prostate specific antigen; Translations: [Elevated prostate specific antigen [PSA]] Onset: 11-04-2019 11-04-2019 Episodic Residual codes; unclassified (3 sources) Obstructive sleep apnea syndrome; Translations: [Obstructive sleep apnea (adult) (pediatric)] Onset: 09-19-2023 09-19-2023 Chronic Spondylosis; intervertebral disc disorders; other back problems (1 source) Lumbar spondylosis; Translations: [Spondylosis without myelopathy or radiculopathy, lumbar region] Chronic Sprains and strains (1 source) Strain of knee; Translations: [Strain of left knee] Episodic Unclassified (3 sources) LOW BACK PAIN, UNSPECIFIED; Translations: [LOW BACK PAIN, UNSPECIFIED] Onset: 11-03-2021 Past or Other Problems Problem Classification Problem Date Documented Date Episodic/Chronic Abdominal hernia (3 sources) Diaphragmatic hernia; Translations: [Diaphragmatic hernia without obstruction or gangrene] Onset: 04-22-2012 08-08-2023 Episodic Acquired foot deformities (4 sources) Foot drop, right foot; Translations: [Left foot drop] Onset: 11-29-2021 Resolved: 11-29-2021 Episodic Acquired foot deformities (1 source) Foot drop, left foot Onset: 11-29-2021 Resolved: 11-29-2021 Episodic Cardiac dysrhythmias (3 sources) Atrial fibrillation; Translations: [Unspecified atrial fibrillation] Onset: 06-12-2012 Resolved: 02-26-2023 02-26-2023 Chronic Mood disorders (3 sources) Mood disorders Onset: 02-26-2023 02-26-2023 Other and unspecified benign neoplasm (3 sources) Adenomatous polyp of colon ; Translations: [Benign neoplasm of colon, unspecified] Onset: 12-16-2018 08-08-2023 Episodic Other and unspecified benign neoplasm (3 sources) History of adenomatous polyp of colon; Translations: [History of adenomatous polyp of colon] Onset: 11-21-2018 08-08-2023 Episodic Other connective tissue disease (1 source) Trochanteric bursitis, right hip Onset: 11-29-2021 Resolved: 11-29-2021 Episodic Other connective tissue disease (3 sources) H/O: musculoskeletal disease; Translations: [Personal history of other diseases of the musculoskeletal system and connective tissue] Onset: 08-08-2023 08-08-2023 Episodic Other eye disorders (3 sources) Central corneal ulcer, left eye; Translations: [Central corneal ulcer] Onset: 09-06-2017 08-08-2023 Episodic Other non-traumatic joint disorders (5 sources) Pain in left knee; Translations: [PAIN IN LEFT KNEE] Onset: 08-05-2021 Episodic Unclassified (1 source) LOW BACK PAIN, UNSPECIFIED; Translations: [LOW BACK PAIN, UNSPECIFIED] Onset: 11-01-2021 Results Test Name Value Interpretation Reference Range Facility Office Visiton 02-11-2024 Follow-up visit [id number] Francisco Keenan 1945 M Date Provider Department Center 02/11/2024 [facility] Family History Problem Relation Age of Onset Heart attack Other Family Status - Relation Status Age at Other Level of Service:[id number] ID OFFICE/OUTPATIENT ESTABLISHED LOW MDM 20 MIN Normal [facility] Anisocytosis LM Ql (Bld)Orde red By: Madhu Richardson on 04-28-2022 Anisocytosis Ql (Bld) Slight [facility] Band form neutrophils/100 WB C Manual cnt (Bld)Ordered By: Madhu Richardson on 04-28-2022 Band form neutrophils/100 WBC (Bld) 6 % 0-5 [facility] Basophils Auto (Bld) [#/Vol] Ordered By: Madhu Richardson on 04-28-2022 Basophils (Bld) [#/Vol] N/A [facility] Basophils/100 WBC Auto (Bld) Ordered By: Madhu Richardson on 04-28-2022 Basophils/100 WBC (Bld) N/A [facility] Creatinine and Glomerular fi ltration rate.predicted panel (S/P/Bld)Ordered By: Madhu Richardson on 04-28-2022 Creatinine [Mass/Vol] 0.77 mg/dL 0.64-1.27 [facility] Eosinophils Auto (Bld) [#/Vo l]Ordered By: Madhu Richardson on 04-28-2022 Eosinophils (Bld) [#/Vol] N/A [facility] Eosinophils/100 WBC Auto (Bl d)Ordered By: Madhu Richardson on 04-28-2022 Eosinophils/100 WBC (Bld) N/A [facility] Erythrocyte distribution wid th Auto (RBC) [Ratio]Ordered By: Madhu Richardson on 04-28-2022 Erythrocyte distribution width (RBC) [Ratio] 14.4 % 12.0-14.8 [facility] Estimated glomerular filtrat ion rate (GFR) non- AmericanOrdered By: Madhu Richardson on 04-28-2022 GFR/1.73 sq M.predicted among non-blacks MDRD (S/P/Bld) [Vol rate/Area] > 60 mL/Min [facility] Hematocrit Auto (Bld) [Volum e fraction]Ordered By: Madhu Richardson on 04-28-2022 Hematocrit (Bld) [Volume fraction] 35.4 % 38.8-50.0 [facility] Hemoglobin [Mass/volume] in BloodOrdered By: Madhu Richardson on 04-28-2022 Hemoglobin (Bld) [Mass/Vol] 11.7 g/dL 13.0-17.0 [facility] Leukocytes [#/volume] correc trena for nucleated erythrocytes in Blood by Automated counOrdered By: Madhu Richardson on 04-28-2022 WBC corrected for nucl RBC Auto (Bld) [#/Vol] 17.4 10*3/uL 4.1-10.5 [facility] Lymphocytes Auto (Bld) [#/Vo l]Ordered By: Madhu Richardson on 04-28-2022 Lymphocytes (Bld) [#/Vol] N/A [facility] Lymphocytes/100 WBC Auto (Bl d)Ordered By: Madhu Richardson on 04-28-2022 Lymphocytes/100 WBC (Bld) N/A [facility] Lymphocytes/100 WBC Manual c nt (Bld)Ordered By: Madhu Richardson on 04-28-2022 Lymphocytes/100 WBC (Bld) 3 % 18-42 [facility] MCH Auto (RBC) [Entitic mass ]Ordered By: Madhu Richardson on 04-28-2022 MCH (RBC) [Entitic mass] 30.6 pg 27.5-35.2 [facility] MCHC Auto (RBC) [Mass/Vol]Or dered By: Madhu Richardson on 04-28-2022 MCHC (RBC) [Mass/Vol] 33.0 g/dL 32.5-35.6 [facility] MCV Auto (RBC) [Entitic vol] Ordered By: Madhu Richardson on 04-28-2022 MCV (RBC) [Entitic vol] 92.8 fL 83.5-101 [facility] Monocytes Auto (Bld) [#/Vol] Ordered By: Madhu Richardson on 04-28-2022 Monocytes (Bld) [#/Vol] N/A [facility] Monocytes/100 WBC Auto (Bld) Ordered By: Madhu Richardson on 04-28-2022 Monocytes/100 WBC (Bld) N/A [facility] Monocytes/100 WBC Manual cnt (Bld)Ordered By: Madhu Richardson on 04-28-2022 Monocytes/100 WBC (Bld) 3 % 2-11 [facility] Neutrophils Auto (Bld) [#/Vo l]Ordered By: Madhu Richardson on 04-28-2022 Neutrophils (Bld) [#/Vol] N/A [facility] Neutrophils/100 WBC Auto (Bl d)Ordered By: Madhu Richardson on 04-28-2022 Neutrophils/100 WBC (Bld) N/A [facility] No Panel InformationOrdered By: Madhu Richardson on 04-28-2022 Estimated GFR () > 60 mL/Min [facility] Comment on above: GFR estimated refere nce range: According to KDOQI guidelines, <60 ml/min/1.73m2 is sufficient to diagnose a patient with chronic kidney disease. Pharmacy Creatinine Clearance (Chem 90.86 [facility] Nucleated erythrocytes [Pres ence] in Blood by Automated countOrdered By: Madhu Richardson on 04-28-2022 Nucleated RBC Auto Ql (Bld) N/A [facility] Platelet adequacy [Presence] in Blood by Light microscopyOrdered By: Madhu Richardson on 04-28-2022 Platelets LM Ql (Bld) Normal Normal [facility] Platelet mean volume Auto (B ld) [Entitic vol]Ordered By: Madhu Richardson on 04-28-2022 Platelet mean volume (Bld) [Entitic vol] 8.1 fL 6.6-10.1 [facility] Platelet morphology finding [Identifier] in BloodOrdered By: Madhu Richardson on 04-28-2022 Platelet morphology finding Nom (Bld) Normal Normal [facility] Platelets Auto (Bld) [#/Vol] Ordered By: Madhu Richardson on 04-28-2022 Platelets (Bld) [#/Vol] 198 10*3/uL 150-450 [facility] RBC Auto (Bld) [#/Vol]Ordere d By: Madhu Richardson on 04-28-2022 RBC (Bld) [#/Vol] 3.81 10*6/uL 3.90-5.60 [facility] RBC morphologyOrdered By: Selma Richardson on 04-28-2022 RBC morphology finding Nom (Bld) Normal Normal [facility] Segmented neutrophils/100 WB C Manual cnt (Bld)Ordered By: Madhu Richardson on 04-28-2022 Segmented neutrophils/100 WBC (Bld) 89 % 50-70 [facility] Serum or plasma anion gap de terminationOrdered By: Madhu Richardson on 04-28-2022 Anion gap [Moles/Vol] 6.0 mmol/L 6.0-15.0 [facility] Serum or plasma calcium ernesto urement (mass/volume)Ordered By: Madhu Richardson on 04-28-2022 Calcium [Mass/Vol] 8.8 mg/dL 8.2-10.2 [facility] Serum or plasma chloride cristina surement (moles/volume)Ordered By: Madhu Richardson on 04-28-2022 Chloride [Moles/Vol] 108 mmol/L 95-114 [facility] Serum or plasma glucose ernesto urement (mass/volume)Ordered By: Madhu Richardson on 04-28-2022 Glucose [Mass/Vol] 145 mg/dL 70-100 [facility] Comment on above: ADA recommended refe rence rangeRandom Glucose Reference Range is dependent on time and content of last meal. Glucose of more than 200 mg/dL in a nonstressed, ambulatory subject supports the diagnosis of Diabetes Mellitus. Serum or plasma potassium me asurement (moles/volume)Ordered By: Madhu Richardson on 04-28-2022 Potassium [Moles/Vol] 4.6 mmol/L 3.5-5.1 [facility] Serum or plasma sodium measu rement (moles/volume)Ordered By: Madhu Richardson on 04-28-2022 Sodium [Moles/Vol] 140 mmol/L 136-146 [facility] Serum or plasma total carbon dioxide measurement (moles/volume)Ordered By: Madhu Richardson on 04-28-2022 CO2 [Moles/Vol] 30.6 mmol/L 22.0-30.0 [facility] Serum or plasma urea nitroge n measurement (mass/volume)Ordered By: Madhu Richardson on 04-28-2022 Urea nitrogen [Mass/Vol] 22 mg/dL 9-23 [facility] WBC Auto (Bld) [#/Vol]Ordere d By: Madhu Richardson on 04-28-2022 WBC (Bld) [#/Vol] 17.4 10*3/uL 4.1-10.5 [facility] PROF CHEM 8 (BAS METB)on Anion gap [Moles/Vol] 12.4 mmol/L Normal [facility] Comment on above: Performed By: #### B MP #### [facility] [address] [address] [address] Isha Haq Calcium [Mass/Vol] 9.5 mg/dL Normal 8.5-10.1 [facility] Comment on above: Performed By: #### B MP #### [facility] [address] [address] [address] Isha Haq Chloride [Moles/Vol] 106 mmol/L Normal 98-107 [facility] Comment on above: Performed By: #### B MP #### [facility] [address] [address] [address] Isha Haq CO2 [Moles/Vol] 26.0 mmol/L Normal 21.0-32.0 [facility] Comment on above: Performed By: #### B MP #### [facility] [address] [address] [address] Isha Haq Creatinine [Mass/Vol] 0.75 mg/dL Normal 0.70-1.30 [facility] Comment on above: Performed By: #### B MP #### [facility] [address] [place] [address] Dr. Isha Haq EGFR-AF LIBYAN >60 Normal >=60 [facility] Comment on above: Performed By: #### B MP #### [facility] [address] [address] [address] Isha Haq EGFR-NON AF LIBYAN >60 Normal >=60 [facility] Comment on above: Performed By: #### B MP #### [facility] [address] [place] [address] Dr. Isha Haq Glucose [Mass/Vol] 104 mg/dL Normal 74-106 [facility] Comment on above: Performed By: #### B MP #### [facility] [address] [place] [address] Dr. Isha Haq Potassium [Moles/Vol] 4.4 mmol/L Normal 3.5-5.1 [facility] Comment on above: Performed By: #### B MP #### [facility] [address] [place] [address] Dr. Isha Haq Sodium [Moles/Vol] 140 mmol/L Normal 136-145 [facility] Comment on above: Performed By: #### B MP #### [facility] [address] [address] [address] Isha Haq Urea nitrogen [Mass/Vol] 15.0 mg/dL Normal 7.0-18.0 [facility] Comment on above: Performed By: #### B MP #### [facility] [address] [address] [address] Isha Haq Urea nitrogen/Creatinine [Mass ratio] 20.0 mg/mg Normal [facility] Comment on above: Performed By: #### B MP #### [facility] [address] [address] [address] Isha Haq Basophils Auto (Bld) [#/Vol] Ordered By: Chaka Pulido on 04-10-2022 Basophils (Bld) [#/Vol] 0.1 10*3/uL 0.0-0.2 [facility] Basophils/100 WBC Auto (Bld) Ordered By: Chaka Pulido on 04-10-2022 Basophils/100 WBC (Bld) 0.8 % . [facility] Bilirubin Test strip Ql (U)O rdered By: Chaka Pulido on 04-10-2022 Bilirubin Ql (U) Negative Negative [facility] Color Auto (U)Ordered By: Genomind charlotte Pulido on 04-10-2022 Color (U) Dark yellow Yellow [facility] Creatinine and Glomerular fi ltration rate.predicted panel (S/P/Bld)Ordered By: Chaka Pulido on 04-10-2022 Creatinine [Mass/Vol] 0.67 mg/dL 0.64-1.27 [facility] Eosinophils Auto (Bld) [#/Vo l]Ordered By: Chaka Pulido on 04-10-2022 Eosinophils (Bld) [#/Vol] 0.3 10*3/uL 0.0-0.45 [facility] Eosinophils/100 WBC Auto (Bl d)Ordered By: Chaka Pulido on 04-10-2022 Eosinophils/100 WBC (Bld) 2.9 % . [facility] [facility] Erythrocyte distribution wid th Auto (RBC) [Ratio]Ordered By: Chaka Pulido on 04-10-2022 Erythrocyte distribution width (RBC) [Ratio] 14.3 % 12.0-14.8 [facility] Estimated glomerular filtrat ion rate (GFR) non- AmericanOrdered By: Chaka Pulido on 04-10-2022 GFR/1.73 sq M.predicted among non-blacks MDRD (S/P/Bld) [Vol rate/Area] > 60 mL/Min [facility] Hematocrit Auto (Bld) [Volum e fraction]Ordered By: Chaka Pulido on 04-10-2022 Hematocrit (Bld) [Volume fraction] 43.1 % 38.8-50.0 [facility] Hemoglobin [Mass/volume] in BloodOrdered By: Chaka Pulido on 04-10-2022 Hemoglobin (Bld) [Mass/Vol] 14.4 g/dL 13.0-17.0 [facility] Ketones Auto test strip (U) [Mass/Vol]Ordered By: Chaka Pulido on 04-10-2022 Ketones (U) [Mass/Vol] Trace Negative [facility] Leukocytes [#/volume] correc trena for nucleated erythrocytes in Blood by Automated counOrdered By: Chaka Pulido on 04-10-2022 WBC corrected for nucl RBC Auto (Bld) [#/Vol] 9.8 10*3/uL 4.1-10.5 [facility] Lymphocytes Auto (Bld) [#/Vo l]Ordered By: Chaka Pulido on 04-10-2022 Lymphocytes (Bld) [#/Vol] 1.7 10*3/uL 1.00-4.8 [facility] Lymphocytes/100 WBC Auto (Bl d)Ordered By: Chaka Pulido on 04-10-2022 Lymphocytes/100 WBC (Bld) 17.6 % . [facility] MCH Auto (RBC) [Entitic mass ]Ordered By: Chaka Pulido on 04-10-2022 MCH (RBC) [Entitic mass] 30.9 pg 27.5-35.2 [facility] MCHC Auto (RBC) [Mass/Vol]Or dered By: Chaka Pulido on 04-10-2022 MCHC (RBC) [Mass/Vol] 33.5 g/dL 32.5-35.6 [facility] MCV Auto (RBC) [Entitic vol] Ordered By: Chaka Pulido on 04-10-2022 MCV (RBC) [Entitic vol] 92.2 fL 83.5-101 [facility] Monocytes Auto (Bld) [#/Vol] Ordered By: Chaka Pulido on 04-10-2022 Monocytes (Bld) [#/Vol] 1.1 10*3/uL 0.0-0.8 [facility] Monocytes/100 WBC Auto (Bld) Ordered By: Chaka Pulido on 04-10-2022 Monocytes/100 WBC (Bld) 11.7 % . [facility] Neutrophils Auto (Bld) [#/Vo l]Ordered By: Chaka Pulido on 04-10-2022 Neutrophils (Bld) [#/Vol] 6.5 10*3/uL 1.8-7.7 [facility] Neutrophils/100 WBC Auto (Bl d)Ordered By: Chaka Pulido on 04-10-2022 Neutrophils/100 WBC (Bld) 67.0 % . [facility] Nitrite Test strip Ql (U)Ord ered By: Chaka Pulido on 04-10-2022 Nitrite Ql (U) Negative Negative [facility] No Panel InformationOrdered By: Chaka Pulido on 04-10-2022 Estimated GFR () > 60 mL/Min [facility] Comment on above: GFR estimated refere nce range: According to KDOQI guidelines, <60 ml/min/1.73m2 is sufficient to diagnose a patient with chronic kidney disease. Pharmacy Creatinine Clearance (Chem N/A [facility] Nucleated erythrocytes [Pres ence] in Blood by Automated countOrdered By: Chaka Pulido on 04-10-2022 Nucleated RBC Auto Ql (Bld) 0.1 /100{WBC} 0-0.5 [facility] Platelet mean volume Auto (B ld) [Entitic vol]Ordered By: Chaka Pulido on 04-10-2022 Platelet mean volume (Bld) [Entitic vol] 7.5 fL 6.6-10.1 [facility] Platelets Auto (Bld) [#/Vol] Ordered By: Chaka Pulido on 04-10-2022 Platelets (Bld) [#/Vol] 197 10*3/uL 150-450 [facility] Protein Auto test strip (U) [Mass/Vol]Ordered By: Chaka Pulido on 04-10-2022 Protein (U) [Mass/Vol] Negative Negative [facility] RBC Auto (Bld) [#/Vol]Ordere d By: Chaka Pulido on 04-10-2022 RBC (Bld) [#/Vol] 4.67 10*6/uL 3.90-5.60 [facility] Serum or plasma anion gap de terminationOrdered By: Chaka Pulido on 04-10-2022 Anion gap [Moles/Vol] 13.6 mmol/L 6.0-15.0 [facility] Serum or plasma calcium ernesto urement (mass/volume)Ordered By: Chaka Pulido on 04-10-2022 Calcium [Mass/Vol] 9.6 mg/dL 8.2-10.2 [facility] Serum or plasma chloride cristina surement (moles/volume)Ordered By: Chaka Pulido on 04-10-2022 Chloride [Moles/Vol] 103 mmol/L 95-114 [facility] Serum or plasma glucose ernesto urement (mass/volume)Ordered By: Chaka Pulido on 04-10-2022 Glucose [Mass/Vol] 100 mg/dL 70-100 [facility] Comment on above: ADA recommended refe rence rangeRandom Glucose Reference Range is dependent on time and content of last meal. Glucose of more than 200 mg/dL in a nonstressed, ambulatory subject supports the diagnosis of Diabetes Mellitus. Serum or plasma potassium me asurement (moles/volume)Ordered By: Chaka Pulido on 04-10-2022 Potassium [Moles/Vol] 4.5 mmol/L 3.5-5.1 [facility] Serum or plasma sodium measu rement (moles/volume)Ordered By: Chaka Pulido on 04-10-2022 Sodium [Moles/Vol] 137 mmol/L 136-146 [facility] Serum or plasma total carbon dioxide measurement (moles/volume)Ordered By: Chaka Pulido on 04-10-2022 CO2 [Moles/Vol] 24.9 mmol/L 22.0-30.0 [facility] Serum or plasma urea nitroge n measurement (mass/volume)Ordered By: Chaka Pulido on 04-10-2022 Urea nitrogen [Mass/Vol] 18 mg/dL 12-02 [facility] Specific gravity Auto test s trip (U) [Rel density]Ordered By: Chaka Pulido on 04-10-2022 Specific gravity (U) [Rel density] 1.030 1.001-1.030 [facility] Urine clarity by refractomet ry automatedOrdered By: Chaka Pulido on 04-10-2022 Clarity Refractometry automated (U) Clear Clear [facility] Urine culture routineOrdered By: Chaka Pulido on 04-10-2022 Bacteria identified Cx Nom (U) No Growth 2 Days [facility] Urine glucose measurement by automated test strip (mass/volume)Ordered By: Chaka Pulido on 04-10-2022 Glucose Auto test strip (U) [Mass/Vol] Normal mg/dL Normal [facility] Urine hemoglobin detection b y automated test stripOrdered By: Chaka Pulido on 04-10-2022 Hemoglobin Auto test strip Ql (U) Negative Negative [facility] Urine leukocyte esterase det ection by automated test stripOrdered By: Chaka Pulido on 04-10-2022 Leukocyte esterase Auto test strip Ql (U) Negative Negative [facility] Urobilinogen Auto test strip (U) [Mass/Vol]Ordered By: Chaka Pulido on 04-10-2022 Urobilinogen (U) [Mass/Vol] Normal mg/dL Normal [facility] WBC Auto (Bld) [#/Vol]Ordere d By: Chaka Pulido on 04-10-2022 WBC (Bld) [#/Vol] 9.8 10*3/uL 4.1-10.5 [facility] pH Auto test strip (U)Ordere d By: Chaka Pulido on 04-10-2022 pH (U) 5.5 [pH] 5.0-9.0 [facility] CBC AUTO DIFFon 02-06-2022 BASO # 0.0 103/ul Normal 0.0-0.1 [facility] Comment on above: Performed By: #### C BC #### [facility] [address] [address] [address] Isha Haq Basophils/100 WBC (Bld) 0.4 % Normal 0.2-2.0 [facility] Comment on above: Performed By: #### C BC #### [facility] [address] [place] [address] Dr. Isha Haq EO # 0.3 103/ul Normal 0.0-0.7 [facility] Comment on above: Performed By: #### C BC #### [facility] [address] [place] [address] Dr. Isha Haq Eosinophils/100 WBC (Bld) 3.8 % Normal 0.9-7.0 [facility] Comment on above: Performed By: #### C BC #### [facility] [address] [place] [address] Dr. Isha Haq Erythrocyte distribution width (RBC) [Ratio] 13.2 % Normal 11.0-15.0 [facility] Comment on above: Performed By: #### C BC #### [facility] [address] [place] [address] Dr. Isha Haq Hematocrit (Bld) [Volume fraction] 43.0 % Normal 42.0-54.0 [facility] Comment on above: Performed By: #### C BC #### [facility] [address] [place] [address] Dr. Isha Haq Hemoglobin (Bld) [Mass/Vol] 14.3 g/dL Normal 14.0-18.0 [facility] Comment on above: Performed By: #### C BC #### [facility] [address] [place] [address] Dr. Isha Haq IG # 0.04 10e3/ul Critically high 0.00-0.03 [facility] Comment on above: Performed By: #### C BC #### [facility] [address] [place] [address] Dr. Isha Haq IG % 0.4 % Normal 0.0-0.5 [facility] Comment on above: Performed By: #### C BC #### [facility] [address] [place] [address] Dr. Isha Haq LYMPH # 1.9 103/ul Normal 1.2-3.8 [facility] Comment on above: Performed By: #### C BC #### [facility] [address] [place] [address] Dr. Isha Haq Lymphocytes/100 WBC (Bld) 21.0 % Normal 20.5-60.0 [facility] Comment on above: Performed By: #### C BC #### [facility] [address] [place] [address] Dr. Isha Haq MANUAL DIFF REQ NO Normal [facility] Comment on above: Performed By: #### C BC #### [facility] [address] [place] [address] Dr. Isha Haq MCH (RBC) [Entitic mass] 30.4 pg Normal 25.9-34.0 [facility] Comment on above: Performed By: #### C BC #### [facility] [address] [place] [address] Dr. Isha Haq MCHC (RBC) [Mass/Vol] 33.3 g/dL Normal 29.9-35.2 [facility] Comment on above: Performed By: #### C BC #### [facility] [address] [place] [address] Dr. Isha Haq MCV (RBC) [Entitic vol] 91.3 fL Normal 80.0-94.0 [facility] Comment on above: Performed By: #### C BC #### [facility] [address] [place] [address] Dr. Isha Haq MONO # 1.0 103/ul Critically high 0.3-0.8 [facility] Comment on above: Performed By: #### C BC #### [facility] [address] [place] [address] Dr. Isha Haq Monocytes/100 WBC (Bld) 11.4 % Normal 1.7-12.0 [facility] Comment on above: Performed By: #### C BC #### [facility] [address] [place] [address] Dr. Isha Haq NEUT # 5.6 103/ul Normal 1.4-6.5 [facility] Comment on above: Performed By: #### C BC #### [facility] [address] [place] [address] Dr. Isha Haq Neutrophils/100 WBC (Bld) 63.0 % Normal 43.0-75.0 [facility] Comment on above: Performed By: #### C BC #### [facility] [address] [place] [address] Dr. Isha Haq Platelet mean volume (Bld) [Entitic vol] 11.2 fL Normal 9.5-13.5 [facility] Comment on above: Performed By: #### C BC #### [facility] [address] [place] [address] Dr. Isah Haq PLT 191 103/ul Normal 150-450 [facility] Comment on above: Performed By: #### C BC #### [facility] [address] [place] [address] Dr. Isha Haq RBC 4.71 106/ul Normal 4.70-6.10 [facility] Comment on above: Performed By: #### C BC #### [facility] [address] [place] [address] Dr. Isha Haq WBC 8.9 103/ul Normal 4.0-11.0 [facility] Comment on above: Performed By: #### C BC #### [facility] [address] [place] [address] Dr. Isha Haq LIPID PROFILEon 02-06-2022 CHOL-HDL RATIO NORM SEE BELOW Normal [facility] Comment on above: Result Comment: 3.3 - 4.4 LOW RISK 4.4 - 7.1 AVERAGE RISK 7.1 - 11.0 MODERATE RISK >11.0 HIGH RISK Performed By: #### P SAD #### [facility] [address] [place] [address] Dr. Isha Haq Cholesterol [Mass/Vol] 120 mg/dL Normal <=200 [facility] Comment on above: Performed By: #### P SAD #### [facility] [address] [place] [address] Dr. Isha Haq Cholesterol in HDL [Mass/Vol] 42 mg/dL Normal 40-60 [facility] Comment on above: Performed By: #### P SAD #### [facility] [address] [address] [address] Isha Haq Cholesterol in LDL [Mass/Vol] 46.2 mg/dL Normal [facility] Comment on above: Performed By: #### P SAD #### [facility] [address] [address] [address] Isha aHq Cholesterol.total/Domi sterol in HDL [Mass ratio] 2.9 {ratio} Normal [facility] Comment on above: Performed By: #### P SAD #### [facility] [address] [address] [address] Isha Haq HDL NORMAL > or = 60 mg/dl - LO W CARDIOVASCULAR RISK <40 mg/dl - HIGH CARDIOVASCULAR RISK Normal [facility] Comment on above: Performed By: #### P SAD #### [facility] [address] [place] [address] Dr. Isha Haq LDL CALC NORMAL SEE BELOW Normal [facility] Comment on above: Result Comment: <100 mg/dl OPTIMAL 100 - 129 mg/dl NEAR OR ABOVE OPTIMAL 130 - 159 mg/dl BORDERLINE HIGH 160 - 189 mg/dl HIGH >190 mg/dl VERY HIGH Performed By: #### P SAD #### [facility] [address] [place] [address] Dr. Isha Haq Triglyceride [Mass/Vol] 159 mg/dL Critically high <=150 [facility] Comment on above: Performed By: #### P SAD #### [facility] [address] [address] [address] Isha Haq VLDL CALC 31.8 mg/dL Normal [facility] Comment on above: Performed By: #### P SAD #### [facility] [address] [place] [address] Dr. Isha Haq PROF 14(COMP METB)on 022 Albumin [Mass/Vol] 3.2 g/dL Critically low 3.4-5.0 [facility] Comment on above: Performed By: #### L IPID, CMP #### [facility] [address] [address] [address] Isha Haq Albumin/Globulin [Mass ratio] 0.8 {ratio} Normal [facility] Comment on above: Performed By: #### L IPID, CMP #### [facility] [address] [address] [address] Isha Haq ALP [Catalytic activity/Vol] 115 U/L Normal 46-116 [facility] Comment on above: Performed By: #### L IPID, CMP #### [facility] [address] [address] [address] Isha Haq ALT [Catalytic activity/Vol] 28 U/L Normal 16-63 [facility] Comment on above: Performed By: #### L IPID, CMP #### [facility] [address] [place] [address] Dr. Isha Haq Anion gap [Moles/Vol] 10.7 mmol/L Normal [facility] Comment on above: Performed By: #### L IPID, CMP #### [facility] [address] [place] [address] Dr. Isha Haq AST [Catalytic activity/Vol] 48 U/L Critically high 15-37 [facility] Comment on above: Performed By: #### L IPID, CMP #### [facility] [address] [place] [address] Dr. Isha Haq Bilirubin [Mass/Vol] 0.9 mg/dL Normal 0.2-1.0 [facility] Comment on above: Performed By: #### L IPID, CMP #### [facility] [address] [place] [address] Dr. Isha Haq Calcium [Mass/Vol] 9.2 mg/dL Normal 8.5-10.1 [facility] Comment on above: Performed By: #### L IPID, CMP #### [facility] [address] [place] [address] Dr. Isha Haq Chloride [Moles/Vol] 107 mmol/L Normal 98-107 [facility] Comment on above: Performed By: #### L IPID, CMP #### [facility] [address] [address] [address] Isha Haq CO2 [Moles/Vol] 24.5 mmol/L Normal 21.0-32.0 [facility] Comment on above: Performed By: #### L IPID, CMP #### [facility] [address] [address] [address] Isha Haq Creatinine [Mass/Vol] 0.52 mg/dL Critically low 0.70-1.30 [facility] Comment on above: Performed By: #### L IPID, CMP #### [facility] [address] [address] [address] Isha Haq EGFR-AF LIBYAN >60 Normal >=60 [facility] Comment on above: Performed By: #### L IPID, CMP #### [facility] [address] [address] [address] Isha Haq EGFR-NON AF LIBYAN >60 Normal >=60 [facility] Comment on above: Performed By: #### L IPID, CMP #### [facility] [address] [address] [address] Isha Haq Globulin (S) [Mass/Vol] 3.8 g/dL Normal [facility] Comment on above: Performed By: #### L IPID, CMP #### [facility] [address] [address] [address] Isha Haq Glucose [Mass/Vol] 104 mg/dL Normal 74-106 [facility] Comment on above: Performed By: #### L IPID, CMP #### [facility] [address] [address] [address] Isha Haq Potassium [Moles/Vol] 5.2 mmol/L Critically high 3.5-5.1 [facility] Comment on above: Performed By: #### L IPID, CMP #### [facility] [address] [address] [address] Isha Haq Protein [Mass/Vol] 7.0 g/dL Normal 6.4-8.2 [facility] Comment on above: Performed By: #### L IPID, CMP #### [facility] [address] [address] [address] Isha Haq Sodium [Moles/Vol] 137 mmol/L Normal 136-145 [facility] Comment on above: Performed By: #### L IPID, CMP #### [facility] [address] [address] [address] Isha Haq Urea nitrogen [Mass/Vol] 25.0 mg/dL Critically high 7.0-18.0 [facility] Comment on above: Performed By: #### L IPID, CMP #### [facility] [address] [address] [address] Isha Haq Urea nitrogen/Creatinine [Mass ratio] 48.1 mg/mg Normal [facility] Comment on above: Performed By: #### L IPID, CMP #### [facility] [address] [address] [address] Isha Haq CARDIAC STRESS TESTon 2021 [...] ensuring mobility, phacoemulsification was performed in a lxcytsj-sts-[id number]-typ e fashion. After all nuclear material had [...] following day for postoperative care. Normal [facility] NM STRESS/REST MULTIon 01-11 NM STRESS/REST MULTI Patient: KEVYN KEENAN Exam Date: 01/11/2022 : 1945 Gender:M Ordering : DR DIYA BROWN M.D. Admission #: [id number] Family : Order #: [id number] CLICK HERE TO VIEW EXAM RADIOLOGY REPORT [...] DEFECT: LOCATION: Basal inferior. Mid-inferior. Apical inferior. [place]. SIZE: Medium (3-4 segments). SEVERITY: Moderate. TYPE: [...] Luis MD on 01/12/2022 at 07:05 Normal [facility] MRI [facility] WO CONon -23-20 22 MRI [facility] WO CON EXAMINATION: MRI LSPACIFICA WO CON HISTORY: Low back pain COMPARISON: [...] by: MARION LUIS Date: 2021-11-01 18:11 Normal [facility] XR FOREIGN BODY EYEon 2021 XR FOREIGN BODY EYE EXAMINATION: XR FOREIGN BODY EYE HISTORY: Foreign body in eye COMPARISON: No relevant comparison available. FINDINGS: ORBITS: Negative for a metallic foreign body. OTHER: Negative. IMPRESSION: No metallic foreign body in the orbits Electronically authenticated by: MARION LUIS Date: 2021-11-01 10:33 Normal [facility] XR LSPINE 2_3 VIEWSon 2021 [...] by: RHONDA STEVENSON Date: 2021-08-03 12:18 Normal [facility] Cult,Urineon 05-05-2020 Cult,Urine Specimen Description .CLEAN CATCH URINE Special Requests NOT REPORTED Culture NO GROWTH Report Status FINAL 05/05/2020 Normal [facility] Comment on above: Performed By: #### U #### [facility] [employer] [address] [place] [address] Warehouse Technician: Mendez Cabello MD [facility] [address] [place] [address] Warehouse Technician: Marion Koo MD Urinalysis w/ Microon 2020 ----- Normal [facility] Comment on above: Performed By: #### U AMIC #### [facility] [address] [place] [address] Warehouse Technician: Marion Koo MD Acetoacetic Acid,Ur Negative Normal NEG [facility] Comment on above: Performed By: #### U AMIC #### [facility] [address] [place] [address] Warehouse Technician: Marion Koo MD Amorphous sediment LM Ql (Urine sed) TRACE Abnormal [facility] Comment on above: Performed By: #### U AMIC #### [address] [place], [place] [id number] Warehouse Technician: Marion Koo MD Bacteria LM.HPF (Urine sed) [#/Area] TRACE Abnormal [facility] Comment on above: Performed By: #### U AMIC #### [facility] [address] [place] [address] [place] [address] Warehouse Technician: Marion Koo MD Bilirubin, SemiQt,Ur Negative Normal [facility] Comment on above: Performed By: #### U AMIC #### [facility] [address] [place] [address] Dr. [place], [place] [id number] Warehouse Technician: Marion Koo MD Color (U) YELLOW Normal YEL [facility] Comment on above: Performed By: #### U AMIC #### [facility] [address] [place] [address] Warehouse Technician: Marion Koo MD Epithelial cells LM.HPF (Urine sed) [#/Area] 0 TO 2 Normal 0-5 [facility] Comment on above: Performed By: #### U AMIC #### [facility] [address] [place], [place] [id number] Warehouse Technician: Marion Koo MD Glucose Ql (U) Negative Normal NEG [facility] Comment on above: Performed By: #### U AMIC #### [facility] [address] [place] [address] Dr. [place], [place] [id number] Warehouse Technician: Marion Koo MD Hemoglobin, Ur Negative Normal NEG [facility] Comment on above: Performed By: #### U AMIC #### [facility] [address] [place] [address] Dr. [place], [place] [id number] Warehouse Technician: Marion Koo MD Leukocyte esterase Test strip Ql (U) Negative Normal NEG [facility] Comment on above: Performed By: #### U AMIC #### [address] [place], [place] [id number] Warehouse Technician: Marion oKo MD Mucus Strands 1+ Abnormal NONE [facility] Comment on above: Performed By: #### U AMIC #### [facility] [address] [place] [address] Dr. [place], [place] [id number] Warehouse Technician: Marion Koo MD Nitrite,Ur Negative Normal NEG [facility] Comment on above: Performed By: #### U AMIC #### [address] [place], [place] [id number] Warehouse Technician: Marion Koo MD pH (U) 6.0 [pH] Normal 5.0-9.0 [facility] Comment on above: Performed By: #### U AMIC #### [facility] [address] [place] [address] Dr. [place], [place] [id number] Warehouse Technician: Marion Koo MD Protein Ql (U) Negative Normal NEG [facility] Comment on above: Performed By: #### U AMIC #### [facility] [address] [place] [address] [place] [address] Warehouse Technician: Marion Koo MD RBC (U) [#/Vol] None Normal 0-2 [facility] Comment on above: Performed By: #### U AMIC #### [facility] [address] [place], [place] [id number] Warehouse Technician: Marion Koo MD Specific gravity (U) [Rel density] >1.030 High 1.010-1.020 [facility] Comment on above: Performed By: #### U AMIC #### [facility] [address] [place] [address] Dr. [place], [place] [id number] Warehouse Technician: Marion Koo MD Turbidity CLEAR Normal CLEAR [facility] Comment on above: Performed By: #### U AMIC #### [address] [place], [place] [id number] Warehouse Technician: Marion Koo MD Urobilinogen,Ur Normal Normal NORM [facility] Comment on above: Performed By: #### U AMIC #### [address] [place], [place] [address]183 Warehouse Technician: Marion Koo MD WBC (U) [#/Vol] 0 TO 2 Normal 0-5 [facility] Comment on above: Performed By: #### U AMIC #### [address] [place], [place] [id number] Warehouse Technician: Marion Koo MD Casts LM.LPF (Urine sed) [#/Area] NOT REPORTED Normal [facility] Comment on above: Performed By: #### U AMIC #### [address] [place], [place] [id number] Warehouse Technician: Marion Koo MD Comment NOT REPORTED Normal [facility] Comment on above: Performed By: #### U AMIC #### [address] [place], [place] [id number] Warehouse Technician: Marion Koo MD Crystals LM Nom (Urine sed) NOT REPORTED Normal NONE [facility] Comment on above: Performed By: #### U AMIC #### [facility] [address] [place] [address] Warehouse Technician: Marion Koo MD Epithelial, Renal NOT REPORTED Normal 0 [facility] Comment on above: Performed By: #### U AMIC #### [facility] [address] [place] [address] Warehouse Technician: Marion Koo MD Other Observations NOT REPORTED Normal NREQ [facility] Comment on above: Performed By: #### U AMIC #### [facility] [address] [place] [address] Warehouse Technician: Marion Koo MD Trichomonas NOT REPORTED Normal [facility] Comment on above: Performed By: #### U AMIC #### [facility] [address] [place], [place] [id number] Warehouse Technician: Marion Koo MD Yeast LM Ql (Urine sed) NOT REPORTED Normal [facility] Comment on above: Performed By: #### U AMIC #### [facility] [address] [place], [place] [id number] Warehouse Technician: Marion Koo MD Urinalysis with Microscopico n 05-04-2020 Amorphous, UA TRACE Abnormal None [facility] Work Phone: Bacteria, UA TRACE Abnormal None [facility] Work Phone: Bilirubin Urine Negative NEGATIVE [facility] Work Phone: Casts UA NOT REPORTED /LPF [facility] Work Phone: Color, UA YELLOW YELLOW [facility] Work Phone: Crystals, UA NOT REPORTED None /HPF [facility] Work Phone: Epithelial Cells UA 0 TO 2 [facility] Work Phone: Glucose, Ur Negative NEGATIVE [facility] Work Phone: Interpretation and review of laboratory results Abnormal [facility] [employer] Work Phone: Ketones Ql (U) Negative NEGATIVE [facility] Work Phone: Leukocyte esterase Test strip Ql (U) Negative NEGATIVE [facility] Work Phone: Mucus, UA 1+ Abnormal None [facility] [employer] Phone: Nitrite, Urine Negative NEGATIVE [facility] Work Phone: Other Observations UA NOT REPORTED NOT REQ. [facility] [employer] Work Phone: pH, UA 6.0 [facility] [employer] Work Phone: Protein (U) [Mass/Vol] Negative NEGATIVE [facility] [employer] Work Phone: RBC (U) [#/Vol] None [facility] Work Phone: Renal Epithelial, UA NOT REPORTED 0 /HPF [facility] [employer] Work Phone: Specific Laurel, UA >1.030 High [facility] [employer] Work Phone: Trichomonas, UA NOT REPORTED None [facility] [employer] Work Phone: Turbidity UA CLEAR CLEAR [facility] [employer] Work Phone: Urinalysis Comments NOT REPORTED [facility] [employer] Work Phone: Urine Hgb Negative NEGATIVE [facility] Work Phone: Urobilinogen, Urine Normal Normal [facility] Work Phone: WBC, UA 0 TO 2 [facility] [employer] Work Phone: Yeast, UA NOT REPORTED None [facility] [employer] Phone: - [facility] [employer] Work Phone: Cult,Urineon 09-26-2019 Cult,Urine Specimen Description .CLEAN CATCH URINE Special Requests NOT REPORTED Culture NO GROWTH Report Status FINAL 09/26/2019 Normal [facility] Comment on above: Performed By: #### U #### [facility] [address] [facility], [place] [id number] Warehouse Technician: Mendez Cabello MD [facility] [address] [place] [address] Warehouse Technician: Santos Solorio MD Urinalysis w/ Microon 2019 ----- Normal [facility] Comment on above: Performed By: #### U AMIC #### [facility] [address] [place], [place] [address] Warehouse Technician: Santos Solorio MD Acetoacetic Acid,Ur Negative Normal NEG [facility] Comment on above: Performed By: #### U AMIC #### [facility] [address] [place] [address] Dr. [place], [place] [phone] Warehouse Technician: Santos Solorio MD Bilirubin, SemiQt,Ur Negative Normal [facility] Comment on above: Performed By: #### U AMIC #### [facility] [address] [place] [address] Dr[address] [place], [place] 3[address] Warehouse Technician: Santos Solorio MD Color (U) YELLOW Normal [facility] Comment on above: Performed By: #### U AMIC #### [address] [place], [place] [phone] Warehouse Technician: Santos Solorio MD Epithelial cells LM.HPF (Urine sed) [#/Area] None Normal 0-5 [facility] Comment on above: Performed By: #### U AMIC #### [facility] [address] [place], [place] [phone] Warehouse Technician: Santos Solorio MD Glucose Ql (U) Negative Normal [facility] Comment on above: Performed By: #### U AMIC #### [facility] [address] [place] [address] [place] [address] Warehouse Technician: Santos Solorio MD Hemoglobin, Ur Negative Normal [facility] Comment on above: Performed By: #### U AMIC #### [facility] [address] [place], [place] [address]483 Warehouse Technician: Santos Solorio MD Leukocyte esterase Test strip Ql (U) Negative Normal NEG [facility] Comment on above: Performed By: #### U AMIC #### [facility] [address] [place], [place] 6856383 Warehouse Technician: Santos Solorio MD Nitrite,Ur Negative Normal NEG [facility] Comment on above: Performed By: #### U AMIC #### [facility] [address] [place], [place] [address] Warehouse Technician: Santos Solorio MD pH (U) 5.5 [pH] Normal 5.0-9.0 [facility] Comment on above: Performed By: #### U AMIC #### [facility] [address] [place], [place] 104[address]83 Warehouse Technician: Santos Solorio MD Protein Ql (U) Negative Normal NEG [facility] Comment on above: Performed By: #### U AMIC #### [facility] [address] [place], [place] 65[address]383 Warehouse Technician: Santos Solorio MD RBC (U) [#/Vol] None Normal 0-2 [facility] Comment on above: Performed By: #### U AMIC #### [facility] [address] [place], [place] 2284283 Warehouse Technician: Santos Solorio MD Specific gravity (U) [Rel density] 1.020 Normal 1.010-1.020 [facility] Comment on above: Performed By: #### U AMIC #### [facility] [address] [place] [address] Warehouse Technician: Santos Solorio MD Turbidity CLEAR Normal CLEAR [facility] Comment on above: Performed By: #### U AMIC #### [facility] [address] [place], [place] 156[address]83 Warehouse Technician: Santos Solorio MD Urobilinogen,Ur Normal Normal NORM [facility] Comment on above: Performed By: #### U AMIC #### [facility] [address] [place], [place] [address] Warehouse Technician: Santos Solorio MD WBC (U) [#/Vol] None Normal 0-5 [facility] Comment on above: Performed By: #### U AMIC #### [facility] [address] [place], [place] 8240383 Warehouse Technician: Santos Solorio MD Amorphous sediment LM Ql (Urine sed) NOT REPORTED Normal [facility] Comment on above: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 440-162211-02-2022 NoteCARDIAC STRESS TEST Requesting Physician: Diya Brown M.D. [...] perfusion imaging report. 4. Clinical correlation recommended.[id number] Evaluation note* Encounter Date Diagnosis Assessment Notes [...] Foot drop, left foot (ICD-10 - M21.372) [employer] Other 05-25-2022 NotePROCEDURE: XR KNEE LT 3V [...] authenticated by: RHONDA STEVENSON Date: 2021-08-03 12:21[facility] assessment information available[facility] Work Phone: Evaluation note* Diagnosis Onset Date Resolution Status Osteoarthritis of right hip acute [facility] Work Phone: Evaluation note* Diagnosis Mixed hyperlipidemia (CMS/HCC)- Primary Mixed hyperlipidemia Unspecified osteoarthritis, unspecified site Primary hypertension (CMS/HCC) Unspecified essential hypertension documented in this encounter [facility] HealthcareEvaluation [facility]* Diagnosis Coronary artery disease involving lower [place] coronary artery of lower [place] heart without angina pectoris (CMS/HCC)- Primary BPH with obstruction/lower urinary tract symptoms Class 2 obesity due to excess calories without serious comorbidity with body mass index (BMI) of 35.0 to 35.9 in adult Mixed hyperlipidemia (CMS/HCC) Mixed hyperlipidemia Encounter for Medicare annual wellness exam Coronary artery disease involving lower [place] coronary artery of [place] heart without angina pectoris (CMS/HCC)- Primary Benign prostatic hyperplasia without lower urinary tract symptoms BPH with obstruction/lower urinary tract symptoms Mixed hyperlipidemia (CMS/HCC) Mixed hyperlipidemia Medicare annual wellness visit, subsequent ARLEEN (obstructive sleep apnea)- Primary Obstructive sleep apnea (adult) (pediatric) Coronary artery disease involving lower [place] coronary artery of [place] heart without angina pectoris (CMS/HCC) Class 2 obesity due to excess calories without serious comorbidity with body mass index (BMI) of 35.0 to 35.9 in adult- Primary Mixed hyperlipidemia (CMS/HCC) Mixed hyperlipidemia Primary hypertension (CMS/HCC) Unspecified essential hypertension Gastro-esophageal reflux disease without esophagitis documented in this encounter [facility] HealthcareEvaluation note* Diagnosis Screening for colon cancer- Primary Special screening for malignant neoplasms, colon documented in this encounter [facility] HealthcareHistory and physical note Author Phillip Alves [facility] January 16, 2024 8:40am Note Date/Time January 16, 2024 8 :40am [facility] [address] [place] [address] Gastroenterology H&P Signed Patient: Belén Keenan SR MR#: [id number] : 1945 Acct:[id number] Age/Sex: 78 / M Adm Date: 4 Loc: Room: Type: [facility] Attending Dr: Phillip Alves MD Copies to: [...] By: <Electronically signed by Phillip Alves MD> 01/16/24 0840 [facility] Work Phone: History general Narrative - Reported* Type Description Date Medical History Hypertension Medical History cataracts Medical History gall bladder disease Medical History heart disease Surgical History cardiac bypass x 4 2006 Surgical History appendectomy Surgical History tonsillectomy Surgical History gall bladder Surgical History thumb Surgical History eye Hospitalization History see above surgical hx [employer] Other Hospital Discharge instructions Additional Instructions TOTAL HIP DISCHARGE: Recommended Equipment 1. Walker: to be used for post-operative gait. Will transition to straight cane. 2. Raised height toilet seat. 3. Monitor Worker/grabber 4. Other: Long handled Shoe Horn, Sock [...] high impact to left hip. b. Use special agent fbi to retrieve objects from the floor Dressing [...] follow-up appointment has been made with physician safety admin assistant Shawn Richardson as previously scheduled 05/12/22 in [facility] office [address] [place] [address] Work Phone: Hospital Discharge instructions Additional Instructions [...] needed. -Follow up with PCP. -Office number [phone].[facility] Work Phone: Progress note Author Cory Em [facility] April 28, 2022 3:23pm Note Date/Time April 28, 2022 3:17pm [facility] [address] [place] [address] Hospitalist Progress Note Signed Patient: Belén Keenan MR#: [id number] : 1945 Acct:[id number] Age/Sex: 76 / M Adm Date: 3 Loc: [place] Room: Type: [facility] Attending Dr: Chaka Pulido Jr DO Copies [...] by Cory Em MD> 04/28/22 1523 [facility] Work Phone: Reason for referral (narrative)* Consultation (Routine) - Pending Review Specialty Diagnoses / Procedures Referred By Too dalton Referred To Contact Gastroenterology Diagnoses Screening for colon cancer Procedures ID OFFICE/OUTPATIENT NEW HIGH MDM 60 MINUTES Jeanette Murillo NP [address] [place] [phone] Georgia BaltazarJuliaDO [address] [place] [address] Referral ID Status Reason Start Date Expiration Date Visits Requested Visits Authorized [id number] Pending Review Specialty Services Required 11/23/2023 05/21/2024 1 1 Scheduling Instructions Please include [facility] Request for this referral. (Under media) Thank you! [facility] Summary Purpose Family History Relationship Condition Age [...] n father Unknown mother Unknown Advance Directives Documents on File Type Date Recorded Patient Skilled Labor Expl anation Advance Directives and Living Will Power of Physician Anesthesiologist Documents on File Type Date Recorded Patient Skilled Labor Expl anation ACP-Advance Directive ACP-Power of Physician Anesthesiologist Advance Directive Response Recorded Date/ Time Advance Directives No April 10, 2022 10:22am Assessments Diagnosis Nocturia Urgency incontinence Urge incontinence Diagnosis BPH with obstruction/lower urinary tract symptoms Hypertrophy of prostate with urinary obstruction and other lower urinary tract symptoms (LUTS) Nocturia Urgency of urination Reason for Referral Reason *FU 12/07 Evaluate and Treat Hip Pain Per Dr Lizzy Johansne Schedule Directly with Dr Pulido (not PA or ENVIRONMENTAL HEALTH SAFETY MANAGER) Diagnosis 1 Arthropathy of right hip (M16.11) Referral Organization [facility] Referring Provider First Name Sheldon Referring Provider Last Name Lizzy Referring Provider Specialty Neurologica l Surgery Referred Organization [facility] Referred Provider Chaka Pulido Jr Referred Address ,[place], [place],[address] Referred Provider Specialty ORTHOPEDIC S URGEON Referral [...] and content) DATE CREATED AUTHOR 08/29/2017 [facility] DATE CREATED AUTHOR AUTHOR'S ORGANIZ ATION 02/18/2018 [facility] DATE CREATED AUTHOR AUTHOR'S ORGANIZ ATION 09/29/2019 [facility] DATE CREATED AUTHOR AUTHOR'S ORGANIZ ATION 05/06/2020 [facility] DATE CREATED AUTHOR AUTHOR'S ORGANIZ ATION 04/21/2022 [facility] DATE CREATED AUTHOR AUTHOR'S ORGANIZ ATION 12/10/2023 [facility] EP[facility] DATE CREATED AUTHOR AUTHOR'S ORGANIZ ATION 01/30/2024 [facility] DATE CREATED AUTHOR AUTHOR'S ORGANIZ ATION 02/12/2024 [facility] REASON FOR VISIT (unrecogniz ed section and [...] DES Other Provider Active Cher Burns , RN Other Provider Active Etta Rosen , RN Other Provider Active Sanjana Hicks , RN Other Provider Active Maribel Lawrence , RN Other Provider Active Layne Dunbar , RN Other Provider Active Jimmie Martin MD [...] MD Other Provider Active Swapna Feldman , ENVIRONMENTAL HEALTH SAFETY MANAGER-C Other Provider Active Chavez Pagan MD Other Provider Active Patricio Cook MD Other Provider Active Fabricio Willams MD Other Provider Active Angelina Doll , DO Other Provider Active Alen Wheeler , DO Other Provider Active Ben Carrizales , DO Other Provider Active Mervat Fontanez , APPLICATION DEVELOPER Other Provider Active Mando Guy , DO Other Provider Active Fanny France MD Other Provider Active Tory Doll , APPLICATION DEVELOPER Other Provider Active Patricia Wilkinson RN Other Provider Active Industrial Specialist Relationship Specialty Start Date End Date Shaikh Grove MD [address] [place] [phone] PCP - [facility] 03/12/22 Sony Rao MD [address] [place] [phone] PCP - General Family Medicine 10/15/23 Jeanette Murillo NP [address] [place] [address] Nurse Practitioner Family Medicine 10/15/23 Team Status: [...] Other Provider Active Start: January 16, 2024 Industrial Specialist Relationship Specialty Start Date End Date Shaikh Grove MD [address] [place] [phone] PCP - [facility] 03/12/22 03/11/24 Sony Rao MD [address] [place] [phone] PCP - General Family Medicine 10/15/23 Jeanette Murillo NP [address] [place] [phone] Nurse Practitioner Family Medicine 10/15/23 Industrial Specialist Relationship Specialty Start Date End Date Shaikh Grove MD [address] [place] [phone] PCP - [facility] 03/12/22 Sony Rao MD [address] [place] [phone] PCP - General Family Medicine 10/15/23 Jeanette Murillo NP [address] [place] [address] Nurse Practitioner Family Medicine 10/15/23 Goals (unrecognized [...] BE BASED ON THE PRIMARY CLINICAL RECORDS. [facility]. provides no warranty or guarantee of the accuracy or completeness of information in this document.
--- NOTE | 2024-02-26 08:00 | CA_ITS ---
Patient Name: BELÉN ZAMORA MR#: [id number] : 1945 Exam Date: 02/26/2024 Ordering Doctor: DR Diya Brown M.D. ECHOCARDIOGRAM REPORT PROCEDURE: CA ECHO DOPPLER COMPLETE INDICATIONS: Mitral valve regurgitation COMPARISON: None. DESCRIPTION: COMPLETE ECHOCARDIOGRAM Real-time transthoracic echocardiography with 2D, M-mode, spectral and color flow Doppler performed. QUALITY: Technical quality was good. LEFT VENTRICLE: Normal chamber size. Mild concentric left ventricular hypertrophy. LV EF: Global left ventricular systolic function is at lower normal limits; ejection fraction is estimated to be 50 to 55%. Abnormal septal motion; this is not an unusual finding in the post open heart patient. DIASTOLIC: Unable to evaluate diastolic function due to the presence of a mitral valve ring. ATRIAL SEPTUM: Inadequately seen LEFT ATRIUM: Mild dilatation. RIGHT ATRIUM: Mild dilatation. RIGHT VENTRICLE: Normal chamber size. Normal right ventricular systolic function. TRICUSPID VALVE: Normal mobility and thickness. No stenosis with mild regurgitation. Mild pulmonary hypertension. RVSP 44mmHg MITRAL VALVE: No evidence of mitral valve stenosis. Trivial mitral regurgitation. Mitral valve ring repair appears well seated in the mitral position. Mild mitral regurgitation. AORTIC VALVE: Normal trileaflet appearance. Normal leaflet mobility. No evidence of aortic valve stenosis. Mild aortic regurgitation. AORTIC ROOT: Normal diameter and appearance. Mild dilatation of the ascending aorta measuring 3.9cm. PULMONIC VALVE: Normal thickness and mobility. No stenosis. Mild to moderate regurgitation. PERICARDIUM: No evidence of pericardial effusion. IVC: Collapses with inspirations. Normal size. CONCLUSION: 1. Global left ventricular systolic function is at lower normal limits; ejection fraction is estimated to be 50 to 55% 2. Mild left ventricular hypertrophy 3. Normal right ventricular size and systolic function 4. Biatrial dilatation 5. Mild tricuspid regurgitation 6. Mildly elevated right ventricular systolic pressure; RVSP 44 mmHg 7. A mitral valve ring is visualized; mild mitral regurgitation 8. Mild aortic valve regurgitation 9. Mild to moderate pulmonic regurgitation 10. Mild dilatation of the ascending aorta measuring 3.9 cm Adult Echocardiography Procedure Report Left Ventricle LVEDD (3.7 - 5.6 cm): 5.64 cm LVESD (2.2 - 4.0 cm): 3.97 cm LVIVS thickness (0.6 - 1.2 cm): 1.09 cm LVPW thickness (0.5 - 1.0 cm): 1.34 cm e': 0.07 m/s E - e': 20.70 LVOT Max Gradient: 5.64 mm[Hg] LVOT Area (cm2): 1.19 m/s Peak Velocity (LVOT): 1.19 m/s Mean Velocity (LVOT): 0.77 m/s LVOT Diameter 2.04 cm Left Ventricular Ejection Fraction: 51.93 % Left Atrium LA Volume Index (2D A2C): 40.00 ml/m2 Left Atrium Systolic Dimension: 3.75 cm Mitral Valve MV E to A Ratio: 1.83 Mitral Valve A-Wave Peak Velocity: 0.82 m/s Mitral Valve E-Wave Peak Velocity: 1.50 m/s Right Ventricle RV Internal Diastolic Dimension: 3.62 cm Aorta AO Root Diam: 3.44 cm Ascending Ao Diam: 3.90 cm Aortic Valve AoV Area (Peak Lavelle): 2.53 cm2, 2.53 cm2 AoV Area (VTI): 2.50 cm2, 2.87 cm2 Deceleration Dent: 1.06 m/s2 Pressure Half-Time: 683.57 ms Peak Velocity(Antegrade Flow): 1.54 m/s, 1.54 m/s Peak Gradient(Antegrade Flow): 9.47 mm[Hg], 9.47 mm[Hg] Mean Velocity(Antegrade Flow): 0.89 m/s, 0.94 m/s Mean Gradient(Antegrade Flow): 3.79 mm[Hg], 4.21 mm[Hg] Velocity Time Integral: 24.93 cm, 32.48 cm Tricuspid Valve Peak Velocity (Regurgitant Flow): 2.83 m/s, 3.20 m/s, 2.95 m/s Pulmonic Valve Mean Gradient: 2.02 mm[Hg], 2.63 mm[Hg] Mean Velocity: 0.66 m/s, 0.74 m/s Peak Velocity: 1.05 m/s, 1.10 m/s Peak Gradient: 3.75 mm[Hg], 5.11 mm[Hg], 4.87 mm[Hg] Right Atrium Right Atrium Systolic Pressure: 45.09 ml, 45.09 ml Dictated by: Diya Brown M.D. on 02/26/2024 at 11:46 Approved by: Diya Brown M.D. on 02/26/2024 at 11:52
== END 2024-02-26 07:35 | disposition home or self-care (01) ==
LOC: CARD 07:34
PROVIDERS: Visit Provider Internal Medicine Interventional Cardiology
DX: I34.0 Nonrheumatic mitral (valve) insufficiency (principal)
CPT/HCPCS: 93306

== ENCOUNTER 2024-10-14 09:44 | Outpatient (OUT) | payer OTHER, SELFPAY ==
--- OUTSIDE RECORDS SUMMARY | 2024-03-17 05:00 | XMS_ITS ---
Author Organization [facility] Address [address] [place] [address] Care Team Providers Care Diesel Dragline Operator Name Role Phone SHAIKH SHARP Primary Care Provider Anmol Villed[facility] [phone] REASON FOR VISIT RIGHT RC STRAIN Encounters Encounter Location Date Provider Diagnosis [facility] [address] [place] [address] [place] [address] 03/17/2024 Anmol Aviles Plan Of Treatment No Information Progress Notes * BELÉN ZAMORA LDOB: [birth year] (78 yo M)Acc No.[id number]:03/17/2024 Patient: Lizabeth MCKEON BELÉN Gomez Provider: John Aviles MD :1945 A ge:78 Y S ex:Male Date:03/17/2024 Address:[address] [place], [place] [id number] Pcp:SHAIKH LILA Subjective: * Chief Complaints: * 1 . RIGHT RC STRAIN. * Medical History: Objective: * Vitals: Assessment: Plan: * Treatment: Forms: * Images: * Electronic signature of Tomi Aviles MD on 10/14/2024 at 10:00 AM EDT Sign off status: Pending * Provider: John Aviles MD Date: 03/17/2024 Generated for Printi ng/Fajuanig/eTransmitting on: 0 10/14/2024 10:00 AM EDT
--- OUTSIDE RECORDS SUMMARY | 2024-10-14 10:00 | XMS_ITS | Clinical Summary ---
Author Organization [employer] tem Address [id number] [address] [place] [address] Care Team Providers Care Printed Circuit Board Reworker Name Role Phone Amos Delgado MD Primary Care Provider Unava ilable Allergies No known active allergies Medications atorvastatin (LIPITOR) 40 mg tablet Take 40 mg by mouth daily. 3 11/11/2018 Active carvedilol (COREG) 3.125 mg tablet Take 3.125 mg by mouth 2 (two) times a day. 3 11/11/2018 Active furosemide (LASIX) 20 mg tablet Take 20 mg by mouth daily. 1 11/11/2018 Active enalapril (VASOTEC) 2.5 mg tablet Take 2.5 mg by mouth daily. 3 11/11/2018 Active sertraline (ZOLOFT) 50 mg tablet Take 50 mg by mouth daily. 1 11/11/2018 Active famotidine (PEPCID) 20 mg tablet Take 20 mg by mouth daily. 1 11/11/2018 Active cholecalciferol, vitamin D3, 2,000 units capsule Take 2,000 Units by mouth daily. Active aspirin 81 mg Take 81 mg by mouth daily. Active multivit-min/stephanie roger fumarate (MULTI VITAMIN ORAL) Take by mouth. Active docosahexanoic acid/epa (FISH OIL ORAL) Take by mouth. Active Active Problems Problem Noted Date Diagnosed Date Adenomatous polyp of colon 12/16/2018 Heme positive stool 11/21/2018 History of adenomatous polyp of colon 11/21/2018 Family History * Patient is adopted Medical History Relation Name Comments Diabetes Brother Heart disease Brother No Known Problems Father No Known Problems Mother Relation Name Status Comments Brother (Age 58) Father (Age 83) Maternal Grandfather (Age 87) Maternal Grandmother (Age 93) Mother (Age 84) Paternal Grandfather (Age 92) Paternal Grandmother (Age 67) Social History Tobacco Use Types Packs/Day Years Used Date Smoking Tobacco: Former Cigarettes 0.5 15 Smokeless Tobacco: Never Alcohol Use Standard Drinks/Week Comments Not Currently 0 (1 standard drink = 0.6 oz pur e alcohol) Childcare Answer Date Recorded Childcare Unknown 08/21/2018 Employment Answer Date Recorded Employment Unknown 08/21/2018 Purpose - Life Answer Date Recorded Purpose and direction in life Unknown Sex and Gender Information Value Date Recorded Sex Assigned at Not on file Legal Sex Male 11:36 AM EDT Gender Identity Not on file Sexual Orientation Not on file Last Filed Vital Signs Vital Sign Reading Time Taken Comments Blood Pressure 120/76 12/16/2018 1:44 PM EDT Pulse 80 12/16/2018 1:44 PM EDT Temperature 36.7 C (98 F) 12/09/2018 9:00 AM EDT Respiratory Rate 15 12/09/2018 10:00 AM EDT Oxygen Saturation 96% 12/09/2018 9:00 AM EDT Inhaled Oxygen Concentration - - Weight 103.9 kg (229 lb) 12/16/2018 1:44 PM EDT Height 170.2 cm (5' 7 ) 12/16/2018 1:44 PM EDT Body Mass Index 35.87 12/16/2018 1:44 PM EDT Plan of Treatment Health Maintenance Due Date Last Done Comments Depression Screening 1957 Tobacco Screening 1957 DTaP,Tdap and Td Vaccines (1 - Tdap) 1965 Zoster (Shingles) Vaccine (1 of 2) 1996 Abdominal Aortic Aneurysm (AAA) Screen 12/28/2011 Fall Risk Screening 12/28/2011 Colonoscopy 12/09/2021 12/09/2018 Influenza Vaccine 11/10/2024 Medical Devices Not on file Insurance [employer] MEDICARE Care Teams Printed Circuit Board Reworker Relationship Specialty Start Date End Date Amos Delgado MD PCP - General Family Medicine 05/20/18
--- OUTSIDE RECORDS SUMMARY | 2024-10-14 10:00 | XMS_ITS | Encounter Summary ---
Author Organization [facility] Address [address] [place] [address] Care Team Providers Care Pulverizer Name Role Phone Shaikh SHARONDA Grove Primary Care Provider [phone] Shaikh SHARONDA Grove Unavailable [phone] Delores Sharp LPN Unavailable Unavailable Shaikh SHARONDA Grove Primary Care Provider [phone] Sony Rao MD Primary Care Provider [phone] Iraida Murillo NP Unavailable [phone] Reason for Visit * Reason Comments Med Refill Encounter Details Date Type Department Care Team (Late st Contact Info) Description 05/15/2023 [facility]ill [facility] [address] [place] [address] Shaikh Grove MD [address] [place] [address] Essential (primary) hypertension Social History Tobacco Use Types Packs/Day Years Used Date Smoking Tobacco: Never Smokeless Tobacco: Never Alcohol Use Standard Drinks/Week Comments Never 0 (1 standard drink = 0.6 oz pur e alcohol) PHQ-2 Answer Date Recorded Patient Health Questionnaire-2 Score 1 02/26/2023 Sex and Gender Information Value Date Recorded Sex Assigned at Not on file Legal Sex Male 11:45 PM EDT Gender Identity Not on file Sexual Orientation Not on file documented as of this encounter Miscellaneous Notes * Telephone Encounter - Shaikh Perfecto MD - 05/15/2023 11:48 AM EST Approving, but needs appt for additional refills. documented in this encounter Plan of Treatment Upcoming Encounters Date Type Department Care Team (Late st Contact Info) Description 12/15/2024 1:00 PM EDT Office Visit [facility] [address] [place] [address] Jr. Chaka Pulido, DO [address] [place] [address] documented as of this encounter Visit Diagnoses Diagnosis Essential (primary) hypertension Unspecified essential hypertension documented in this encounter Additional Health Concerns Assessment Noted Time PHQ-9 Depression Total Score: 1 02/27/20 23 6:00 PM EST documented as of this encounter Care Teams Pulverizer Relationship Specialty Start Date End Date Shaikh Gorve MD PCP - General Internal Medicine 10/16/22 08/07/23 Shaikh Grove MD [address] [place] [phone] PCP - [facility] 03/12/22 Shaikh Grove MD [address] [place] [address] PCP - General Internal Medicine 08/08/23 10/14/23 Sony Rao MD [address] [place] [address] PCP - General Family Medicine 10/15/23 Delores Sharp LPN Licensed Practical Nurse Family Medicine 07/26/23 Iraida Murillo NP [address] [place] [address] Nurse Practitioner Family Medicine 10/15/23 documented as of this encounter
--- OUTSIDE RECORDS SUMMARY | 2024-10-14 10:00 | XMS_ITS | Encounter Summary ---
Author Organization [facility] Address [address] [place] [address] Care Team Providers Care Splicer Operator Name Role Phone Shaikh SHARONDA Grove Unavailable [phone] Shaikh SHARONDA Grove Primary Care Provider [phone] Sony Rao MD Primary Care Provider [phone] Iraida Murillo NP Unavailable [phone] Encounter Details Date Type Department Care Team (Late st Contact Info) Description 09/05/2023 Orders Only [facility] [address] [place] [address] Jose Dunn MA [address] [place] [address] Social History Tobacco Use Types Packs/Day Years Used Date Smoking Tobacco: Never Smokeless Tobacco: Never Alcohol Use Standard Drinks/Week Comments Never 0 (1 standard drink = 0.6 oz pur e alcohol) PHQ-2 Answer Date Recorded Patient Health Questionnaire-2 Score 0 08/08/2023 Sex and Gender Information Value Date Recorded Sex Assigned at Not on file Legal Sex Male 11:45 PM EDT Gender Identity Not on file Sexual Orientation Not on file documented as of this encounter Plan of Treatment Upcoming Encounters Date Type Department Care Team (Late st Contact Info) Description 12/15/2024 1:00 PM EDT Office Visit [facility] [address] [place] [address] Jr. Chaka Pulido, DO [address] [place] [address] documented as of this encounter Visit Diagnoses Not on filedocumented in this encounter Additional Health Concerns Assessment Noted Time PHQ-9 Depression Total Score: 1 02/27/20 23 6:00 PM EST documented as of this encounter Care Teams Splicer Operator Relationship Specialty Start Date End Date Shaikh Grove MD [address] [place] [phone] PCP - Devoted 03/12/22 Shaikh Grove MD [address] [place] [address] PCP - General Internal Medicine 08/08/23 10/14/23 Sony Rao MD [address] [place] [address] PCP - General Family Medicine 10/15/23 Iraida Murillo NP [address] [place] [address] Nurse Practitioner Family Medicine 10/15/23 documented as of this encounter
--- OUTSIDE RECORDS SUMMARY | 2024-10-14 10:00 | XMS_ITS | Clinical Summary ---
Author Organization [facility] Address [address], [address] [place] [address] Care Team Providers Care Dock Pumper Name Role Phone Amos Delgado MD Primary Care Provider Unava ilable Allergies No known active allergies Medications enalapril (VASOTEC) 2.5 MG tablet Take by mouth Active furosemide (LASIX) 20 MG tablet TAKE 1 TABLET BY MOUTH EVERY MORNING 0 Active omeprazole (PRILOSEC) 20 MG delayed release capsule TAKE 1 CAPSULE BY MOUTH EVERY DAY 0 Active atorvastatin (LIPITOR) 40 MG tablet TAKE 1 TABLET BY MOUTH EVERY DAY 0 Active Multiple Vitamins-Minera ls (MULTIVITAMIN ADULT EXTRA C PO) multivitamin Active Multiple Vitamins-Minera ls (EYE VITAMINS) CAPS Take by mouth A ctive [place]-3 Fatty Acids (FISH OIL OMEGA-3) 1000 MG CAPS Daily with supper Active aspirin 81 MG chewable tablet daily Acti ve carvedilol (COREG) 3.125 MG tablet Take by mouth daily 1 Active zoster vaccine live, PF, (ZOSTAVAX) 00938 UNT/0.65ML injection Zostavax (PF) 19,400 unit/0.65 mL subcutaneous suspension Active valACYclovir (VALTREX) 1 g tablet valacyclovir 1 gram tablet Active metFORMIN (GLUCOPHAGE) 500 MG tablet Take 500 mg by mouth 2 times daily (with meals) 1 Active pravastatin (PRAVACHOL) 40 MG tablet pravastatin 40 mg tablet Active tamsulosin (FLOMAX) 0.4 MG capsule Take 1 capsule by mouth every evening 90 capsule 3 Active Active Problems Problem Noted Date Diagnosed Date 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 Never 09/25/2019 Average Number of Drinks Not on file 020 Frequency of Binge Drinking Not on file 09/09 Sex and Gender Information Value Date Recorded Sex Assigned at Not on file Legal Sex Male 10:39 AM EST Gender Identity Not on file Sexual Orientation Not on file Last Filed Vital Signs Vital Sign Reading Time Taken Comments Blood Pressure 148/80 12/05/2021 2:21 PM EDT Pulse 77 12/05/2021 1:50 PM EDT Temperature 36.6 C (97.8 F) 12/05/2021 1:50 PM EDT Respiratory Rate - - Oxygen Saturation 95% 11/03/2020 3:14 PM EDT Inhaled Oxygen Concentration - - Weight 100.7 kg (222 lb) 12/05/2021 1:50 PM EDT Height 170.2 cm (5' 7 ) 12/05/2021 1:50 PM EDT Body Mass Index 34.77 12/05/2021 1:50 PM EDT Plan of Treatment Health Maintenance Due Date Last Done Comments Lipids 1956 Depression Screen 1958 Hepatitis C screen 1964 DTaP/Tdap/Td vaccine (1 - Tdap) 1965 Shingles vaccine (2 of 3) 01/08/2015 11/13/2014 Pneumococcal 50+ years Vaccine (2 of 2 - PPSV23) 03/31/2020 03/31/2019 Respiratory Syncytial Virus (RSV) or age 60 yrs+ (1 - 1-dose 75+ series) 2021 Prostate Specific Antigen (PSA) Screening or Monitoring 10/25/2022 10/25/2021, 05/02/2021, 04/05/2021, Additional history exists COVID-19 Vaccine (3 - 2023-25 season) 2023 06/05/2020, 05/15/2020 Annual Wellness Visit (Medicare Advantage) 03/12/2024 Flu vaccine (#1) 10/10/2024 03/31/2019 Hepatitis A vaccine Aged Out No longe r eligible based on patient's age to complete this topic Hepatitis B vaccine Aged Out No longe r eligible based on patient's age to complete this topic Hib vaccine Aged Out No longer eligi ble based on patient's age to complete this topic Meningococcal (ACWY) vaccine Aged Out No longer eligible based on patient's age to complete this topic Meningococcal B vaccine Aged Out No l onger eligible based on patient's age to complete this topic Polio vaccine Aged Out No longer elig ible based on patient's age to complete this topic Procedures Procedure Name Priority Date/Time Associated Diagnosis Comments PSA, DIAGNOSTIC Routine 10/25/2021 10:15 AM EDT Elevated PSA from Last 3 Months or Most Recently Relevant to Health Maintenance Results * (ABNORMAL) PSA, Diagnostic (10/25/2021 10:15 AM EDT) PSA 8.18(H) ng/mL Comment:appt 12/05/2021 BLOOD SPECIMEN / Unknown 10/25/2021 10:15 AM EDT Norman Yin MD CHEMISTRY ORDERABLES Edited Result - Final from Last 3 Months or Most Recently Relevant to Health Maintenance Insurance [facility] MEDICARE Care Teams Dock Pumper Relationship Specialty Start Date End Date Amos Delgado MD [address] [place] [id number] PCP - General Family Medicine 09/25/19
--- OUTSIDE RECORDS SUMMARY | 2024-10-14 10:00 | XMS_ITS | Encounter Summary ---
Author Organization [facility] Address [address] [place] [address] Care Team Providers Care Photographer Helper Name Role Phone Shaikh SHARONDA Grove Primary Care Provider [phone] Shaikh SHARONDA Grove Unavailable [phone] Delores Sharp LPN Unavailable Unavailable Shaikh SHARONDA Grove Primary Care Provider [phone] Sony Rao MD Primary Care Provider [phone] Iraida Murillo NP Unavailable [phone] Reason for Visit * Reason Comments Med Refill Encounter Details Date Type Department Care Team (Late st Contact Info) Description 05/08/2023 [facility] [address] [place] [phone] Shaikh Grove MD [address] [place] [address] Unspecified osteoarthritis, unspecified site Social History Tobacco Use Types Packs/Day Years [...] Telephone Encounter - Shaikh Perfecto MD - 05/08/2023 12:16 PM EST Approving, but needs appt for additional refills. documented in this encounter Plan of Treatment Upcoming Encounters Date Type Department Care Team (Late st Contact Info) Description 12/15/2024 1:00 PM EDT Office Visit [facility] [address] [place] [address] Jr. Chaka Pulido, DO [address] [place] [address] documented as of this encounter Visit Diagnoses Diagnosis Unspecified osteoarthritis, unspecified site documented in this encounter Additional Health Concerns Assessment Noted Time PHQ-9 Depression Total Score: 1 02/27/20 23 6:00 PM EST documented as of this encounter Care Teams Photographer Helper Relationship Specialty Start Date End Date Shaikh Grove MD PCP - General Internal Medicine 10/16/22 08/07/23 Shaikh Grove MD [address] [place] [address] PCP - Devoted 03/12/22 Shaikh Grove MD [address] [place] [address] PCP - General Internal Medicine 08/08/23 10/14/23 Sony Rao MD [address] [place] [address] PCP - General Family Medicine 10/15/23 Delores Sharp LPN Licensed Practical Nurse Family Medicine 07/26/23 Iraida Murillo NP [address] [place] [address] Nurse Practitioner Family Medicine 10/15/23 documented as of this encounter
--- OUTSIDE RECORDS SUMMARY | 2024-10-14 10:00 | XMS_ITS | Clinical Summary ---
Author Organization [facility] Address [address] [place], [place] [id number] Care Team Providers Care Turn Down Man Name Role Phone Brady Cuevas Primary Care Provider Unavailabl e Allergies No known active allergies Medications aspirin, enteric coated 81 mg EC tabletIndication s:Bullous keratopathy Take 81 mg by mouth four times daily. Active CARVEDILOL ORALIndications: Bullous keratopathy Take by mouth. Active ENALAPRIL MALEATE ORALIndications: Bullous keratopathy Take by mouth. Active PRAVASTATIN SODIUM (PRAVASTATIN ORAL)Indications :Bullous keratopathy Take by mouth. Active LYCOPENE ORALIndications: Bullous keratopathy Take 300 mg by mouth once daily. Active Mena-3 Fatty Acids-Vitamin E (FISH OIL) 1,000 mg capIndications:B ullous keratopathy Take 1 capsule by mouth. Active COMBIGAN 0.2-0.5 % drop Use 1 Drop in both eyes twice daily. 11/05/2013 Active furosemide (LASIX) 20 mg tablet Take 20 mg by mouth twice daily. Active gabapentin (NEURONTIN) 100 mg capsule Take 100 mg by mouth three times daily. Active sertraline (ZOLOFT) 50 mg tablet once daily. 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 CAD (coronary artery disease) Hyperlipemia OA (osteoarthritis) Overview (05/12/2016): back knees Family History Medical History Relation Comments Heart Brother Diabetes Maternal Grandmother Cataract Mother Glaucoma Mother Relation Status Comments Brother Maternal Grandmother Mother Social History Tobacco Use Types Packs/Day Years Used Date Smoking Tobacco: Former Smokeless Tobacco: Never Alcohol Use Standard Drinks/Week Comments Yes 0 (1 standard drink = 0.6 oz pur e alcohol) Sex and Gender Information Value Date Recorded Sex Assigned at Not on file Legal Sex Male 12:02 PM EDT Gender Identity Not on file Sexual Orientation Not on file Last Filed Vital Signs Vital Sign Reading Time Taken Comments Blood Pressure 128/76 05/17/2016 4:51 PM EST Pulse 75 05/17/2016 4:51 PM EST Temperature - - Respiratory Rate 16 05/17/2016 4:51 PM EST Oxygen Saturation 94% 05/17/2016 4:51 PM EST Inhaled Oxygen Concentration - - Weight 95.7 kg (211 lb) 05/12/2016 10:44 AM EST Height 170.2 cm (5' 7 ) 05/12/2016 10:44 AM EST Body Mass Index 33.05 05/12/2016 10:44 AM EST Plan of Treatment Health Maintenance Due Date Last Done Comments Anxiety Screening 1963 Depression Screening 1963 Hepatitis C Screening 1963 DTaP,Tdap,Td Vaccine (1 - Tdap) 1965 Diabetes Screening 12/28/1991 Pneumococcal Vaccine: 50+ (1 of 1 - PCV) 1996 Shingrix Vaccine (2 of 3) 01/08/2015 11/13/2014 RSV Vaccine (1 - 1-dose 75+ series) 2021 Advance Directive Discussion 03/12/2024 Influenza Vaccine (#1) 2024 Medical Devices Implanted Type Area Mining [employer] Device Identifier Shelf Expiration Date Model / Serial / Lot Corneal Tissue Fee-Eye Bank - [id number] Implanted:Qty: 1 on 01/21/2014 at [facility] Cornea Left: Eye OTHER 02/01/2014 CORNEAL TISSUE / [id number] / Lens Acrysof Iq +13 Diopter Stableforce 0 D Biconvex 118.7 A-Constant - [id number] Implanted:Qty: 1 on 05/17/2016 at [facility] Intraocular Lens Right: Eye [employer] [facility] 11/10/2019 [id number] 13.0 / [id number] / Insurance MEDICARE [id number] [place] [address] Advance Directives Documents on File Type Date Recorded Patient Client Engagement Manager Expl anation Advance Directive(s) 01/21/2014 7:44 AM Care Teams Turn Down Man Relationship Specialty Start Date End Date Brady Cuevas PCP - General Family Medicine 09/11/13
--- OUTSIDE RECORDS SUMMARY | 2024-10-14 10:01 | XMS_ITS | Encounter Summary ---
Author Organization [facility] Address [address] [place] [address] Care Team Providers Care Reference Archivist Name Role Phone Shaikh SHARONDA Grove Unavailable [phone] Sony Rao MD Primary Care Provider [phone] Iraida Roland NP Unavailable [phone] Encounter Details Date Type Department Care Team (Late st Contact Info) Description 02/26/2024 Clinisync Result Encounter [facility] External Department Unsolicited Provider, Generic External Data Social History Tobacco Use Types Packs/Day Years Used Date Smoking Tobacco: Never Passive Smoke Exposure: Never Smokeless Tobacco: Never Alcohol Use Standard Drinks/Week Comments Never 0 (1 standard drink = 0.6 oz pur e alcohol) PHQ-2 Answer Date Recorded Patient Health Questionnaire-2 Score 0 09/19/2023 Sex and Gender Information Value Date Recorded Sex Assigned at Not on file Legal Sex Male 11:45 PM EDT Gender Identity Not on file Sexual Orientation Not on file documented as of this encounter Plan of Treatment Upcoming Encounters Date Type Department Care Team (Late st Contact Info) Description 12/15/2024 1:00 PM EDT Office Visit [facility] [address] [place] [phone] Jr. Chaka Pulido, DO 112 [facility] [address] [place] [address] documented as of this encounter Procedures Procedure Name Priority Date/Time Associated Diagnosis Comments CA ECHO DOPPLER COMPLETE 02/26/2024 11:52 AM EST documented in this encounter Results * CA ECHO DOPPLER COMPLETE (02/26/2024 11:52 AM EST) Anatomical Region Laterality Modality Other 02/26/2024 11:5 2 AM EST Narrative 02/26/2024 11:53 [place] [address] Cardiology Report Signed Patient: BELÉN KEENAN MR#: [id number] : 1945 Acct:[id number] Age/Sex: 78 / M ADM Date: 02/26/24 Loc: CARD Attending Dr: Diya Brown M.D. Ordering Physician: Diya Brown M.D. Date of Service: 02/26/24 Procedure(s): CA echo doppler complete Accession Number(s): [id number] cc: Diya Brown M.D.; IRAIDA ROLAND Patient Name: BELÉN KEENAN MR#: [id number] : 1945 Exam Date: 02/26/2024 Ordering Doctor: DR Diya Brown M.D. ECHOCARDIOGRAM REPORT PROCEDURE: CA ECHO DOPPLER COMPLETE INDICATIONS: Mitral valve regurgitation COMPARISON: None. DESCRIPTION: COMPLETE ECHOCARDIOGRAM Real-time transthoracic echocardiography with 2D, M-mode, spectral and color flow Doppler performed. QUALITY: Technical quality was good. LEFT VENTRICLE: Normal chamber size. Mild concentric left ventricular hypertrophy. LV EF: Global left ventricular systolic function is at lower normal limits; ejection fraction is estimated to be 50 to 55%. Abnormal septal motion; this is not an unusual finding in the post open heart patient. DIASTOLIC: Unable to evaluate diastolic function due to the presence of a mitral valve ring. ATRIAL SEPTUM: Inadequately seen LEFT ATRIUM: Mild dilatation. RIGHT ATRIUM: Mild dilatation. RIGHT VENTRICLE: Normal chamber size. Normal right ventricular systolic function. TRICUSPID VALVE: Normal mobility and thickness. No stenosis with mild regurgitation. Mild pulmonary hypertension. RVSP 44mmHg MITRAL VALVE: No evidence of mitral valve stenosis. Trivial mitral regurgitation. Mitral valve ring repair appears well seated in the mitral position. Mild mitral regurgitation. AORTIC VALVE: Normal trileaflet appearance. Normal leaflet mobility. No evidence of aortic valve stenosis. Mild aortic regurgitation. AORTIC ROOT: Normal diameter and appearance. Mild dilatation of the ascending aorta measuring 3.9cm. PULMONIC VALVE: Normal thickness and mobility. No stenosis. Mild to moderate regurgitation. PERICARDIUM: No evidence of pericardial effusion. IVC: Collapses with inspirations. Normal size. CONCLUSION: 1. Global left ventricular systolic function is at lower normal limits; ejection fraction is estimated to be 50 to 55% 2. Mild left ventricular hypertrophy 3. Normal right ventricular size and systolic function 4. Biatrial dilatation 5. Mild tricuspid regurgitation 6. Mildly elevated right ventricular systolic pressure; RVSP 44 mmHg 7. A mitral valve ring is visualized; mild mitral regurgitation 8. Mild aortic valve regurgitation 9. Mild to moderate pulmonic regurgitation 10. Mild dilatation of the ascending aorta measuring 3.9 cm Adult Echocardiography Procedure Report Left Ventricle LVEDD (3.7 - 5.6 cm): 5.64 cm LVESD (2.2 - 4.0 cm): 3.97 cm LVIVS thickness (0.6 - 1.2 cm): 1.09 cm LVPW thickness (0.5 - 1.0 cm): 1.34 cm e': 0.07 m/s E - e': 20.70 LVOT Max Gradient: 5.64 mm[Hg] LVOT Area (cm2): 1.19 m/s Peak Velocity (LVOT): 1.19 m/s Mean Velocity (LVOT): 0.77 m/s LVOT Diameter 2.04 cm Left Ventricular Ejection Fraction: 51.93 % Left Atrium LA Volume Index (2D A2C): 40.00 ml/m2 Left Atrium Systolic Dimension: 3.75 cm Mitral Valve MV E to A Ratio: 1.83 Mitral Valve A-Wave Peak Velocity: 0.82 m/s Mitral Valve E-Wave Peak Velocity: 1.50 m/s Right Ventricle RV Internal Diastolic Dimension: 3.62 cm Aorta AO Root Diam: 3.44 cm Ascending Ao Diam: 3.90 cm Aortic Valve AoV Area (Peak Lavelle): 2.53 cm2, 2.53 cm2 AoV Area (VTI): 2.50 cm2, 2.87 cm2 Deceleration Juniata: 1.06 m/s2 Pressure Half-Time: 683.57 ms Peak Velocity(Antegrade Flow): 1.54 m/s, 1.54 m/s Peak Gradient(Antegrade Flow): 9.47 mm[Hg], 9.47 mm[Hg] Mean Velocity(Antegrade Flow): 0.89 m/s, 0.94 m/s Mean Gradient(Antegrade Flow): 3.79 mm[Hg], 4.21 mm[Hg] Velocity Time Integral: 24.93 cm, 32.48 cm Tricuspid Valve Peak Velocity (Regurgitant Flow): 2.83 m/s, 3.20 m/s, 2.95 m/s Pulmonic Valve Mean Gradient: 2.02 mm[Hg], 2.63 mm[Hg] Mean Velocity: 0.66 m/s, 0.74 m/s Peak Velocity: 1.05 m/s, 1.10 m/s Peak Gradient: 3.75 mm[Hg], 5.11 mm[Hg], 4.87 mm[Hg] Right Atrium Right Atrium Systolic Pressure: 45.09 ml, 45.09 ml Dictated by: Diya Brown M.D. on 02/26/2024 at 11:46 Approved by: Diya Brown M.D. on 02/26/2024 at 11:52 Dictated By: Diya Brown M.D. Signed By: 02/26/24 1153 DD/ 1152 TD/TT: Converting Supervisor: Procedure Note Radiology, Radiologist, MD - 02/26/2024 [place] [address] Cardiology Report Signed Patient: BELÉN KEENAN LMR#: [id number] : 1945cct:[id number] Age/Sex: 78 / MADM Date: 02/26/24 Loc: CARD Attending Dr: Diya Brown M.D. Ordering Physician: Diya Brown M.D. Date of Service: 02/26/24 Procedure(s): CA echo doppler complete Accession Number(s): [id number] cc: Diya Brown M.D.; IRAIDA ROLAND Patient Name: BELÉN KEENAN MR#: [id number] : 1945 Exam Date: 02/26/2024 Ordering Doctor: DR Diya Brown M.D. ECHOCARDIOGRAM REPORT PROCEDURE: CA ECHO DOPPLER COMPLETE INDICATIONS: Mitral valve regurgitation COMPARISON: None. DESCRIPTION: COMPLETE ECHOCARDIOGRAM Real-time transthoracic echocardiography with 2D, M-mode, spectral and color flow Dopplerperformed. QUALITY: Technical quality was good. LEFT VENTRICLE: Normal chamber size. Mild concentric left ventricular hypertrophy. LV EF: Global left ventricular systolic function is at lower normal limits; ejection fraction is estimated to be 50 to 55%. Abnormal septal motion; this is not an unusual finding in the post open heart patient. DIASTOLIC: Unable to evaluate diastolic function due to the presenceof a mitral valve ring. ATRIAL SEPTUM: Inadequately seen LEFT ATRIUM: Mild dilatation. RIGHT ATRIUM: Mild dilatation. RIGHT VENTRICLE: Normal chamber size. Normal right ventricularsystolic function. TRICUSPID VALVE: Normal mobility and thickness. No stenosis with mild regurgitation. Mild pulmonary hypertension. RVSP 44mmHg MITRAL VALVE: No evidence of mitral valve stenosis. Trivial mitral regurgitation. Mitral valve ring repair appears well seated in the mitral position. Mild mitral regurgitation. AORTIC VALVE: Normal trileaflet appearance. Normal leaflet mobility.No evidence of aortic valve stenosis. Mild aortic regurgitation. AORTIC ROOT: Normal diameter and appearance. Mild dilatation of the ascending aorta measuring 3.9cm. PULMONIC VALVE: Normal thickness and mobility. No stenosis. Mild to moderate regurgitation. PERICARDIUM: No evidence of pericardial effusion. IVC: Collapses with inspirations. Normal size. CONCLUSION: 1. Global left ventricular systolic function is at lower normal limits; ejection fraction is estimated to be 50 to 55% 2. Mild left ventricular hypertrophy 3. Normal right ventricular size and systolic function 4. Biatrial dilatation 5. Mild tricuspid regurgitation 6. Mildly elevated right ventricular systolic pressure; RVSP 44 mmHg 7. A mitral valve ring is visualized; mild mitral regurgitation 8. Mild aortic valve regurgitation 9. Mild to moderate pulmonic regurgitation 10. Mild dilatation of the ascending aorta measuring 3.9 cm Adult Echocardiography Procedure Report Left Ventricle LVEDD (3.7 - 5.6 cm): 5.64 cm LVESD (2.2 - 4.0 cm): 3.97 cm LVIVS thickness (0.6 - 1.2 cm): 1.09 cm LVPW thickness (0.5 - 1.0 cm): 1.34 cm e': 0.07 m/s E - e': 20.70 LVOT Max Gradient: 5.64 mm[Hg] LVOT Area (cm2): 1.19 m/s Peak Velocity (LVOT): 1.19 m/s Mean Velocity (LVOT): 0.77 m/s LVOT Diameter 2.04 cm Left Ventricular Ejection Fraction: 51.93 % Left Atrium LA Volume Index (2D A2C): 40.00 ml/m2 Left Atrium Systolic Dimension: 3.75 cm Mitral Valve MV E to A Ratio: 1.83 Mitral Valve A-Wave Peak Velocity: 0.82 m/s Mitral Valve E-Wave Peak Velocity: 1.50 m/s Right Ventricle RV Internal Diastolic Dimension: 3.62 cm Aorta AO Root Diam: 3.44 cm Ascending Ao Diam: 3.90 cm Aortic Valve AoV Area (Peak Lavelle): 2.53 cm2, 2.53 cm2 AoV Area (VTI): 2.50 cm2, 2.87 cm2 Deceleration Juniata: 1.06 m/s2 Pressure Half-Time: 683.57 ms Peak Velocity(Antegrade Flow): 1.54 m/s, 1.54 m/s Peak Gradient(Antegrade Flow): 9.47 mm[Hg], 9.47 mm[Hg] Mean Velocity(Antegrade Flow): 0.89 m/s, 0.94 m/s Mean Gradient(Antegrade Flow): 3.79 mm[Hg], 4.21 mm[Hg] Velocity Time Integral: 24.93 cm, 32.48 cm Tricuspid Valve Peak Velocity (Regurgitant Flow): 2.83 m/s, 3.20 m/s, 2.95 m/s Pulmonic Valve Mean Gradient: 2.02 mm[Hg], 2.63 mm[Hg] Mean Velocity: 0.66 m/s, 0.74 m/s Peak Velocity: 1.05 m/s, 1.10 m/s Peak Gradient: 3.75 mm[Hg], 5.11 mm[Hg], 4.87 mm[Hg] Right Atrium Right Atrium Systolic Pressure: 45.09 ml, 45.09 ml Dictated by: Diya Brown M.D. on 02/26/2024 at 11:46 Approved by: Diya Brown M.D. on 02/26/2024 at 11:52 Dictated By: Diya Brown M.D. Signed By:02/26/24 1153 DD/ 1152 TD/TT: Converting Supervisor: us Generic External Data Provider [facility] Final Result documented in this encounter Visit Diagnoses Not on filedocumented in this encounter Additional Health Concerns Assessment Noted Time PHQ-9 Depression Total Score: 1 02/27/20 23 6:00 PM EST documented as of this encounter Care Teams Reference Archivist Relationship Specialty Start Date End Date Shaikh Grove MD [address] [place] [address] PCP - Devoted 03/12/22 Sony Rao MD [address] [place] [address] PCP - General Family Medicine 10/15/23 Iraida Roland NP [address] [place] [address] Nurse Practitioner Family Medicine 10/15/23 documented as of this encounter
--- OUTSIDE RECORDS SUMMARY | 2024-10-14 10:01 | XMS_ITS | Clinical Summary ---
Author Organization [facility] Address [address] [place] [address] Care Team Providers Care Campus Director Name Role Phone Sony Rao MD Primary Care Provider [phone] Allergies No known active allergies Medications tamsulosin (Flomax) 0.4 mg 24 hr capsule Take 0.4 mg by mouth in the morning. Active aspirin 81 mg EC tablet Take 81 mg by mouth in the morning. Active carvedilol (Coreg) 3.125 mg tablet Take 3.125 mg by mouth with breakfast and with evening meal. Active metFORMIN (Glucophage) 500 mg tablet Take 500 mg by mouth with breakfast and with evening meal. Active omeprazole (PriLOSEC) [address] capsule Take 20 mg by mouth before breakfast. Do not crush or chew. Active atorvastatin (Lipitor) 40 mg tablet Take 40 mg by mouth in the morning. Active multivitamin with minerals tablet Take 1 tablet by mouth in the morning. Active spironolactone (Aldactone) 25 mg tablet Take 1 tablet by mouth in the morning. 2 Active sertraline (Zoloft) 50 mg tablet TAKE 1 AND 1/2 TABLETS BY MOUTH DAILY AT 9AM 3 Active diclofenac (Voltaren) 50 mg EC tablet Take 50 mg by mouth every 12 (twelve) hours if needed. 4 Active Active Problems Problem Noted Date Diagnosed Date Hypertension 02/11/2024 ARLEEN (obstructive sleep apnea) 09/19/2023 Avascular necrosis of bone of hip 08/08/2023 History of left foot drop 08/08/2023 History of total hip replacement 08/08/2023 Left foot drop 08/08/2023 Osteoarthritis of right hip 08/08/2023 Class 2 obesity due to exces s calories without serious comorbidity with body mass index (BMI) of 35.0 to 35.9 in adult 02/26/2023 Encounter for general adult medical examination without abnormal findings 02/26/2023 CAD (coronary artery disease) 01/15/2023 Hyperlipemia 01/15/2023 01/15/2023 OA (osteoarthritis) 01/15/2023 01/15/2023 Overview (01/15/2023): back knees Abnormal stress test 01/18/2022 Overview (01/18/2022): Added automatically from request for surgery [id number] BPH with obstruction/lower urinary tract symptom s 11/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 01/15/2023 Elevated PSA 11/04/2019 01/15/2023 Adenomatous polyp of colon 12/16/201801/15 Heme positive stool 11/21/2018 01/15/2023 History of adenomatous polyp of colon 11/21/2018 01/15/2023 Open-angle glaucoma of right eye, moderate stage 10/04/2017 01/15/2023 Central corneal ulcer of left eye 09/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 01/15/2023 Cornea replaced by transplant 10/22/2014 Nuclear sclerotic cataract 10/22/201401/15 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 01/15/2023 Presence of intraocular lens 10/23/201308/2022 Diaphragmatic hernia 04/22/2012 01/15/2023 Mitral valve disorder 04/22/2012 01/15/2023 Overview (01/15/2023): 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 Family History Medical History Relation Name Comments Heart attack Other Relation Name Status Comments Other Social History Tobacco Use Types Packs/Day Years Used Date Smoking Tobacco: Former Cigarettes Smokeless Tobacco: Never Tobacco Cessation:Counseling Given: Not Answered Alcohol Use Standard Drinks/Week Comments Not Currently 0 (1 standard drink = 0.6 oz pur e alcohol) [place] Safety & Environment Answer Date Rec orded Fear of Current or Ex-Partner Not on file Emotionally Abused Not on file 05/03/2023 Physically Abused Not on file 05/03/2023 Sexually Abused Not on file 05/03/2023 Physically or Sexually Abused Not on file Sex and Gender Information Value Date Recorded Sex Assigned at Not on file Legal Sex Male 10:26 PM EDT Gender Identity Not on file Sexual Orientation Not on file Last Filed Vital Signs Vital Sign Reading Time Taken Comments Blood Pressure 124/68 02/11/2024 10:27 AM EST Pulse 70 02/11/2024 10:27 AM EST Temperature - - Respiratory Rate 16 02/08/2022 2:35 PM EST Oxygen Saturation 97% 02/11/2024 10:27 AM EST Inhaled Oxygen Concentration - - Weight 107 kg (235 lb) 02/11/2024 10:27 AM EST Height 170.2 cm (5' 7 ) 02/11/2024 10:27 AM EST Body Mass Index 36.81 02/11/2024 10:27 AM EST Plan of Treatment Health Maintenance Due Date Last Done Comments Medicare Annual Wellness (AWV) 1945 Depression Screening 1957 Adult Tetanus 1968 Fall Risk Screening 12/28/2011 Pneumococcal Vaccine: 50+ Years (2 of 2 - PPSV23, PCV20, or PCV21) 05/26/2019 03/31/2019 Zoster Vaccines (2 of 2) 02/20/2022 12/26/2021, 06/2014 COVID-19 Vaccine ( season) 2023 11/04/2021, 02/12/2021, 06/05/2020, Additional history exists Influenza Vaccine (#1) 2024 02/12/2021, 2019 HIB Vaccines Aged Out No longer eligi ble based on patient's age to complete this topic HPV Vaccines Aged Out No longer eligi ble based on patient's age to complete this topic IPV Vaccines Aged Out No longer eligi ble based on patient's age to complete this topic Meningococcal B Vaccine Aged Out No l onger eligible based on patient's age to complete this topic Meningococcal Vaccine Aged Out No fang debby eligible based on patient's age to complete this topic Rotavirus Vaccines Aged Out No longer eligible based on patient's age to complete this topic Insurance [employer] Care Teams Campus Director Relationship Specialty Start Date End Date Sony Rao MD [address] [place] [address] PCP - General Family Medicine 02/11/24
--- OUTSIDE RECORDS SUMMARY | 2024-10-14 10:01 | XMS_ITS | Encounter Summary ---
Author Organization [facility] Address [address] [place] [address] Care Team Providers Care Associate Buyer Name Role Phone Shaikh SHARONDA Grove Unavailable [phone] Sony Rao MD Primary Care Provider [phone] Iraida Murillo NP Unavailable [phone] Encounter Details Date Type Department Care Team (Late st Contact Info) Description 02/04/2024 Orders Only [facility] [address] [place] [address] Shaikh Grove MD [address] [place] [address] Social History Tobacco Use Types Packs/Day Years [...] Office Visit [facility] [address] [place] [phone] Jr. Chaka Pulido, DO 112 [facility] [address] [place] [address] documented as of this encounter Procedures Procedure Name Priority Date/Time Associated Diagnosis Comments XR SHOULDER 2+ VIEWS RIGHT Routine 02/01/2024 11:26 AM EST documented in this encounter Results * XR shoulder 2+ views right (02/01/2024 11:26 AM EST) Anatomical Region Laterality Modality Upper Extremities, Shoulder Right Radi ographic Imaging Shaikh Perfecto [facility] XR PROCEDURES Final Result documented in this encounter Visit Diagnoses Not on filedocumented in this encounter Additional Health Concerns Assessment Noted Time PHQ-9 Depression Total Score: 1 02/27/20 23 6:00 PM EST documented as of this encounter Care Teams Associate Buyer Relationship Specialty Start Date End Date Shaikh Grove MD [address] [place] [phone] PCP - [facility]oted 03/12/22 Sony Rao MD [address] [place] [address] PCP - General Family Medicine 10/15/23 Iraida Murillo NP [address] [place] [address] Nurse Practitioner Family Medicine 10/15/23 documented as of this encounter
--- OUTSIDE RECORDS SUMMARY | 2024-10-14 10:01 | XMS_ITS | Encounter Summary ---
Author Organization [facility] Address [address] [facility] [place] [address] Care Team Providers Care Managing Editor Name Role Phone Shaikh SHARONDA Grove Unavailable [phone] Sony Rao MD Primary Care Provider [phone] Iraida Murillo NP Unavailable [phone] Reason for Visit * Reason Comments Med Refill Encounter Details Date Type Department Care Team (Late st Contact Info) Description 10/06/2024 Refill [facility] [address] [place] [address] Zee Hsieh NP [address] [place] [address] Primary hypertension Social History Tobacco Use Types Packs/Day [...] Visit [facility] [address] [place] [phone] Stepanic, Jr. Chaka C, DO [address] [place] [address] documented as of this encounter Visit Diagnoses Diagnosis Primary hypertension Unspecified essential hypertension documented in this encounter Additional Health Concerns Assessment Noted Time PHQ-9 Depression Total Score: 1 02/27/20 23 6:00 PM EST documented as of this encounter Care Teams Managing Editor Relationship Specialty Start Date End Date Shaikh Grove MD [address] [place] [address] PCP - [facility]oted 03/12/22 Sony Rao MD [address] [place] [phone] PCP - General Family Medicine 10/15/23 Iraida Murillo NP [address] [place] [address] Nurse Practitioner Family Medicine 10/15/23 documented as of this encounter
--- OUTSIDE RECORDS SUMMARY | 2024-10-14 10:01 | XMS_ITS | Encounter Summary ---
Author Organization [facility] Address [address] [place] [address] Care Team Providers Care Traveling Construction Superintendent Name Role Phone Shaikh SHARONDA Grove Unavailable [phone] Sony Rao MD Primary Care Provider [phone] Iraida Murillo NP Unavailable [phone] Reason for Visit * Reason Onset Date Comments Med Refill 10/01/2024 Encounter Details Date Type Department Care Team (Late st Contact Info) Description 10/01/2024 Refill [facility] [address] [place] [address] Zee Hsieh NP [address] [place] [address] Social History Tobacco Use Types Packs/Day Years [...] Office Visit [facility] [address] [place] [address] Jr. Chaka Pulido DO [address] [facility] [place] [address] documented as of this encounter Visit Diagnoses Not on filedocumented in this encounter Additional Health Concerns Assessment Noted Time PHQ-9 Depression Total Score: 1 02/27/20 23 6:00 PM EST documented as of this encounter Care Teams Traveling Construction Superintendent Relationship Specialty Start Date End Date Shaikh Grove MD [address] [place] [address] PCP - Devoted 03/12/22 Sony Rao MD [address] [place] [address] PCP - General Family Medicine 10/15/23 Iraida Murillo NP [address] [place] [address] Nurse Practitioner Family Medicine 10/15/23 documented as of this encounter
--- OUTSIDE RECORDS SUMMARY | 2024-10-14 10:01 | XMS_ITS | Encounter Summary ---
Author Organization [facility] Address [address] [place] [address] Care Team Providers Care Marketing Communications Associate Name Role Phone Shaikh SHARONDA Grove Unavailable [phone] Sony Rao MD Primary Care Provider [phone] Iraida Murillo NP Unavailable [phone] Encounter Details Date Type Department Care Team (Late st Contact Info) Description 10/06/2024 Telephone [facility] [address] [place] [address] Zee Hsieh NP [address] [place] [address] Social History Tobacco Use Types Packs/Day Years [...] encounter Miscellaneous Notes * Telephone Encounter - ELISHA CHAVEZ - 10/06/2024 7:54 AM EDT Text Rn Renal Good afternoon. This is Annie calling with [facility] calling to obtain prescription refills fora patient with Zee. I hold ICS prescribe as prescriber patient and onboarding with our services here at the [facility] for home delivery of all active prescription from providers and compliance packaging. Patient name is Nabil Keenan. Data 1017 1946, we are meaning scripts for a [place] 15 mgtab of [place] 20 mg capsule and a car radio of 3.125 mg tablet. Our phone number is [phone]. We are located at [address] [place] [address]. [place], [place], [facility]. Again, this is a ring with [facility]. Thank you, have a great day. documented in this encounter Plan of Treatment Upcoming Encounters Date Type Department Care Team (Late st Contact Info) Description 12/15/2024 1:00 PM EDT Office Visit [facility] [address] [place] [address] Jr. Chaka Pulido, DO [address] [place] [address] documented as of this encounter Visit Diagnoses Not on filedocumented in this encounter Additional Health Concerns Assessment Noted Time PHQ-9 Depression Total Score: 1 02/27/20 23 6:00 PM EST documented as of this encounter Care Teams Marketing Communications Associate Relationship Specialty Start Date End Date Shaikh Grove MD [address] [place] [address] PCP - Devoted 03/12/22 Sony Rao MD [address] [place] [address] PCP - General Family Medicine 10/15/23 Iraida Murillo NP [address] [place] [address] Nurse Practitioner Family Medicine 10/15/23 documented as of this encounter
--- OUTSIDE RECORDS SUMMARY | 2024-10-14 10:01 | XMS_ITS | Encounter Summary ---
Author Organization [facility] Address [address] [place] [address] Care Team Providers Care Youth Coordinator Name Role Phone Shaikh SHARONDA Grove Unavailable [phone] Sony Rao MD Primary Care Provider [phone] Iraida Murillo NP Unavailable [phone] Encounter Details Date Type Department Care Team (Late st Contact Info) Description 01/23/2024 Orders Only [facility] [address] [phone] Phillip Alves MD [address] [facility] [address] [place] [address] Social History Tobacco Use Types Packs/Day Years [...] Encounters Date Type Department Care Team (Late Contact Info) Description 12/15/2024 1:00 PM EDT Office Visit [facility] [address] [place] [address] Jr. Chaka Pulido, DO [address] [facility] [address] [place], [place] [address] documented as of this encounter Procedures Procedure Name Priority Date/Time Associated Diagnosis Comments COLONOSCOPY DIAGNOSTIC Routine 01/23/2024 7:12 AM EST documented in this encounter Results * COLONOSCOPY DIAGNOSTIC (01/23/2024 7:12 AM EST) Anatomical Region Laterality Modality Radiographic Melissa ging Phillip Alves MD IMG XR PROCEDURES Final Result documented in this encounter Visit Diagnoses Not on filedocumented in this encounter Additional Health Concerns Assessment Noted Time PHQ-9 Depression Total Score: 1 02/27/20 23 6:00 PM EST documented as of this encounter Care Teams Youth Coordinator Relationship Specialty Start Date End Date Shaikh Grove MD [address] [place] [address] PCP - Devoted 03/12/22 Sony Rao MD [address] [place] [address] PCP - General Family Medicine 10/15/23 Iraida Murillo NP [address] [place] [address] Nurse Practitioner Family Medicine 10/15/23 documented as of this encounter
--- OUTSIDE RECORDS SUMMARY | 2024-10-14 10:01 | XMS_ITS | Encounter Summary ---
Author Organization [facility] Address [address] [facility] [place] [address] Care Team Providers Care Rn Urology Name Role Phone Shaikh SHARONDA Grove Unavailable [phone] Sony Rao MD Primary Care Provider [phone] Iraida Murillo NP Unavailable [phone] Reason for Visit * Reason Comments Med Refill Encounter Details Date Type Department Care Team (Late Contact Info) Description 10/06/2024 Refill [facility] [address] [place] [address] Zee Hsieh NP [address] [place] [address] Gastro-esophageal reflux disease without esophagitis Social History Tobacco Use Types Packs/Day Years [...] Office Visit [facility] [address] [facility] [address] [place] [address] Jr. Chaka Pulido DO [address] [place] [address] [place] [address] documented as of this encounter Visit Diagnoses Diagnosis Gastro-esophageal reflux disease without esophagitis documented in this encounter Additional Health Concerns Assessment Noted Time PHQ-9 Depression Total Score: 1 02/27/20 23 6:00 PM EST documented as of this encounter Care Teams Rn Urology Relationship Specialty Start Date End Date Shaikh Grove MD [address] [place] [address] PCP - Devoted 03/12/22 Sony Rao MD [address] [place] [address] PCP - General Family Medicine 10/15/23 Iraida Murillo NP [address] [place] [address] Nurse Practitioner Family Medicine 10/15/23 documented as of this encounter
--- OUTSIDE RECORDS SUMMARY | 2024-10-14 10:01 | XMS_ITS | Patient Health Record ---
Author Organization [facility] Address [address] [place] [address] Care Team Providers Care Charge Attendant Name Role Phone SHAIKH SHARP Primary Care Provider Anmol Villeda Unavailable [phone] Danni Obregon Unavailable [phone] Allergies No Known Allergies Reason For Referral No Information Social History Tobacco Use: Social History Observation Description Date Details (start date - stop date) Never Smoker NA - NA AUDIT-C (Standard) Question Answer Notes Did you have a drink containing alcohol in the p ast year? No Points 0 Interpretation Negative Tobacco Control (Standard) Question Answer Notes Tobacco use: Nonsmoker Vital Signs Height 5'7 in 02/04/2024 Weight 230 lbs 02/04/2024 BMI 36.02 02/04/2024 Encounters Encounter Location Date Provider Diagnosis [facility] Office [address] [place] [address] [place] [address] 02/04/2024 Danni Obregon Strain of rotator cuff of right shoulder S46.011A Assessments Encounter Date Diagnosis (ICD Code) Assessment Notes Treatment Notes Treatment Clinical Notes Section Notes 02/04/2024 Strain of rotator cuff of right shoulder (ICD-10 - S46.011A) 02/04/2024 Other I discussed wit h patient that he does have full strength with his rotator cuff today and likely does not have a tear and there are no fractures on x-rays. I did demonstrate some stretching exercises that he can work on daily to maintain his ROM while his pain improves. He can discontinue the sling as tolerated. He is not a great candidate for NSAIDs secondary to cardiac issues and can take Tylenol as needed. We will see him back in 6 weeks for reevaluation. Plan Of Treatment No Information Insurance Providers Payer Name Payer Address Payer Phone Subscriber Number Group Number Insured Name Patient Relationship to Insured Coverage Start Date Coverage End Date Medicare [employer] [place] [address] [place] [id number] BELÉN ZAMORA Self - patient is the insured
--- OUTSIDE RECORDS SUMMARY | 2024-10-14 10:01 | XMS_ITS | Encounter Summary ---
Author Organization [facility] Address [address] [place] [address] Care Team Providers Care Butcher Meat Name Role Phone Shaikh SHARONDA Grove Unavailable [phone] Sony Rao MD Primary Care Provider [phone] Iraida Murillo NP Unavailable [phone] Encounter Details Date Type Department Care Team (Late Contact Info) Description 10/06/2024 Abstract [facility] [address] [place] [address] Zee Hsieh NP [address] [place] [address] Social History Tobacco Use Types Packs/Day Years [...] Office Visit [facility] [address] [facility] [address] [place] [address] Jr. Chaka Pulido, DO [address] [facility] [address] [place], [place] [address] documented as of this encounter Visit Diagnoses Not on filedocumented in this encounter Additional Health Concerns Assessment Noted Time PHQ-9 Depression Total Score: 1 02/27/20 23 6:00 PM EST documented as of this encounter Care Teams Butcher Meat Relationship Specialty Start Date End Date Shaikh Grove MD [address] [place] [address] PCP - Devoted 03/12/22 Sony Rao MD [address] [place] [address] PCP - General Family Medicine 10/15/23 Iraida Murillo NP [address] [place] [address] Nurse Practitioner Family Medicine 10/15/23 documented as of this encounter
--- OUTSIDE RECORDS SUMMARY | 2024-10-14 10:01 | XMS_ITS | Clinical Summary ---
Author Organization [facility] Healthcare Address [address] [place] [address] Care Team Providers Care Account Collector Name Role Phone Shaikh SHARONDA Grove Unavailable [phone] Sony Rao MD Primary Care Provider [phone] Iraida Murillo NP Unavailable [phone] Allergies No known active allergies Medications aspirin 81 MG chewable tablet Chew 1 tablet in the morning. Active Multiple Vitamins-Minerals (Eye Vitamins) capsule Take 1 capsule by mouth in the morning. Active omega-3 (Fish Oil) 1000 MG capsule Take 1,000 mg by mouth in the morning. Active furosemide (Lasix) 20 MG tabletIndications: Coronary artery disease involving emmonak coronary artery of emmonak heart without angina pectoris,Chronic heart failure with preserved ejection fraction (HCC) Take 1 tablet (20 mg) by mouth Daily 90 tablet 1 4 Active tamsulosin (Flomax) 0.4 MG 24 hr capsuleIndications :Benign prostatic hyperplasia without lower urinary tract symptoms Take 1 capsule (0.4 mg) by mouth Daily 90 capsule 1 5 10/19/19 25 Active enalapril (Vasotec) 2.5 MG tabletIndications: Coronary artery disease involving emmonak coronary artery of emmonak heart without angina pectoris,Chronic heart failure with preserved ejection fraction (HCC) Take 1 tablet (2.5 mg) by mouth Daily Take 1 tablet (2.5 mg) by mouth Daily 90 tablet 1 5 Active omeprazole (PriLOSEC) [address] capsuleIndications :Gastro-esophageal reflux disease without esophagitis Take 1 capsule (20 mg) by mouth Daily 90 capsule 1 07/28/202 5 01/05/20 25 Active meloxicam (Mobic) 15 MG tabletIndications: Unspecified osteoarthritis, unspecified site Take 1 tablet (15 mg) by mouth Daily as needed for mild pain 90 tablet 1 5 01/05/20 25 Active carvedilol (Coreg) 3.125 MG tabletIndications: Primary hypertension Take 1 tablet (3.125 mg) by mouth in the morning and 1 tablet (3.125 mg) in the evening. Take with meals. 180 tablet 1 5 01/05/20 25 Active atorvastatin (Lipitor) 40 MG tabletIndications: Mixed hyperlipidemia Take 1 tablet (40 mg) by mouth at bedtime 5PM 90 tablet 1 5 01/05/20 25 Active meloxicam (Mobic) 15 MG tabletIndications: Unspecified osteoarthritis, unspecified site Take 1 tablet (15 mg) by mouth Daily as needed for mild pain 30 tablet 4 10/07/19 25 Discontin ued(Reord er) carvedilol (Coreg) 3.125 MG tabletIndications: Primary hypertension TAKE 1 TABLET BY MOUTH TWICE DAILY (IN THE MORNING and BEFORE bedtime) 60 tablet 2 4 10/07/19 25 Discontin ued(Reord er) omeprazole (PriLOSEC) [address] capsuleIndications :Gastro-esophageal reflux disease without esophagitis Take 1 capsule (20 mg) by mouth Daily 90 capsule 5 10/07/19 25 Discontin ued(Reord er) atorvastatin (Lipitor) 40 MG tabletIndications: Mixed hyperlipidemia Take 1 tablet (40 mg) by mouth at bedtime 5PM 90 tablet 5 10/07/19 25 Discontin ued(Reord er) Active Problems Problem Noted Date Diagnosed Date Prostate cancer screening 10/06/2024 Gastro-esophageal reflux disease without esophag itis 06/12/2024 Assessment & Plan (06/12/2024 6:15 AM EDT): Recommendations: freq small meals, nothing to eat or drink at least 2 hours prior to bed, limit caffeine, alcohol, as well as spicy foods Meds to limit or avoid if possible: NSAIDS Elevate HOB if possible Current meds: omeprazole Body mass index (BMI) 35.0-35.9, adult 5 Bronchitis 06/12/2024 Assessment & Plan (06/12/2024 9:30 AM EDT): Fluids, atb Fu if not better ARLEEN (obstructive sleep apnea) 09/19/2023 Assessment & Plan (06/12/2024 9:18 AM EDT): You have a diagnosis of obstructive sleep apnea. It is recommended that you wear your PAP device any time while in bed sleeping. Not using the PAP device can increase your risk of elevated/uncontrolled high blood pressure, atrial fibrillation, heart attack, stroke, or sudden . Compliance with PAP: yes How many hours of use per night: Do you feel more refreshed in the morning: Company that supplies your machine and tubing/filters etc: Doctor that manages your ARLEEN: Marv Assessment & Plan (03/17/2024 9:14 AM EST): Pt completed sleep study. States he has CPAP at home now, just received it in mail a few weeks ago. Reports he has not started using I just yet but plans to. Encouraged pt to use CPAP nightly as directed. Assessment & Plan (12/10/2023 4:30 PM EDT): Pt had sleep study done; O2 desaturations into the 60's noted. Pt declined split study at that time. Left office. Discussed results with pt. Pt is now agreeable to having spit study done at this time. Spoke with sleep lab; they will call pt to set up split testing. Assessment & Plan (09/19/2023 10:56 AM EDT): Reports excessive sleepiness, fatigue, daytime sleepiness. Has noticed that he dozes off while driving or watching TV. Stop bang score of 6 - will order sleep study. Avascular necrosis of bone of hip 08/08/2023 History of total hip replacement 08/08/2023 Osteoarthritis of right hip 08/08/2023 Left foot drop 08/08/2023 Medicare annual wellness visit, subsequent 08/07 Assessment & Plan (08/08/2023 1:44 PM EDT): Patient here for Medicare Wellness. Reviewed medical, surgical and social history. Reviewed medication list. Patient screened for depression, fall risk, cognitive impairment. Patient provided appropriate education on chronic medical conditions, prescription medications. Patient's health related questions and concerns addressed and answered. History of left foot drop 08/08/2023 Class 2 obesity due to exces s calories without serious comorbidity with body mass index (BMI) of 35.0 to 35.9 in adult 02/26/2023 Assessment & Plan (06/12/2024 6:16 AM EDT): Discussed with patient their BMI (actual, verses recommended). We have also discussed lifestyle modifications: attempts to perform physical activity as chronic conditions allow, also to monitor dietary intake: increasing protein/fruits/veggies and lowering carb intake (unless contraindicated). Limit sodas, juices, and sugary drinks. Assessment & Plan (03/17/2024 9:02 AM EST): Discussed with patient their BMI (actual, verses recommended). We have also discussed lifestyle modifications: attempts to perform physical activity as chronic conditions allow, also to monitor dietary intake: increasing protein/fruits/veggies and lowering carb intake (unless contraindicated). Limit sodas, juices, and sugary drinks. Also discussed oral medications that can be utilized for weight loss, as well as surgical options for weight loss. Assessment & Plan (12/10/2023 4:32 PM EDT): Discussed with patient their BMI (actual, verses recommended). We have also discussed lifestyle modifications: attempts to perform physical activity as chronic conditions allow, also to monitor dietary intake: increasing protein/fruits/veggies and lowering carb intake (unless contraindicated). Limit sodas, juices, and sugary drinks. Also discussed oral medications that can be utilized for weight loss, as well as surgical options for weight loss. Assessment & Plan (02/26/2023 6:40 PM EST): Patient educated on risks of increased cardiovascular morbidity/mortality and poor health outcomes associated with unhealthy bodyweight. Patient counseled on lifestyle modifications, dietary restrictions. Patient encouraged to limit caloric intake and increase physical activity. Therapeutic and surgical options reviewed with patient . Patient was offered opportunity to ask questions and address their concern. Refer to cataract lens generator. CAD (coronary artery disease) 01/15/2023 Assessment & Plan (06/12/2024 6:14 AM EDT): Current meds: asa, statin, b abad, singh inhibitor, lasix Assessment & Plan (09/19/2023 10:55 AM EDT): Stable. S/p CABG in about 1999 Cw ASA, BB, Lipitor. Denies CP, SOB. Assessment & Plan (08/08/2023 1:43 PM EDT): Stable. Recent [facility] - no sig obs CAD. Cw ASA, BB, Lipitor. Denies CP, SOB. Assessment & Plan (02/26/2023 6:39 PM EST): Stable. Recent [facility] - no sig obs CAD. Cw ASA, BB, Lipitor. Denies CP, SOB. Hyperlipemia 01/15/2023 Assessment & Plan (06/12/2024 6:17 AM EDT): On statin therapy Check labs yearly and prn dose changes Assessment & Plan (03/17/2024 9:02 AM EST): Currently taking Atorvastatin 40mg Most recent lipid panel August 2023 Denies any myalgias. Continue current regimen Assessment & Plan (12/10/2023 4:31 PM EDT): Currently taking Atorvastatin 40mg Most recent lipid panel August 2023 Denies any myalgias. Continue current regimen. Assessment & Plan (08/08/2023 1:44 PM EDT): On Lipitor 40 mg. Check Lipid panel Assessment & Plan (02/26/2023 6:40 PM EST): /w lipitor OA (osteoarthritis) 01/15/2023 Overview (02/26/2023): back knees back knees BPH with obstruction/lower urinary tract symptom s 11/04/2019 Assessment & Plan (06/12/2024 6:15 AM EDT): Current meds: tamsulosin Assessment & Plan (08/08/2023 1:43 PM EDT): He was previously on Tmasulin. Not on it anymore. Reports obstructive symptoms - polyuria, hesitancy. Denies dysuria, hematuria. Resume tamsulin Check PSA Assessment & Plan (02/26/2023 6:39 PM EST): On Flomax. Working well for him. C/w same. 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 Hypertension Assessment & Plan (06/12/2024 9:34 AM EDT): Please check blood pressure daily and record DASH diet Limit caffeine Take medication as directed Contact office if chest pain, pressure, dizziness, shortness of breath, swelling legs Recommend slow position changes Current meds: b abad, vasotec Fu in 4 weeks for recheck, cold medicine may cause elevation blood pressure Assessment & Plan (03/17/2024 9:02 AM EST): Currently taking carvedilol 3.125mg Enapril 2.5mg Checks BP at home; Averages are 117-120 SBP; Follows cardiology closely; Denies orthostatic changes, dizziness, cough, shortness of breath, swelling in extremities. Continue current regimen. Given BP log, advised pt to record BP and bring log back with them to next visit. Assessment & Plan (12/10/2023 4:30 PM EDT): Currently taking carvedilol 3.125mg Enapril 2.5mg Checks BP at home; Averages are 117-120 SBP; Follows cardiology closely; Denies orthostatic changes, dizziness, cough, shortness of breath, swelling in extremities. Continue current regimen. Given BP log, advised pt to record BP and bring log back with them to next visit. Resolved Problems Problem Noted Date Diagnosed Date Resolved Date Encounter for Medicare annual wellness exam 02/26/2023 06/12/2024 Assessment & Plan (02/26/2023 7:09 PM EST): Doing well. No complaints to offer. Reviewed medical, surgical and social hx. Tolerating meds w/o adverse effects. Colonoscopy within 4 years ago. Counseled and educated on lifesyle measures, dietary restrictions. History of adenomatous polyp of colon 11/21/2018 06/12/2024 Atrial fibrillation 06/12/2012 02/27/20 23 Encounters Date Type Department Care Team Description 10/06/2024 Refill [facility] [address] [place] [id number] Zee Hsieh NP Gastro-esophageal reflux disease without esophagitis 10/06/2024 Refill [facility] [address] [place] [address] Zee Hsieh NP Primary hypertension 10/06/2024 Abstract [facility] [address] [place] [address] Zee Hsieh NP 10/06/2024 Refill [facility] [address] [place] [address] Zee Hsieh NP Coronary artery disease involving emmonak coronary artery of emmonak heart without angina pectoris (Primary Dx); Gastro-esophageal reflux disease without esophagitis; Unspecified osteoarthritis, unspecified site; Primary hypertension ; Mixed hyperlipidemia ; Prostate cancer screening; BPH with obstruction/lower urinary tract symptoms 10/06/2024 Telephone [facility] [address] [place] [address] Zee Hsieh NP 10/01/2024 Refill [facility] [address] [place] [address] Zee Hsieh NP 08/11/2024 Telephone [facility] [address] [place] [address] Zee Hsieh NP from Last 3 Months Immunizations Immunization Administration Dates Next Due Influenza, seasonal, injectable 03/03/2024 Pneumococcal Conjugate, Unspecified 03/03/2024 Family History Medical History Relation Name Comments Diabetes Brother Cancer Mother Glaucoma Mother Heart disease Mother Hypertension Mother Skin cancer Mother Relation Name Status Comments Brother Father Mother Social History Tobacco Use Types Packs/Day Years Used Date Smoking Tobacco: Never Passive Smoke Exposure: Never Smokeless Tobacco: Never Tobacco Cessation:Counseling Given: [...] Sign Reading Time Taken Comments Blood Pressure 140/80 06/12/2024 9:02 AM EDT Pulse 69 06/12/2024 9:02 AM EDT Temperature 36.9 C (98.5 F) 06/12/2024 9:02 AM EDT Respiratory Rate 22 06/12/2024 9:02 AM EDT Oxygen Saturation 92% 06/12/2024 9:02 AM EDT Inhaled Oxygen Concentration - - Weight 105 kg (231 lb 3.2 oz) 06/12/2024 9:02 AM EDT Height 170.2 cm (5' 7 ) 03/17/2024 8:37 AM EST Body Mass Index 36.21 03/17/2024 8:37 AM EST Plan of Treatment Upcoming Encounters Date Type Department Care Team (Late st Contact Info) Description 12/15/2024 1:00 PM EDT Office Visit [facility] [address] [place] [phone] Jr. Chaka Pulido, DO [address] [place] [address] Health Maintenance Due Date Last Done Comments Pneumococcal Vaccine: 65+ Ye ars (2 of 2 - PPSV23) 05/26/2019 03/03/2024, 03/31/2019 Medicare Annual Wellness (AWV) 08/07/2024 08/08/2023 , 02/26/2023 Influenza Vaccine (#1) 2024 4, 03/01/2024, 02/12/2021, Additional history exists FOBT Discontinued 07/31/2018 Colonoscopy Discontinued 01/23/2024, 01/16/2024 Colorectal Cancer Screening Discontinued CT Colonography Discontinued FIT-DNA Discontinued FIT Discontinued Sigmoidoscopy Discontinued Procedures Procedure Name Priority Date/Time Associated Diagnosis Comments COLONOSCOPY DIAGNOSTIC Routine 01/23/2024 7:12 AM EST from Last 3 Months or Most Recently Relevant to Health Maintenance Results * COLONOSCOPY DIAGNOSTIC (01/23/2024 7:12 AM EST) Anatomical Region Laterality Modality Radiographic Melissa ging Phillip Alves MD IMG XR PROCEDURES Final Result from Last 3 Months or Most Recently Relevant to Health Maintenance Insurance [employer] Care Teams Account Collector Relationship Specialty Start Date End Date Shaikh Grove MD [address] [place] [phone] PCP - [facility] 03/12/22 Sony Rao MD [address] [place] [phone] PCP - General Family Medicine 10/15/23 Iraida Murillo NP [address] [place] [phone] Nurse Practitioner Family Medicine 10/15/23
--- OUTSIDE RECORDS SUMMARY | 2024-10-14 10:01 | XMS_ITS | Encounter Summary ---
Author Organization [facility] Address [address] [place] [address] Care Team Providers Care Campus Director Name Role Phone Shaikh SHARONDA Grove Unavailable [phone] Sony Rao MD Primary Care Provider [phone] Iraida Murillo NP Unavailable [phone] Encounter Details Date Type Department Care Team (Late st Contact Info) Description 10/06/2024 Refill [facility] [address] [place] [address] Zee Hsieh NP [address] [place] [address] Coronary artery disease involving shoshone-bannock coronary artery of shoshone[place]bann[place] heart without angina pectoris (Primary Dx); Gastro-esophageal reflux disease without esophagitis; Unspecified osteoarthritis, unspecified site; Primary hypertension ; Mixed hyperlipidemia ; Prostate cancer screening; BPH with obstruction/lower urinary tract symptoms Social History Tobacco Use Types Packs/Day Years [...] [address] [place] [address] Jr. Chaka Pulido, DO [address] [place] [address] Scheduled Orders Name Type Priority Associated Diagnoses Orde r Schedule PSA, total and free Lab Routine BPH with obstruction/lower urinary tract symptoms Expected: 10/06/2024 (Approximate), Expires: 10/06/2025 CBC and differential Lab Routine Gastro-esophageal reflux disease without esophagitis Coronary artery disease involving shoshone[place]bannock coronary artery of shoshone[place]ann[place] heart without angina pectoris Expected: 10/06/2024 (Approximate), Expires: 10/06/2025 Comprehensive metabolic panel Lab Routine Primary hypertension Mixed hyperlipidemia Coronary artery disease involving [place] coronary artery of shoshone[place]ann[place] heart without angina pectoris Expected: 10/06/2024 (Approximate), Expires: 10/06/2025 Lipid panel Lab Routine Mixed hyperlipidemia Coronary artery disease involving [place]bann[place] coronary artery of shoshone-bannock heart without angina pectoris Expected: 10/06/2024 (Approximate), Expires: 10/06/2025 Microalbumin / creatinine, urine ratio Lab Routine Primary hypertension Expected: 10/06/2024 (Approximate), Expires: 10/06/2025 Urinalysis with reflex microscopic (clean catch) Lab Routine Primary hypertension Expected: 10/06/2024 (Approximate), Expires: 10/06/2025 documented as of this encounter Visit Diagnoses Diagnosis Coronary artery disease involving shosh[place]bann[place] coronary artery of shoshone[place]bannock heart without angina pectoris- Primary Gastro-esophageal reflux disease without esophagitis Unspecified osteoarthritis, unspecified site Primary hypertension Unspecified essential hypertension Mixed hyperlipidemia Mixed hyperlipidemia Prostate cancer screening Special screening for malignant neoplasm of prostate BPH with obstruction/lower urinary tract symptoms documented in this encounter Additional Health Concerns Assessment Noted Time PHQ-9 Depression Total Score: 1 02/27/20 23 6:00 PM EST documented as of this encounter Care Teams Campus Director Relationship Specialty Start Date End Date Shaikh Grove MD [address] [place] [address] PCP - [facility] 03/12/22 Sony Rao MD [address] [place] [address] PCP - General Family Medicine 10/15/23 Iraida Murillo NP [address] [place] [phone] Nurse Practitioner Family Medicine 10/15/23 documented as of this encounter
[2024-10-14 10:35] LABS: Hematocrit 44.0 % (42.0-54.0); Hemoglobin 14.9 g/dL (14.0-18.0); Immature Granulocytes Abs Auto 0.02 10^3/uL (0.00-0.03); Immature Granulocytes Pct Auto 0.2 % (0.0-0.5); Lymphocytes Absolute Auto 1.6 10^3/uL (1.2-3.8); Mean Corpuscular HGB Conc 33.9 g/dL (29.9-35.2); Mean Corpuscular Hemoglobin 31.6 pg (25.9-34.0); Mean Corpuscular Volume 93.2 fL (80.0-94.0); Platelet Count 185 10^3/uL (150-450); Red Blood Count 4.72 10^6/uL (4.70-6.10); White Blood Count 8.5 10^3/uL (4.0-11.0)
[2024-10-14 11:00] LABS: Alanine Aminotransferase 28 U/L (16-63); Albumin Globulin Ratio 1.0; Albumin Level 3.5 g/dL (3.4-5.0); Alkaline Phosphatase 146 U/L (46-116); Anion Gap 11.2; Aspartate Amino Transferase 21 U/L (15-37); Blood Urea Nitrogen 21.0 mg/dL (7.0-18.0); Calcium 9.4 mg/dL (8.5-10.1); Carbon Dioxide 28.9 mmol/L (21.0-32.0); Chloride 107 mmol/L (98-107); Cholesterol 126 mg/dL (<=200); Estimated GFR (African America >60 (>=60 mL/min/1.73m^2); Estimated GFR (Non-African Ame >60 (>=60 mL/min/1.73m^2); Globulin 3.6 g/dL; Glucose 110 mg/dL (74-106); HDL Cholesterol 33 mg/dL (40-60); Potassium 4.1 mmol/L (3.5-5.1); Sodium 143 mmol/L (136-145); Total Protein 7.1 g/dL (6.4-8.2); Triglycerides 93 mg/dL (<=150); VLDL CHOLESTEROL 18.6 mg/dL
[2024-10-14 11:14] LABS: Glucose Urine UA NEGATIVE (NEGATIVE)
[2024-10-14 11:44] LABS: Cast Seen? NONE SEEN #/LPF (NONE SEEN); Crystals Seen? None Seen #/HPF (None Seen)
[2024-10-15 04:07] LABS: PSA, Free 1.83 ng/mL
== END 2024-10-14 09:45 | disposition home or self-care (01) ==
LOC: LAB 09:57
PROVIDERS: PCP Nurse Practitioner; Visit Provider Nurse Practitioner
DX: N40.1 Benign prostatic hyperplasia with lower urinary tract symptoms (principal); N13.8 Other obstructive and reflux uropathy; K21.9 Gastro-esophageal reflux disease without esophagitis; I25.10 Atherosclerotic heart disease of native coronary artery without angina pectoris; E78.2 Mixed hyperlipidemia; I10 Essential (primary) hypertension
CPT/HCPCS: 36415; 80053; 80061; 81001; 82043; 82570; 84153; 84154; 85025

== ENCOUNTER 2024-12-31 12:31 | Outpatient (OUT) | payer OTHER, SELFPAY ==
--- OUTSIDE RECORDS SUMMARY | 2024-03-17 05:00 | XMS_ITS ---
Author Organization [facility] Address [address] [place] [address] Care Team Providers Care Polishing Pad Mounter Name Role Phone SHAIKH SHARP Primary Care Provider Anmol Villeda [facility] [phone] REASON FOR VISIT RIGHT RC STRAIN Encounters Encounter Location Date Provider Diagnosis [facility] [address] [place] [address] [place] [address] 03/17/2024 Anmol Aviles Plan Of Treatment No Information Progress Notes * BELÉN ZAMORA LDOB: (79 yo M)Acc No.[id number]:03/17/2024 Patient:?BELÉN ZAMORA :?Anmol Aviles MDDOB:1945???Age:78 Y ???Sex:MaleDate:03/17/2024Phone:[phone]:[address] [place], [place] [id number]:SHAIKH LILA Subjective: * Chief Complaints: * 1 . RIGHT RC STRAIN. * Medical History: Objective: * Vitals: Assessment: Plan: * Treatment: Forms: * Images: * Electronic signature of Anmol Aviles MD on 12/31/2024 at 12:33 PM EDTSign off status: Pending * Provider: John Aviles MD Date: 0 03/17/2024 Generated for Printing/Faxing/eTransmitting on:?12/31/2024 12:33 PM EDT
--- OUTSIDE RECORDS SUMMARY | 2024-12-23 10:30 | XMS_ITS | Encounter Summary ---
Author Organization [facility] Address [address] [place] [address] Care Team Providers Care Edge Inker Heels Name Role Phone Shaikh SHARONDA Grove Unavailable [phone] Sony Rao MD Primary Care Provider [phone] Reason for Visit * ReasonCommentsFollow-up Encounter Details DateTypeDepartmentCare Team (Latest Contact Info)Gdwbissgxzn60/14/2025 10:30 AM EDTOffice Visit [facility] [address] [place] [address] Jr. Chaka Pulido, DO [address] [facility] [address] [place] [address] Right hip pain Social History Tobacco UseTypesPacks/DayYears UsedDateSmoking Tobacco: NeverPassive Smoke Exposure: NeverSmokeless Tobacco: NeverAlcohol UseStandard Drinks/WeekComments Never0 (1 standard drink = 0.6 oz pure alcohol)PHQ-2AnswerDate RecordedPatient Health Questionnaire-2 Vywsc706Sex and Gender InformationValueDate RecordedSex Assigned at BirthNot on fileLegal CjkMoew0905/24/2022 11:45 PM EDT Gender IdentityNot on fileSexual OrientationNot on filedocumented as of this encounter Progress Notes * Jr. Chaka Pulido DO - 12/23/2024 10:30 AM EDT Images from the original note were not included. HISTORY OF PRESENT ILLNESS: EST PT Nabil Keenan is an 79 y.o. @ male. (EST PT) S/P (R) MIGUELINA 04/27/22 (~2YRS 8MO) XRAY RT HIP TODAY EPIC 12/23/24 XRAYS, 06/16/22 IN CHANGE (EXA) NO BONE SCAM NO MDP / PREDNISONE FINISHED PHYSICAL THERAPY ; POST-OP NO PAIN MGMT DOING WELL. HIS ONLY CONCERN IS MILD STIFFNESS WHEN HE FIRST WAKES UP, EASES HE MOVES AROUND. NOTES GOOD ROM ; DENIES ANY WEAKNESS - AMBULATES WITHOUT AID. DENIES ANY SWELLING. TAKING RX PAIN MEDS WEARS AFO ON LT FOOT FOR FOOT DROP. HE DID NOT CONTACT DR BATRES (WOULD LIKE CONTACT INFO AGAIN) ALLERGIES: No Known Allergies HOME MEDICATIONS: Current Outpatient Medications Medication Instructions aspirin 81 MG chewable tablet 1 tablet, Daily atorvastatin (LIPITOR) 40 mg, Oral, Nightly, 5PM carvedilol (COREG) 3.125 mg, Oral, 2 times daily with meals enalapril (VASOTEC) 2.5 mg, Oral, Daily, Take 1 tablet (2.5 mg) by mouth Daily furosemide (LASIX) 20 mg, Oral, Daily meloxicam (MOBIC) 15 mg, Oral, Daily PRN Multiple Vitamins-Minerals (Eye Vitamins) capsule 1 capsule, Daily omega-3 (FISH OIL) 1,000 mg, Daily omeprazole (PRILOSEC) 20 mg, Oral, Daily PHYSICAL EXAM: Hip Musculoskeletal Exam Gait Gait is normal. Inspection Leg length disparity: no discrepancy Right Erythema: none Ecchymosis: none Edema: none Deformity: none Previous incision: anterolateral Incision: well-healed Palpation Right Right hip palpation is normal. Increased warmth: none Tenderness: none Range of Motion Right Right hip range of motion is within functional limits. Active ROM: normal. Passive ROM: normal. Active extension: 30. Passive extension: 30. Active flexion: 120. Passive flexion: 120. Active internal rotation: 35. Passive internal rotation: 35. Active external rotation: 40. Passive external rotation: 40. Active adduction: 25. Passive adduction: 25. Active abduction: 40. Passive abduction: 40. Strength Right Right hip strength is normal. Extension: 5/5. Flexion: 5/5. Internal rotation: 5/5. External rotation: 5/5. Adduction: 5/5. Abduction: 5/5. Neurovascular Right Right hip neurovascular exam is normal. Pulses - PT: normal Posterior tibial: 2+ General Constitutional: appears stated age Labored breathing: no Psychiatric: normal mood and affect Neurological: alert and oriented x3 Skin: intact Lymphadenopathy: none Vitals: There is no height or weight on file to calculate BMI. Tobacco Use: Low Risk (06/12/2024) Patient History Smoking Tobacco Use: Never Smokeless Tobacco Use: Never Passive Exposure: Never Alcohol Use: Not At Risk (09/25/2019) Received from [facility] AUDIT-C Q1: How often do you have a drink containing alcohol?: Never Average Number of Drinks: Not on file Frequency of Binge Drinking: Not on file IMAGING: XR hip right 2 or 3 views Imaging Result: AP and lateral of right hip showed acceptable position and alignment of right total hip arthroplasty. There was no evidence of loosening of the acetabular cup or femoral stem. Femoral head was well centered in the acetabular liner without evidence of asymmetric or accelerated wear. There was no gross evidence of fracture and/or dislocation. Impression: Unremarkable right total hip arthroplasty. Procedures Orders Placed This Encounter Procedures XR hip right 2 or 3 views Reason for exam:: PAIN ASSESSMENT: ICD-10-CM 1. Right hip pain M25.551 XR hip right 2 or 3 views PLAN: Patient is doing very well and is pleased with his progress as am I he has only complaints of mild stiffness in the morning. He states my hip is 100% better than it was before surgery . We'll see him back in 2 years to reassess his left hip. Questions answered in laymen terms at the bedside. The diagnosis, home exercise plan and any ongoing restrictions/ recommendations reviewed. If unable to be reached in office, I recommend evaluation at nearest Emergency Room if any symptoms worsened or new symptoms develop for requiring urgent evaluation. documented in this encounter Plan of Treatment DateTypeDepartmentCare Team (Latest Contact Info)Xbvsmokqnbi69/12/2027 10:45 AM EDTOffice Visit [facility] [address] [place] [address] Jr. Chaka Pulido DO [address] [facility] [address] [place] [address] documented as of this encounter Procedures Procedure NamePriorityDate/TimeAssociated DiagnosisCommentsXR HIP 2 OR 3 VW NTHDXGemahbp78/14/2025 11:02 AM EDT Right hip pain documented in this encounter Results * XR hip right 2 or 3 views (12/23/2024 11:02 AM EDT)Anatomical RegionLaterality ModalityLower Extremities, HipRightRadiographic ImagingSpecimen (Source) Anatomical Location / LateralityCollection Method / VolumeCollection Time Received Time Narrative 12/23/2024 11:15 AM EDT Imaging Result: AP and lateral of right hip showed acceptable position and alignment of right total hip arthroplasty. ??There was no evidence of loosening of the acetabular cup or femoral stem. ??Femoral head was well centered in the acetabular liner without evidence of asymmetric or accelerated wear. ?? There was no gross evidence of fracture and/or dislocation. ??Impression: Unremarkable right total hip arthroplasty. Authorizing ProviderResult TypeResult StatusJr. Chaka Pulido DOIMG XR PROCEDURESFinal Result documented in this encounter Visit Diagnoses Diagnosis Right hip pain Pain in joint, pelvic region and thigh documented in this encounter Additional Health Concerns AssessmentNoted TimePHQ-9 Depression Total Score: 6:00 PM EST documented as of this encounter Care Teams Team MemberRelationshipSpecialtyStart DateEnd Date Shaikh Grove MD [address] [place] [address] PCP - [facility]03/12/22 Sony Rao MD [address] [place] [phone] PCP - GeneralFamily Medicine11/14/24documented as of this encounter
--- OUTSIDE RECORDS SUMMARY | 2024-12-23 11:05 | XMS_ITS | Encounter Summary ---
Author Organization [facility] Address [address] [facility] [place] [address] Care Team Providers Care Supervisor Fertilizer Processing Name Role Phone Shaikh SHARONDA Grove Unavailable [phone] Sony Rao MD Primary Care Provider [phone] Encounter Details DateTypeDepartmentCare Team (Latest Contact Info)Nzwsjaixdvx36/14/2025 11:05 AM EDTAncillary Procedure [facility] [address] [place] [address] Social History Tobacco UseTypesPacks/DayYears UsedDateSmoking Tobacco: NeverPassive Smoke Exposure: NeverSmokeless Tobacco: NeverAlcohol UseStandard Drinks/WeekComments Never0 (1 standard drink = 0.6 oz pure alcohol)PHQ-2AnswerDate RecordedPatient Health Questionnaire-2 Sdqfy387Sex and Gender InformationValueDate RecordedSex Assigned at BirthNot on fileLegal LycSqeq9705/24/2022 11:45 PM EDT Gender IdentityNot on fileSexual OrientationNot on filedocumented as of this encounter Plan of Treatment DateTypeDepartmentCare Team (Latest Contact Info)Abebwetcqst97/12/2027 10:45 AM EDTOffice Visit [facility] [address] [address] Jr. Chaka Pulido, DO [address] [facility] [address] [place], [place] [phone] documented as of this encounter Procedures Procedure NamePriorityDate/TimeAssociated DiagnosisCommentsXR HIP 2 OR 3 VW AINZQDwbassb17/ 11:02 AM EDT Right hip pain documented [...] filedocumented in this encounter Additional Health Concerns AssessmentNoted TimePHQ-9 Depression Total Score: 6:00 PM EST documented as of this encounter Care Teams Team MemberRelationshipSpecialtyStart DateEnd Date Shaikh Grove MD [address] [place] [address] PCP - [facility]03/12/22 Sony Rao MD [address] [place] [address] PCP - GeneralFaally Medicine11/14/24documented as of this encounter
--- OUTSIDE RECORDS SUMMARY | 2024-12-25 05:20 | XMS_ITS | Continuity of Care Document ---
Author Organization [facility] Address [address] [place] [address] Phone Care Team Providers Care Jig Mill Operator Name Role Phone NON STAFF Primary Care Provider Unavailabl e Yolie Padilla DO Attending Provider Care Teams Patient Care Team Team Status: Active Member Role Status Dates NON STAFF Primary Care Provider Active Patient Care Team Team Status: Inactive Member Role Status Dates NON STAFF Primary Care Provider Active Start: December 25, 2024 End: December 25, 2024Jeleilani Padilla DOAttending ProviderActiveStart: December 25, 2024 End: December 25, 2024 Chief Complaint and Reason for Visit Chief Complaint Admit Date med refills December 25, 2024 8 :12am Reason for Visit Admit Date Swelling, mass, or lump on face December 25, 2024 8:12am Hyperlipidemia December 25, 2024 8 :12am Hypertension December 25, 2024 8 :12am Allergies, Adverse Reactions, Alerts Allergen Type Severity Reaction Last Updated Verified Status No Known Allergies Allergy Unknown December 25, 2024 8:27amYesActive Social History Smoking Status Status Start Date End Date Date of Observa tion Ex-smoker (finding) December 25, 2024 8:34am Observation Status Observation Response Date of Response Legal Sex Male (finding) Sex [facility]igned [facility] 1945 Family History Relationship Condition Age at Onset Recorded Date/T key mother Heart murmur Unknown Malignant neoplasmUnknownHypertensionUnknowndaughterMalignant neoplasm of throat UnknownfatherMedical history unknownUnknownbrotherMyocardial infarctionUnknown Diabetes mellitusUnknownbrotherTraffic vehicular accidental deathUnknownfather DeceasedUnknownmotherDeceasedUnknown Problems Active Problems Medical Problem Onset Date Status Comments Swelling, mass, or lump on face Unknown Active Inactive/Resolved Problems Medical Problem Onset Date Status Comments Osteoarthritis of right hip Unknown Resolved Problem List clean-up per request of Phys. EHR Cmte Hyperlipidemia Unknown Resolved HypertensionUnknownResolved Medications Medication Status Dose Units Route Directions Qty Days St art Date Stop Date End Date Instructions Adherence Qmg1246-Jij Fxu-Jhze-Skj-Asb-C (Plenvu) 140-9-5.2 gram powder in packet, sequential Discontinued 140 ML PO .COMPLEX 1 1 November 30, 2023 12:00am November 30, 2023 10:18amFirst does at 4pm the day before the colonoscopy; second dose at 11pm the night before the colonoscopy.Aqh6951-Lyj Lrl-Aate-Urz-Asb-C (Plenvu) 140-9-5.2 gram powder in packet, sequential Discontinued0.ROUTE.MXRICJA9Maemkbvnd 20th, 2024 10:18amOctober 2023 9:58amtake first at AT 4 PM the day before the colonscopy, then take second dose at 11pm the night beforecolonscopyCarvedilol 3.125 mg tabletActive3.125MGPOTwice hnqcb974Amzobgeom 15th, 2025 3:46pmmust administer with a meal/foodComplies with drug therapyAtorvastatin 40 mg gsxjamEuwfpm87ZGFAFbjvd wldkszi43SmsoanfbpNovember 24, 2024 3:47pmComplies with drug therapyEnalapril Maleate 2.5 mg tabletActive2.5MG NSLfidd902Zjtqjkzqy 17th, 2025 12:00amComplies with drug therapyAtorvastatin 40 mg CrbhwsQllbitrtoyza10SBUFPmtezHadahmt 2022 1:00amSeptember 2024 3:47pmMetformin 500 mg VwoauyHvmlrwlinzwx063NTYVPcrzc dailyJanuary 2022 1:00amOctober 2023 9:58amIron Ps Rdlvzvq-O96-Bvfnp Acid (Poly-Iron 150 Forte) 150-25-1 mg-mcg-mg liacenxUnfurmpvcjti6NHIHILhbwjGijzciz 2022 1:00amOctober 2023 9:58amAspirin (Aspir-81) 81 mg Tablet,Delayed Release (Dr/Ec)Ooloqaiuvagx72NYBHPokwvHxqzafj 2022 1:00amFebruary 2022 11:56amCarvedilol 3.125 mg TabletDiscontinued3.125MGPOTwice dailyJanuary 2022 1:00amSeptember 2024 3:47pmmust administer with a meal/foodTamsulosin 0.4 mg CapsuleActive0.4MGPODailyJanuary 2022 1:00amComplies with drug therapyVitamin B Complex TbihvdRhuffb7KQRGOFchslXqsqhso 2022 1:00am Complies with drug therapySertraline 50 mg NeqxnwDutzxfzyuepy27PTDJVgvnwWwovbst 2022 1:00amOctober 2023 10:13ygCkxujvlkmbtw-Rrxfucjt-Zrnyye (Multivitamin 50 Plus) HoiuanFogcmh3DCIKDNrzgtGpwelfw 2022 1:00amComplies with drug therapyVitamins A,C,A-Xryo-Pslsys 14,320-226-200 twbk-oq-noqm Capsule Rbueez7RHEOWWdiuaOvlmsav 2022 1:00amComplies with drug therapyOmeprazole 20 mg Tablet,Delayed Release (Dr/Ec)Sfamyxeokwhx06EJHTYeczzWjgstbf 2022 1:00amOctober 2024 8:31amOmega 1-Inm-Nbu-Fish Oil (Fish Oil) 1,200 (144- 216) mg RbersgoAbfpes4ASONUSaafkFoqwfmn 2022 1:00amComplies with drug therapyAspirin 81 mg ibufjovRhumxusfyudj49GCFQCvmge baalm0180Vxvfbusu 2022 1:00amOctober 2023 10:02amMeloxicam 15 mg vxoabrBvzurf93UDFNJqife as needed for painOct2023 12:00amFreeTextSig: Oral; Note: Source Status: Taking; Qty: 30 Tablet; Provider: Lizzy Chung ( )Complies with drug therapyAspirin 81 mg qsjzaptRucsjk90NBFOUotmtIaeguob 2023 12:00am Complies with drug therapyDiclofenac Sodium 50 mg tablet,delayed release (DR/EC) Rovlxaowmlgw24LRBKSxykp dailyOctuofl health [facility] 2024 12:00amOctuofl [facility] 2024 8:29am Furosemide (Lasix) 20 mg kozrsgSwrcmd37MICMVlamoKjiucwv 2024 12:00am Complies with drug therapyAlbuterol Sulfate 90 mcg/actuation HFA aerosol inhaler Ddhazbwxpvax7OCONIUDWFSJSKKKRFUB 4-6 HOURS as neededOct2024 12:00am December 25, 2024 8:29amFluticasone Propionate (Flonase Allergy Relief) 50 mcg/actuation spray,buixvferodWkekqtczfilx8KPOBLYOTUXDABJYRpojsUupaaqu 2024 12:00amOctuofl health [facility] 2024 8:30amadminister into each nostrilFamotidine 20 mg meluqiJlcmgg31QLCGAsbbh dailyOctuofl health - [facility] 2024 12:00amComplies with drug therapy Immunizations Immunization Event Date Not Given Reason Dose Number Tea Leaf Reader Lot Number Vaccine Information Statement (VIS) Detail Administration Location COVID-19 mRNA, Comirnaty ([employer]) May 15 COVID-19 mRNA, Comirnaty ([employer])June 05OVID-19 mRNA, Comirnaty ([employer])February 12OVID19 mRNA Comirnataaron ([employer])November 04, 2021 Medical Equipment Device Date Implanted Device Details Orthopaedic bone screw, non-bioabsorbable, sterile April 27, 2022 ARIAS: [id number] Issuing Agency: [facility] Device Id: [id number] Expiration Date: 2031-12-10 Lot Number: [id number] shellbruary 2022UDI: [id number] Issuing Agency: [facility] Device Id: [id number] Expiration Date: 2032-02-09 Lot Number: [id number]-[id number] polyethylene acetabular linerFebruary 2022UDI: ()[id number] Issuing Agency: [facility] Device Id: [id number] Expiration Date: 2026-05-09 Lot Number: [id number] prosthesis hole plugFebruary 2022UDI: ()[id number] Issuing Agency: [facility] Device Id: [id number] Expiration Date: 2031-12-10 Lot Number: [id number] femoral head prosthesisFebruary 2022UDI: ()[id number] Issuing Agency: [facility] Device Id: [id number] Expiration Date: 2026-10-09 Lot Number: [id number] hip femur prosthesis, modularFebruary 2022UDI: ()[id number] Issuing Agency: [facility] Device Id: [id number] Expiration Date: 2032-02-09 Lot Number: [id number] Vital Signs Vital Reading Result Reference Range Collection Date/Time Height 67 [in_i] December 25, 2024 8:85ruNkqjhl41.88 kgOctuofl health - [facility] 2024 8:19amHeart Rate75 /ikr89-424Srkknsx 2024 8:19amRespiratory rate20 /lrs38-29Nmmowih 2024 8:19amOxygen saturation by Pulse gftoazxn79 %95-100[facility] 2024 8:19amBP Tesuzbaj105 mm[Hg]100-140[facility] 2024 8:19amBP Gjjgejrxx35 mm[Hg] 60-100[facility] 2024 8:19amBMI (Body Mass Index)34.1 kg/o6Wzuqwts 2024 8:19am Advance Directives Advance Directive Response Recorded Date/ Time Advance Directives No April 10, 2022 11:22am Insurance Providers Guarantor Nabil Keenan , Address [address] [place] [address] [place] [id number] Info.Home Phone: Payer Policy Id Subscriber's Name Subscriber Id Effectiv e Date Expiration Date Medicare [id number] Nabil Gomez SR Ree [id number] Encounters Encounter Location(s) Arrival/Admit Date Discharge/Depart Date Provider(s) Departed Physician/Prov ider Office Visit -[facility] December 25, 2024 8:12am December 25, 2024 9:20am Yolie Padilla , DO Recent Diagnosis Onset Date Admit Date Swelling, mass, or lump on face Unknown December 25, 2024 8:12am Hyperlipidemia Unknown December 25 8:12am Hypertension Unknown December 25 8:12am Assessments Diagnosis Onset Date Resolution Status Admit Date Swelling, mass, or lump on face acuteOct2024 8:12amHyperlipidemiainactiveOctober 2024 8:12am HypertensioninactiveOctober 2024 8:12am Plan of Treatment Future Tests Future scheduled test information is unavailable Pending Tests Test Name Ordered Date Scheduled Date CT facial bones wo con December 25, 2024 9:14am Future Visits Future appointment information is unavailable Referrals to Other Providers Referral information is unavailable Future Procedures Future procedure information is unavailable Future Medications Future medication information is unavailable Patient Instructions Patient instructions are unavailable
--- OUTSIDE RECORDS SUMMARY | 2024-12-31 12:33 | XMS_ITS | Patient Health Record ---
Author Organization [facility] Address [address] [place] [address] Care Team Providers Care Parent Trainer Name Role Phone SHAIKH SHARP Primary Care Provider Anmol Villeda Unavailable [phone] Danni Obregon Unavailable [phone] Allergies No Known Allergies Reason For Referral No Information Social History Tobacco Use: Social History Observation Description Date Details (start date - stop date) Never Smoker NA - NA AUDIT-C (Standard) Question Answer Notes Did you have a drink containing alcohol in the p ast year? No Rwkbgt4XfnhhyioeklydfHqolwcsrIltzrop Control (Standard) Question Answer Notes Tobacco use: Nonsmoker Vital Signs Height 5'7 in 02/04/2024 Mqwuyg570 lbs104/05/2023BMI36.02104/05/2023 Encounters Encounter Location Date Provider Diagnosis [facility] Office [address] [place] [address] [place] [address] 02/04/2024 Danni Obregon Strain of rotator cuff of right shoulder S46.011A Assessments Encounter Date Diagnosis (ICD Code) Assessment Notes Treatment Notes Treatment Clinical Notes Section Notes 02/04/2024 Strain of rotator cuff of right shoulder (ICD-10 - S46.011A) 02/04/2024OtherI discussed with patient that he does have full strength [...] [facility] [place] [address] [place] [address] [id number] Pierre ZAMORA - patient is the insured
--- OUTSIDE RECORDS SUMMARY | 2024-12-31 12:33 | XMS_ITS | Clinical Summary ---
Author Organization [facility] Address [address], [address] [place] [address] Care Team Providers Care Engagement Specialist Name Role Phone Amos Delgado MD Primary Care Provider Unava ilable Allergies No known active allergies Medications MedicationSigDispense QuantityRefillsLast FilledStart DateEnd DateStatus enalapril (VASOTEC) 2.5 MG tablet Take by mouthActive furosemide (LASIX) 20 MG tablet TAKE 1 TABLET BY MOUTH EVERY UTRJWWE7308/18/2019Active omeprazole (PRILOSEC) 20 MG delayed release capsule TAKE 1 CAPSULE BY MOUTH EVERY DAY08/18/2019Active atorvastatin (LIPITOR) 40 MG tablet TAKE 1 TABLET BY MOUTH EVERY DAY08/18/2019Active Multiple Vitamins-Minerals (MULTIVITAMIN ADULT EXTRA C PO) multivitaminActive Multiple Vitamins-Minerals (EYE VITAMINS) CAPS Take by mouthActive [place]-3 Fatty Acids (FISH OIL OMEGA-3) 1000 MG CAPS Daily with supperActive aspirin 81 MG chewable tablet dailyActive carvedilol (COREG) 3.125 MG tablet Take by mouth daily10/15/2020ctive zoster vaccine live, PF, (ZOSTAVAX) 05498 UNT/0.65ML injection Zostavax (PF) 19,400 unit/0.65 mL subcutaneous suspensionActive valACYclovir (VALTREX) 1 g tablet valacyclovir 1 gram tabletActive metFORMIN (GLUCOPHAGE) 500 MG tablet Take 500 mg by mouth 2 times daily (with meals)10/15/2020ctive pravastatin (PRAVACHOL) 40 MG tablet pravastatin 40 mg tabletActive tamsulosin (FLOMAX) 0.4 MG capsule Take 1 capsule by mouth every evening 90 capsule 03/27/2022ctive Active Problems ProblemNoted DateDiagnosed DateBPH with obstruction/lower urinary tract symptoms 11/04/2019Elevated PSA11/04/2019 Family History Medical HistoryRelationNameCommentsHeart DiseaseMotherRelationNameStatusComments Mother Social History Tobacco UseTypesPacks/DayYears UsedDateSmoking Tobacco: NeverSmokeless Tobacco: Never Tobacco Cessation:Counseling Given: Not Answered Alcohol UseStandard Drinks/WeekCommentsNever0 (1 standard drink = 0.6 oz pure alcohol)AUDIT-CAnswerDate RecordedQ1: How often do you have a drink containing alcohol?Never09/25/2019Average Number of DrinksNot on file09/25/2019Frequency of Binge DrinkingNot on file09/25/2019Sex and Gender InformationValueDate Recorded Sex Assigned at BirthNot on fileLegal GnhPcmg0204/21/2012 10:39 AM ESTGender IdentityNot on fileSexual OrientationNot on file Last Filed Vital Signs Vital SignReadingTime TakenCommentsBlood Lrwjodcb104/8009 2:21 PM EDT Ieloo848112/05/2021 1:50 PM EEPMgxjwpxhvfq01.6 ??C (97.8 ??F)12/05/2021 1:50 PM EDTRespiratory Rate--Oxygen Zciyprchfi93%11/03/2020 3:14 PM EDTInhaled Oxygen Concentration--Ionmur791.7 kg (222 lb)12/05/2021 1:50 PM HPMUxzmon036.2 cm (5' 7 )12/05/2021 1:50 PM EDTBody Mass Index34.77012/05/2021 1:50 PM EDT Plan of Treatment Not on file Insurance Care Teams Team MemberRelationshipSpecialtyStart DateEnd Date Amos Delgado MD [address] [place] [address] PCP - [facility]09/25/19
--- OUTSIDE RECORDS SUMMARY | 2024-12-31 12:33 | XMS_ITS | Encounter Summary ---
Author Organization [facility] Address [address] [facility] [[email or web address]] [place] [address] Care Team Providers Care Mine Deputy Name Role Phone Shaikh SHARONDA Grove Unavailable [phone] Sony Rao MD Primary Care Provider [phone] Encounter Details DateTypeDepartmentCare Team (Latest Contact Info)Ogdvgrvydwk04/14/2025Travel Social History Tobacco UseTypesPacks/DayYears UsedDateSmoking Tobacco: NeverPassive Smoke Exposure: NeverSmokeless Tobacco: NeverAlcohol UseStandard Drinks/WeekComments Never0 (1 standard drink = 0.6 oz pure alcohol)PHQ-2AnswerDate RecordedPatient Health Questionnaire-2 Rkewb883Sex and Gender InformationValueDate RecordedSex Assigned at BirthNot on fileLegal AtgVfrq9905/24/2022 11:45 PM EDT Gender IdentityNot on fileSexual OrientationNot on filedocumented as of this encounter Plan of Treatment DateTypeDepartmentCare Team (Latest Contact Info)Afpeposoetp47/12/2027 10:45 AM EDTOffice Visit [facility] [address] [place] [phone] Jr. Chaka Pulido DO [address] [facility] [[email or web address]] [address] [place] [address] documented as of this encounter Visit Diagnoses Not on filedocumented in this encounter Additional Health Concerns AssessmentNoted TimePHQ-9 Depression Total Score: 6:00 PM EST documented as of this encounter Care Teams Team MemberRelationshipSpecialtyStart DateEnd Date Fawd, Jeronimo, MD [address] [place] [address] PCP - [facility]03/12/22 Sony Rao MD [address] [place] [address] [facility]24documented as of this encounter
--- OUTSIDE RECORDS SUMMARY | 2024-12-31 12:33 | XMS_ITS | Clinical Summary ---
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 times daily.Active CARVEDILOL ORAL Indications:Bullous keratopathyTake by mouth.Active ENALAPRIL MALEATE ORAL Indications:Bullous keratopathyTake by mouth.Active PRAVASTATIN SODIUM (PRAVASTATIN ORAL) Indications:Bullous keratopathyTake by mouth.Active LYCOPENE ORAL Indications:Bullous keratopathyTake 300 mg by mouth once daily.Active Geneva-3 Fatty Acids-Vitamin E (FISH OIL) 1,000 mg cap Indications:Bullous keratopathyTake 1 capsule by mouth.Active COMBIGAN 0.2-0.5 % drop Use 1 Drop in both eyes twice daily.11/05/2013ctive furosemide (LASIX) 20 mg tablet Take 20 mg by mouth twice daily.Active gabapentin (NEURONTIN) 100 mg capsule Take 100 mg by mouth three times daily.Active sertraline (ZOLOFT) 50 mg tablet once daily.05/07/2017Active Active Problems ProblemNoted DateDiagnosed DateOpen-angle glaucoma of right eye, moderate stage 10/04/2017Central corneal ulcer of left eye09/06/20172118Ncwnwdfjarpl22/09/2017 Nuclear sclerotic cataract of both eyes05/17/2016Cornea replaced by transplant 10/22/2014Nuclear sclerotic cataract of right eye10/22/2014Lens replaced by other means10/23/2013ullous oargzksxlmn48/14/2014CAD (coronary artery disease) HyperlipemiaOA (osteoarthritis) Overview (05/12/2016): back knees Family History Medical HistoryRelationCommentsHeartBrotherDiabetesMaternal GrandmotherCataract MotherGlaucomaMotherRelationStatusCommentsBrotherMaternal GrandmotherMother Social History Tobacco UseTypesPacks/DayYears UsedDateSmoking Tobacco: FormerSmokeless Tobacco: NeverAlcohol UseStandard Drinks/WeekCommentsYes0 (1 standard drink = 0.6 oz pure alcohol)Sex and Gender InformationValueDate RecordedSex Assigned at BirthNot on fileLegal XcySxqe8409/11/2013 12:02 PM EDTGender IdentityNot on fileSexual OrientationNot on file Last Filed Vital Signs Vital SignReadingTime TakenCommentsBlood Shkrbfio904/7603 4:51 PM EST Utlot0471 4:51 PM ESTTemperature--Respiratory Umgp4616 4:51 PM ESTOxygen Zmzrovdmkv89%05/17/2016 4:51 PM ESTInhaled Oxygen Concentration-- Gwkgam36.7 kg (211 lb)05/12/2016 10:44 AM FUKHkmumu902.2 cm (5' 7 )05/12/2016 10:44 AM ESTBody Mass Index33.05005/12/2016 10:44 AM EST Plan of Treatment Health MaintenanceDue DateLast DoneCommentsAnxiety Soicrdubc33/18/1965Depression Okztphzlu02/18/1965Hepatitis C Omorvmhgt86/18/1965DTaP,Tdap,Td Vaccine (1 - Tdap)1965Diabetes Rjpopvewm93/18/1992Pneumococcal Vaccine: 50+ (1 of 1 - PCV)1996Shingrix Vaccine (2 of 3)01/08/201509//2014RSV Vaccine (1 - 1- dose 75+ series)2021dvance Directive Hhouyonjks43/01/2025ovid-19 Vaccine (1 - 2024-26 season)2024Influenza Vaccine (#1)2024 Medical Devices ImplantedTypeAreaManufacturerDevice IdentifierShelf Expiration DateModel / Serial / LotCorneal Tissue Fee-Eye Bank - [id number] [facility]orne[facility]: [id number]/23/2014 CORNEAL TISSUE / [id number] / Lens Acrysof Iq +13 Diopter Stableforce 0 D Biconvex 118.7 A-Constant - [id number] Implanted:Qty: 1 [facility]/17/2016 [facility]raocular LensRight: Eye [employer] [id number]/31/[id number] 13.0 / [id number] / Insurance Advance Directives TypeDate RecordedPatient RepresentativeExplanationAdvance Directive(s)01/21/2014 7:44 AM Care Teams Team MemberRelationshipSpecialtyStart DateEnd Date Brady Cuevas PCP - GeneralFamily Medicine09/11/13
--- OUTSIDE RECORDS SUMMARY | 2024-12-31 12:33 | XMS_ITS | Clinical Summary ---
Author Organization [facility] Address [address] [place] [address] Care Team Providers Care Warehouse General Laborer Name Role Phone Sony Rao MD Primary Care Provider [phone] Allergies No known active allergies Medications MedicationSigDispense QuantityRefillsLast FilledStart DateEnd DateStatus tamsulosin (Flomax) 0.4 mg 24 hr capsule Take 0.4 mg by mouth in the morning.Active aspirin 81 mg EC tablet Take 81 mg by mouth in the morning.Active carvedilol (Coreg) 3.125 mg tablet Take 3.125 mg by mouth with breakfast and with evening meal.Active metFORMIN (Glucophage) 500 mg tablet Take 500 mg by mouth with breakfast and with evening meal.Active omeprazole (PriLOSEC) [address] capsule Take 20 mg by mouth before breakfast. Do not crush or chew.Active atorvastatin (Lipitor) 40 mg tablet Take 40 mg by mouth in the morning.Active multivitamin with minerals tablet Take 1 tablet by mouth in the morning.Active spironolactone (Aldactone) 25 mg tablet Take 1 tablet by mouth in the morning.10/10/2021ctive sertraline (Zoloft) 50 mg tablet TAKE 1 AND 1/2 TABLETS BY MOUTH DAILY AT 9AM1ctive diclofenac (Voltaren) 50 mg EC tablet Take 50 mg by mouth every 12 (twelve) hours if needed.02/01/2024ctive Active Problems ProblemNoted DateDiagnosed OqfqJmdfrramnezn65/02/2024OSA (obstructive sleep apnea)09/19/2023vascular necrosis of bone of hip08/08/2023History of left foot drop08/08/2023History of total hip pefzhysecbo84/29/2024Left foot drop08/08/2023 Osteoarthritis of right hip08/08/2023lass 2 obesity due to excess calories without serious comorbidity with body mass index (BMI) of 35.0 to 35.9 in adult 02/26/2023Encounter for general adult medical examination without abnormal iwfflknc71/18/2023AD (coronary artery disease)Hyperlipemia OA (osteoarthritis) Overview (01/15/2023): back knees Abnormal stress test01/18/2022 Overview (01/18/2022): Added automatically from request for surgery [id number] BPH with obstruction/lower urinary tract uoeudrau29Elevated PSAdenomatous polyp of colonHeme positive stoolHistory of adenomatous polyp of colon Open-angle glaucoma of right eye, moderate stage10/04/2017 01/15/2023entral corneal ulcer of left eyeornea replaced by nymxjsnatj80Nuclear sclerotic hcpvndad22 Bullous ihvvxcqhahd17resence of intraocular lens10/23/2013 01/15/2023iaphragmatic iykdct18Mitral valve disorder Overview (01/15/2023): ANNULOPLASTY RING Nonrheumatic tricuspid valve vkviryyv17 Family History Medical HistoryRelationNameCommentsHeart attackOtherRelationNameStatusComments Other Social History Tobacco UseTypesPacks/DayYears UsedDateSmoking Tobacco: FormerCigarettes Smokeless Tobacco: Never Tobacco Cessation:Counseling Given: Not Answered Alcohol UseStandard Drinks/WeekCommentsNot Currently0 (1 standard drink = 0.6 oz pure alcohol)UT Safety & EnvironmentAnswerDate RecordedFear of Current or Ex-PartnerNot on file05/03/2023Emotionally AbusedNot on file05/03/2023hysically AbusedNot on file05/03/2023Sexually AbusedNot on file05/03/2023hysically or Sexually AbusedNot on file05/03/2023Sex and Gender InformationValueDate Recorded Sex Assigned at BirthNot on fileLegal LknUxts0209/07/2021 10:26 PM EDTGender IdentityNot on fileSexual OrientationNot on file Last Filed Vital Signs Vital SignReadingTime TakenCommentsBlood Qqcntgku301/6802/11/2024 10:27 AM EST Jlxnt881802/11/2024 10:27 AM ESTTemperature--Respiratory Ahjv375904/10/2021 2:35 PM ESTOxygen Jnuebazbey52%02/11/2024 10:27 AM ESTInhaled Oxygen Concentration-- Ddkqlh720 kg (235 lb)02/11/2024 10:27 AM ZWXZiuhtd041.2 cm (5' 7 )02/11/2024 10:27 AM ESTBody Mass Index36.8102/11/2024 10:27 AM EST Plan of Treatment Health MaintenanceDue DateLast DoneCommentsMedicare Annual Wellness (AWV) 1946Depression Duuihtgis36/18/1959Adult Ubqfpiu8212/27/1968Fall Risk Xmdsztynv82/18/2012Pneumococcal Vaccine: 50+ Years (2 of 2 - PPSV23, PCV20, or PCV21)/Zoster Vaccines (2 of 2)/, 11/13/2014COVID-19 Vaccine (5 - season)/, 02/12/2021, 06/05/2020, Additional history existsInfluenza Vaccine (#1)/06/2020, 03/31/2019HIB VaccinesAged OutNo longer eligible based on patient's age to complete this topicHPV VaccinesAged OutNo longer eligible based on patient's age to complete this topicIPV VaccinesAged OutNo longer eligible based on patient's age to complete this topicMeningococcal B VaccineAged OutNo longer eligible based on patient's age to complete this topicMeningococcal VaccineAged OutNo longer eligible based on patient's age to complete this topicRotavirus Vaccines Aged OutNo longer eligible based on patient's age to complete this topic Insurance Care Teams Team MemberRelationshipSpecialtyStart DateEnd Date Sony Rao MD [address] [place] [address] [facility] Acuzdnlb18/[facility]/24
--- OUTSIDE RECORDS SUMMARY | 2024-12-31 12:33 | XMS_ITS | Clinical Summary ---
Author Organization [facility] Address [id number] [address] [place] [address] Care Team Providers Care Applied Psychology Chair Name Role Phone Amos Delgado MD Primary Care Provider Unava ilable Allergies No known active allergies Medications MedicationSigDispense QuantityRefillsLast FilledStart DateEnd DateStatus atorvastatin (LIPITOR) 40 mg tablet Take 40 mg by mouth daily.Active carvedilol (COREG) 3.125 mg tablet Take 3.125 mg by mouth 2 (two) times a day.Active furosemide (LASIX) 20 mg tablet Take 20 mg by mouth daily.Active enalapril (VASOTEC) 2.5 mg tablet Take 2.5 mg by mouth daily.Active sertraline (ZOLOFT) 50 mg tablet Take 50 mg by mouth daily.Active famotidine (PEPCID) 20 mg tablet Take 20 mg by mouth daily.Active cholecalciferol, vitamin D3, 2,000 units capsule Take 2,000 Units by mouth daily.Active aspirin 81 mg Take 81 mg by mouth daily.Active multivit-min/ferrous fumarate (MULTI VITAMIN ORAL) Take by mouth.Active docosahexanoic acid/epa (FISH OIL ORAL) Take by mouth.Active Active Problems ProblemNoted DateDiagnosed DateAdenomatous polyp of colon12/16/2018Heme positive stool11/21/2018History of adenomatous polyp of colon11/21/2018 Family History * Patient is adopted Medical HistoryRelationNameCommentsDiabetesBrotherHeart diseaseBrotherNo Known ProblemsFatherNo Known ProblemsMotherRelationNameStatusCommentsBrotherDeceased (Age 58)FatherDeceased (Age 83)Maternal GrandfatherDeceased (Age 87)Maternal GrandmotherDeceased (Age 93)MotherDeceased (Age 84)Paternal GrandfatherDeceased (Age 92)Paternal GrandmotherDeceased (Age 67) Social History Tobacco UseTypesPacks/DayYears UsedDateSmoking Tobacco: FormerCigarettes0.515 Smokeless Tobacco: NeverAlcohol UseStandard Drinks/WeekCommentsNot Currently0 (1 standard drink = 0.6 oz pure alcohol)ChildcareAnswerDate RecordedChildcare Coyaiky8708/21/2018EmploymentAnswerDate LvwrjeewXqsspbnyifBlivekp31/12/2019Purpose - LifeAnswerDate RecordedPurpose and direction in czlzIkznavh04/11/2021Sex and Gender InformationValueDate RecordedSex Assigned at BirthNot on fileLegal Sex Male10/15/2014 11:36 AM EDTGender IdentityNot on fileSexual OrientationNot on file Last Filed Vital Signs Vital SignReadingTime TakenCommentsBlood Yfxdciuk730/7612/16/2018 1:44 PM EDT Icmyj041412/16/2018 1:44 PM SLJLjbiacfgrbt29.7 ??C (98 ??F)12/09/2018 9:00 AM EDT Respiratory Umba840112/09/2018 10:00 AM EDTOxygen Dcwcopnekb52%12/09/2018 9:00 AM EDTInhaled Oxygen Concentration--Gnwrxv866.9 kg (229 lb)12/16/2018 1:44 PM EDT Slzcot362.2 cm (5' 7 )12/16/2018 1:44 PM EDTBody Mass Index35.8712/16/2018 1:44 PM EDT Plan of Treatment Health MaintenanceDue DateLast DoneCommentsDepression Qcamowuxg92/18/1959Tobacco Hmglhadmx48/18/1959DTaP,Tdap and Td Vaccines (1 - Tdap)1965Zoster (Shingles) Vaccine (1 of 2)1996Abdominal Aortic Aneurysm (AAA) Screen 12/28/2011Fall Risk Rhswwlqwj93/18/2904Odydbpmwrnl99Influenza Krwlbqa2611/10/2024 Medical Devices Not on file Insurance Care Teams Team MemberRelationshipSpecialtyStart DateEnd Date Amos Delgado MD PCP - GeneralFamily Medicine05/20/18
--- OUTSIDE RECORDS SUMMARY | 2024-12-31 12:34 | XMS_ITS | Encounter Summary ---
Author Organization [facility] Address [address] [facility] [place] [address] Care Team Providers Care Outbound Sales Professional Name Role Phone Shaikh SHARONDA Grove Unavailable [phone] Sony Rao MD Primary Care Provider [phone] Encounter Details DateTypeDepartmentCare Team (Latest Contact Info)Aifohvajlgt60/14/2025amboo flowsheet [facility] [address] [place] [address] Jr. Chaka Pulido, DO [address] [place] [address] Social History Tobacco UseTypesPacks/DayYears UsedDateSmoking Tobacco: NeverPassive Smoke Exposure: NeverSmokeless Tobacco: NeverAlcohol UseStandard Drinks/WeekComments Never0 (1 standard drink = 0.6 oz pure alcohol)PHQ-2AnswerDate RecordedPatient Health Questionnaire-2 Ewxue992Sex and Gender InformationValueDate RecordedSex Assigned at BirthNot on fileLegal EdzPpld0405/24/2022 11:45 PM EDT Gender IdentityNot on fileSexual OrientationNot on filedocumented as of this encounter Plan of Treatment DateTypeDepartmentCare Team (Latest Contact Info)Uaqjzseozzc52/12/2027 10:45 AM EDTOffice Visit [facility] [address] [place] [place] [address] Jr. Chaka Pulido, DO [address] [place] [address] documented as of this encounter Visit Diagnoses Not on filedocumented in this encounter Additional Health Concerns AssessmentNoted TimePHQ-9 Depression Total Score: 6:00 PM EST documented as of this encounter Care Teams Team MemberRelationshipSpecialtyStart DateEnd Date Shaikh Grove MD [address] [place] [address] PCP - [facility]03/12/22 Sony Rao MD [address] [place] [address] PCP - GeneralFamily Medicine11/14/24documented as of this encounter
--- OUTSIDE RECORDS SUMMARY | 2024-12-31 12:34 | XMS_ITS | Clinical Summary ---
Author Organization [facility] Healthcare Address [address] [place] [address] Care Team Providers Care Programming Internship Name Role Phone Shaikh SHARONDA Grove Unavailable [phone] Sony Rao MD Primary Care Provider [phone] Allergies No known active allergies Medications MedicationSigDispense QuantityRefillsLast FilledStart DateEnd DateStatus aspirin 81 MG chewable tablet Chew 1 tablet in the morning.Active Multiple Vitamins-Minerals (Eye Vitamins) capsule Take 1 capsule by mouth in the morning.Active omega-3 (Fish Oil) 1000 MG capsule Take 1,000 mg by mouth in the morning.Active furosemide (Lasix) 20 MG tablet Indications:Coronary artery disease involving [place] coronary artery of [place] heart without angina pectoris,Chronic heart failure with preserved ejection fraction (HCC)Take 1 tablet (20 mg) by mouth Daily 90 tablet 4Active enalapril (Vasotec) 2.5 MG tablet Indications:Coronary artery disease involving [place] coronary artery of [place] heart without angina pectoris,Chronic heart failure with preserved ejection fraction (HCC)Take 1 tablet (2.5 mg) by mouth Daily Take 1 tablet (2.5 mg) by mouth Daily 90 tablet 5Active omeprazole (PriLOSEC) [address] capsule Indications:Gastro-esophageal reflux disease without esophagitisTake 1 capsule (20 mg) by mouth Daily 90 capsule 5Active meloxicam (Mobic) 15 MG tablet Indications:Unspecified osteoarthritis, unspecified siteTake 1 tablet (15 mg) by mouth Daily as needed for mild pain 90 tablet /5Active carvedilol (Coreg) 3.125 MG tablet Indications:Primary hypertensionTake 1 tablet (3.125 mg) by mouth in the morning and 1 tablet (3.125 mg) in the evening. Take with meals. 180 tablet 5Active atorvastatin (Lipitor) 40 MG tablet Indications:Mixed hyperlipidemiaTake 1 tablet (40 mg) by mouth at bedtime 5PM 90 tablet 5Active Active Problems ProblemNoted DateDiagnosed DateProstate cancer lunzitsnh13/28/2025Gastro- esophageal reflux disease without siwvvqdgjbd65/03/2025 Assessment & Plan (06/12/2024 6:15 AM EDT): Recommendations: freq small meals, nothing to eat or drink at least 2 hours prior to bed, limit caffeine, alcohol, as well as spicy foods Meds to limit or avoid if possible: NSAIDS Elevate HOB if possible Current meds: omeprazole Body mass index (BMI) 35.0-35.9, adult06/12/20242449Xfwrgcnfvu73/03/2025 Assessment & Plan (06/12/2024 9:30 AM EDT): Fluids, atb Fu if not better ARLEEN (obstructive sleep apnea)09/19/2023 Assessment & Plan (06/12/2024 9:18 AM EDT): [...] received it in mail a few weeks ago.Reports he has not started using I just [...] sleep study. Avascular necrosis of bone of hip08/08/2023History of total hip replacement 08/08/2023Osteoarthritis of right hip08/08/2023Left foot drop08/08/2023Medicare annual wellness visit, dwpluueejp44/29/2024 Assessment & Plan (08/08/2023 1:44 PM EDT): Patient here for Medicare Wellness. Reviewed medical, surgical and social history. Reviewed medication list. Patient screened for depression, fall risk, cognitive impairment. Patient provided appropriate education on chronic medical conditions, prescription medications. Patient's health related questions and concerns addressed and answered. History of left foot drop4Class 2 obesity due to excess calories without [...] questions and address their concern. Refer to psychiatric nurse. CAD (coronary artery disease)01/15/2023 Assessment & Plan (06/12/2024 6:14 AM EDT): Current meds: asa, statin, b abad, singh inhibitor, lasix Assessment & Plan (09/19/2023 10:55 AM EDT): Stable. S/p CABG in about 1999 Cw ASA, BB, Lipitor. Denies CP, SOB. Assessment & Plan (08/08/2023 1:43 PM EDT): Stable. Recent [facility] - no sig obs CAD. Cw ASA, BB, Lipitor. Denies CP, SOB. Assessment & Plan (02/26/2023 6:39 PM EST): Stable. Recent C - no sig obs CAD. Cw ASA, BB, Lipitor. Denies CP, SOB. Gcamvxspslqk58/06/2023 Assessment & Plan (06/12/2024 6:17 AM EDT): On statin therapy Check labs yearly and prn dose changes Assessment & Plan (03/17/2024 9:02 AM EST): Currently taking Atorvastatin 40mg Most recent lipid panel August 2023 WNL Denies any myalgias. Continue current regimen Assessment & Plan (12/10/2023 4:31 PM EDT): Currently taking Atorvastatin 40mg Most recent lipid panel August 2023- WNL Denies any myalgias. Continue current regimen. Assessment & Plan (08/08/2023 1:44 PM EDT): On Lipitor 40 mg. Check Lipid panel Assessment & Plan (02/26/2023 6:40 PM EST): /w lipitor OA (osteoarthritis)01/15/2023 Overview (02/26/2023): back knees back knees BPH with obstruction/lower urinary tract lukwcdje18/25/2020 Assessment & Plan (06/12/2024 6:15 AM EDT): Current meds: tamsulosin Assessment & Plan (08/08/2023 1:43 PM EDT): He was previously on Tmasulin. Not on it anymore. Reports obstructive symptoms - polyuria, hesitancy. Denies dysuria, hematuria. Resume tamsulin Check PSA Assessment & Plan (02/26/2023 6:39 PM EST): On Flomax. Working well for him. C/w same. Adenomatous polyp of colon12/16/2018Open-angle glaucoma of right eye, moderate stage10/04/2017Central corneal ulcer of left eye09/06/2017Cornea replaced by sihinmiidb24/13/2015Nuclear sclerotic lsyexvqb20/13/2015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Presence of intraocular lens10/23/2013Diaphragmatic jkjfqu0604/22/2012 Mitral valve btyjfzvy58/11/2013 Overview (08/08/2023): ANNULOPLASTY RING ANNULOPLASTY RING Nonrheumatic tricuspid valve dondusmt57/11/2013Hypertension Assessment & Plan (06/12/2024 9:34 AM EDT): [...] with them to next visit. Resolved Problems ProblemNoted DateDiagnosed DateResolved DateEncounter for Medicare annual wellness exam/05/2024 Assessment & Plan (02/26/2023 7:09 PM EST): Doing well. No complaints to offer. Reviewed medical, surgical and social hx. Tolerating meds w/o adverse effects. Colonoscopy within 4 years ago. Counseled and educated on lifesyle measures, dietary restrictions. History of adenomatous polyp of colontrial fibrillation Encounters DateTypeDepartmentCare EkopPdvnntxnpik68/14/2025 11:05 AM EDTAncillary Procedure [facility] [address] [place] [address] 12/23/2024 10:30 AM EDTOffice Visit [facility] [address] [place] [address] Jr. Chaka Pulido, DO Right hip pain12/23/2024amboo flowsheet [facility] [address] [place] [phone] Jr. Chaka Pulido, DO 12/23/20249597Alwqhr37/05/2025linisync Result Encounter NOM[facility] External Department Unsolicited Zee Hsieh NP 10/06/2024Refill [facility] [address] [phone] Zee Hsieh NP Gastro-esophageal reflux disease without lihtvzjbinx53/28/2025[facility] [address] [address] Zee Hsieh NP Primary dtltfcgqwhiu22/28/2025bstract [facility] [address] [place] [address] Zee Hsieh NP 10/06/2024[facility] [address] [address] Zee Hsieh NP Coronary artery disease involving [place] coronary artery of [place] heart without angina pectoris (Primary Dx); Gastro-esophageal reflux disease without esophagitis; Unspecified osteoarthritis, unspecified site; Primary hypertension ; Mixed hyperlipidemia ; Prostate cancer screening; BPH with obstruction/lower urinary tract ocmnddvq61/28/2025[facility]phone [facility] [address] [place] [address] Zee Hsieh NP 10/01/2024Refill [facility] [address] [place] [address] Zee Hsieh NP from Last 3 Months Immunizations ImmunizationAdministration DatesNext DueInfluenza, seasonal, injectable 03/03/2024neumococcal Conjugate, Mabbmiruxcp04/23/2024 Family History Medical HistoryRelationNameCommentsDiabetesBrotherCancerMotherGlaucomaMother Heart diseaseMotherHypertensionMotherSkin cancerMotherRelationNameStatusComments BrotherFatherDeceasedMotherDeceased Social History Tobacco UseTypesPacks/DayYears UsedDateSmoking Tobacco: NeverPassive Smoke Exposure: NeverSmokeless Tobacco: Never Tobacco Cessation:Counseling Given: Not Answered Alcohol UseStandard Drinks/WeekCommentsNever0 (1 standard drink = 0.6 oz pure alcohol)PHQ-2AnswerDate RecordedPatient Health Questionnaire-2 Rnknt762 Sex and Gender InformationValueDate RecordedSex Assigned at BirthNot on file Legal FdsTcjz3805/24/2022 11:45 PM EDTGender IdentityNot on fileSexual Orientation Not on file Last Filed Vital Signs Vital SignReadingTime TakenCommentsBlood Bslkgucs029/8004 9:02 AM EDT Khscx621506/12/2024 9:02 AM OWAHsafntagmml12.9 ??C (98.5 ??F)06/12/2024 9:02 AM EDTRespiratory Mbob359506/12/2024 9:02 AM EDTOxygen Aivybrmujh60%06/12/2024 9:02 AM EDTInhaled Oxygen Concentration--Fksuaq222 kg (231 lb 3.2 oz)06/12/2024 9:02 AM VNUCuwuno657.2 cm (5' 7 )03/17/2024 8:37 AM ESTBody Mass Index36.21003/17/2024 8:37 AM EST Plan of Treatment DateTypeDepartmentCare Team (Latest Contact Info)Tmfyzzojczt32/12/2027 10:45 AM EDTOffice Visit [facility] [address] [facility] [place] [address] Jr. Chaka Pulido, DO [address] [facility] [address] [place], [place] [id number] Health MaintenanceDue DateLast DoneCommentsPneumococcal Vaccine: 65+ Years (2 of 2 - PPSV23, PCV20, or PCV21), 03/31/2019Medicare Annual Wellness (AWV), 02/26/2023Influenza Vaccine (#1)2024 03/03/2024, 03/01/2024, 02/12/2021, Additional history existsFOBTDiscontinued 07/31/20183173XlzcwpzbxbdLtwbixspsqjx47/13/2024, 4Colorectal Cancer ScreeningDiscontinuedCT ColonographyDiscontinuedFIT-DNADiscontinuedFIT DiscontinuedSigmoidoscopyDiscontinued Procedures Procedure NamePriorityDate/TimeAssociated DiagnosisCommentsXR HIP 2 OR 3 VW QDYRZBtuapnu39/14/2025 11:02 AM EDT Right hip pain PSA TOTAL+% TOEJKhloqpe94/05/2025 10:23 AM EDT ALL LIPID PROFILE (FASTING)Lrcjjos8810/14/2024 10:23 AM EDT [facility] CMP (CMP) (FOR [facility])Lfomjmh8210/14/2024 10:23 AM EDT ALL CBC WITH AUTO WUWNOgfzult33/05/2025 10:23 AM EDT [facility] URINE MICROSCOPIC MBMZFdhizcu19/05/2025 10:01 AM EDT [facility] UA (CLEAN/CATCH) MICROSCOPIC IF IUDAAGAQBnodeid61/05/2025 10:01 AM EDT [facility] MICROALB CREAT RATIO RHWVFFElwvqge03/05/2025 10:01 AM EDT COLONOSCOPY AKAVQJOZENIguajor08/13/2024 7:12 AM ESTfrom Last 3 Months or Most Recently Relevant to Health Maintenance Results * XR hip right 2 or [...] arthroplasty. Authorizing ProviderResult TypeResult StatusJr. Chaka Pulido [facility] XR PROCEDURESFinal Result * (ABNORMAL) PSA TOTAL+% FREE (10/14/2024 10:23 AM EDT)ComponentValueRef Range Test MethodAnalysis TimePerformed AtPathologist SignaturePROSTATE SPECIFIC AG 7.2(A)0.0 - 4.0 ng/mLTBHComment: Isa ECLIA methodology. According to the [employer] Association, Serum PSA should decrease and remain at undetectable levels after radical prostatectomy. The AUA defines biochemical recurrence as an initial PSA value 0.2 ng/mL or greater followed by a subsequent confirmatory PSA value 0.2 ng/mL or greater. Values obtained with different assay methods or kits cannot be used interchangeably. Results cannot be interpreted as absolute evidence of the presence or absence of malignant disease. PSA, FREE1.83N/A ng/mLTBHComment:Isa ECLIA methodology.% FREE PSA25.4. %TBH Comment: The table below lists the probability of prostate cancer for men with non-suspicious REGINE results and total PSA between 4 and 10 ng/mL, by patient age (Maliha et al, JANELLE 1998, [id number]). ?% Free PSA ? 50-64 yr ?65-75 yr ?0.00-10.00% ?56% ? 55% ? 10.01-15.00% ?24% ? 35% ? 15.01-20.00% ?17% ? 23% ? 20.01-25.00% ?10% ? 20% >25.00% 5% 9% Please note: ??Maliha et al did not make specific ?recommendations regarding the use of ?percent free PSA for any other population ?of men. Performed at: ??[facility] - [facility] [address], [place], [place] ??[id number] Sales Consulting Director: London Maharaj PhD, Phone: ??[phone] Specimen (Source)Anatomical Location / LateralityCollection Method / Volume Collection TimeReceived Time10/14/2024 10:23 AM EDT10/14/2024 10:30 AM EDT Narrative [facility] - 10/15/2024 4:07 AM EDT Authorizing ProviderResult TypeResult StatusLisa Aichholz NPLAB BLOOD ORDERABLES Final ResultPerforming OrganizationAddressCity/State/ZIP CodePhone Number [facility] * (ABNORMAL) [facility] CMP (CMP) (FOR [facility]OTE [facility]) (10/14/2024 10:23 AM EDT) ComponentValueRef RangeTest MethodAnalysis TimePerformed AtPathologist VvpxtpzbhKIQQJL077829 - 145 mmol/LTBHPOTASSIUM4.13.5 - 5.1 mmol/LTBHCHLORIDE 97208 - 107 mmol/LTBHCARBON YXANOWM97.921.0 - 32.0 mmol/LTBHANION GAP11.2TBH OUAFZMK904(H)74 - 106 mg/dLTBHBLOOD UREA CYHVCJIL04.0(H)7.0 - 18.0 mg/dLTBH CREATININE0.830.70 - 1.30 mg/dLTBHTBH EGFR-AF GUYANESE>60>=60 mL/min/1.73m 2 TBHTBH EGFR-NON AF GUYANESE>60>=60 mL/min/1.73m 2TBHBUN CREATININE RATIO25.3 TBHCALCIUM9.48.5 - 10.1 mg/dLTBHBILIRUBIN TOTAL1.4(H)0.2 - 1.0 mg/dLTBH ASPARTATE AMINO JYIKMDUVHXU0915 - 37 U/LTBHALANINE BPAZIIEBYCAIZGHK3617 - 63 U/LTBHALKALINE ZXVXUNYVCRJ578(H)46 - 116 U/LTBHTOTAL PROTEIN7.16.4 - 8.2 g/dL TBHALBUMIN LEVEL3.53.4 - 5.0 g/dLTBHGLOBULIN3.6g/dLTBHALBUMIN GLOBULIN RATIO 1.0TBHSpecimen (Source)Anatomical Location / LateralityCollection Method / VolumeCollection TimeReceived Time10/14/2024 10:23 AM EDT10/14/2024 10:30 AM EDT Narrative [facility] - 10/14/2024 11:04 AM EDT Authorizing ProviderResult TypeResult StatusLisa Aicwellspan [facility] hospitalz NPCLINISYNCFinal ResultPerforming OrganizationAddressCity/State/ZIP CodePhone Number [facility] * (ABNORMAL) ALL LIPID PROFILE (FASTING) (10/14/2024 10:23 AM EDT)ComponentValue Ref RangeTest MethodAnalysis TimePerformed AtPathologist Signature IDMQSRQSUYUBS35<=150 mg/qCQAKVUXZVJFMCUA943<=200 mg/dLTBHHDL LQHDMNIZYOO05(L) 40 - 60 mg/dLTBHComment: > or =60 mg/dl - LOW CARDIOVASCULAR RISK <40 mg/dl - HIGH CARDIOVASCULAR RISK LDL CHOLESTEROL WRWHJOCWVJ21.0mg/dLTBHComment: <100 mg/dl OPTIMAL 100-129 mg/dl NEAR OR ABOVE OPTIMAL 130-159 mg/dl BORDERLINE HIGH 160-189 mg/dl HIGH >190 mg/dl VERY HIGH VLDL BLUWRSILILT84.6mg/dLTBHCHOL HDL RATIO3.8TBHComment: 3.3 - 4.4 ?? LOW RISK 4.4 - 7.1 ?? AVERAGE RISK 7.1 - 11.0 ??MODERATE RISK >11.0 HIGH RISK Specimen (Source)Anatomical Location / LateralityCollection Method / Volume Collection TimeReceived Time10/14/2024 10:23 AM EDT10/14/2024 10:30 AM EDT Narrative [facility] - 10/14/2024 11:04 AM EDT Authorizing ProviderResult TypeResult StatusLisa Aiccl[facility] NPCLINISYNCFinal ResultPerforming OrganizationAddressCity/State/ZIP CodePhone Number [facility] * (ABNORMAL) ALL CBC WITH AUTO DIFF (10/14/2024 10:23 AM EDT)ComponentValueRef RangeTest MethodAnalysis TimePerformed AtPathologist SignatureTBH WBC8.54.0 - 11.0 10 3/uLTBHTBH RBC4.724.70 - 6.10 10 6/uLTBHTBH HGB14.914.0 - 18.0 g/dLTBH TBH HCT44.042.0 - 54.0 %TBHT MCV93.280.0 - 94.0 fLTBHTB MCH31.625.9 - 34.0 pgTBHTBH MCHC33.929.9 - 35.2 g/dLTBHTBH RDW13.111.0 - 15.0 %TBHTBH PQX873187 - 450 10 3/uLTBHTBH MPV9.59.5 - 13.5 fLTBHNEUTROPHILS PERCENT AUTO66.543.0 - 75.0 %TBHLYMPHOCYTES PERCENT AUTO18.5(L)20.5 - 60.0 %TBHMONOCYTES PERCENT AUTO 10.51.7 - 12.0 %TBHTBH EO %3.90.9 - 7.0 %TBHBASOPHILS PERCENT AUTO0.40.2 - 2.0 %TBHIMMATURE GRANULOCYTES PCT AUTO0.20.0 - 0.5 %TBHNEUTROPHILS ABSOLUTE AUTO 5.61.4 - 6.5 10 3/uLTBHLYMPHOCYTES ABSOLUTE AUTO1.61.2 - 3.8 10 3/uLTBH MONOCYTES ABSOLUTE AUTO0.9(H)0.3 - 0.8 10 3/uLTBHTBH EO #0.30.0 - 0.7 10 3/uL TBHBASOPHILS ABSOLUTE AUTO0.00.0 - 0.1 10 3/uLTBHIMMATURE GRANULOCYTES ABS AUTO0.020.00 - 0.03 10 3/uLTBHSpecimen (Source)Anatomical Location / LateralityCollection Method / VolumeCollection TimeReceived Time10/14/2024 10:23 AM EDT10/14/2024 10:30 AM EDT Narrative [facility] - 10/14/2024 10:39 AM EDT Authorizing ProviderResult TypeResult StatusLi Aicclarks [facility] NPCLINISYNCFinal ResultPerforming OrganizationAddressCity/State/ZIP CodePhone Number [facility] * (ABNORMAL) [facility] URINE MICROSCOPIC ONLY (10/14/2024 10:01 AM EDT)ComponentValue Ref RangeTest MethodAnalysis TimePerformed AtPathologist SignatureTBH WBC0-2 (A)NONE SEEN #/HPFTBHTBH RBC0-20 - 2 #/HPFTBHBACTERIA URINETRACE(A)NONE SEEN #/HPFTBHMUCUS URINETRACE(A)NONE SEENTBHSQUAMOUS EPITHELIAL CELL URINERARE NONE/RARE #/LPFTBHCRYSTALS SEEN?None SeenNone Seen #/HPFTBHCAST SEEN?NONE SEEN NONE SEEN #/LPFTBHSpecimen (Source)Anatomical Location / LateralityCollection Method / VolumeCollection TimeReceived Time10/14/2024 10:01 AM EDT10/14/2024 10:29 AM EDT Narrative [facility] - 10/14/2024 11:44 AM EDT Authorizing ProviderResult TypeResult StatusLisa Aicholz NPCLINISYNCFinal ResultPerforming OrganizationAddressCity/State/ZIP CodePhone Number [facility] * [facility] UA (CLEAN/CATCH) MICROSCOPIC IF INDICATE (10/14/2024 10:01 AM EDT) ComponentValueRef RangeTest MethodAnalysis TimePerformed AtPathologist SignatureCOLOR URINELT. YELLOWYELLOWTBHCLARITY URINECLEARCLEARTBHSPECIFIC GRAVITY URINE1.0151.005 - 1.025TBHPH URINE6.05.0 - 9.0TBHPROTEIN URINENEGATIVE NEG/TRACE mg/dLTBHGLUCOSE URINE UANEGATIVENEGATIVE mg/dLTBHBILIRUBIN URINE NEGATIVENEGATIVETBHKETONES URINENEGATIVENEGATIVE mg/dLTBHBLOOD URINETRACE-I NEGATIVETBHNITRITE URINENEGATIVENEGATIVETBHUROBILINOGEN URINE0.20.2 - 1.0 EU/dLTBHLEUKOCYTE ESTERASE URINENEGATIVENEGATIVETBHURINE MICROSCOPIC INDICATED YESTBHSpecimen (Source)Anatomical Location / LateralityCollection Method / VolumeCollection TimeReceived Time10/14/2024 10:01 AM EDT10/14/2024 10:29 AM EDT Narrative [facility] - 10/14/2024 11:44 AM EDT Authorizing ProviderResult TypeResult StatusLisa Aiccl[facility] NPCLINISYNCFinal ResultPerforming OrganizationAddressCity/State/ZIP CodePhone Number [facility] * TBH MICROALB CREAT RATIO RANDOM (10/14/2024 10:01 AM EDT)ComponentValueRef RangeTest MethodAnalysis TimePerformed AtPathologist SignatureMICROALBUMIN URINE RANDOM<1.3<=30.0 mg/dLTBHCREATININE URINE CJEQGD727.3120.00 - 300.00 mg/dLTBHSpecimen (Source)Anatomical Location / LateralityCollection Method / VolumeCollection TimeReceived Time10/14/2024 10:01 AM EDT10/14/2024 10:29 AM EDT Narrative [facility] - 10/14/2024 11:04 AM EDT Authorizing ProviderResult TypeResult StatusLisa Aichholz NPCLINISYNCFinal ResultPerforming OrganizationAddressCity/State/ZIP CodePhone Number [facility] * COLONOSCOPY DIAGNOSTIC (01/23/2024 7:12 AM EST)Anatomical RegionLaterality ModalityRadiographic Imaging Narrative Authorizing ProviderResult TypeResult StatusCamdora Alves MDIMG XR PROCEDURES Final Result from Last 3 Months or Most Recently Relevant to Health Maintenance Insurance Care Teams Team MemberRelationshipSpecialtyStart DateEnd Date Shaikh Grove MD [address] [place] [phone] PCP - [facility]03/12/22 Sony Rao MD [address] [place] [phone] [facility] - [facility]11/14/24
--- OUTSIDE RECORDS SUMMARY | 2024-12-31 12:36 | XMS_ITS | CCD ---
Author Organization [facility] CliniSywa Care Team Providers Care Entertainment Reporter Name Role Phone PHYSICIAN, DEFAULT Unavailable Unavailable PHYSICIAN, DEFAULT Unavailable Unavailable ABIGAILJUAN LYON Unavailable Unavailable DUPPS, BLAIR J Unavailable Unavailable [...] Primary Care Unavailable Sheldon Ball Unavailable DO Gretchen Pulido Jr Attending Provider NON STAFF Primary [...] Unavailable FAWWAD, CHAUDHARI H Primary Care Unavailable SONIA DR STEARNS Admitting Unavailable ELTAHAWY, DR STEARNS [...] Provider Unavailable DES Rosen Other Provider Unavailable DES Hicks Other Provider Unavailable DES Lawrence Other Provider Unavailable DES Dunbar Other Provider Unavailable MD Jimmie Martin Other Provider MD Aydin Bartholomew Other Provider Kuns, GAME WARDEN Zee Barone Other Provider DO Viviana Hicks Other Provider [phone] MD Paul Connell Other Provider DO Yoshi Ascencio Other Provider MD Dm Lozano Other Provider [phone] MD Yuliana Herzog Other Provider Cat, ANP-BC Rachel Other Provider [phone] MD Perez Mattson Other Provider MD Wander [...] Other Provider DO Alen Wheeler Other Provider [phone] DO Ben Carrizales Other Provider JR Fontanez Other Provider DO Mando Guy Other Provider MD Fanny France Other Provider [phone] JR Doll Other Provider DES Wilkinson Other Provider Unavailable Shaikh Grove MD Unavailable Sony Rao MD Primary Care Provider Jeanette Murillo NP Unavailable NON STAFF Primary Care Provider UnavailMD Phillip Agosto Attending Provider [phone] Shaikh Grove MD Unavailable Phillip Alves Attending Unavailable Phillip Alves Admitting Unavailable NON STAFF Primary Care Unavailable DIYA BROWN Attending Unavailable Jeanette Murillo NP Unavailable [phone] Shaikh Grove MD Unavailable Sony Rao MD Primary Care Provider NON STAFF Primary Care Provider UnavailYolie Donald DO Attending Provider ZEE HSIEH Attending Unavailable JR. BRIANNA, GRETCHEN Orellana Attending Unavaila JEANETTE Cronin Attending Unavailwing PULIDO JR., GEORGE C Referring Unavaila ble Medications Current Medications MedicationDrug Class(es)DatesSig (Normalized)Sig (Original)amoxicillin 875 mg / clavulanate 125 mg oral tablet (2 sources)Penicillin-class AntibacterialStart: 06-12-2024 End: 37-65-0448zqyr 1 tablet by mouth in the morningamoxicillin-clavulanate (Augmentin) 875-125 MG tablet Indications: Bronchitis Take 1 tablet (875 mg) by mouth in the morning and 1 tablet (875 mg) before bedtime. Do all this for 10 days. Take with food. 20 tablet 06/12/2024 06/22/2024 Activeascorbic acid 226 mg / beta carotene 52012 unt / cuprous oxide 0.8 mg / dl-alpha tocopheryl acetate 200 unt / zinc oxide 34.8 mg oral capsule (1 source)Vitamin CStart: 54-08-2659hejo 1 capsule by mouth once dailyVitamins A,C,P-Hzbk-Ovasbt 14,320-226-200 fxwq-cf-qntn Capsule Active 1 CAP PO Daily April 10, 2022 1:00am Complies with drug therapyascorbic acid 60 mg / cuprous oxide 2 mg / dl-alpha tocopheryl acetate 30 mg / lutein 6 mg / zinc ox gucci 15 mg oral capsule (6 sources)Vitamin Ctake 1 capsule by mouth in the morningMultiple Vitamins- Minerals (Eye Vitamins) capsule Take 1 capsule by mouth in the morning. Active Aspir-81 (1 source)Aspir-81 Activeaspirin 81 mg oral tablet (20 sources)Platelet Aggregation Inhibitor, Nonsteroidal Anti-inflammatory Drug Start: 92-11-7711qlue 1 capsule by mouth once dailyAspirin 81 mg capsule Active 81 MG PO Daily January 04, 2024 12:00am Complies with drug therapyStart: 04-27-2022 End: 83-88-7868zcqp 1 capsule by mouth twice dailyAspirin 81 mg capsule Discontinued 81 MG PO Twice daily April 27, 2022 1:00am January 04, 2024 10:02amStart: 04-10-2022 End: 31-06-6224arlo 1 tablet by mouth once dailyAspirin (Aspir-81) 81 mg Tablet,Delayed Release (Dr/Ec) Discontinued 81 MG PO Daily April 10, 2022 1:00am April 27, 2022 11:56amaspirin 81 MG chewable tablet Chew 1 tablet in the morning. Activeatorvastatin 40 mg oral tablet (20 sources)HMG-CoA Reductase InhibitorStart: 08-18-2019 End: 90-56-5218onyn 1 tablet by mouth at bedtimeatorvastatin (Lipitor) 40 MG tablet Indications: Mixed hyperlipidemia Take 1 tablet (40 mg) by mouth at bedtime 5PM 90 tablet 1 10/06/2024 01/04/2025 Activecarvedilol 3.125 mg oral tablet (20 sources)alpha-Adrenergic Abad, beta-Adrenergic BlockerStart: 04-10-2022 End: 75-65-0767bixk 1 tablet by mouth in the morningcarvedilol (Coreg) 3.125 MG tablet Indications: Primary hypertension Take 1 tablet (3.125 mg) by mouth in the morning and 1 tablet (3.125 mg) in the evening. Take with meals. 180 tablet 1 10/06/2024 01/04/2025 Activecyclobenzaprine hydrochloride 10 mg oral tablet (1 source)Muscle RelaxantCyclobenzaprine HCl 10 MG Oral for 30 Days Active docosahexaenoic acid 120 mg / eicosapentaenoic acid 180 mg oral capsule (20 sources)take 1 capsule by mouth in the morningomega-3 (Fish Oil) 1000 MG capsule Take 1,000 mg by mouth in the morning. Activeenalapril maleate 2.5 mg oral tablet (20 sources)Angiotensin Converting Enzyme InhibitorStart: 09-06-2023 End: 59-32-9509okvy 1 tablet by mouth once daily, then take 1 tablet by mouth once dailyenalapril (Vasotec) 2.5 MG tablet Indications: Coronary artery disease involving [place] coronary artery of [place] heart without angina pectoris , Chronic heart failure with preserved ejection fraction (HCC) Take 1 tablet (2.5 mg) by mouth Daily Take 1 tablet (2.5 mg) by mouth Daily 90 tablet 1 06/26/2024 Activeenalapril (VASOTEC) 2.5 MG tablet Take by mouth 0 Activefamotidine 20 mg oral tablet (1 source)Histamine-2 Receptor AntagonistStart: 70-98-3566tybr 1 tablet by mouth twice dailyFamotidine 20 mg tablet Active 20 MG PO Twice daily December 25, 2024 12:00am Complies with drug therapyfurosemide 20 mg oral tablet (20 sources)Loop DiureticStart: 09-06-2023 End: 59-75-8198yvvp 1 tablet by mouth once dailyfurosemide (Lasix) 20 MG tablet Indications: Coronary artery disease involving [place] coronary artery of [place] heart without angina pectoris , Chronic heart failure with preserved ejection fraction (HCC) Take 1 tablet (20 mg) by mouth Daily 90 tablet 1 03/03/2024 ActiveStart: 26-86-1265lcgx 1 tablet by mouth once daily in the morning furosemide (LASIX) 20 MG tablet TAKE 1 TABLET BY MOUTH EVERY MORNING 0 08/18/2019 ActiveGarlic preparation (2 sources)Non-Standardized Food Allergenic ExtractGarlic 10 MG CAPS garlic 0 Activeloratadine 10 mg oral tablet (2 sources)Start: 51-97-0025tbaq 1 tablet by mouth once dailyloratadine (CLARITIN) 10 MG tablet TAKE 1 TABLET BY MOUTH EVERY DAY 0 08/26/2019 Active meloxicam 15 mg oral tablet (20 sources)Nonsteroidal Anti-inflammatory DrugStart: 05-08-2023 End: 11-13-5705xuhu 1 tablet by mouth once daily as needed for painmeloxicam (Mobic) 15 MG tablet Indications: Unspecified osteoarthritis, unspecified site Take 1 tablet (15 mg) by mouth Daily as needed for mild pain 90 tablet 1 10/06/2024 01/04/2025 ActiveMeloxicam 15 MG Oral for 30 Days ActiveMultiple Vitamins-Minerals (EYE VITAMINS) CAPS (2 sources)Multiple Vitamins-Minerals (EYE VITAMINS) CAPS Take by mouth 0 Active Multiple Vitamins-Minerals (Eye Vitamins) capsule (16 sources)take 1 capsule by mouth in the morningMultiple Vitamins-Minerals (Eye Vitamins) capsule Take 1 capsule by mouth in the morning. ActiveMultiple Vitamins-Minerals (MULTIVITAMIN ADULT EXTRA C PO) (2 sources)Multiple Vitamins-Minerals (MULTIVITAMIN ADULT EXTRA C PO) multivitamin 0 DldofcJuvpnpcscgqa-Takmdpay-Elbkzb (Multivitamin 50 Plus) Tablet (4 sources)Start: 40-63-8352Kbkozsksecpu-Minerals-Lutein (Multivitamin 50 Plus) Tablet Active 1 TAB PO Daily April 1031:00am Complies with drug therapy Start: 12-02-3837Lvmvzsniajlw-Minerals-Lutein (Multivitamin 50 Plus) Tablet Active 1 TAB PO Daily April 102:00amOmega 3-Ldm-Vbc-Fish Oil (Fish Oil) 1,200 (144-216) mg Capsule (4 sources)Start: 82-78-0599agxx 1 capsule by mouth once dailyOmega 2-Xra-Dil-Fish Oil (Fish Oil) 1,200 (144-216) mg Capsule Active 1 CAP PO Daily April 10, 2022 1:00am Complies with drug therapyStart: 68-42-9133eesf 1 capsule by mouth once dailyOmega 6-Gmn-Ype-Fish Oil (Fish Oil) 1,200 (144-216) mg Capsule Active 1 CAP PO Daily April 10, 2022 12:00amomeprazole 20 mg delayed release oral capsule (20 sources)Proton Pump InhibitorStart: 05-27-2024 End: 27-51-2919zdat 1 capsule by mouth once dailyomeprazole (PriLOSEC) [address] capsule Indications: Gastro-esophageal reflux disease without esophagitis Take 1 capsule (20 mg) by mouth Daily 90 capsule 1 10/06/2024 01/04/2025 ActiveStart: 04-10-2022 End: 64-72-7631tyjh 1 tablet by mouth once dailyOmeprazole 20 mg Tablet,Delayed Release (Dr/Ec) Discontinued 20 MG PO Daily April 10, 2022 1:00am December 25, 2024 8:31amStart: 08-18-2019 End: 27-72-5915tciw 1 capsule by mouth once dailyomeprazole (PriLOSEC) [address] capsule Indications: Gastro-esophageal reflux disease without esophagitis TAKE 1 CAPSULE BY MOUTH DAILY 90 capsule 01/21/2024 Activesertraline 50 mg oral tablet (17 sources)Serotonin Reuptake InhibitorStart: 05-20-2023 End: 07-51-2348jnnn 1.5 tablets by mouth once dailysertraline (Zoloft) 50 MG tablet Indications: Depression, unspecified (CMS/HCC) Take 1.5 tablets (75 mg) by mouth Daily 135 tablet 1 05/20/2023 03/17/2024 Discontinued (Med list cleanup)Start: 04-10-2022 End: 82-21-9177Npnyqkjtfx 50 mg Tablet Discontinued 75 MG PO Daily April 10, 2022 1:00am January 04, 2024 10:01amStart: 04-10-2022 End: 06-73-8153uvqg 75 mg by mouth once dailySertraline Discontinued 75 MG PO Daily April 10, 2022 12:00am January 04, 2024 9:01amStart: 03-92-1648wtnc 1 tablet by mouth once dailysertraline (ZOLOFT) 50 MG tablet TAKE 1 TABLET BY MOUTH EVERY DAY 0 09/03/2019 Activespironolactone 25 mg oral tablet (1 source)Aldosterone AntagonistSpironolactone 25 MG Oral for 90 Days Active tamsulosin hydrochloride 0.4 mg oral capsule (20 sources)alpha-Adrenergic BlockerStart: 04-10-2022 End: 21-87-5685bgvt 1 capsule by mouth once dailytamsulosin (Flomax) 0.4 MG 24 hr capsule Indications: Benign prostatic hyperplasia without lower urinary tract symptoms Take 1 capsule (0.4 mg) by mouth Daily 90 capsule 1 04/21/2024 10/18/2024 ActiveStart: 24-20-0379zcsl 1 capsule by mouth once daily in the eveningtamsulosin (FLOMAX) 0.4 MG capsule Take 1 capsule by mouth every evening 90 capsule 3 11/04/2019 ActiveVitamin B Complex (2 sources)Start: 65-38-1483kfil 1 tablet by mouth once dailyVitamin B Complex Active 1 TAB PO Daily April 10, 2022 12:00amVitamin B Complex (Super B Complex) Tablet (1 source)Start: 64-46-7574novq 1 tablet by mouth once dailyVitamin B Complex (Super B Complex) Tablet Active 1 TAB PO Daily April 10, 2022 12:00amVitamin B Complex Tablet (1 source)Start: 44-14-0007vqor 1 tablet by mouth once dailyVitamin B Complex Tablet Active 1 TAB PO Daily April 10, 2022 1:00am Complies with drug therapyVitamins A,C,Q-Qcph-Niwitq (2 sources)Start: 08-85-2588jdwu 1 capsule by mouth once dailyVitamins A,C,R-Nccq-Paymbg Active 1 CAP PO Daily April 10, 2022 12:00amVitamins A,C,K-Wvsx-Xgsupo (Vision Formula (G-W-K-Zn-Reji)) 14,320-226-200 lwdv-bx-xiwp Capsule (1 source)Start: 08-72-6987cxdt 1 capsule by mouth once dailyVitamins A,C,A-Oiin-Sxyqxr (Vision Formula (Z-A-A-Zn-Reji)) 14,320-226-200 ykhy-so-cxet Capsule Active 1 CAP PO Daily April 10, 2022 12:00am Completed/Discontinued Medications MedicationDrug Class(es)DatesSig (Normalized)Sig (Original)[id number] 200 actuat albuterol 0.09 mg/actuat metered dose inhaler (17 sources)beta2-Adrenergic AgonistStart: 12-23-2024 End: 78-67-8538uwrk 1 puff(s) by inhalation every four to six hours as needed Albuterol Sulfate 90 mcg/actuation HFA aerosol inhaler Discontinued 2 PUFF INHALATION EVERY 4-6 HOURS as needed December 23, 2024 12:00am December 25, 2024 8:29am End: 89-45-4537tjbj 2 puff(s) by inhalation every four hours for wheezing albuterol HFA 90 mcg/act inhaler Inhale 2 puffs every 4 (four) hours if needed for wheezing 06/12/2024 Discontinued (Therapy completed)Elx1179-Vmy Laq-Uqmr-Vlx-Asb-C (4 sources)Osmotic Laxative, Vitamin CStart: 11-30-2023 End: 71-88-7958Hmt1855-Sod Wcv-Bhbu-Cjv-Asb-C (Plenvu) 140-9-5.2 gram powder in packet, sequential Discontinued 0 .ROUTE .COMPLEX 3 November 30, 2023 10:18am January 04, 2024 9:58am take first at AT 4 PM the day before the colonscopy, then take second dose at 11pm the night before colonscopyStart: 11-30-2023 End: 29-89-1677Uxd4926-Sod Zdx-Dsiq-Tzy-Asb-C (Plenvu) 140-9-5.2 gram powder in packet, sequential Discontinued 0 .ROUTE .COMPLEX 3 November 30, 2023 9:18am January 04, 2024 8:58am take first at AT 4 PM the day before the colonscopy, then take second dose at 11pm the night before colonscopyStart: 11-30-2023 End: 06-67-5245Mah7966-Sod Xld-Oxdg-Tps-Asb-C (Plenvu) 140-9-5.2 gram powder in packet, sequential Discontinued 140 ML PO .COMPLEX 1 November 30, 2023 12:00am November 30, 2023 10:18am First does at 4pm theday before the colonoscopy; second dose at 11pm the night before the colonoscopy.Start: 11-30-2023 End: 67-16-0611Zqk2991-Sod Cbg-Zfwa-Awk-Asb-C (Plenvu) 140-9-5.2 gram powder in packet, sequential Discontinued 140 ML PO .COMPLEX 1 November 29, 2023 11:00pm November 30, 2023 9:18am First does at 4pm the day before the colonoscopy; second dose at 11pm the night before the colonoscopy.diclofenac sodium 50 mg delayed release oral tablet (4 sources)Nonsteroidal Anti-inflammatory DrugStart: 12-23-2024 End: 85-86-1583pzvz 1 tablet by mouth twice dailyDiclofenac Sodium 50 mg tablet,delayed release (DR/EC) Discontinued 50 MG PO Twice daily December 23, 2024 12:00am December 25, 2024 8:29amStart: 02-01-2024 End: 43-56-1110yjmz 1 tablet by mouth in the morningdiclofenac (Voltaren) 50 MG EC tablet Take 50 mg by mouth in the morning and 50 mg before bedtime. 1 04/02/2023 06/12/2024 Discontinued (Therapy completed)fluticasone propionate 0.05 mg/actuat metered dose nasal spray (17 sources)CorticosteroidStart: 12-23-2024 End: 73-03-1980rslk 1 spray(s) nasal route once dailyFluticasone Propionate (Flonase Allergy Relief) 50 mcg/actuation spray,suspension Discontinued 2 SPRAY INTRANASAL Daily December 23, 2024 12:00am December 25, 2024 8:30am administer into each nostril End: 63-64-1233eyoz 2 spray(s) nasal route in the morningfluticasone (Flonase) 50 MCG/ACT nasal spray Administer 2 sprays into each nostril in the morning. S josr gently. Before first use, prime pump. After use, clean tip and replace cap.. 06/12/2024 Discontinued (Therapy completed)folic acid 1 mg / polysaccharide iron complex 150 mg / vitamin b12 0.025 mg oral capsule (4 sources)Vitamin Q87Eodtt: 04-10-2022 End: 95-06-2496vyij 1 capsule by mouth once dailyIron Ps Dpfybbv-Z61-Cqjyg Acid (Poly-Iron 150 Forte) 150-25-1 mg-mcg-mg capsule Discontinued 1 CAP PO Daily April 10, 2022 1:00am January 04, 2024 9:58ammetFORMIN hydrochloride 500 mg oral tablet (5 sources)BiguanideStart: 04-10-2022 End: 16-08-2514zfrs 1 tablet by mouth twice dailyMetformin 500 mg Tablet Discontinued 500 MG PO Twice daily April 10, 2022 1:00am January 04, 2024 9:58ammetFORMIN HCl 500 MG Oral for 90 Days Active Problems Active Problems Problem ClassificationProblemDateDocumented DateEpisodic/ChronicCataract (20 sources)Nuclear sclerotic cataract; Translations: [Age-related nuclear cataract, unspecified eye]Onset: 373250-54-6683NhzojcqCuujuxjpnoxz of device; implant or graft (1 source)Atherosclerosis of coronary artery bypass graft(s) without angina pectoris; Translations: [ATS CA BP GRAFT NO ANGINA PECTORIS]Onset: 01-16-2022 ChronicCongestive heart failure; nonhypertensive (2 sources)Chronic heart failure co-occurrent with normal ejection fraction; Translations: [Chronic diastolic (congestive) heart failure]06-93-8357Gvbwmzi Coronary atherosclerosis and other heart disease (20 sources)Atherosclerotic heart disease of [place] coronary artery without angina pectoris; Translations: [Coronary arteriosclerosis]Onset: 01-11-2022 ChronicDisorders of lipid metabolism (20 sources)Hyperlipidemia, unspecified; Translations: [Mixed hyperlipidemia] Onset: 31-71-7421ZcvypxnNqeidawuoz disorders (14 sources)Gastroesophageal reflux disease without esophagitis; Translations: [Gastro-esophageal reflux disease without esophagitis]Onset: 06-12-2024 59-39-7007MducuouExodwgrxt hypertension (20 sources)Essential (primary) hypertension; Translations: [Essential hypertension]Onset: 973520-68-7220WqngmucIkhbb and electrolyte disorders (4 sources)Hyperkalemia; Translations: [HYPERKALEMIA]Onset: 49-95-3873Iulripci Genitourinary symptoms and ill-defined conditions (1 source)Urge incontinence of urine; Translations: [Urgency incontinence] ChronicGenitourinary symptoms and ill-defined conditions (3 sources)Nocturia; Translations: [Urgent desire to urinate]EpisodicGlaucoma (20 sources)Open-angle glaucoma of right eye; Translations: [Unspecified open- angle glaucoma, moderate stage]Onset: 346836-92-8038MicitxfHewyh valve disorders (20 sources)Mitral valve disorder; Translations: [Rheumatic mitral valve disease, unspecified]Onset: 614861-68-0687ErqkmejSnjmhaqktoy of prostate (20 sources)Benign prostatic hypertrophy with outflow obstruction; Translations: [Benign prostatic hyperplasia with lower urinary tract symptoms]Onset: 020604-19-4156VmrzdeqBvozhmxoxxrbdc (20 sources)Arthropathy of right hip joint; Translations: [Unilateral primary osteoarthritis, right hip]Onset: 11-29-2021 Resolved: 02-17-0145VlejhbrXywxzyl on above:Problem List clean-up per request of Phys. 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, unspecified eye]Onset: 280510-59-1521EjdxcfyWptnm non-traumatic joint disorders (1 source)Knee pain; Translations: [Knee pain, left]EpisodicOther non-traumatic joint disorders (2 sources)Hip pain; Translations: [Pain in right hip]34-84-9836ZboupsvqKowkm nutritional; endocrine; and metabolic disorders (20 sources)Obesity caused by energy imbalance; Translations: [Class 2 obesity due to excess calories without serious comorbidity with body mass index (BMI) of 35.0 to 35.9 in adult]Onset: 647253-07-6048HejsyvgOaawu nutritional; endocrine; and metabolic disorders (11 sources)Body mass index 30+ - obesity; Translations: [Body mass index (BMI) 35.0-35.9, adult]Onset: 179986-24-8381DwoizbrRboic screening for suspected conditions (not mental disorders or infectious disease) (13 sources)Raised prostate specific antigen; Translations: [Elevated prostate specific antigen [PSA]]Onset: 831826-45-2515JtlubgxrSnjoc skin disorders (2 sources)Finding of face; Translations: [Localized swelling, mass and lump, head]36-37-8606DfwzohjhPenwkhuk codes; unclassified (20 sources)Obstructive sleep apnea syndrome; Translations: [Obstructive sleep apnea (adult) (pediatric)]Onset: 479292-72-6590FpyjnweRarcpaxqfrj; intervertebral disc disorders; other back problems (1 source)Lumbar spondylosis; Translations: [Spondylosis without myelopathy or radiculopathy, lumbar region]ChronicSprains and strains (1 source)Strain of knee; Translations: [Strain of left knee]Episodic Unclassified (3 sources)LOW BACK PAIN, UNSPECIFIED; Translations: [LOW BACK PAIN, UNSPECIFIED]Onset: 11-03-2021 Past or Other Problems Problem ClassificationProblemDateDocumented DateEpisodic/ChronicAbdominal hernia (20 sources)Diaphragmatic hernia; Translations: [Diaphragmatic hernia without obstruction or gangrene]Onset: 877835-45-1022VeakqvufJzxtvfei foot deformities (20 sources)Foot drop, right foot; Translations: [Left foot drop]Onset: 11-29-2021 Resolved: 31-78-5821GopcschpQfixbrfj foot deformities (1 source)Foot drop, left footOnset: 11-29-2021 Resolved: 51-50-0795FldpgsylGhxziwd dysrhythmias (20 sources)Atrial fibrillation; Translations: [Unspecified atrial fibrillation] Onset: 06-12-2012 Resolved: 798028-48-2638CmnvgjeCzwigsn obstructive pulmonary disease and bronchiectasis (10 sources)Bronchitis; Translations: [Bronchitis, not specified as acute or chronic]Onset: 130632-72-8530KtrkyztvMjoi disorders (20 sources)Mood disordersOnset: Other and unspecified benign neoplasm (20 sources)Adenomatous polyp of colon ; Translations: [Benign neoplasm of colon, unspecified]Onset: 362022-38-5127HhkyxshmXjwej and unspecified benign neoplasm (20 sources)History of adenomatous polyp of colon; Translations: [History of adenomatous polyp of colon]Onset: 11-21-2018 Resolved: 320268-35-9735KevidjicJxqxq connective tissue disease (1 source)Trochanteric bursitis, right hipOnset: 11-29-2021 Resolved: 29-43-9063JfoyarsdGqilb connective tissue disease (20 sources)H/O: musculoskeletal disease; Translations: [Personal history of other diseases of the musculoskeletal system and connective tissue]Onset: 948955-65-1369RcxjlxfkGemab eye disorders (20 sources)Central corneal ulcer, left eye; Translations: [Central corneal ulcer]Onset: 951692-04-5477NszlwcwyIxuud non-traumatic joint disorders (5 sources)Pain in left knee; Translations: [PAIN IN LEFT KNEE]Onset: 08-05-2021 EpisodicUnclassified (1 source)LOW BACK PAIN, UNSPECIFIED; Translations: [LOW BACK PAIN, UNSPECIFIED] Onset: 11-01-2021 Results Test NameValueInterpretationReference RangeFacilityXR Hip - right 3 Viewson [id number] Result: AP and lateral of right hip showed acceptable position and alignment of right total hip arthroplasty. There was no evidence of loosening of the acetabular cup or femoral stem. Femoral head was well centered in the acetabular liner without evidence of asymmetric or accelerated wear. There was no gross evidence of fracture and/or dislocation. Impression: Unremarkable right total hip arthroplasty. [facility] HospitalRadiology Study observation (narrative)[facility] CBC WITH AUTO DIFFon [id number] ABSOLUTE SRDJ7SZMT HealthcareBasophils/100 WBC (Bld)0.4 %0.2 - 2.0 %NOMS HealthcareEosinophils/100 WBC (Bld)3.9 %0.9 - 7.0 %NOM HealthcareErythrocyte distribution width (RBC) [Ratio]13.1 %11.0 - 15.0 %[facility]OM[facility] HealthcareHematocrit (Bld) [Volume fraction]44 % 42.0 - 54.0 %[facility]OM[facility] HealthcareHemoglobin (Bld) [Mass/Vol]14.9 g/dL14.0 - 18.0 g/dL NOM[facility] HealthcareIMMATURE GRANULOCYTES ABS AUTO0.02NOMS HealthcareImmature granulocytes/100 WBC (Bld)0.2 %0.0 - 0.5 %NOM HealthcareInterpretation and review of laboratory resultsAbnormalNOTenet St. LouisLYMPHOCYTES ABSOLUTE AUTO1.6 NOMHca Midwest DivisionLymphocytes/100 WBC (Bld)18.5 %Low20.5 - 60.0 %[facility] HospitalH (RBC) [Entitic mass]31.6 pg25.9 - 34.0 pgNOSaint Mary's Health CenterHC (RBC) [Mass/Vol] 33.9 g/dL29.9 - 35.2 g/dLLakeland Regional HospitalV (RBC) [Entitic vol]93.2 fL80.0 - 94.0 fLChildren's Mercy HospitalMONOCYTES ABSOLUTE AUTO0.9HighNOMS HealthcareMonocytes/100 WBC (Bld)10.5 %1.7 - 12.0 %NOM HealthcareNEUTROPHILS ABSOLUTE AUTO5.6NORI HealthcareNeutrophils/100 WBC (Bld)66.5 %43.0 - 75.0 %NOM HealthcarePlatelet mean volume (Bld) [Entitic vol]9.5 fL9.5 - 13.[address] LouisTBH EO #0.3NOMS [facility] HospitalTB [id number] [facility] RBC4.72NOMS [facility] WBC8.5NORI HealthcareCLINISYNCNOMS HealthcareALL LIPID PROFILE (FASTING)on 96-15-5292KWCB HDL RATIO3.8NOMS HealthcareComment on above:3.3 - 4.4 LOW RISK 4.4 - 7.1 AVERAGE RISK 7.1 - 11.0 MODERATE RISK >11.0 HIGH RISK Cholesterol [Mass/Vol]126 mg/dLNINF - 200 mg/dLNORI HealthcareCholesterol in HDL [Mass/Vol]33 mg/dLLow40 - 60 mg/dLNORI HealthcareComment on above:> or =60 mg/dl - LOW CARDIOVASCULAR RISK <40 mg/dl - HIGH CARDIOVASCULAR RISK Magnesium [Mass/Vol]75 mg/dLNORI HealthcareComment on above:<100 mg/dl OPTIMAL 100-129 mg/dl NEAR OR ABOVE OPTIMAL 130-159 mg/dl BORDERLINE HIGH 160-189 mg/dl HIGH >190 mg/dl VERY HIGH Magnesium [Mass/Vol]18.6 mg/dLNORI HealthcareTriglyceride [Mass/Vol]93 mg/dLNINF - 150 mg/dLNORI HealthcareCCF CMP (CMP) (FOR REMOTE [facility] USE)on 10-14-2024 Albumin [Mass/Vol]3.5 g/dL3.4 - 5.0 g/dLNORI HealthcareALBUMIN GLOBULIN RATIO1 NOMS HealthcareALP [Catalytic activity/Vol]146 U/LHigh46 - 116 U/LNOMS HealthcareALT [Catalytic activity/Vol]28 U/L16 - 63 U/LNOMS HealthcareAnion gap [Moles/Vol]11.2 mmol/LNOMS HealthcareAST [Catalytic activity/Vol]21 U/L15 - 37 U/LNOMS HealthcareBilirubin [Mass/Vol]1.4 mg/dLHigh0.2 - 1.0 mg/dLNORI HealthcareCalcium [Mass/Vol]9.4 mg/dL8.5 - 10.1 mg/dLNORI HealthcareChloride [Moles/Vol]107 mmol/L98 - 107 mmol/LNOMS HealthcareCO2 [Moles/Vol]28.9 mmol/L 21.0 - 32.0 mmol/LNOMS HealthcareCreatinine [Mass/Vol]0.83 mg/dL0.70 - 1.30 mg/dLNORI HealthcareGFR/1.73 sq M.predicted CKD-EPI (S/P/Bld) [Vol rate/Area]>60 >=60 mL/min/1.73m 2NOMS HealthcareGlobulin (S) [Mass/Vol]3.6 g/dLNORI Healthcare Glucose [Mass/Vol]110 mg/jYCyzx43 - 106 mg/dLNORI HealthcarePotassium [Moles/Vol]4.1 mmol/L3.5 - 5.1 mmol/LNOMS HealthcareProtein [Mass/Vol]7.1 g/dL 6.4 - 8.2 g/dLNORI HealthcareSodium [Moles/Vol]143 mmol/L136 - 145 mmol/LNOMS HealthcareTBH EGFR-NON AF VENEZUELAN>60>=60 mL/min/1.73m 2NOMS HealthcareUrea nitrogen [Mass/Vol]21 mg/dLHigh7.0 - 18.0 mg/dLNORI HealthcareUrea nitrogen/Creatinine [Mass ratio]25.3 mg/mgNORI HealthcareNo Panel Informationon 58-90-0666Nrpstrezznedqx and review of laboratory resultsAbHelen [facility] CLINISYNCChildren's Mercy HospitalOffice Visiton [id number]-up [id number] Belén Keenan 1945 M Date Provider Department Center 02/11/2024 Chidi-DIYA BROWN CARD Melanie Hos Family History Problem Relation Age of Onset Heart attack Other Family Status - Relation Status Age at Other Level of Service:93974 MI OFFICE/OUTPATIENT ESTABLISHED LOW MDM 20 [facility] HospitalAnisocytosis LM Ql (Bld)Ordered By: Madhu Richardson on 99-67-9444Aogkemfxguqs Ql (Bld)SlightPaulding County Hospital Band form neutrophils/100 WBC Manual cnt (Bld)Ordered By: Madhu Richardson on 21-54-6336Lwhr form neutrophils/100 WBC (Bld)6 %0-5FFlower HospitalBasophils Auto (Bld) [#/Vol]Ordered By: Madhu Richardson on 04-28-2022 Basophils (Bld) [#/Vol]N/AFFlower HospitalBasophils/100 WBC Auto (Bld)Ordered By: Madhu Richardson on 73-68-7502Vaashfihk/100 WBC (Bld)N/A [facility] HospitalCreatinine and Glomerular filtration rate.predicted panel (S/P/Bld)Ordered By: Madhu Richardson on 48-24-2614Mxpqzqpcrf [Mass/Vol]0.77 mg/dL0.64-1.27Paulding County HospitalEosinophils Auto (Bld) [#/Vol]Ordered By: Madhu Richardson on 55-50-1913Htrqxnfyirx (Bld) [#/Vol]N/A [facility] HospitalEosinophils/100 WBC Auto (Bld)Ordered By: Madhu Richardson on 59-70-9481Fmnpvgstjed/100 WBC (Bld)N/[facility] HospitalErythrocyte distribution width Auto (RBC) [Ratio]Ordered By: Madhu Richardson on 43-66-5893Zzbfdlyvzov distribution width (RBC) [Ratio]14.4 % 12.0-14.8Paulding County HospitalEstimated glomerular filtration rate (GFR) non- AmericanOrdered By: Madhu Richardson on 73-02-8369[place]/1.73 sq M.predicted among non-blacks MDRD (S/P/Bld) [Vol rate/Area]> 60 mL/MinPaulding County HospitalHematocrit Auto (Bld) [Volume fraction]Ordered By: Madhu Richardson on 33-65-2358Nggpkpaqfo (Bld) [Volume fraction]35.4 %38.8-50.0 [facility] HospitalHemoglobin [Mass/volume] in BloodOrdered By: Madhu Richardson on 54-05-0286Fjfmplwuvq (Bld) [Mass/Vol]11.7 g/dL13.0-17.0 [facility] HospitalLeukocytes [#/volume] corrected for nucleated erythrocytes in Blood by Automated counOrdered By: Madhu Richardson on 04-28-2022 WBC corrected for nucl RBC Auto (Bld) [#/Vol]17.4 10*3/uL4.1-10.5FFlower HospitalLymphocytes Auto (Bld) [#/Vol]Ordered By: Madhu Richardson on 16-98-2012Nueyxdxpxja (Bld) [#/Vol]N/[facility] Lymphocytes/100 WBC Auto (Bld)Ordered By: Madhu Richardson on 04-28-2022 Lymphocytes/100 WBC (Bld)N/[facility] HospitalLymphocytes/100 WBC Manual cnt (Bld)Ordered By: Madhu Richardson on 07-31-8894Bqkqjhhsdjp/100 WBC (Bld)3 %18-42Paulding County HospitalMCH Auto (RBC) [Entitic mass] Ordered By: Madhu Richardson on 22-99-0220APY (RBC) [Entitic mass]30.6 pg27.5-35.2 [facility] HospitalMCHC Auto (RBC) [Mass/Vol]Ordered By: Madhu Richardson on 61-89-4461UCZE (RBC) [Mass/Vol]33.0 g/dL32.5-35.6FFlower HospitalMCV Auto (RBC) [Entitic vol]Ordered By: Madhu Rihcardson on 57-87-9954SAZ (RBC) [Entitic vol]92.8 fL83.5-101Paul[facility] County HospitalMonocytes Auto (Bld) [#/Vol]Ordered By: Madhu Richardson on 04-28-2022 Monocytes (Bld) [#/Vol]N/[facility] HospitalMonocytes/100 WBC Auto (Bld)Ordered By: Madhu Richardson on 14-43-1684Aybeqhqrs/100 WBC (Bld)N/A [facility] HospitalMonocytes/100 WBC Manual cnt (Bld)Ordered By: Madhu Richardson on 20-63-2066Aqynroxbw/100 WBC (Bld)3 %2-11Paul[facility] County HospitalNeutrophils Auto (Bld) [#/Vol]Ordered By: Madhu Richardson on 26-00-2017Nocgbbbpknp (Bld) [#/Vol]N/[facility] Neutrophils/100 WBC Auto (Bld)Ordered By: Madhu Richardson on 04-28-2022 Neutrophils/100 WBC (Bld)N/[facility] HospitalNo Panel InformationOrdered By: Madhu Richardson on 37-20-9027Necszidaj GFR ()> 60 mL/MinPaulding County HospitalComment on above:GFR estimated reference range: According to KDOQI guidelines, <60 ml/min/1.73m2 is sufficient todiagnose a patient with chronic kidney disease.Pharmacy Creatinine Clearance (Chem90.86Paulding County HospitalNucleated erythrocytes [Presence] in Blood by Automated countOrdered By: Madhu Richardson on 04-28-2022 Nucleated RBC Auto Ql (Bld)N/AFFlower HospitalPlatelet adequacy [Presence] in Blood by Light microscopyOrdered By: Madhu Richardson on 04-28-2022 Platelets LM Ql (Bld)NormalNormSycamore Medical CenterPlatelet mean volume Auto (Bld) [Entitic vol]Ordered By: Madhu Richardson on 65-97-6466Etduvppu mean volume (Bld) [Entitic vol]8.1 fL6.6-10.1FFlower Hospital Platelet morphology finding [Identifier] in BloodOrdered By: Madhu Richardson on 89-31-8892Qxqmglkq morphology finding Nom (Bld)NormalNormSycamore Medical CenterPlatelets Auto (Bld) [#/Vol]Ordered By: Madhu Richardson on 90-58-6775Fhvlxvchq (Bld) [#/Vol]198 10*3/kV584-649XoigbnixsPaulding County HospitalRBC Auto (Bld) [#/Vol]Ordered By: Madhu Richardson on 47-61-5041QGW (Bld) [#/Vol]3.81 10*6/uL3.90-5.60Paulding County HospitalRBC morphology Ordered By: Madhu Richardson on 63-11-8036BKZ morphology finding Nom (Bld)Normal NormalKettering Health Main Campusegmented neutrophils/100 WBC Manual cnt (Bld)Ordered By: Madhu Richardson on 32-04-1672Tmhjhvknh neutrophils/100 WBC (Bld) 89 %50-70[facility] Main Campuserum or plasma anion gap determinationOrdered By: Madhu Richardson on 39-64-4488Qksbu gap [Moles/Vol]6.0 mmol/L6.0-15.0[facility] Campuserum or plasma calcium measurement (mass/volume)Ordered By: Madhu Richardson on 72-52-3407Sptqxhw [Mass/Vol]8.8 mg/dL8.2-10.2FSycamore Medical Centererum or plasma chloride measurement (moles/volume)Ordered By: Madhu Richardson on 04-28-2022 Chloride [Moles/Vol]108 mmol/T55-380VghiowrihKettering Health Main Campuserum or plasma glucose measurement (mass/volume)Ordered By: Madhu Richardson on 04-28-2022 Glucose [Mass/Vol]145 mg/eI40-433IkjgfpfayPaulding County HospitalComment on above:ADA recommended reference rangeRandom Glucose Reference Range is dependent on time and content of last meal. Glucose of more than 200 mg/dL in a nonstressed, ambulatory subject supports the diagnosisof Diabetes Mellitus.Serum or plasma potassium measurement (moles/volume)Ordered By: Madhu Richardson on 16-37-7064Bzeqftmkk [Moles/Vol]4.6 mmol/L3.5-5.1FSycamore Medical Centererum or plasma sodium measurement (moles/volume)Ordered By: Madhu Richardson on 77-75-2823Gihvfl [Moles/Vol]140 mmol/L134-476KfyolayqyKettering Health Main Campuserum or plasma total carbon dioxide measurement (moles/volume)Ordered By: Madhu Richardson on 01-39-9744VT4 [Moles/Vol]30.6 mmol/L22.0-30.0[facility] Main Campuserum or plasma urea nitrogen measurement (mass/volume) Ordered By: Madhu Richardson on 68-88-7771Oeun nitrogen [Mass/Vol]22 mg/dL9-23 [facility] HospitalWBC Auto (Bld) [#/Vol]Ordered By: Madhu Richardson on 89-42-2470RET (Bld) [#/Vol]17.4 10*3/uL4.1-10.5FFlower HospitalPROF CHEM 8 (BAS METB)on 96-18-3082Figqn gap [Moles/Vol]12.4 mmol/LNormal [facility] HospitalComment on above:Performed By: #### BMP #### [facility] [address] [address] [address] Isha HaqCalcium [Mass/Vol]9.5 mg/dLNormal8.5-10.1[facility] Comment on above:Performed By: #### BMP #### [facility] [address] [place], [place] [address] Dr. Isha HaqChloride [Moles/Vol]106 mmol/OWujkth67-681AqpSelect Medical [facility]ty [facility] Comment on above:Performed By: #### BMP #### [facility] [address] [address] [address] Isha HaqCO2 [Moles/Vol]26.0 mmol/XMhyrtl14.0-32.0[facility] Comment on above:Performed By: #### BMP #### [facility] [address] [address] [address] Isha HaqCreatinine [Mass/Vol]0.75 mg/dLNormal0.70-1.30The [facility]S HospitalComment on above:Performed By: #### BMP #### [facility] [address] [address] [address] Vieira ChangEGFR-AF VENEZUELAN>60Normal>=60The [facility]S HospitalComment on above:Performed By: #### BMP #### [facility] [address] [place] [address] Dr. Isha ClayGFR-NON AF VENEZUELAN>60Normal>=60The [facility]S HospitalComment on above:Performed By: #### BMP #### [facility] [address] [place] [address] Dr. Isha HaqGlucose [Mass/Vol]104 mg/qURhtybf70-339Jol [facility] Comment on above:Performed By: #### BMP #### [facility] [address] [place] [address] Dr. Isha HaqPotassium [Moles/Vol]4.4 mmol/LNormal3.5-5.1The [facility] Comment on above:Performed By: #### BMP #### [facility] [address] [address] [address] Isha HaqSodium [Moles/Vol]140 mmol/ABprqvh939-386Wdl [facility] Comment on above:Performed By: #### BMP #### [facility] [address] [address] [address] Isha HaqUrea nitrogen [Mass/Vol]15.0 mg/dLNormal7.0-18.0The [facility]S HospitalComment on above:Performed By: #### BMP #### [facility] [address] [place] [address] Dr. Isha HaqUrea nitrogen/Creatinine [Mass ratio]20.0 mg/mgNoThe Surgical Hospital at SouthwoodsComment on above:Performed By: #### BMP #### [facility] [address] [address] [address] Isha HaqBasophils Auto (Bld) [#/Vol]Ordered By: Gretchen Pulido on 14-80-9870Pnlfjduvn (Bld) [#/Vol]0.1 10*3/uL0.0-0.2FFlower HospitalBasophils/100 WBC Auto (Bld)Ordered By: Gretchen Pulido on 04-10-2022 Basophils/100 WBC (Bld)0.8 %.Paul[facility] County HospitalBilirubin Test strip Ql (U)Ordered By: Gretchen Pulido on 11-32-6816Mrrptikxw Ql (U)Negative NegativePaulding County HospitalColor Auto (U)Ordered By: Gretchen Pulido on 04-06-0356Iftts (U)Dark yellowYellowPaulding County HospitalCreatinine and Glomerular filtration rate.predicted panel (S/P/Bld)Ordered By: Gretchen Pulido on 06-75-6810Ywvjinuhuv [Mass/Vol]0.67 mg/dL0.64-1.27 [facility] HospitalEosinophils Auto (Bld) [#/Vol]Ordered By: Gretchen Pulido on 15-32-7686Tmuufuecakq (Bld) [#/Vol]0.3 10*3/uL0.0-0.45 [facility] HospitalEosinophils/100 WBC Auto (Bld)Ordered By: Gretchen Pulido on 67-72-0825Zhziqchgclf/100 WBC (Bld)2.9 %.[facility] HospitalErythrocyte distribution width Auto (RBC) [Ratio]Ordered By: Gretchen Pulido on 93-83-1889Wosikbbzlvb distribution width (RBC) [Ratio]14.3 % 12.0-14.8[facility] HospitalEstimated glomerular filtration rate (GFR) non- AmericanOrdered By: Gretchen Pulido on 84-34-4736WLN/1.73 sq M.predicted among non-blacks MDRD (S/P/Bld) [Vol rate/Area]> 60 mL/MinPaulding County HospitalHematocrit Auto (Bld) [Volume fraction]Ordered By: Gretchen Pulido on 96-97-9979Ufhzznelbw (Bld) [Volume fraction]43.1 %38.8-50.0[facility] HospitalHemoglobin [Mass/volume] in BloodOrdered By: Gretchen Pulido on 72-43-3955Rsfugqwrui (Bld) [Mass/Vol]14.4 g/dL13.0-17.0[facility] County HospitalKetones Auto test strip (U) [Mass/Vol]Ordered By: Gretchen Pulido on 17-55-5772Fecolrt (U) [Mass/Vol]TraceNegativePaulding County HospitalLeukocytes [#/volume] corrected for nucleated erythrocytes in Blood by Automated counOrdered By: Gretchen Pulido on 29-21-8605CTM corrected for nucl RBC Auto (Bld) [#/Vol]9.8 10*3/uL4.1-10.5FFlower HospitalLymphocytes Auto (Bld) [#/Vol]Ordered By: Gretchen Pulido on 04-10-2022 Lymphocytes (Bld) [#/Vol]1.7 10*3/uL1.00-4.8[facility] Lymphocytes/100 WBC Auto (Bld)Ordered By: Grethcen Pulido on 04-10-2022 Lymphocytes/100 WBC (Bld)17.6 %.[facility] CenterH Auto (RBC) [Entitic mass]Ordered By: Gretchen Pulido on 78-99-9761MXQ (RBC) [Entitic mass] 30.9 pg27.5-35.2FFlower HospitalMCHC Auto (RBC) [Mass/Vol] Ordered By: Gretchen Pulido on 09-32-7626FYVX (RBC) [Mass/Vol]33.5 g/dL32.5-35.6 [facility] HospitalMCV Auto (RBC) [Entitic vol]Ordered By: Gretchen Pulido on 25-83-5396ZNE (RBC) [Entitic vol]92.2 fL83.5-101Paul[facility] County HospitalMonocytes Auto (Bld) [#/Vol]Ordered By: Gretchen Pulido on 75-39-2288Bookkjfiu (Bld) [#/Vol]1.1 10*3/uL0.0-0.8[facility] HospitalMonocytes/100 WBC Auto (Bld)Ordered By: Gretchen Pulido on 04-10-2022 Monocytes/100 WBC (Bld)11.7 %.Paul[facility] County HospitalNeutrophils Auto (Bld) [#/Vol]Ordered By: Gretchen Pulido on 72-73-2479Qqyatrkygqr (Bld) [#/Vol] 6.5 10*3/uL1.8-7.7FFlower HospitalNeutrophils/100 WBC Auto (Bld)Ordered By: Gretchen Pulido on 46-44-8602Eubtizoknqo/100 WBC (Bld)67.0 %. [facility] HospitalNitrite Test strip Ql (U)Ordered By: Gretchen Pulido on 55-69-1675Uohivss Ql (U)NegativeNegativePaulding County HospitalNo Panel InformationOrdered By: Gretchen Pulido on 18-19-9277Nqltfcooy GFR ()> 60 mL/MinPaulding County HospitalComment on above: GFR estimated reference range: According to KDOQI guidelines, <60 ml/min/1.73m2 is sufficient todiagnose a patient with chronic kidney disease.Pharmacy Creatinine Clearance (ChemN/[facility]ittman HospitalNucleated erythrocytes [Presence] in Blood by Automated countOrdered By: Gretchen Pulido on 40-84-7286Czaesnpyg RBC Auto Ql (Bld)0.1 /100{WBC}0-0.5FFlower HospitalPlatelet mean volume Auto (Bld) [Entitic vol]Ordered By: Gretchen Pulido on 68-31-2048Scezhhda mean volume (Bld) [Entitic vol]7.5 fL6.6-10.1 [facility] HospitalPlatelets Auto (Bld) [#/Vol]Ordered By: Gretchen Pulido on 49-06-6848Lctmqetvn (Bld) [#/Vol]197 10*3/eG703-200HgvwrhzgkPaulding County HospitalProtein Auto test strip (U) [Mass/Vol]Ordered By: Gretchen Pulido on 25-98-3724Knsfxzg (U) [Mass/Vol]NegativeNegativePaulding County HospitalRBC Auto (Bld) [#/Vol]Ordered By: Gretchen Pulido on 97-91-1361YRU (Bld) [#/Vol]4.67 10*6/uL3.90-5.60[facility] Campuserum or plasma anion gap determinationOrdered By: Gretchen Pulido on 94-95-3451Icsze gap [Moles/Vol]13.6 mmol/L6.0-15.0[facility] Campuserum or plasma calcium measurement (mass/volume)Ordered By: Gretchen Pulido on 04-10-2022 Calcium [Mass/Vol]9.6 mg/dL8.2-10.2FSycamore Medical Centererum or plasma chloride measurement (moles/volume)Ordered By: Gretchen Pulido on 08-95-7047Hhrbxymy [Moles/Vol]103 mmol/O17-562ZoxfgyhedPaulding County Hospital Serum or plasma glucose measurement (mass/volume)Ordered By: Gretchen Pulido on 40-01-6357Xfrnhyb [Mass/Vol]100 mg/tP31-356NistvtxjdPaulding County Hospital Comment on above:ADA recommended reference rangeRandom Glucose Reference Range is dependent on time and content of last meal. Glucose of more than 200 mg/dL in a nonstressed, ambulatory subject supports the diagnosisof Diabetes Mellitus. Serum or plasma potassium measurement (moles/volume)Ordered By: Gretchen Pulido on 13-02-8140Lpkkvwhqr [Moles/Vol]4.5 mmol/L3.5-5.1FSycamore Medical Centererum or plasma sodium measurement (moles/volume)Ordered By: Gretchen Pulido on 47-89-4705Udinrj [Moles/Vol]137 mmol/M801-848IgteqbnwnKettering Health Main Campuserum or plasma total carbon dioxide measurement (moles/volume) Ordered By: Gretchen Pulido on 55-80-3773ZQ5 [Moles/Vol]24.9 mmol/L22.0-30.0 [facility] Campuserum or plasma urea nitrogen measurement (mass/volume)Ordered By: Gretchen Pulido on 81-60-7475Fgml nitrogen [Mass/Vol]18 mg/dL9-23K[facility]tering Health Main Campuspecific gravity Auto test strip (U) [Rel density]Ordered By: Gretchen Pulido on 78-01-8503Oramednb gravity (U) [Rel density]1.0301.001-1.030Paul[facility] County HospitalUrine clarity by refractometry automatedOrdered By: Gretchen Pulido on 58-10-9971Vkegkyk Refractometry automated (U)ClearClearFFlower HospitalUrine culture routineOrdered By: Gretchen Pulido on 96-34-6853Tllgwcat identified Cx Nom (U)No Growth 2 DaysPaulding County HospitalUrine glucose measurement by automated test strip (mass/volume)Ordered By: Gretchen Pulido on 83-90-1124Opxhayc Auto test strip (U) [Mass/Vol]Normal mg/dLNormSycamore Medical CenterUrine hemoglobin detection by automated test stripOrdered By: Gretchen Pulido on 71-77-6760Rcfrymhykf Auto test strip Ql (U)Negative NegativePaulding County HospitalUrine leukocyte esterase detection by automated test stripOrdered By: Gretchen Pulido on 59-63-5978Zdxuzxphd esterase Auto test strip Ql (U)NegativeNegativePaulding County Hospital Urobilinogen Auto test strip (U) [Mass/Vol]Ordered By: Gretchen Pulido on 71-30-2589Yllnkqdvurvy (U) [Mass/Vol]Normal mg/dLNormSycamore Medical CenterWBC Auto (Bld) [#/Vol]Ordered By: Gretchen Pulido on 28-27-5006DGI (Bld) [#/Vol]9.8 10*3/uL4.1-10.5FFlower HospitalpH Auto test strip (U)Ordered By: Gretchen Pulido on 66-96-3025hE (U)5.5 [pH]5.0-9.0Paulding County HospitalCBC AUTO DIFFon 23-17-5937KEYS #0.0 103/ulNormal0.0-0.1 The [facility] HospitalComment on above:Performed By: #### CBC #### [facility] [address] [address] [address] Isha HaqBasophils/100 WBC (Bld)0.4 %Normal0.2-2.0The [facility] Comment on above:Performed By: #### CBC #### [facility] [address] [place] [address] Dr. Isha Preston #0.3 103/ulNormal0.0-0.7The [facility] HospitalComment on above: Performed By: #### CBC #### [facility] [address] [place] [address] Dr. Isha Clayosinophils/100 WBC (Bld)3.8 %Normal0.9-7.0[facility] Comment on above:Performed By: #### CBC #### [facility] [address] [place] [address] Dr. Isha Clayrythrocyte distribution width (RBC) [Ratio]13.2 %Tcjgtf93.0-15.0 The [facility] HospitalComment on above:Performed By: #### CBC #### [facility] [address] [place] [address] Dr. Isha HaqHematocrit (Bld) [Volume fraction]43.0 %Dtjqby18.0-54.0The [facility]S HospitalComment on above:Performed By: #### CBC #### [facility] [address] [place] [address] Dr. Isha HaqHemoglobin (Bld) [Mass/Vol]14.3 g/wEFdybxy93.0-18.0The [facility] HospitalComment on above:Performed By: #### CBC #### [facility] [address] [place] [address] Dr. Isha Charles #0.04 10e3/ulCritically high0.00-0.03The [facility] Comment on above:Performed By: #### CBC #### [facility] [address] [place] [address] Dr. Isah Charles %0.4 %Normal0.0-0.5The [facility]S HospitalComment on above: Performed By: #### CBC #### [facility] [address] [place] [address] Dr. Isha Edward #1.9 103/ulNormal1.2-3.8ThMarion HospitalComment on above:Performed By: #### CBC #### [facility] [address] [place] [address] Dr. Isha Hendricksmphocytes/100 WBC (Bld)21.0 %Mgnxmi88.5-60.0[facility] SouthComment on above:Performed By: #### CBC #### [facility] [address] [place] [address] Dr. Isha Mckeon DIFF REQNONormalThe [facility]'S HospitalComment on above: Performed By: #### CBC #### [facility] [address] [place] [address] Dr. Isha Jj (RBC) [Entitic mass]30.4 ubEaoyoy66.9-34.0The [facility]S HospitalComment on above:Performed By: #### CBC #### [facility] [address] [place] [address] Dr. Isha Jj (RBC) [Mass/Vol]33.3 g/hCCgycqt92.9-35.2[facility] SouthComment on above:Performed By: #### CBC #### [facility] [address] [place] [address] Dr. Isha Taylor (RBC) [Entitic vol]91.3 mXFvmyuu57.0-94.0[facility] SouthComment on above:Performed By: #### CBC #### [facility] [address] [place] [address] Dr. Isha Milton #1.0 103/ulCritically high0.3-0.8ThMarion Hospital Comment on above:Performed By: #### CBC #### [facility] [address] [place] [address] Dr. Isha Gilocytes/100 WBC (Bld)11.4 %Normal1.7-12.0[facility] Comment on above:Performed By: #### CBC #### [facility] [address] [place] [address] Dr. Isha Roche #5.6 103/ulNormal1.4-6.5The [facility]S HospitalComment on above:Performed By: #### CBC #### [facility] [address] [place] [address] Dr. Isha Acostautrophils/100 WBC (Bld)63.0 %Ugsgio46.0-75.0The [facility]S HospitalComment on above:Performed By: #### CBC #### [facility] [address] [place] [address] Dr. Isha HaqPlatelet mean volume (Bld) [Entitic vol]11.2 fLNormal9.5-13.5The [facility]S HospitalComment on above:Performed By: #### CBC #### [facility] [address] [place] [address] Dr. Isha HaqPLT191 103/pfChspog315-135Bif [facility] HospitalComment on above: Performed By: #### CBC #### [facility] [address] [place] [address] Dr. Isha HaqRBC4.71 106/ulNormal4.70-6.10The [facility] HospitalComment on above:Performed By: #### CBC #### [facility] [address] [place] [address] Dr. Isha HaqWBC8.9 103/ulNormal4.0-11.0The [facility] HospitalComment on above: Performed By: #### CBC #### [facility] [address] [place] [address] Dr. Isha HaqLIPID PROFILEon 01-33-5459WNLM-HDL RATIO NORMSHolzer Health SystemComment on above:Result Comment: 3.3 - 4.4 LOW RISK 4.4 - 7.1 AVERAGE RISK 7.1 - 11.0 MODERATE RISK >11.0 HIGH RISKPerformed By: #### PSAD #### [facility] [address] [place] [address] Dr. Isha HaqCholesterol [Mass/Vol]120 mg/dLNormal<=200The [facility] Comment on above:Performed By: #### PSAD #### [facility] [address] [address] [address] Isha HaqCholesterol in HDL [Mass/Vol]42 mg/fKTciwug76-57OdrOhioHealth Dublin Methodist Hospital on above:Performed By: #### PSAD #### [facility] [address] [address] [address] Isha HaqCholesterol in LDL [Mass/Vol]46.2 mg/dLOhioHealth Nelsonville Health CenterComment on above:Performed By: #### PSAD #### [facility] [address] [place] [address] Dr. Isha Mckeonesterol.total/Cholesterol in HDL [Mass ratio]2.9 {ratio} NormalThe [facility] on above:Performed By: #### PSAD #### [facility] [address] [place] [address] Dr. Isha HaqHDL NORMAL> or = 60 mg/dl - LOW CARDIOVASCULAR RISK <40 mg/dl - HIGH CARDIOVASCULAR RISKOhioHealth Nelsonville Health CenterCommemorial healthcare on above:Performed By: #### PSAD #### [facility] [address] [place] [address] Dr. Isha Wan CALC NORMALSEE BELOWOhioHealth Nelsonville Health CenterCommemorial healthcare on above:Result Comment: <100 mg/dl OPTIMAL 100 - 129 mg/dl NEAR OR ABOVE OPTIMAL 130 - 159 mg/dl BORDERLINE HIGH 160 - 189 mg/dl HIGH >190 mg/dl VERY HIGH Performed By: #### PSAD #### [facility] [address] [place] [address] Dr. Isha HaqTriglyceride [Mass/Vol]159 mg/dLCritically high<=150[facility] on above:Performed By: #### PSAD #### [facility] [address] [place] [address] Dr. Isha TaiLDL CALC31.8 mg/dLNoThe Surgical Hospital at SouthwoodsComment on above: Performed By: #### PSAD #### [facility] [address] [place] [address] Dr. Isha Lake 14(COMP METB)on [id number] [Mass/Vol]3.2 g/dL Critically low3.4-5.0The [facility] HospitalComment on above:Performed By: #### LIPID, CMP #### [facility] [address] [address] [address] Isha HaqAlbumin/Globulin [Mass ratio]0.8 {ratio}NormalThe [facility]'S HospitalComment on above:Performed By: #### LIPID, CMP #### [facility] [address] [address] [address] Isha ToneyP [Catalytic activity/Vol]115 U/NEghxsu78-039Emq [facility] HospitalComment on above:Performed By: #### LIPID, CMP #### [facility] [address] [address] [address] Isha ToneyT [Catalytic activity/Vol]28 U/FQfnodj72-05Mqe [facility] HospitalComment on above:Performed By: #### LIPID, CMP #### [facility] [address] [address] [address] Isha Longo gap [Moles/Vol]10.7 mmol/LNormalThe [facility] Comment on above:Performed By: #### LIPID, CMP #### [facility] [address] [address] [address] Isha HaqAST [Catalytic activity/Vol]48 U/LCritically kxma87-41Get [facility] HospitalComment on above:Performed By: #### LIPID, CMP #### [facility] [address] [address] [address] Isha HaqBilirubin [Mass/Vol]0.9 mg/dLNormal0.2-1.0The [facility] Comment on above:Performed By: #### LIPID, CMP #### [facility] [address] [address] [address] Isha HaqCalcium [Mass/Vol]9.2 mg/dLNormal8.5-10.1The [facility] Comment on above:Performed By: #### LIPID, CMP #### [facility] [address] [address] [address] Isha HaqChloride [Moles/Vol]107 mmol/AUdaxyy62-142Hlw [facility] Comment on above:Performed By: #### LIPID, CMP #### [facility] [address] [address] [address] Isha HaqCO2 [Moles/Vol]24.5 mmol/KAtngov06.0-32.0The [facility] Comment on above:Performed By: #### LIPID, CMP #### [facility] [address] [address] [address] Isha HaqCreatinine [Mass/Vol]0.52 mg/dLCritically low0.70-1.30The [facility] HospitalComment on above:Performed By: #### LIPID, CMP #### [facility] [address] [address] [address] Vieira ChangEGFR-AF VENEZUELAN>60Normal>=60The [facility]S HospitalComment on above:Performed By: #### LIPID, CMP #### [facility] [address] [address] [address] Isha ClayGFR-NON AF VENEZUELAN>60Normal>=60The [facility] HospitalComment on above:Performed By: #### LIPID, CMP #### [facility] [address] [address] [address] Isha HaqGlobulin (S) [Mass/Vol]3.8 g/dLNormalThe [facility] HospitalComment on above:Performed By: #### LIPID, CMP #### [facility] [address] [place] [address] Dr. Isha HaqGlucose [Mass/Vol]104 mg/nPPmclsx89-190Wee [facility] Comment on above:Performed By: #### LIPID, CMP #### [facility] [address] [address] [address] Isha HaqPotassium [Moles/Vol]5.2 mmol/LCritically high3.5-5.1The [facility] HospitalComment on above:Performed By: #### LIPID, CMP #### [facility] [address] [address] [address] Isha HaqProtein [Mass/Vol]7.0 g/dLNormal6.4-8.2The [facility] Comment on above:Performed By: #### LIPID, CMP #### [facility] [address] [place] [address] Dr. Isha HaqSodium [Moles/Vol]137 mmol/QKquncf087-161Ecj [facility] Comment on above:Performed By: #### LIPID, CMP #### [facility] [address] [place] [address] Dr. Isha HaqUrea nitrogen [Mass/Vol]25.0 mg/dLCritically high7.0-18.0[facility] Columbus SouthComment on above:Performed By: #### LIPID, CMP #### [facility] [address] [place] [address] Dr. Isha Pérez nitrogen/Creatinine [Mass ratio]48.1 mg/mgNormalThe [facility] HospitalComment on above:Performed By: #### LIPID, CMP #### [facility] [address] [place] [address] Dr. Isha HaqCARDIAC STRESS TESTon 76-56-9990KEFUDIO STRESS TESTCARDIAC STRESS TEST OPERATION DATE: 01/12/2022 SURGEON: Tl [...] ensuring mobility, phacoemulsification was performed in a yjclaio-oiz-onspig-type fashion. After all nuclear material had been [...] up the following day for postoperative care. [facility] CenterNM STRESS/REST MULTIon [id number] STRESS/REST MULTI Patient: BELÉN KEENAN Exam Date: 01/11/2022 : 1945 Gender:M Ordering : DR DIYA BROWN M.D. Admission #: [id number] Family : Order #: [id number] CLICK HERE TO VIEW EXAM RADIOLOGY REPORT [...] DEFECT: LOCATION: Basal inferior. Mid-inferior. Apical inferior. [place]. SIZE: Medium (3-4 segments). SEVERITY: Moderate. TYPE: [...] by: Marion Luis MD on 01/12/2022 at 07:05[facility] CONon [id number] LSPINE WO CONEXAMINATION: MRI [facility] CON HISTORY: Low back pain COMPARISON: [...] Electronically authenticated by: MARION LUIS Date: 2021-11-01 18:11[facility] CenterXR FOREIGN BODY EYEon [id number] FOREIGN BODY EYEEXAMINATION: XR FOREIGN BODY EYE HISTORY: Foreign body in eye COMPARISON: No relevant comparison available. FINDINGS: ORBITS: Negative for a metallic foreign body. OTHER: Negative. IMPRESSION: No metallic foreign body in the orbits Electronically authenticated by: MARION LUIS Date: 2021-11-01 10:33[facility] CenterXR LSPINE 2_3 VIEWSon 59-63-7101SC LSPINE 2_3 VIEWSEXAMINATION: XR LSPINE 2_3 VIEWS HISTORY: Low back pain , [...] Electronically authenticated by: RHONDA STEVENSON Date: 2021-08-03 12:18[facility] CenterCult,Urineon [id number],UrineSpecimen Description .CLEAN CATCH URINE Special Requests NOT REPORTED Culture NO GROWTH Report Status FINAL 05/05/2020NoMercedes Fitzgerald HospitalComment on above: Performed By: #### URC #### [facility] [address] [place], [place] [address] Mount Loader: Mendez Cabello MD [address] [place], [place] [address] Mount Loader: Marion Koo MDUrinalysis w/ Microon 05-04-2020-----NormalMercy Alanson HospitalComment on above:Performed By: #### UAMIC #### [facility] [address] [place] [address] [place] [address] Mount Loader: Marion Koo MDAcetoacetic Acid,UrNegativeNormalNEGMercy Alanson HospitalComment on above:Performed By: #### UAMIC #### [address] [place], [place] [address]683 Mount Loader: Montez Strong sediment LM Ql (Urine sed)TRACEAbnormal NONEMerLicking Memorial Hospital HospitalComment on above:Performed By: #### UAMIC #### [address] [place] [address] Mount Loader: Erik Strong LM.HPF (Urine sed) [#/Area]TRACEAbnormal NONEMerLicking Memorial Hospital HospitalComment on above:Performed By: #### UAMIC #### [facility] [address] [place] [address] [place] [address] Mount Loader: Marion Koo MDBilirubin, SemiQt,UrNegativeNormalNEGMercy Alanson HospitalComment on above:Performed By: #### UAMIC #### [address] [place], [place] [address] Mount Loader: MARICRUZ Strongolor (U)YELLOWNormalYELMerGaylord Hospital Comment on above:Performed By: #### UAMIC #### [facility] [address] [place] [address] Dr. [place], [place] [address] Mount Loader: Marion Koo MDEpithelial cells LM.HPF (Urine sed) [#/Area]0 TO 2 Normal0-5St. Francis HospitalComment on above:Performed By: #### UAMIC #### [facility] [address] [place] [address] Dr. [place], [place] [address] Mount Loader: Marion Koo MDGlucose Ql (U)NegativeNormalNEGSt. Francis HospitalComment on above:Performed By: #### UAMIC #### [address] [place], [place] [address]83 Mount Loader: Marion Koo MDHemoglobin, UrNegativeNormalNEGSt. Francis HospitalComment on above:Performed By: #### UAMIC #### [address] [place], [facility]83 Mount Loader: Marion Koo MDLeukocyte esterase Test strip Ql (U)NegativeNormal NEGSt. Francis HospitalComment on above:Performed By: #### UAMIC #### [address] [place], [place] [address] Mount Loader: HAILEE Strongucus Strands1+AbnormalNONEMeVeterans Administration Medical Center Comment on above:Performed By: #### UAMIC #### [facility] [address] [place] [address] Dr. [place], [place] [address] Mount Loader: Marion Koo MDNitrite,UrNegativeNoEast [facility] Comment on above:Performed By: #### UAMIC #### [address] [place], [place] [address] Mount Loader: Miladis StrongH (U)6.0 [pH]Normal5.0-9.0[facility] Comment on above:Performed By: #### UAMIC #### [facility] [address] [place] [address] Dr. [place], [place] [address] Mount Loader: MILADIS Strongrotein Ql (U)NegativeNormalNEGSt. Francis HospitalComment on above:Performed By: #### UAMIC #### [address] [place], [place] 4372183 Mount Loader: ANDRE StrongBC (U) [#/Vol]NoneNormal0-2[facility] Comment on above:Performed By: #### UAMIC #### [facility] [address] [place] [address] Dr. [place], [place] 29[address] Mount Loader: ANNY Strongpecific gravity (U) [Rel density]>1.030High 1.010-1.020[facility] Hospitalcy Middlesex HospitalComment on above:Performed By: #### UAMIC #### [address] [place], [facility]83 Mount Loader: LISSET StrongurbidityCLEARNormalCLEARSt. Francis Hospital Comment on above:Performed By: #### UAMIC #### [address] [place], [place] [address] Mount Loader: Marion Koo MDUrobilinogen,UrNormalNormalNORMSt. Francis HospitalComment on above:Performed By: #### UAMIC #### [address] [place], [place] [address]83 Mount Loader: Marion Koo MDWBC (U) [#/Vol]0 TO 0Orxxeb3-4Qasjd [facility] HospitalComment on above:Performed By: #### UAMIC #### [address] [place], [place] [address]83 Mount Loader: Deon Strong LM.LPF (Urine sed) [#/Area]NOT REPORTED NormalSelect Medical Cleveland Clinic [facility], Avon HospitalComment on above:Performed By: #### UAMIC #### [facility] [address] [place] [address] Mount Loader: MARICRUZ StrongomsandovalNOT REPORTEDNormalMemorial Hospital on above:Performed By: #### UAMIC #### [facility] [address] [place] [address] [place] [address] Mount Loader: MARICRUZ Strongrystals LM Nom (Urine sed)NOT REPORTEDNormalNONE [facility], [facility] HospitalComment on above:Performed By: #### UAMIC #### [facility] [address] [place] [address] Mount Loader: Marion Koo MDEpithelial, RenalNOT [id number] Alanson HospitalComment on above:Performed By: #### UAMIC #### [facility] [address] [place] [address] [place] [address] Mount Loader: Marion Koo MDOther ObservationsNOT REPORTEDNormalNREQOhiohealth Marion General Hospitalcy Alanson HospitalComment on above:Performed By: #### UAMIC #### [facility] [address] [place] [address] [place] [address] Mount Loader: Marion Koo MDTrichomonasNOT REPORTEDNormalNONEMercy Alanson HospitalComment on above:Performed By: #### UAMIC #### [facility] [address] [place] [address] [place] [address] Mount Loader: Marion Koo MDYeast LM Ql (Urine sed)NOT REPORTEDNormalNONEMey Alanson HospitalComment on above:Performed By: #### UAMIC #### [facility] [address] [place] [address] Dr. [place], [place] 4[address] Mount Loader: Marion Koo MDUrinalysis with Microscopicon 92-17-3751Qygrrefvp, UATRACEAbnormalNoneMercy Health Work Phone: bacteria, UATRACEAbnormalNoneMercy Health Work Phone: bilirubin UrineNegativeNEGATIVEMercy Health Work Phone: casts UANOT REPORTED/LPFMercy Health Work Phone: Oolor, UAYELLOWYELLOWMercy Health Work Phone: Lrystals, UANOT REPORTEDNone /HPFMercy Health Work Phone: epithelial Cells UA0 TO 2[facility] Work Phone: Glucose, UrNegativeNEGATIVEMercy Health Work Phone: Interpretation and review of laboratory results AbnormalMercy Health Work Phone: Ketones Ql (U)NegativeNEGATIVEMercy Health Work Phone: Reukocyte esterase Test strip Ql (U)NegativeNEGATIVE [facility] Work Phone: Mucus, UA1+AbnormalNoneMercy Health Work Phone: Nitrite, UrineNegativeNEGATIVEMercy Health Work Phone: Other Observations UANOT REPORTEDNOT REQ.[facility] Work Phone: qH, UA6.0[facility] Work Phone: Crotein (U) [Mass/Vol]NegativeNEGATIVEMercy Health Work Phone: rBC (U) [#/Vol]NoneMercy Health Work Phone: Zenal Epithelial, UANOT REPORTED0 /HPFMercy Health Work Phone: specific Stanton, UA>1.030HighMercy Health Work Phone: Trichomonas, UANOT REPORTEDNoneMercy Health Work Phone: Turbidity UACLEARCLEARMercy Health Work Phone: Urinalysis CommentsNOT REPORTEDMercy Health Work Phone: Urine HgbNegativeNEGATIVEMer Health Work Phone: Urobilinogen, UrineNormalNormalMercy Health Work Phone: WBC, UA0 TO 2[facility] Work Phone: Yeast, UANOT REPORTEDNoneMercy Health Work Phone: -[facility] Work Phone: cult,Urineon [id number],UrineSpecimen Description .CLEAN CATCH URINE Special Requests NOT REPORTED Culture NO GROWTH Report Status FINAL 09/26/2019NoLima City HospitalComment on above: Performed By: #### URC #### [address] [id number] Mount Loader: Mendez Cabello MD [address] [place] [address] Mount Loader: Santos Solorio MDUrinalysis w/ Microon 09-25-2019-----NormalSt. Francis HospitalComment on above:Performed By: #### UAMIC #### [address] [place], [place] [address] Mount Loader: Santos Solorio MDAcetoacetic Acid,UrNegativeNormalNEGSelect Medical [facility] Clinic Rehabilitation Hospital, [facility] HospitalComment on above:Performed By: #### UAMIC #### [facility] [address] [place] [address] [place] [address] Mount Loader: Santos Solorio MDBilirubin, SemiQt,UrNegativeNormalNEGSt. Francis HospitalComment on above:Performed By: #### UAMIC #### [address] [place] [address] Mount Loader: Santos Solorio [facility] PON[facility] CITYolor (U)YELLOWNormalYTrinity Health System [facility] Comment on above:Performed By: #### UAMIC #### [facility] [address] [place], [facility]83 Mount Loader: Santos Solorio MDEpithelial cells LM.HPF (Urine sed) [#/Area]None Normal0-5[facility] Hospitalcy [facility] HospitalComment on above:Performed By: #### UAMIC #### [facility] [address] [place], [facility]83 Mount Loader: Santos Solorio MDGlucose Ql (U)NegativeNormalNEGSt. Francis HospitalComment on above:Performed By: #### UAMIC #### [address] [place] [address] Mount Loader: Santos Solorio MDHemoglobin, UrNegativeNoEast Ohio Regional HospitalComment on above:Performed By: #### UAMIC #### [address] [place], [place] [address] Mount Loader: Santos Solorio MDLeukocyte esterase Test strip Ql (U)Negative NormalNEGSt. Francis HospitalComment on above:Performed By: #### UAMIC #### [address] [place] [address] Mount Loader: Santos Solorio MDNitrite,UrNegMount St. [facility] Hospital Comment on above:Performed By: #### UAMIC #### [address] [place], [facility]83 Mount Loader: Santos Solorio [facility] Center NorthH (U)5.5 [pH]Normal5.0-9.0[facility] Comment on above:Performed By: #### UAMIC #### [address] [place] [address] Mount Loader: MILADIS Peckrotein Ql (U)NegativeNormalOur Lady of Mercy Hospital - AndersonComment on above:Performed By: #### UAMIC #### [address] [place] [address] Mount Loader: ANDRE PeckBC (U) [#/Vol]NoneBridgeville02MUniversity Hospitals TriPoint [facility] Comment on above:Performed By: #### UAMIC #### [facility] [address] [place], [place] [address]67383 Mount Loader: ANNY Peckpecific gravity (U) [Rel density]1.020Normal 1.010-1.020St. Francis HospitalComment on above:Performed By: #### UAMIC #### [facility] [address] [place], [place] [address] Mount Loader: LISSET PeckurbidityCLEARCarondelet HealthalCMercy Health St[facility] Comment on above:Performed By: #### UAMIC #### [facility] [address] [place], [place] [address] Mount Loader: Shirin Peck,UrNormalNormFirelands Regional Medical CenterComment on above:Performed By: #### UAMIC #### [facility] [address] [place] [address] Mount Loader: Santos Solorio MDWBC (U) [#/Vol]NoneBridgeville0-5[facility] Comment on above:Performed By: #### UAMIC #### [facility] [address] [place] [address] Mount Loader: Montez Peck sediment LM Ql (Urine sed)NOT REPORTED NormalKettering HealthComment on above:Performed By: #### UAMIC #### [facility] [address] [place], [place] [address] Mount Loader: Erik Peck LM.HPF (Urine sed) [#/Area]NOT REPORTED NormalKettering HealthComment on above:Performed By: #### UAMIC #### [facility] [address] [place] [address] Mount Loader: Deon Peck LM.LPF (Urine sed) [#/Area]NOT REPORTED NormalMercy Alanson HospitalComment on above:Performed By: #### UAMIC #### [facility] [address] [place] [address] Mount Loader: MARICRUZ PeckommentNOT REPORTEDNormalMercy [facility]anson Hospital Comment on above:Performed By: #### UAMIC #### [facility] [address] [place] [address] Mount Loader: Bernie Peck LM Nom (Urine sed)NOT REPORTEDNormalNONE [facility] HospitalComment on above:Performed By: #### UAMIC #### [facility] [address] [place] [address] Mount Loader: Santos Solorio MDEpithelial, RenalNOT [id number] Alanson HospitalComment on above:Performed By: #### UAMIC #### [facility] [address] [place] [address] Mount Loader: HAILEE Peckucus StrandsNOT REPORTEDNormalNONEMercy Alanson HospitalComment on above:Performed By: #### UAMIC #### [facility] [address] [place] [address] Mount Loader: Santos Solorio MDOther ObservationsNOT REPORTEDNormalNREQOhiohealth Marion General Hospitalcy Alanson HospitalComment on above:Performed By: #### UAMIC #### [facility] [address] [place] [address] Mount Loader: Santos Solorio MDTrichomonasNOT REPORTEDNormalNONEMercy Alanson HospitalComment on above:Performed By: #### UAMIC #### [facility] [address] [place], [place] [address] Mount Loader: Santos Solorio MDYeast LM Ql (Urine sed)NOT REPORTEDNormalNONE St. Francis HospitalComment on above:Performed By: #### UAMIC #### [facility] [address] [place], [place] [address]783 Mount Loader: Santos Solorio MDUrinalysis with Microscopicon 09-25-2019 Amorphous, UANOT REPORTEDNoneMercy Health- [place], KYBacteria, UANOT REPORTEDNone [facility]- [place], KYBilirubin UrineNegativeNEGATIVEMercy Health- [place], KYCasts UA NOT REPORTED/LPFMercy Health- [place], KYColor, UAYELLOWYELLOWMercy Health- [place], [place] Crystals, UANOT REPORTEDNone /HPFMercy Health- [place], KYEpithelial Cells UANone [facility]- [place], KYGlucose, UrNegativeNEGATIVEMercy Health- [place], KYKetones Ql (U)NegativeNEGATIVEMercy Health- [place], KYLeukocyte esterase Test strip Ql (U) NegativeNEGATIVEMercy Health- [place], KYMucus, UANOT REPORTEDNoneMercy Health- [place], KYNitrite, UrineNegativeNEGATIVEMercy Health- [place], KYOther Observations UANOT REPORTEDNOT REQ.[facility]- [place], KYpH, UA5.5[facility]- [place], KYProtein (U) [Mass/Vol]NegativeNEGATIVEMercy Health- [place], KYRBC (U) [#/Vol]NoneMercy Health- [place], KYRenal Epithelial, UANOT REPORTED0 /HPFMercy Health- [place], KYSpecific Stanton, UA1.020[facility]- [place], KYTrichomonas, UANOT REPORTEDNoneMercy Health- [place], KYTurbidity UACLEARCLEARMercy Health- [place], KYUrinalysis CommentsNOT REPORTED [facility]- [place], KYUrine HgbNegativeNEGATIVEMercy Health- [place], KYUrobilinogen, UrineNormalNormalMercy Health- [place], KYWBC, UANoneMercy Health- [place], KYYeast, UANOT REPORTEDNoneMercy Health- [place], [place]-[facility]- [place], KYAuth for Release of Medical Recordson [id number] for Release of Medical Records [id number]#1.00CD:127[facility]rev[facility] Saint Luke InstitutePROSamaritan Hospital 84-05-5576Bsfaxve mass concHNO ID: [id number]: Blair Green: (none)Author Type: PhysicianType: Progress NotesFiled: [...] four times a day And discuss DSAEK op tion Left eyeDepressionI have confirmed and edited as necessary the relevant ophthalmic history,ROS, and the neuro exam findings as obtained by others. I have seen andexamined this patient.I have discussed the case and the management of this patient's care withthe Resident/Fellow, if applicable. I also have reviewed and agree withthe assessment and plan as stated above and agree with all of its relevantcomponents.Memorial Health SystemProtein mass conc HNO ID: [id number]: Jamie (Ray Mays: (none)Author Type: ResidentType: Progress NotesFiled: 02/07/2018 10:01 AMNote Text:Resolved ulcer Left eye, failed DSAEK and corneal scarWould still benefit from DSAEK repeat, then possible PTK for smoothing ofoptical centerPrimary open angle glaucomaOff PredForte OS for 3-4 weeks, ?discontinued by local optometristContinue glaucoma medsPatient interested in repeat DSAEKNormGalion Community HospitalPROSIERRA VISTA HOSPITALon [id number] mass concHNO ID: [id number]: Blair Green: (none)Author Type: PhysicianType: Progress NotesFiled: 10/04/2017 7:56 AMNote Text:Resolved ulcer Left eye, failed DSAEK and corneal scarWould still benefit from DSAEK repeat, then possible PTK for smoothing ofoptical centerPrimary open angle glaucomaPredforte Once daily, d/c foritfied ATB, cont glaucoma medOhioHealth Riverside Methodist Hospital consider DSAEK and call when ready to [...] above and agree with all of its relevantcomponents.NormalCleveland Clinic South Pointe HospitalPROGRESSon 15-13-9106Srplpqb mass concHNO ID: [id number]: Dario Morse: (none)Author Type: OPTOMETRISTType: Progress NotesFiled: 09/13/2017 10:21 AMNote Text:IGNACIO ptNo cornea providers in clinic today and cornea fellows have not started inclinic yetCorneal ulcer, left eye- Hit in eye by logan's action figure, went to chief gauger and startedon besivance q2h- Previously seen here [...] above and agree with all of its relevantcomponents.Dario Shepard, OD September 13, 2017 10:15 AMNormalCleveland Clinic South Pointe HospitalPROGRESSon 18-31-3227Pppkmgr mass concHNO ID: [id number]: Blair Green: (none)Author Type: PhysicianType: Progress NotesFiled: [...] above and agree with all of its relevantcomponents.NormalCleveland Clinic South Pointe HospitalProtein mass concHNO ID: [id number]: Ivelisse Layton (Fel)ervice: (none)Author Type: FellowType: Progress NotesFiled: 09/06/2017 10:33 AMNote Text:1) Corneal ulcer, left eye- Hit in eye by logan's action figure, went to chief gauger and startedon besivance q2h- Previously seen here in May with DSAEK graft rejection- Started fortified vanc and tobra q2h last week- Epi defect smaller than last week, healinginPlan:Continue fortified Vanc and Tobra- decrease to q4h1 weekI have confirmed and edited as necessary the relevant ophthalmic history,ROS, and the neuro exam findings as obtained by others. I have seen andexamined this patient.I have discussed the case and the management of this patient's care wit hthe Resident/Fellow, if applicable. I also have reviewed and agree withthe assessment and plan as stated above and agree with all of its relevantcomponents.Ivelisse Ugalde MD September 06, 2017 10:25 AMNormalProtestant Deaconess Hospital Cultureon 78-90-5761Bxuwecy mass concSp. Request/Comment: - Specimen received already planted.Culture Result - Cutibacterium (Propionibac terium) acnes In thioglycollate broth only --> ABNORMAL ALERT Susceptibility testing on C. acnesnot performed due to predictable susceptibility to penicillin. C. acnes is intrinsically resistant to metronidazole. --> ABNORMAL ALERT (NOTE) Positive result called to and read back by:Dr Jessica AnI20 09/07/17 902A g ballaCritically abnormalCleveland Clinic South Pointe HospitalComment on above: Performed By: #### EYEC ####[facility] [address] [place], [place] [phone] Cultureon 22-90-9767Xuttmc CultureSp. Request/Comment: - Specimen received already planted. Culture Result - No Fungus isolated after 33 daysNoFayette County Memorial HospitalComment on above:Performed By: #### FCUL ####[facility] [address] [place], [place] [phone] 69-62-2636Nnoljjo mass concHNO ID: [id number]: Blair Green: (none)Author Type: PhysicianType: Progress NotesFiled: [...] above and agree with all of its relevantcomponents.NormalCleveland Clinic South Pointe HospitalProtein mass concHNO ID: [id number]: Ivelisse Azul (Fel): (none)Author Type: FellowType: Progress NotesFiled: 08/30/2017 8:30 PMNote Text:1) Corneal ulcer, left eye- Hit in eye by grandgraciela's action figurelast Sunday, went to optometriston Sunday and started [...] have seen andexamined this patient.I have discussed thecase and the management of this patient's care withthe Resident/Fellow, if applicable. I also have r eviewed and agree withthe assessment and plan as stated above and agree with all of its relevantcomponents.Ivelisse Ugalde MD August 30, 2017 7:51 AMNormal [facility] Clinic South Pointe HospitalPROESSon 56-92-1179Zwvlftg mass concHNO ID: [id number]: Blair Green: (none)Author Type: PhysicianType: Progress NotesFiled: 06/07/2017 11:52 AMNote Text:Agree, taper Predforte To twice a day over 2 weeksCan discuss needfor re-graft in 3 months]basleine vision was only [...] above and agree with all of its relevantcomponents.NormalCleveland Clinic South Pointe HospitalProtein mass conc HNO ID: [id number]: Carol Reyes (Fel): (none)Author Type: FellowType: Progress [...] above and agree with all of its relevantcomponents.Carol Martínez MD June 07, 2017 11:[address] Elizabeth [facility]stown HospitalESSon 34-71-5950Clrnphy mass concHNO ID: [id number]: Blair Green: (none)Author Type: PhysicianType: Progress NotesFiled: 05/17/2017 12:14 PMNote Text:Probable rejection Left eye, start Predforte q2h then taper to fourtimesa day Over 3 weeksRTC 3 weeks for recheckI have confirmed and edited as necessary the relevantophthalmic history,ROS, and the neuro exam findings as obtained by others. I have seen andexamined this patient.I have discussed the case and the management of this patient's care withthe Resident/Fellow, if applicable. I also have reviewed and agree withthe assessment and plan as stated above and agree with all of its relevantcomponents.NormalCleveland Clinic South Pointe HospitalProtein mass concHNO ID: [id number]: Maldonado (Res) Thomasice: (none)Author Type: ResidentType: Progress NotesFiled: 05/17/2017 12:14 PMNote Text:1. 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 Pseudophakia OD 05/2016Doing well NormalCleveland Clinic South Pointe Hospital Vital Signs Date TimeVital SignValuePerforming AwsnoetleRjmpumje27-01-7796 08:19-0400Body tardiz425.18 cmPaulding [facility] Hospital10-16-2025 08:19-0400Body mass index (BMI) [Ratio]34.1 kg/d9SyssoljcwPaulding County Hospital10-16-2025 08:19-0400Body enccgs76.88 kgPaulding County Hospital10-16-2025 08:19-0400Diastolic blood lppdnabe55 mm[Hg][facility] 12-25-2024 08:19-0400Heart rate75 /[facility] 12-25-2024 08:19-0400Respiratory rate20 /[facility] 12-25-2024 08:19-9205PiA5% (BldA) [Mass fraction]95 %[facility]10-16-2025 08:19-0400Systolic blood pznqhmji594 mm[Hg][facility]04-03-2025 09:02-0400Body mass index (BMI) [Ratio]36.21 kg/m2Lisa Aichholz TOURS CAPTAIN Work Phone: noTenet St. LouisFlkhsjkyjm59-49-4765 09:02-0400Body temperature 98.49 [degF]Zee Hsieh TOURS CAPTAIN Work Phone: [facility] HospitalYqggilbcoc20-85-2216 09:02-0400Body qnrlqi962.87 kgZee Hsieh TOURS CAPTAIN Work Phone: [facility] HospitalXchupgzkyj88-35-6711 09:02-0400Diastolic blood mm[Hg]Zee Hsieh TOURS CAPTAIN Work Phone: [facility] HospitalMisddqtonu08-11-3760 09:02-0400Heart rate69 /min Zee Hsieh TOURS CAPTAIN Work Phone: [facility] HospitalGkqkexixfk48-08-5561 09:02-0400Respiratory rate22 /minZee Hsieh TOURS CAPTAIN Work Phone: [facility] HospitalAhehhdvuxb85-68-7823 09:02-1695YlN7% (BldA) [Mass fraction]92 %Zee Hsieh TOURS CAPTAIN Work Phone: [facility] HospitalBydvzfcldm58-71-6871 09:02-0400Systolic blood jvqqatmz972 mm[Hg]Zee Hseih TOURS CAPTAIN Work Phone: [facility] HospitalIsvwutmier77-94-0807 08:37-0500Body wznlce453.2 cmBrabisaisybil RasconMurillo TOURS CAPTAIN Work Phone: [facility] HospitalSridgqqade53-38-6489 08:37-0500Body mass index (BMI) [Ratio]36.02 kg/f7Rhqwjqcv Murillo TOURS CAPTAIN Work Phone: [facility] HospitalNysglwywwj59-73-5665 08:37-0500Body temperature 96.8 [degF]Jeanette Rascontrick TOURS CAPTAIN Work Phone: [facility] HospitalUobsxzjxnk24-12-8921 08:37-0500Body hcnbur941.33 kgStacysybil Murillo TOURS CAPTAIN Work Phone: [facility] HospitalMdwxfkjpao93-20-7768 08:37-0500Diastolic blood jomupsbq82 mm[Hg]Jeanette Cunninghampatrick TOURS CAPTAIN Work Phone: [facility] HospitalHlberzkudc01-06-9740 08:37-0500Heart rate82 /min Jeanettegeorge CunninghamMurillo TOURS CAPTAIN Work Phone: [facility] HospitalTcmhlxilwc83-27-1049 08:37-0500Respiratory rate16 /minJeanette Rascontrick TOURS CAPTAIN Work Phone: [facility] HospitalTosgpcqgja89-28-7969 08:37-0441QcC7% (BldA) [Mass fraction]96 %Jeanette Rascontrick TOURS CAPTAIN Work Phone: [facility] HospitalKygecjecdp16-00-6662 08:37-0500Systolic blood jaguoumv040 mm[Hg]Jeanette Rascontrick TOURS CAPTAIN Work Phone: [facility] HospitalEibyrwvdkq21-36-9008 09:30-0500Diastolic blood jdasuscm26 mm[Hg][facility]11-06-2024 09:30-0500Heart rate73 /[facility]11-06-2024 09:30-0500Respiratory rate20 /[facility]11-06-2024 09:30-3260UzK3% (BldA) [Mass fraction]93 %[facility]11-06-2024 09:30-0500 Systolic blood ciiibuco015 mm[Hg][facility]11-06-2024 07:47-0500Body oukicp631.18 cmPaulding County Hospital11-06-2024 07:47-0500Body .32 kgPaulding County Hospital09-30-2024 08:23-0400Body mass index (BMI) [Ratio]36.02 kg/l1IriofgcgJeanette Rascontrick TOURS CAPTAIN Work Phone: [facility] HospitalJkvmxqmhld67-58-7832 08:23-0400Body temperature 97.3 [degF]Jeanette Rascontrick TOURS CAPTAIN Work Phone: [facility] HospitalBxxrpuioeh03-87-6427 08:23-0400Body qbhuqi989.33 kgJeanette Cunninghampatrick TOURS CAPTAIN Work Phone: [facility] HospitalDcgvqlqcjj01-16-6107 08:23-0400Diastolic blood pkirvnie79 mm[Hg]Jeanette Murillo TOURS CAPTAIN Work Phone: noTenet St. LouisWtmowdbgas03-55-6739 08:23-0400Heart rate78 /min Jeanette Villagomezzpatrick TOURS CAPTAIN Work Phone: [facility] HospitalZymmtcdnlg40-27-4822 08:23-0400Respiratory rate16 /minJeanette Murillo TOURS CAPTAIN Work Phone: [facility] HospitalXfrkhtwocb48-61-6865 08:23-4121UeU7% (BldA) [Mass fraction]95 %Jeanette Villagomezzpatrick TOURS CAPTAIN Work Phone: noTenet St. LouisYylpdbuuva72-97-6312 08:23-0400Systolic blood gnzrhoct938 mm[Hg]Jeanette Cunninghampatrick TOURS CAPTAIN Work Phone: [facility] HospitalCfwkfnqxgd50-42-5889 14:40-0500Body temperature 98.8 [degF]DO Gretchen Stepanic Jr Work Phone: [facility]02-17-2023 14:40-0500 Diastolic blood mm[Hg]DO Gretchen Stepanic Jr Work Phone: [facility]02-17-2023 14:40-0500 Heart rate75 /minDO Gretchen Stepanic Jr Work Phone: [facility]02-17-2023 14:40-0500 Respiratory rate16 /minDO Gretchen Stepanic Jr Work Phone: [facility]02-17-2023 14:40-0500 SaO2% (BldA) [Mass fraction]97 %DO Gretchen Stepanic Jr Work Phone: [facility]02-17-2023 14:40-0500 Systolic blood wosiajta020 mm[Hg]DO Gretchen Stepanic Jr Work Phone: [facility]02-17-2023 11:00-0500 Body uzwetp583.91 cmDO Gretchen Pulido Jr Work Phone: [facility]02-17-2023 04:00-0500 Inhaled oxygen flow rate2 L/minDO Gretchen Pulido Jr Work Phone: [phone] [place], [place] 8273002-17-2023 03:16-0500 Body xtttin839.6 kgDO Gretchen Pulido Jr Work Phone: [facility]02-16-2023 07:13-0500 Body mass index (BMI) [Ratio]35 kg/m2DO Gretchen Pulido Jr Work Phone: [facility]09-20-2022 10:20-0400 Body ntamys696.18 cmDale Ball Other [employer] Other 09-20-2022 10:20-0400Body mass index (BMI) [Ratio] 34.77 kg/m2Dale Ball Other [employer] Other 09-20-2022 10:20-0400Body .7 kgDale Lizzy Other [employer] Other Encounters Encounter DateEncounter TypeCare ProviderFacilityStart: 12-25-2024 End: 53-83-4490curmhaynzrKMJ [facility] [place] [facility] Work Phone: Start: 12-25-2024 End: 36-42-7959Bpkpwpv encounter procedureJessica Valerie DO-[facility] Work Phone: Start: 12-23-2024 End: 91-44-3883Tljoaf flowsheetJr. Gretchen Pulido DO Work Phone: [facility] OrthopaedicsStart: 12-23-2024 End: 74-45-5040Ozjxsw flowsheetJr. Gretchen Pulido DO Work Phone: [facility]opaedicsStart: 12-23-2024 End: 59-17-0525Nqzrgl outpatient visit 15 minutesJr. Gretchen Pulido DO Work Phone: noms [facility] OrthopaedicsComment on above:Right hip painStart: 12-23-2024 End: 17-76-6958qybbcdiopuJG., GRETCHEN PULIDONot AvailableStart: 10-14-2024 End: 56-63-6660Ajoebbcyf Result EncounterLisa Aichholz TOURS CAPTAIN Work Phone: noms External Department UnsolicitedStart: 10-14-2024 End: 10-50-8241Zauzmrqsr Result EncounterLisa Aichholz TOURS CAPTAIN Work Phone: noms External Department UnsolicitedStart: 10-06-2024 End: 85-44-3809MxdgocPtue Aichholz TOURS CAPTAIN Work Phone: noms CWM FMComment on above:Coronary artery disease involving [place] coronary artery of [place] heart without angina pectoris (Pr imary Dx); Gastro-esophageal reflux disease without esophagitis; Unspecified osteoarthritis, unspecified site; Primary hypertension ; Mixed hyperlipidemia ; Prostate cancer screening; BPH with obstruction/lower urinary tract symptomsStart: 06-26-2024 End: 98-22-0526NdglweYroy Aichholz TOURS CAPTAIN Work Phone: noms CWM FMComment on above:Coronary artery disease involving [place] coronary artery of [place] heart without angina pectoris (CM S/HCC); Chronic heart failure with preserved ejection fraction (CMS/HCC)Start: 06-12-2024 End: 26-72-7592Tpyfoh flowsheetLisa Aichholz TOURS CAPTAIN Work Phone: NOGT CWM FMStart: 06-12-2024 End: 18-69-8977Cqdben flowsheetLisa Aichholz TOURS CAPTAIN Work Phone: noms CWM FMStart: 06-12-2024 End: 50-66-5609Anrtyo outpatient visit 25 minutesLisa Aichholz TOURS CAPTAIN Work Phone: NOMS CWM FMComment on above:Primary hypertension (CMS/HCC) (Primary Dx); Morbid (severe) obesity due to excess calories (CMS/HCC); Gastro-esophageal reflux disease without esophagitis; Body mass index (BMI) 35.0-35.9, adult; ARLEEN (obstructive sleep apnea); Coronary artery disease involving [place] coronary artery of [place] heart without angina pectoris (CMS/HCC); BPH with obstruction/lower urinary tract symptoms; Class 2 obesity due to excess calories without serious comorbidity with body mass index (BMI) of 35.0 to 35.9 in adult; Mixed hyperlipidemia (CMS/HCC); BronchitisStart: 06-12-2024 End: 01-02-0850pzsywqcghxZFKW AICHHOLZNot AvailableStart: 04-21-2024 End: 25-98-0435YffbmyJcyynjra Murillo TOURS CAPTAIN Work Phone: NOMS CWM FMComment on above:Benign prostatic hyperplasia without lower urinary tract symptomsStart: 03-17-2024 End: 46-57-4448Pjrols flowsheetBrittany Murillo TOURS CAPTAIN Work Phone: N[facility] CWM FMStart: 03-17-2024 End: 36-86-9395Lcoubf flowsheetBrittany Murillo TOURS CAPTAIN Work Phone: N[facility] CWM FMStart: 03-17-2024 End: 02-67-0278Sotest outpatient visit 15 minutesBrittany Murillo TOURS CAPTAIN Work Phone: N[facility] CWM FMComment on above:Primary hypertension (CMS/HCC) (Primary Dx); Mixed hyperlipidemia (CMS/HCC); Class 2 obesity due to excess calories without serious comorbidity with body mass index (BMI) of 35.0 to 35.9 in adult; ARLEEN (obstructive sleep apnea)Start: 03-17-2024 End: 72-40-9054uvyxjyvouiKXMNJWGI FITZPATRICKNot AvailableStart: 03-01-2024 End: 40-16-3220MubgbnPrjixqiq Murillo TOURS CAPTAIN Work Phone: noms CWM FMComment on above:Primary hypertension (CMS/HCC)Start: 02-29-2024 End: 77-04-7034NftaxgQuynbygt Murillo TOURS CAPTAIN Work Phone: noms CWM FMComment on above:Coronary artery disease involving [place] coronary artery of [place] heart without angina pectoris (CM S/HCC); Chronic heart failure with preserved ejection fraction (CMS/HCC)Start: 02-11-2024 End: 40-04-3284zzpwvrowntBPIVUniversity Hospitals TriPoint Medical Centertart: 01-19-2024 End: 20-86-3827YwknogBbsutsvj Murillo TOURS CAPTAIN Work Phone: noms CWM FMComment on above:Gastro-esophageal reflux disease without esophagitisStart: 21-35-7992Vvd-patient / Non-visitCritical Access [facility] Gastro[facility] Work Phone: Start: 01-16-2024 End: 36-23-6280Ihkyolykt to same day surgery [facility] Work Phone: Start: 01-16-2024 End: 19-18-5665zmbkwqioecSBJAkron Children's Hospital [facility]tr Work Phone: Start: 12-11-2023 End: 80-72-8464SsxgqrSyiljlek Murillo TOURS CAPTAIN Work Phone: noms CWM FMComment on above:Mixed hyperlipidemia (CMS/HCC) (Primary Dx); Unspecified osteoarthritis, unspecified site; Primary hypertension (CMS/HCC)Start: 12-10-2023 End: 74-87-7845Fhemwu flowsheetJeanette Rascontrick TOURS CAPTAIN Work Phone: noms CWM FMStart: 12-10-2023 End: 55-06-0948Cklykd flowsheetJeanette Rascontrick TOURS CAPTAIN Work Phone: noms CWM FMStart: 12-10-2023 End: 48-78-9337Vttmif outpatient visit 15 minutesJeanette Murillo TOURS CAPTAIN Work Phone: noms CWM FMComment on above:Class 2 obesity due to excess calories without serious comorbidity with body mass index (BMI) of 35.0 to 35.9 in adult (Primary Dx); Mixed hyperlipidemia (CMS/HCC); Primary hypertension (CMS/HCC)Start: 11-23-2023 End: 12-92-9171Vqoswm OnlyJeanette Murillo TOURS CAPTAIN Work Phone: noms CWM FMComment on above:Screening for colon cancer (Primary Dx)Start: 10-31-2023 End: 54-83-7633LdwnmyTojlyl Fawwad MD Work Phone: noms CWM FMComment on above:Gastro-esophageal reflux disease without esophagitisStart: 66-98-8722Jgertgp encounter procedureSroberto Grove MD Work Phone: noms HealthcareStart: 02-26-2023 End: 51-93-5451Kkatbcp encounter procedureSroberto Grove MD Work Phone: noms HealthcareStart: 04-27-2022 End: 97-05-9455Vjkybdxjk to same day surgery centerDO Gretchen Pulido Jr Work Phone: [facility] CampusStart: 04-27-2022 End: 15-86-0493ljslneurcnULBAkron Children's Hospital [facility]tr Work Phone: Start: 04-18-2022 End: 42-10-3179bmxemsariqBNSMGS H FAWWADFacility:D5Clpev: 04-10-2022 End: 40-45-1849eaphogqtzqIGUMadison Health Ctr Work Phone: Start: 04-10-2022 End: 58-97-8485Jqbjxkh encounter procedureDO Gretchen Pulido Jr Work Phone: [facility] Work Phone: Start: 02-06-2022 End: 42-29-2701yfghnzgkszHCYNPD H FAWWADFacility:E4Yzplo: 01-11-2022 End: 49-72-8375icuixyawhhPM DIYA BROWNFacility:W6Oeqqw: 11-29-2021 End: 43-91-2562aqaziweulrKbxz Braun Other [employer] Other start: 74-62-9297Elnuyv outpatient new 30 minutesDale BraunRiverview Regional Medical Center NeurosurgeryStart: 11-01-2021 End: 03-63-9735yrsfsscajxAHMPTI H FAWWADFacility:O7Ikfat: 10-25-2021 End: 95-33-2438usqwzaqtpfJA DOCTOR MISCFacility:E9Hwjuw: 08-22-2021 End: 36-78-3806esdvexkdthDVXZOF H FAWWADFacility:H3Xyltd: 41-25-0112xjxtdrrflf SHAIKH Connie YUANWWADFacility:F9Vfscn: 08-03-2021 End: 55-73-4986tiiumjszeiREQNYG H FAWWADFacility:V1Rgkvu: 05-02-2021 End: 60-16-1776czbndgpmeyUI DOCTOR MISCFacility:O6Ghala: 05-04-2020 End: 96-71-5972Rqwyyqq [facility] procedureSelect [facility] Start: 05-04-2020 End: 42-89-2881Sboffvsuae hospital visit by Mesha DelgadoKSARMANI LaboratoryComment on above:BPH with obstruction/lower urinary tract symptoms; Nocturia; Urgency of urinationStart: 09-25-2019 End: 48-21-5758Kxgikpt encounter procedureSelect [facility] Start: 09-25-2019 End: 23-84-6357Aswyuouwkw hospital visit by Mesha Peraza LaboratoryComment on above:Nocturia; Urgency incontinenceStart: 02-07-2018 End: 61-29-4259Hwwgmsb encounter procedureBLAIR ALVARADOSumma Health Wadsworth - Rittman Medical CenterStart: 10-04-2017 End: 41-47-6162Nysqpan encounter procedureBLAIR [facility] HospitalStart: 09-13-2017 End: 67-22-1319Tmvpvji encounter procedureBLAIR [facility] HospitalStart: 09-06-2017 End: 53-08-7604Vgjdaxz encounter procedureBLAIR [facility] HospitalStart: 08-30-2017 End: 38-20-5856Nitecyz encounter procedureBLAIR [facility] HospitalStart: 08-07-2017 End: 88-58-5209SsgiayujvbRHXZOLF PHYSICIANFacility:UTMCStart: 06-07-2017 End: 06-17-0002Fbspmth encounter procedureBLAIR [facility] HospitalStart: 05-17-2017 End: 67-26-6615Efpindb encounter procedureBLAIR [facility] Procedures DateProcedureProcedure DetailPerforming ClinicianStart: 25-11-5842Nnkjp hip unilateral with pelvis 2-3 viewsJr. Gretchen Pulido DO Work Phone: Start: 09-80-4660FLI CBC WITH AUTO DIFFLisa Мария TOURS CAPTAIN Work Phone: Start: 83-58-1082OQZ LIPID PROFILE (FASTING)Zee Hsieh TOURS CAPTAIN Work Phone: Start: 25-83-9363BZR CMP (CMP) (FOR REMOTE [facility] USE) Zee Hsieh TOURS CAPTAIN Work Phone: Start: 24-60-0349Gschxyqau colonoscopyStart: 54-35-9830Jaodusth of hip arthroplastyDO Gretchen Pulido Jr Work Phone: Start: 55-16-7155Hclgd X-ray of right hipDO Gretchen Pulido Jr Work Phone: Start: 70-46-0804Lzkxx cultureDO Gretchen Pulido Jr Work Phone: Start: 56-25-0153Ihsrc X-ray of right hipDO Gretchen Pulido Jr Work Phone: Start: 56-67-4125YZD screeningSHRAJEEV FAWWADComment on above:Performed By: #### PSAD #### [facility] [address] [place] [address] Dr. Isha HaqStart: 13-80-8296LFN screeningSHRAJEEV FAWWADComment on above: Performed By: #### PSAD #### [facility] [address] [place] [address] Dr. Isha HaqStart: 03-61-1193Bbgyd dip stick/tablet reagent auto microscopy DeniaOMGPOP Work Phone: Start: 39-55-1512Wzpfynx bacterial quanttative colony count urineBEANY PARSELLStart: 71-40-7638Kadas dip stick/tablet reagent auto microscopyBefarhan [employer] Work Phone: Start: 10-22-2014H/O: cornea recipientCornea replaced by Quita Grove MD Work Phone: Plan of Treatment DateCare ActivityDetailAuthorStart: 12-21-2026 End: 00-52-1726Ivtjoic encounter wpganswpj18/12/2027 10:45 AM EDT Office Visit [facility] [address] [place] [phone] Jr. Gretchen Pulido, DO [address] [address] [facility] OrthopaedicsStart: 12-23-2024 End: 39-04-4258Ulwqllm encounter gusjybndc32/14/2025 10:30 AM EDT Office Visit [facility] [address] [place] [phone] Jr. Grecthen Pulido, DO [address] [facility] [address] [place] [address] ArrivedNOSaint Francis Memorial Hospital OrthopaedicsComment on above:ArrivedStart: 12-15-2024 End: 39-54-6624Ltprxos encounter procedureNOMS SWS ORTHOStart: 11-10-2024 Influenza vaccinationInfluenza Vaccine (#1)NOMS HealthcareStart: 10-06-2024 End: 40-94-1510GEK W Auto Differential panel - BloodCBC and differential Lab Routine Gastro-esophageal reflux disease without esophagitis Coronary artery disease involving [place] coronary artery of [place] heart without angina pectoris Expected: 10/06/2024 (Approximate), Expires: 10/06/2025RI HealthcareComment on above:Expected: 10/06/2024 (Approximate), Expires: 10/06/2025Start: 10-06-2024 End: 01-92-8269Qcfjnamcmaqhz metabolic 2000 panel - Serum or PlasmaComprehensive metabolic panel Lab Routine Primary hypertension Mixed hyperlipidemia Coronary arterydisease involving [place] coronary artery of [place] heart without angina pectoris Expected: 10/06/2024 (Approximate), Expires: 10/06/2025[facility] Healthcare Comment on above:Expected: 10/06/2024 (Approximate), Expires: 10/06/2025Start: 10-06-2024 End: 81-12-9945Oszul 1996 panel - Serum or PlasmaLipid panel Lab Routine Mixed hyperlipidemia Coronary artery disease involving [place] coronary artery of [place] heart without angina pectoris Expected: 10/06/2024 (Approximate), Expires: 10/06/2025RI HealthcareComment on above:Expected: 10/06/2024 (Approximate), Expires: 10/06/2025Start: 10-06-2024 End: 91-89-7598Xtkjktleltqz/Creatinine panel in random UrineMicroalbumin / creatinine, urine ratio Lab Routine Primary hypertension Expected: 10/06/2024 (Approximate), Expires: 10/06/2025NORI HealthcareComment on above:Expected: 10/06/2024 (Approximate), Expires: 10/06/2025Start: 10-06-2024 End: 94-24-4866FPM, total and freePSA, total and free Lab Routine BPH with obstruction/lower urinary tract symptoms Expected: 10/06/2024 (Approximate), Expires: 10/06/2025[facility] Healthcare Work Phone: Comment on above:Expected: 10/06/2024 (Approximate), Expires: 10/06/2025Start: 10-06-2024 End: 22-99-5279Lobatqjjwy complete panel - UrineUrinalysis with reflex microscopic (clean catch) Lab Routine Primary hypertension Expected: 10/06/2024 (Approximate), Expires: 10/06/2025NOMS HealthcareComment on above:Expected: 10/06/2024 (Approximate), Expires: 10/06/2025Start: 05-29-2025Medicare Annual Wellness (AWV)Medicare Annual Wellness (AWV)[facility] HealthcareStart: 07-23-2024 End: 93-73-5033Jrzcnbu encounter vxhxitopg77/14/2025 11:00 AM EDT Office Visit [facility] [address] [place] [address] Zee Hsieh NP [address] [place] [address] [facility] FMStart: 06-12-2024 End: 84-64-6169Mmnwgey encounter procedureNOMS [facility] FMComment on above:ARLEEN (obstructive sleep apnea) (Primary Dx); Morbid (severe) obesity due to excess calories (CMS/HCC); Gastro-esophageal reflux disease without esophagitis; Body mass index (BMI) 35.0-35.9, adult; Coronary artery disease involving [place] coronary artery of [place] heart without angina pectoris (CMS/HCC); BPH with obstruction/lower urinary tract symptoms; Class 2 obesity due to excess calories without serious comorbidity with body mass index (BMI) of 35.0 to 35.9 in adult; Mixed hyperlipidemia (CMS/HCC)Start: 92-79-2472Wvkohehzrgph Vaccine: 65+ Years (2 of 2 - PPSV23 or PCV20)Pneumococcal Vaccine: 65+ Years (2 of 2 - PPSV23 or PCV20)[facility] HealthcareStart: 03-17-2024 End: 10-54-5292Rdopsob encounter procedureNOMS [facility] FMComment on above:Arrived Start: 93-80-4220Cqqizrlpoovq Vaccine: 65+ Years (1 of 2 - PCV)Pneumococcal Vaccine: 65+ Years (1 of 2 - PCV)NOMS HealthcareComment on above:Postponed from 1952 (Patient Refused)Start: 91-19-9524KamijccnjPaulding County Hospital Start: 12-10-2023 End: 64-14-4191Fenxjoy encounter fbwiviyft77/30/2024 8:30 AM EDT Office Visit [facility] [address] [place] [address] Jeanette Murillo, TOURS CAPTAIN [address] [place] [address] ArrivedNOMS CWM FMComment on above:ArrivedStart: 11-11-2023 Influenza vaccinationInfluenza Vaccine (#1)[facility] HealthcareStart: 11-08-2023 End: 85-09-3435Rlqhgux encounter yxoscxqpe13/29/2024 1:30 PM EDT Office Visit [facility] [address] [place] [address] Jeanette Murillo, TOURS CAPTAIN [address] [place] [address] [facility] FMStart: 87-29-9770Utjwj chemistryKettering Health Main Campustart: 33-12-3718ZyyzautvjKettering Health Main Campustart: 20-55-0552MsxzrnkvrKettering Health Main Campustart: 30-63-1789Ykxnncji to clinical allergistKettering Health Main Campustart: 11-34-6902Zhxvlpce to Social ServicesSt. Vincent Hospital CenterStart: 39-24-1541Ruvrhthf admission [facility] Campustart: 69-97-2732Jocenyjo to occupational therapistKettering Health Main Campustart: 95-00-9444OtqvyeyycKettering Health Main Campustart: 84-80-3165Vsarkbep identified in Urine by CultureKettering Health Main Campustart: 02-20-6169Xxsyghsl specific antigen measurementPSA [facility] Work Phone: start: 11-02-2020 End: 81-67-6693Damdgl Visit11/02/2020 Office Visit Urology Denia Pike, GAME WARDEN - AERIAL INSTALLER [address] [place], [id number] [facility]Start: 01-54-9589Gkwibgltu vaccinationFlu vaccine (#1)[facility]: 11-04-2019 End: 89-08-9753Btuyzi Visit11/04/2019 Office Visit Urology Denia Pike, GAME WARDEN - AERIAL INSTALLER [address] [place], [place] [phone] [facility] HospitalStart: 80-74-4621Hlvuij Wellness Visit (AWV)Annual Wellness Visit (AWV)[facility]: 85-13-5077Hfpfpriouksd Vaccine: 65+ Years (2 of 2 - PPSV23) Pneumococcal Vaccine: 65+ Years (2 of 2 - PPSV23)[facility] HospitalStart: 91-79-4555Uinspmxjmsuw Vaccine: 65+ Years (2 of 2 - PPSV23, PCV20, or PCV21) Pneumococcal Vaccine: 65+ Years (2 of 2 - PPSV23, PCV20, or PCV21)[facility] HospitalStbloomfield: 33-00-8295Gsagmrrohx measurementCreatinine monitoringAdams County Hospital: 35-01-4690Gvkzcemmqyqb 65+ years Vaccine (1 of 1 - PPSV23) Pneumococcal 65+ years Vaccine (1 of 1 - PPSV23)[facility]: 66-08-2045Ooojquhkq for malignant neoplasm of colonColon cancer screen colonoscopyAdams County Hospital: 02-09-0298Pxucrqow Vaccine (1 of 2) Shingles Vaccine (1 of 2)[facility]: 27-09-7525FQpC/Tdap/Td vaccine (1 - Tdap)DTaP/Tdap/Td vaccine (1 - Tdap)[facility] CenterRetail Innovation GroupSt. Mary's Sacred [facility]: 66-76-2346BVVLF-19 Vaccine (1 of 2)COVID-19 Vaccine (1 of 2)[employer] Work Phone: start: 34-90-1185Sbvst panelLipid [facility]: 59-33-9701Jsbkvwyjnjgd Vaccine: 65+ Years (1 of 2 - PCV) Pneumococcal Vaccine: 65+ Years (1 of 2 - PCV)[facility] HealthcareStart: 1945 Hepatitis C screeningHepatitis C [facility]: 1945 Potassium monitoringPotassium monitoringWellington, KYCBC W Auto Differential panel - BloodCBC and differential Lab Routine Primary hypertension (CMS/HCC) Ordered: 03/17/2024[facility] Healthcare Work Phone: Comment on above:Ordered: 03/17/2024omprehensive metabolic 2000 panel - Serum or PlasmaComprehensive metabolic panel Lab Routine Primary hypertension (CMS/HCC) Mixed hyperlipidemia (CMS/HCC) Ordered: 03/17/2024[facility] HealthcareComment on above:Ordered: 5CT Facial bones [facility] End: 78-22-6695Uasqntt, UrineCulture, Urine Microbiology Routine Nocturia Urgency incontinence 1 Occurrences starting 09/25/2019until 09/25/2019[place], KYComment on above:1 Occurrences starting 09/25/2019 until 09/25/2019Culture, UrineW[place], [place] End: 80-51-4216Sbmhcrd, UrineCulture, Urine Microbiology Routine BPH with obstruction/lower urinary tract symptoms Nocturia Urgency of urination 1 Occurrences starting 05/04/2020 until 05/04/2020[facility] [email or web address] Work Phone: comment on above:1 Occurrences starting 05/04/2020 until 05/04/2020Microalbumin/Creatinine panel in random UrineMicroalbumin / creatinine urine ratio Lab Routine Primary hypertension (CMS/HCC) Ordered: 03/17/2024[facility] HealthcareComment on above:Ordered: 03/17/2024Patient Education Hemorrhoids (DC) Diverticulosis (DC) Know your [facility] Work Phone: Patient [facility] Work Phone: Immunizations Immunization DateImmunizationNotesCare BozeigroPwrfhpso94-65-8565bunglllah, seasonal, injectableBrittany Murillo TOURS CAPTAIN Work Phone: [facility] HospitalCbxcmoqgwn31-24-8885qcmsenmasyrf Conjugate, unspecified formulationBrittany Murillo TOURS CAPTAIN Work Phone: [facility] HospitalVemapjlgbx54-13-9818ynhldjkle virus vaccine, unspecified formulationLisa Aichholz TOURS CAPTAIN Work Phone: [facility] HospitalWmjothrqfm39-83-7349Krdmblrv 50 MCG/0.5ML vaccine Shaikh Perfecto MCDONOUGH Work Phone: [facility] HospitalZibrfifgfy48-87-4612UVIYP-35 mRNA, Comirnaty (Pfizer)DO Gretchen Pulido Jr Work Phone: [phone] [place], [place] [address]273[address]-04-2021COVID-19 mRNA, Comirnaty (Pfizer)DO Gretchen Pulido Jr Work Phone: [phone] [place], [place] 8273[address]-27-2021COVID-19 mRNA, Comirnaty (Pfizer)DO Gretchen Pulido Jr Work Phone: [phone] [place], [place] 8273[address]-06-2021COVID-19 mRNA, Comirnaty (Pfizer)DO Gretchen Pulido Jr Work Phone: [facility] Payers DatePayer CategoryPayerPolicy [id number]-pay2023Medicare (Managed Care)[facility] [id number] 2020MedicareAETNA MEDICARE AETNA MEDICARE-ADVANTAGE PPO [id number] 2019-Present [address] [place] [address] [id number] [id number] [id number] 2.16840.1.568716.3.57[id number] 2.16840.1.687275.3.57[id number] 2.16.840.1.408733.3.57[id number] 2.16840.1.796639.3.57[id number] 2.16.840.1.701999.3.57[id number] 2.16.840.1.700999.3.57[id number] 2.16840.1.399134.3.57[id number] 2.16.840.1.195953.3.57[id number] 2.16.840.1.722945.3.57[id number] 2.16.840.1.665712.3.57[id number] 2.16.840.1.766770.3.57[id number] 2.16.840.1.079639.3.57[id number] 2.16.840.1.175212.3.57[id number] 2.16.840.1.429169.3.57[id number] 2.16.840.1.586517.3.57[id number] Life Insurance Dc [id number] 2.16.840.1.637046.3.579.2.531 Social History DateTypeDetailFacilityStart: 09-25-2019 End: 92-37-4687Mpjrsfj smoking status NHISNever smokerNORI HealthcareStart: 09-25-2019 End: 60-02-3079Ryudmqh use and exposureNever usedW[place], KYStart: 09-25-2019 End: 33-24-9847Xntzhbh intakeLifetime non-drinker (finding)[place] Start: 18-75-7863Ualjlyd SDOH Alcohol Qxlmtxrqe8WydtkWellington, KYStart: 40-51-3429Bhx Assigned At BirthNot on fileWellington, KYExposure to SARS-CoV-2 (event)Not sureOhiohealth O'Bleness Hospital [place], [place]Start: 09-19-2023 End: 09-76-1918Wha Assigned At [facility] Other start: 04-10-2022 End: 78-56-9579Esqflxr smoking status NHISEx-smoker (finding)[facility] Campustart: 13-33-3580Wph Assigned At [facility] Hospitaltart: 09-19-2023 End: 77-02-8721Ospczzs of Social functionNOMS HealthcareStart: 85-51-8737FqqLrpe [facility] HealthcareSexMale (finding)[facility] HospitalNEGATED: Highlighted rowStart: NINFHistory of tobacco usePassive smokerCENTRAL VALLEY [facility]ENTER Healthcare Medical Equipment Procedure CodeEquipment CodeEquipment Original TextEquipment IdentifierDates 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Orthopaedic bone screw, non-bioabsorbable, sterile()[id number] FDAStart: 72-74-0248Efypenixg invasive revision of total replacement of hipAcetabular shell()[id number] FDAStart: 03-98-4154Btgvznlqj invasive revision of total replacement of hipNon-constrained polyethylene acetabular liner([id number] FDAStart: 04-27-2022 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Acetabulum prosthesis hole plug()[id number] FDAStart: 83-49-1131Dnmdmqraf invasive revision of total replacement of hipMetallic femoral head prosthesis ()[id number] FDAStart: 36-32-5144Mouhseumw invasive revision of total replacement of hipCoated hip femur prosthesis, modular (01)[id number] FDAStart: 04-27-2022 Goals DatePatient GoalDesired Activity/State Functional Status ApllFpvkridxhsIyadpyLtkaycgq07-29-7884Wdsbtwcttj statusPatient is Progressing Toward [facility] Work Phone: Mental Status AivsSnvvdiqgozCadxyiOyocybhd34-25-3469Xqqeawsdb functionCognitive Status Patient is Progressing Toward [facility] Work Phone: Clinical Notes 08-03-2021 to 12-23-2024 Note Date & XpvdUkclPbuekziu11-94-9002 History of Present illness Narrative* Jr. Gretchen Pulido, DO - 12/23/2024 10:30 AM EDT Images from the original note were not included. HISTORY OF PRESENT ILLNESS: EST PT Belén Keenan is an 79 y.o. @ male. [...] Not At Risk (09/25/2019) Received from [facility] AUDIT-C Q1: How often do you [...] for requiring urgent evaluation. documented in this encounterChildren's Mercy HospitalQatcdrhmcj05-80-4412 History of Present illness Narrative* Zee Hsieh NP - 06/12/2024 9:30 AM EDTAssociated Problem(s): Bronchitis Fluids, atb Fu if not better * ELISHA CHAVEZ - 06/12/2024 9:00 AM EDT Pt has cold symptoms; started about 1 week ago with sore/scratchy throat, runny/stuffy nose, and a coughing up yellow mucus. No other symptoms Pt has been taking otc cold med however nothing is helping with the cough Pt states his BP is higher than normal he typically gets 120/70s * Zee Hsieh NP - 06/12/2024 9:00 AM EDT Images from the original note were not included. Belén Keenan is a 78 y.o. male presents with chief complaint of Hypertension HPI: Hypertension This is a chronic problem. The problem is unchanged. The problem is uncontrolled. Pertinent negatives include no blurred vision, chest pain, headaches, peripheral edema or shortness of breath. There are no associated agents to hypertension. Risk factors for coronary artery disease include diabetes mellitus, dyslipidemia, male gender and obesity. Past treatments include SINGH inhibitors and beta blockers. The current treatment provides moderate improvement. There are no compliance problems. Hypertensive end-organ damage includes CAD/DC. There is no history of heart failure or PVD. URI This is a new problem. The current episode started in the past 7 days. The problem has been unchanged. There has been no fever. Associated symptoms include congestion, coughing, sinus pain and wheezing. Pertinent negatives include no chest pain, diarrhea, dysuria, ear pain, headaches, plugged ear sensation or sneezing. He has tried nothing for the symptoms. SUBJECTIVE: MEDICATIONS: Current Outpatient Medications Medication Instructions albuterol HFA 90 mcg/act inhaler 2 puffs, Every 4 hours PRN aspirin 81 MG chewable tablet 1 tablet, Daily atorvastatin (LIPITOR) 40 mg, Oral, Daily, 5PM carvedilol (Coreg) 3.125 MG tablet TAKE 1 TABLET BY MOUTH TWICE DAILY (IN THE MORNING and BEFORE bedtime) diclofenac (VOLTAREN) 50 mg, 2 times daily enalapril (VASOTEC) 2.5 mg, Oral, Daily fluticasone (Flonase) 50 MCG/ACT nasal spray 2 sprays, Daily furosemide (LASIX) 20 mg, Oral, Daily meloxicam (MOBIC) 15 mg, Oral, Daily PRN Multiple Vitamins-Minerals (Eye Vitamins) capsule 1 capsule, Oral, Daily omega-3 (FISH OIL) 1,000 mg, Daily omeprazole (PRILOSEC) 20 mg, Oral, Daily tamsulosin (FLOMAX) 0.4 mg, Oral, Daily ALLERGIES: No Known Allergies REVIEW OF SYMPTOMS: Review of Systems Constitutional: Negative for activity change, appetite change and unexpected weight change. HENT: Positive for congestion and sinus pain. Negative for ear pain, nosebleeds, sneezing, trouble swallowing and voice change. Eyes: Negative for blurred vision, pain, discharge and visual disturbance. Respiratory: Positive for cough and wheezing. Negative for apnea, chest tightness and shortness of breath. Cardiovascular: Negative for chest pain and leg swelling. Gastrointestinal: Negative for abdominal distention, blood in stool, constipation and diarrhea. Genitourinary: Negative for decreased urine volume, difficulty urinating, dysuria and hematuria. Skin: Negative for color change. Neurological: Negative for dizziness, tremors, seizures and headaches. Psychiatric/Behavioral: Negative for agitation, decreased concentration, hallucinations, self-injury and suicidal ideas. The patient is not nervous/anxious. Hematological: Negative for adenopathy. Does not bruise/bleed easily. Endocrine: Negative for cold intolerance, heat intolerance, polydipsia and polyuria. Allergic/Immunologic: Negative for environmental allergies and food allergies. PAST MEDICAL HISTORY Past Medical History: Diagnosis Date A-fib ([facility]) Abnormal weight gain Abnormal weight gain, obesity. Counselled on diet and exercise especially avoiding high calorie/sugary diets. Educated on portion control. Discussed medication and surgical options. Patient verbalized understanding and was receptive to education and counseling Arthritis At low risk for fall CAD (coronary artery disease) ([facility]) history of coronary artery disease status post CABG seventeen years ago. Stable. No chest pain or shortness of breath. COVID Depression ([facility]) Well controlled. No active suicidal or homicidal ideation. Enlarged prostate GERD (gastroesophageal reflux disease) High cholesterol ([facility]) History of hip replacement, total, right Doing well. Ambulating w/o difficulty. Pain is tolerable. HLD (hyperlipidemia) ([facility]) Hyperkalemia noted on labs Hypertension ([facility]) Elevated in office today but typically at goal Left foot drop Left knee pain Left knee pain, acute on chronic. Associated knee swelling, instability. Worse on ambulation. Has pain even at rest, mostly anterior knee and lateral aspect of knee. Loss of taste Low back pain chronic LBP. Worsened over past few months. Worse on sitting down or walking a distance. Reports symptoms c/w neurogenic claudication. No trauma, prior surgery. Weak hip flexion Persistent symptoms, no improvement with PT. XR was c/w spinal stenosis. MRI shows multilevel disc herniation Morbid obesity with BMI of 50.0-59.9, adult ([facility]) Pre-operative clearance Patient here for Pre op clearance for right hip replacement. He has hx of CAD s/p CABG and has beenasymptomatic without any problems. He had a nuclear stress test for cardiac clearance and later on a [facility] that showed non obs CAD. He had an ECHO in 2020 that shows normal EF, diastolic diastolic function, and well functioning Mitral valve. Was cleared for Hip replacement by Cardiology Right hip pain Right hip pain for DJD Scheduled for surgery next week Seasonal allergies Past Surgical History: Procedure Laterality Date APPENDECTOMY CHOLECYSTECTOMY CORONARY ARTERY BYPASS GRAFT 4 way EYE SURGERY HIATAL HERNIA REPAIR MI TOTAL HIP ARTHROPLASTY Right 04/27/2022 TONSILLECTOMY family history includes Cancer in his mother; Diabetes in his brother; Glaucoma in his mother; Heart disease in his mother; Hypertension in his mother; Skin cancer in his mother. OBJECTIVE: Visit Vitals BP 140/80 (BP Location: Left arm, Patient Position: Sitting, BP Cuff Size: Large adult) Pulse 69 Temp 98.5 F (Temporal) Resp 22 Wt 231 lb 3.2 oz SpO2 92% BMI 36.21 kg/m Smoking Status Never BSA 2.23 m Physical Exam Vitals and nursing note reviewed. Constitutional: Appearance: Normal appearance. He is obese. He is not ill-appearing. HENT: Head: Normocephalic. Right Ear: Tympanic membrane, ear canal and external ear normal. Left Ear: Tympanic membrane, ear canal and external ear normal. Nose: Congestion present. No rhinorrhea. Mouth/Throat: Mouth: Mucous membranes are moist. Pharynx: Oropharynx is clear. No oropharyngeal exudate or posterior oropharyngeal erythema. Eyes: Extraocular Movements: Extraocular movements intact. Conjunctiva/sclera: Conjunctivae normal. Neck: Vascular: No carotid bruit. Cardiovascular: Rate and Rhythm: Normal rate and regular rhythm. Pulses: Normal pulses. Heart sounds: Normal heart sounds. Pulmonary: Effort: Pulmonary effort is normal. Breath sounds: Rhonchi present. No wheezing. Abdominal: General: Bowel sounds are normal. There is no distension. Palpations: Abdomen is soft. Tenderness: There is abdominal tenderness. Musculoskeletal: Cervical back: Neck supple. Right lower leg: No edema. Left lower leg: No edema. Comments: Wears brace to lower leg Lymphadenopathy: Cervical: No cervical adenopathy. Skin: General: Skin is warm and dry. Capillary Refill: Capillary refill takes 2 to 3 seconds. Neurological: General: No focal deficit present. Mental Status: He is alert. Psychiatric: Mood and Affect: Mood normal. Behavior: Behavior normal. Thought Content: Thought content normal. Judgment: Judgment normal. ASSESSMENT AND PLAN: No follow-ups on file. Problem List Items Addressed This Visit CAD (coronary artery disease) ([facility]) Current meds: asa, statin, b abad, singh inhibitor, lasix BPH with obstruction/lower urinary tract symptoms Current meds: tamsulosin Hyperlipemia ([facility]) On statin therapy Check labs yearly and prn dose changes Class 2 obesity due to excess calories without serious comorbidity with body mass index (BMI) of 35.0 to 35.9 in adult Discussed with patient their BMI (actual, verses recommended). We have also discussed lifestyle modifications: attempts to perform physical activity as chronic conditions allow, also to monitor dietary intake: increasing protein/fruits/veggies and lowering carb intake (unless contraindicated). Limit sodas, juices, and sugary drinks. ARLEEN (obstructive sleep apnea) - Primary You have a diagnosis of obstructive sleep [...] etc: Doctor that manages your ARLEEN: Marv Hypertension ([facility]) Please check blood pressure daily and record DASH diet Limit caffeine Take medication as directed Contact office if chest pain, pressure, dizziness, shortness of breath, swelling legs Recommend slow position changes Current meds: b abad, vasotec Gastro-esophageal reflux disease without esophagitis Recommendations: freq small meals, nothing to eat or drink at least 2 hours prior to bed, limit caffeine, alcohol, as well as spicy foods Meds to limit or avoid if possible: NSAIDS Elevate HOB if possible Current meds: omeprazole Body mass index (BMI) 35.0-35.9, adult Other Visit Diagnoses Morbid (severe) obesity due to excess calories ([facility]) * Zee Hsieh NP - 06/12/2024 6:17 AM EDTAssociated Problem(s): Hyperlipemia ([facility]) On statin therapy Check labs yearly and prn dose changes * Zee Hsieh NP - 06/12/2024 6:16 AM EDTAssociated Problem(s): Class 2 obesity due to excess calories without serious comorbidity with bodymass index (BMI) of 35.0 to 35.9 in adult Discussed with patient their BMI (actual, verses recommended). We have also discussed lifestyle modifications: attempts to perform physical activity as chronic conditions allow, also to monitor dietary intake: increasing protein/fruits/veggies and lowering carb intake (unless contraindicated). Limit sodas, juices, and sugary drinks. * Zee Hsieh NP - 06/12/2024 6:15 AM EDTAssociated Problem(s): BPH with obstruction/lower urinary tract symptoms Current meds: tamsulosin * Zee Hsieh NP - 06/12/2024 6:15 AM EDTAssociated Problem(s): Gastro- esophageal reflux disease without esophagitis Recommendations: freq small meals, nothing to eat or drink at least 2 hours prior to bed, limit caffeine, alcohol, as well as spicy foods Meds to limit or avoid if possible: NSAIDS Elevate HOB if possible Current meds: omeprazole * Zee Hsieh NP - 06/12/2024 6:15 AM EDTAssociated Problem(s): Hypertension (CMS/HCC) Please check blood pressure daily and record DASH diet Limit caffeine Take medication as directed Contact office if chest pain, pressure, dizziness, shortness of breath, swelling legs Recommend slow position changes Current meds: b abad, vasotec Fu in 4 weeks for recheck, cold medicine may cause elevation blood pressure * Zee Hsieh NP - 06/12/2024 6:14 AM EDTAssociated Problem(s): CAD (coronary artery disease) (CMS/HCC) Current meds: asa, statin, b abad, singh inhibitor, lasix * Zee Hsieh NP - 06/12/2024 6:14 AM EDTAssociated Problem(s): ARLEEN (obstructive sleep apnea) You have a diagnosis of obstructive sleep [...] etc: Doctor that manages your ARLEEN: Marv documented in this [facility]04-03-2025 Instructions* Patient Instructions* Zee Hsieh NP - 06/12/2024 9:00 AM EDT Get labs check fasting 8 hours Take antibiotics, take with food, drink plenty of fluids Come back in 1 year Talk to pharmacy counter about cold medicine for people with high blood presssure documented in this [facility]01-06-2025 History of Present illness Narrative* Jeanette Murillo NP - 03/17/2024 9:14 AM ESTAssociated Problem(s): ARLEEN (obstructive sleep apnea) Pt completed sleep study. States he has CPAP at home now, just received it in mail a few weeks ago.Reports he has not started using I just yet but plans to. Encouraged pt to use CPAP nightly as directed. * Jeanette Murillo NP - 03/17/2024 9:02 AM ESTAssociated Problem(s): Class 2 obesity due to excess calories without serious comorbidity with bodymass index (BMI) of 35.0 to 35.9 in adult Discussed with patient their BMI (actual, verses recommended). We have also discussed lifestyle modifications: attempts to perform physical activity as chronic conditions allow, also to monitor dietary intake: increasing protein/fruits/veggies and lowering carb intake (unless contraindicated). Limit sodas, juices, and sugary drinks. Also discussed oral medications that can be utilized for weight loss, as well as surgical options for weight loss. * Jeanette Murillo NP - 03/17/2024 9:02 AM ESTAssociated Problem(s): Hyperlipemia (CMS/HCC) Currently taking Atorvastatin 40mg Most recent lipid panel August 2023- WNL Denies any myalgias. Continue current regimen * Jeanette Murillo NP - 03/17/2024 9:02 AM ESTAssociated Problem(s): Hypertension (CMS/HCC) Currently taking carvedilol 3.125mg Enapril 2.5mg Checks BP at home; Averages are 117-120 SBP; Follows cardiology closely; Denies orthostatic changes, dizziness, cough, shortness of breath, swelling in extremities. Continue current regimen. Given BP log, advised pt to record BP and bring log back with them to next visit. * Jeanette Murillo NP - 03/17/2024 9:00 AM EST Images from the original note were not included. Subjective Patient ID: Belén Keenan is a 78 y.o. male who presents for Hypertension. HPI Specialists: Cardiology- [facility] HTN: Currently taking carvedilol 3.125mg Enapril 2.5mg Checks BP at home; Averages are 117-120 SBP; Denies orthostatic changes, dizziness, cough, shortness of breath, swelling in extremities. Continue current regimen. Given BP log, advised pt to record BP and bring log back with them to next visit. HLD: Currently taking Atorvastatin 40mg Most recent lipid panel August 2023- WNL Denies any myalgias. Continue current regimen. Review of Systems Constitutional: Negative for activity change, appetite change, chills, diaphoresis, fatigue, fever and unexpected weight change. HENT: Negative for congestion, ear pain, rhinorrhea, sinus pressure, sinus pain, sneezing, sore throat, trouble swallowing and voice change. Eyes: Negative for visual disturbance. Respiratory: Negative for cough, chest tightness, shortness of breath and wheezing. Cardiovascular: Negative for chest pain, palpitations and leg swelling. Gastrointestinal: Negative for abdominal distention, abdominal pain, blood in stool, constipation, diarrhea and vomiting. Genitourinary: Negative for decreased urine volume, dysuria, flank pain, frequency, hematuria and urgency. Musculoskeletal: Negative for arthralgias, gait problem, joint swelling and myalgias. Skin: Negative for rash. Neurological: Negative for dizziness, tremors, syncope, weakness, light- headedness and headaches. Psychiatric/Behavioral: Negative for decreased concentration and suicidal ideas. The patient is notnervous/anxious. Hematological: Does not bruise/bleed easily. Endocrine: Negative for cold intolerance, heat intolerance, polydipsia, polyphagia and polyuria. Objective Physical Exam Vitals reviewed. Constitutional: Appearance: Normal appearance. HENT: Right Ear: Tympanic membrane normal. Left Ear: Tympanic membrane normal. Nose: Nose normal. Mouth/Throat: Mouth: Mucous membranes are moist. Pharynx: Oropharynx is clear. Eyes: Pupils: Pupils are equal, round, and reactive to light. Cardiovascular: Rate and Rhythm: Normal rate and regular rhythm. Pulses: Normal pulses. Heart sounds: Normal heart sounds. Pulmonary: Effort: Pulmonary effort is normal. Breath sounds: Normal breath sounds. Abdominal: General: Abdomen is flat. Bowel sounds are normal. Palpations: Abdomen is soft. Skin: Capillary Refill: Capillary refill takes less than 2 seconds. Neurological: Mental Status: He is alert and oriented to person, place, and time. Assessment/Plan Problem List Items Addressed This Visit Hyperlipemia (CMS/HCC) Currently taking Atorvastatin 40mg Most recent lipid panel August 2023- WNL Denies any myalgias. Continue current regimen Relevant Orders Comprehensive metabolic panel Class 2 obesity due to excess calories without serious comorbidity with body mass index (BMI) of 35.0 to 35.9 in adult Discussed with patient their BMI (actual, verses recommended). We have also discussed lifestyle modifications: attempts to perform physical activity as chronic conditions allow, also to monitor dietary intake: increasing protein/fruits/veggies and lowering carb intake (unless contraindicated). Limit sodas, juices, and sugary drinks. Also discussed oral medications that can be utilized for weight loss, as well as surgical options for weight loss. ARLEEN (obstructive sleep apnea) Pt completed sleep study. States he has CPAP at home now, just received it in mail a few weeks ago.Reports he has not started using I just yet but plans to. Encouraged pt to use CPAP nightly as directed. Hypertension (CMS/HCC) - Primary Currently taking carvedilol 3.125mg Enapril 2.5mg Checks BP at home; Averages are 117-120 SBP; Follows cardiology closely; Denies orthostatic changes, dizziness, cough, shortness of breath, swelling in extremities. Continue current regimen. Given BP log, advised pt to record BP and bring log back with them to next visit. Relevant Orders CBC and differential Comprehensive metabolic panel Microalbumin / creatinine urine ratio documented in this encounterChildren[facility] [id number] Instructions* Patient Instructions* Jeanette Murillo NP - 03/17/2024 9:00 AM EST Call if you need anything! documented in this [facility] Chief Complaint: Patient here [...] Investigations: Cardiovascular Laboratory Report IMPRESSIONS: Severe two-vessel [place] coronary artery disease There are 4 out [...] with normal function Mode (more content not included)...[facility]11-06-2024 Procedure [facility]09-30-2024 History of Present illness Narrative* Jeanette Murillo NP - 12/10/2023 4:32 PM EDTAssociated Problem(s): Class 2 obesity due to excess calories without serious comorbidity with bodymass index (BMI) of 35.0 to 35.9 in adult Discussed with patient their BMI (actual, verses recommended). We have also discussed lifestyle modifications: attempts to perform physical activity as chronic conditions allow, also to monitor dietary intake: increasing protein/fruits/veggies and lowering carb intake (unless contraindicated). Limit sodas, juices, and sugary drinks. Also discussed oral medications that can be utilized for weight loss, as well as surgical options for weight loss. * Jeanette Murillo NP - 12/10/2023 4:31 PM EDTAssociated Problem(s): Hyperlipemia (CMS/HCC) Currently taking Atorvastatin 40mg Most recent lipid panel August 2023- WNL Denies any myalgias. Continue current regimen. * Jeanette Murillo NP - 12/10/2023 4:30 PM EDTAssociated Problem(s): Hypertension (CMS/HCC) Currently taking carvedilol 3.125mg Enapril 2.5mg Checks BP at home; Averages are 117-120 SBP; Follows cardiology closely; Denies orthostatic changes, dizziness, cough, shortness of breath, swelling in extremities. Continue current regimen. Given BP log, advised pt to record BP and bring log back with them to next visit. * Jeanette Murillo NP - 12/10/2023 4:30 PM EDTAssociated Problem(s): ARLEEN (obstructive sleep apnea) Pt had sleep study done; O2 desaturations into the 60's noted. Pt declined split study at that time. Left office. Discussed results with pt. Pt is now agreeable to having spit study done at this time. Spoke with sleep lab; they will call pt to set up split testing. * Jeanette Murillo NP - 12/10/2023 8:30 AM EDT Images from the original note were not included. Subjective Patient ID: Belén Keenan is a 77 y.o. male who presents for Sleeping Problem (Here today to discuss results of sleep study; ). HPI Specialists: Cardiology: Discussed results with pt. Pt is now agreeable to having spit study done at this time. Spoke with sleep lab; they will call pt to set up split testing. HTN: Currently taking carvedilol 3.125mg Enapril 2.5mg Checks BP at home; Averages are 117-120 SBP; Denies orthostatic changes, dizziness, cough, shortness of breath, swelling in extremities. Continue current regimen. Given BP log, advised pt to record BP and bring log back with them to next visit. HLD: Currently taking Atorvastatin 40mg Most recent lipid panel August 2023- WNL Denies any myalgias. Continue current regimen. Component Ref Range & Units 3 mo ago (08/29/23) 3 mo ago (08/29/23) 3 mo ago (08/29/23) TRIGLYCERIDES <=150 mg/dL 94 141 R 20.5 R CHOLESTEROL <=200 mg/dL 122 4.4 R 0.2 R HDL CHOLESTEROL 40 - 60 mg/dL 39 Low 9.9 R 5.9 R Comment: > or =60 mg/dl - LOW CARDIOVASCULAR RISK <40 mg/dl - HIGH CARDIOVASCULAR RISK LDL CHOLESTEROL CALCULATED mg/dL 65.0 108 High R 1.9 R Comment: <100 mg/dl OPTIMAL 100-129 mg/dl NEAR OR ABOVE OPTIMAL 130-159 mg/dl BORDERLINE HIGH 160-189 mg/dl HIGH >190 mg/dl VERY HIGH VLDL CHOLESTEROL mg/dL 18.8 0.8 R 1.0 High R CHOL HDL RATIO 3.1 20 R 0.02 R Comment: 3.3 - 4.4 LOW RISK 4.4 - 7.1 AVERAGE RISK 7.1 - 11.0 MODERATE RISK >11.0 HIGH RISK ALANINE AMINOTRANSFERASE 25 R ALKALINE PHOSPHATASE 122 High R TOTAL PROTEIN 6.9 R ALBUMIN LEVEL 3.3 Low R ALBUMIN GLOBULIN RATIO 0.9 Resulting Agency [facility] Review of Systems Constitutional: Positive for fatigue. Negative for activity change, appetite change, chills, diaphoresis, fever and unexpected weight change. HENT: Negative for congestion, ear pain, rhinorrhea, sinus pressure, sinus pain, sneezing, sore throat, trouble swallowing and voice change. Eyes: Negative for visual disturbance. Respiratory: Negative for cough, chest tightness, shortness of breath and wheezing. Cardiovascular: Negative for chest pain, palpitations and leg swelling. Gastrointestinal: Negative for abdominal distention, abdominal pain, blood in stool, constipation, diarrhea and vomiting. Genitourinary: Negative for decreased urine volume, dysuria, flank pain, frequency, hematuria and urgency. Musculoskeletal: Negative for arthralgias, gait problem, joint swelling and myalgias. Skin: Negative for rash. Neurological: Negative for dizziness, tremors, syncope, weakness, light- headedness and headaches. Psychiatric/Behavioral: Negative for decreased concentration and suicidal ideas. The patient is notnervous/anxious. Hematological: Does not bruise/bleed easily. Endocrine: Negative for cold intolerance, heat intolerance, polydipsia, polyphagia and polyuria. Objective Physical Exam Vitals reviewed. Constitutional: Appearance: Normal appearance. HENT: Head: Normocephalic and atraumatic. Right Ear: Tympanic membrane normal. Left Ear: Tympanic membrane normal. Nose: Nose normal. Mouth/Throat: Mouth: Mucous membranes are moist. Pharynx: Oropharynx is clear. Eyes: Pupils: Pupils are equal, round, and reactive to light. Cardiovascular: Rate and Rhythm: Normal rate and regular rhythm. Pulses: Normal pulses. Heart sounds: Normal heart sounds. Pulmonary: Effort: Pulmonary effort is normal. Breath sounds: Normal breath sounds. Abdominal: General: Abdomen is flat. Bowel sounds are normal. Palpations: Abdomen is soft. Musculoskeletal: General: Normal range of motion. Cervical back: Normal range of motion. Skin: General: Skin is warm and dry. Capillary Refill: Capillary refill takes less than 2 seconds. Neurological: General: No focal deficit present. Mental Status: He is alert and oriented to person, place, and time. Psychiatric: Mood and Affect: Mood normal. Behavior: Behavior normal. Assessment/Plan Problem List Items Addressed This Visit Hyperlipemia (CMS/HCC) Currently taking Atorvastatin 40mg Most recent lipid panel August 2023- WNL Denies any myalgias. Continue current regimen. Class 2 obesity due to excess calories without serious comorbidity with body mass index (BMI) of 35.0 to 35.9 in adult - Primary Discussed with patient their BMI (actual, verses recommended). We have also discussed lifestyle modifications: attempts to perform physical activity as chronic conditions allow, also to monitor dietary intake: increasing protein/fruits/veggies and lowering carb intake (unless contraindicated). Limit sodas, juices, and sugary drinks. Also discussed oral medications that can be utilized for weight loss, as well as surgical options for weight loss. Hypertension (CMS/HCC) Currently taking carvedilol 3.125mg Enapril 2.5mg Checks BP at home; Averages are 117-120 SBP; Follows cardiology closely; Denies orthostatic changes, dizziness, cough, shortness of breath, swelling in extremities. Continue current regimen. Given BP log, advised pt to record BP and bring log back with them to next visit. documented in this [facility]09-30-2024 Instructions* Patient Instructions* Jeanette Murillo NP - 12/10/2023 8:30 AM EDT Your blood pressure is GOOD in the office today. Check your blood pressure at home 3 times per week, preferably in the afternoon. Goal <130/90. Record results in blood pressure log. Bring back with you to your next visit. Sleep lab will call you for further testing!!! documented in this [facility]02-16-2023 Consult note Author Dank Tong [facility] April 27, 2022 4:14pmNote Date/TimeFebruary 2022 4:02pmBrian Ville [id number] Hospitalist Consult Note Signed Patient: Belén Keenan SR MR#: [id number] : 1945 Acct:[id number] Age/Sex: 76 / M Adm Date: 3 Loc: 4N Room: [address] [place] [address] Type: REG SDC Attending Dr: Gretchen Pulido Jr DO Copies to: NON STAFF MD Gretchen Webb Jr, DO~ HPI DATE OF CONSULTATION: 04/27/22 REQUESTING PROVIDER: Gretchen Pulido Jr Consult Narrative Reason for Consult: [...] of coronary artery disease. He is admitted forpostoperative management Review of Systems Review of Systems All other systems reviewed & are negative unless noted below or in HPI [facility] for [facility]?: Yes Medical History (Updated [...] Surgical History History of cardiac catheterization 02/08/22 [facility] History of cataract extraction right eye [...] B12 25 mcg-folic acid 1 mg capsule (Poly- Iron) 1 cap PO DAILY 04/10/22 [History Confirmed 04/10/22] metformin 500 mg tablet 500 mg PO BID weight loss 04/10/22 [History Confirmed 04/10/22] fnexbletfxzd-febxnrwt-qgizww tablet (Multivitamin 50 Plus tablet) 1 tab PO DAILY04/10/22 [History Confirmed 04/10/22] omega 9-fac-atz-fish oil 1,200 mg (144 mg-216 mg) capsule [...] PO DAILY 04/10/22 [History Confirmed 04/10/22] vitamins A,C,H-cfvh-xhrwxd 4,296 mcg-226 mg-90 mg capsule 1 cap [...] 324 Mg Tablet. PO 04/27/23 16:59 BID.WITH.MEALS COUNTS INCLUDE 234 BEDS AT THE [facility] Fish Oil 1,000 mg 04/27/22 09:00 04/27/22 13:04 [place]-3/Fish Oil 1,000 Mg Capsule PO 04/27/23 08:59 Not Given DAILY COUNTS INCLUDE 234 BEDS AT THE [facility] Folic Acid 1 tab 04/27/22 09:00 04/27/22 13:04 Cyanocobalamin/Fa/Pyridoxine 1 Tab Tablet PO 04/27/23 08:59 Not Given DAILY COUNTS INCLUDE 234 BEDS AT THE [facility] Hydromorphone HCl 0.5 mg 04/27/22 07:13 [...] Lactated Ringers IV 04/27/23 07:14 75 mls/hr .[id number] ALEXX Administration Metformin HCl 500 mg 04/27/22 17:00 Metformin 500 Mg Tablet PO 04/27/23 16:59 BID.WITH.MEALS ALEXX Mineral Oil 1 each 04/30/22 07:14 Mineral Oil ([place]) 1 Each Enema MI ONCE PRN Constipation Morphine Sulfate 15 mg [...] Nausea Senna/Docusate Sodium 2 tab 04/27/22 09:00 02/16/23 13:05 Sennosides/Docusate 8.6-50mg 1 Tab Tablet PO [...] <Electronically signed by Dank Tong MD> 04/27/22 [id number] [facility] Work Phone: 1(889) 791-401011-02-2022 NoteCARDIAC STRESS TEST Requesting Physician: Diya Brown [...] perfusion imaging report. 4. Clinical correlation recommended.[facility] [id number] Evaluation note* Encounter Date Diagnosis Assessment Notes [...] radicular in nature. I do not believe hisfoot drop is related to the spine, as it is painless. The patient's primary complaints today are relative to the right hip. His symptoms are quite symptomatic I am sending him to orthopedics for evaluation. Nov,Greater trochanteric bursitis of right hip (ICD-10 - M70.61) Nov,Foot drop, right foot (ICD-10 - M21.371) Nov,Foot drop, left foot (ICD-10 - M21.372) [employer] Other 05-25-2022 NotePROCEDURE: XR KNEE LT 3V [...] Electronically authenticated by: RHONDA STEVENSON Date: 2021-08-03 12:21[facility] noteNo assessment information availableSt. [facility] Work Phone: Evaluation note* Diagnosis Onset Date Resolution Status Osteoarthritis of right hip acute [facility] Work Phone: Evaluation note* Diagnosis Mixed hyperlipidemia (CMS/HCC)- Primary Mixed hyperlipidemia Unspecified osteoarthritis, unspecified site Primary hypertension (CMS/HCC) Unspecified essential hypertension documented in this encounter [facility] Healthcare[facility]* Diagnosis Coronary artery disease involving [place] coronary artery of [place] heart without angina pectoris (CMS/HCC)- Primary BPH with obstruction/lower urinary tract symptoms Class 2 obesity due to excess calories without serious comorbidity with body mass index (BMI) of 35.0 to 35.9 in adult Mixed hyperlipidemia (CMS/HCC) Mixed hyperlipidemia Encounter for Medicare annual wellness exam Coronary artery disease involving [place] coronary artery of [place] heart without angina pectoris (CMS/HCC)- Primary Benign prostatic hyperplasia without lower urinary tract symptoms BPH with obstruction/lower urinary tract symptoms Mixed hyperlipidemia (CMS/HCC) Mixed hyperlipidemia Medicare annual wellness visit, subsequent ARLEEN (obstructive sleep apnea)- Primary Obstructive sleep apnea (adult) (pediatric) Coronary artery disease involving [place] coronary artery of [place] heart without angina pectoris (CMS/HCC) Class 2 obesity due to excess calories without serious comorbidity with body mass index (BMI) of 35.0 to 35.9 in adult- Primary Mixed hyperlipidemia (CMS/HCC) Mixed hyperlipidemia Primary hypertension (CMS/HCC) Unspecified essential hypertension Gastro-esophageal reflux disease without esophagitis documented in this encounter [facility] HealthcareEvaluation note* Diagnosis Screening for colon cancer- Primary Special screening for malignant neoplasms, colon documented in this encounter [facility] HealthcareEvaluation note* Diagnosis Gastro-esophageal reflux disease without esophagitis documented in this encounter [facility] HealthcareEvaluation note* Diagnosis Class 2 obesity due to excess calories without serious comorbidity with body mass index (BMI) of 35.0 to 35.9 in adult- Primary Mixed hyperlipidemia (CMS/HCC) Mixed hyperlipidemia Primary hypertension (CMS/HCC) Unspecified essential hypertension documented in this encounter [facility] HealthcareEvaluation note* Diagnosis Coronary artery disease involving [place] coronary artery of [place] heart without angina pectoris (CMS/HCC)- Primary BPH with obstruction/lower urinary tract symptoms Class 2 obesity due to excess calories without serious comorbidity with body mass index (BMI) of 35.0 to 35.9 in adult Mixed hyperlipidemia (CMS/HCC) Mixed hyperlipidemia Encounter for Medicare annual wellness exam Coronary artery disease involving [place] coronary artery of [place] heart without angina pectoris (CMS/HCC)- Primary Benign prostatic hyperplasia without lower urinary tract symptoms BPH with obstruction/lower urinary tract symptoms Mixed hyperlipidemia (CMS/HCC) Mixed hyperlipidemia Medicare annual wellness visit, subsequent ARLEEN (obstructive sleep apnea)- Primary Obstructive sleep apnea (adult) (pediatric) Coronary artery disease involving [place] coronary artery of [place] heart without angina pectoris (CMS/HCC) Class 2 obesity due to excess calories without serious comorbidity with body mass index (BMI) of 35.0 to 35.9 in adult- Primary Mixed hyperlipidemia (CMS/HCC) Mixed hyperlipidemia Primary hypertension (CMS/HCC) Unspecified essential hypertension Coronary artery disease involving [place] coronary artery of [place] heart without angina pectoris (CMS/HCC) Chronic heart failure with preserved ejection fraction (CMS/HCC) documented in this encounter [facility] HealthcareEvaluation note* Diagnosis Coronary artery disease involving [place] coronary artery of [place] heart without angina pectoris (CMS/HCC)- Primary BPH with obstruction/lower urinary tract symptoms Class 2 obesity due to excess calories without serious comorbidity with body mass index (BMI) of 35.0 to 35.9 in adult Mixed hyperlipidemia (CMS/HCC) Mixed hyperlipidemia Encounter for Medicare annual wellness exam Coronary artery disease involving [place] coronary artery of [place] heart without angina pectoris (CMS/HCC)- Primary Benign prostatic hyperplasia without lower urinary tract symptoms BPH with obstruction/lower urinary tract symptoms Mixed hyperlipidemia (CMS/HCC) Mixed hyperlipidemia Medicare annual wellness visit, subsequent ARLEEN (obstructive sleep apnea)- Primary Obstructive sleep apnea (adult) (pediatric) Coronary artery disease involving [place] coronary artery of [place] heart without angina pectoris (CMS/HCC) Class 2 obesity due to excess calories without serious comorbidity with body mass index (BMI) of 35.0 to 35.9 in adult- Primary Mixed hyperlipidemia (CMS/HCC) Mixed hyperlipidemia Primary hypertension (CMS/HCC) Unspecified essential hypertension Primary hypertension (CMS/HCC) Unspecified essential hypertension documented in this encounter [facility] HealthcareEvaluation note* Diagnosis Coronary artery disease involving [place] coronary artery of [place] heart without angina pectoris (CMS/HCC)- Primary BPH with obstruction/lower urinary tract symptoms Class 2 obesity due to excess calories without serious comorbidity with body mass index (BMI) of 35.0 to 35.9 in adult Mixed hyperlipidemia (CMS/HCC) Mixed hyperlipidemia Encounter for Medicare annual wellness exam Coronary artery disease involving [place] coronary artery of [place] heart without angina pectoris (CMS/HCC)- Primary Benign prostatic hyperplasia without lower urinary tract symptoms BPH with obstruction/lower urinary tract symptoms Mixed hyperlipidemia (CMS/HCC) Mixed hyperlipidemia Medicare annual wellness visit, subsequent ARLEEN (obstructive sleep apnea)- Primary Obstructive sleep apnea (adult) (pediatric) Coronary artery disease involving [place] coronary artery of [place] heart without angina pectoris (CMS/HCC) Class 2 obesity due to excess calories without serious comorbidity with body mass index (BMI) of 35.0 to 35.9 in adult- Primary Mixed hyperlipidemia (CMS/HCC) Mixed hyperlipidemia Primary hypertension (CMS/HCC) Unspecified essential hypertension Primary hypertension (CMS/HCC)- Primary Unspecified essential hypertension Mixed hyperlipidemia (CMS/HCC) Mixed hyperlipidemia Class 2 obesity due to excess calories without serious comorbidity with body mass index (BMI) of 35.0 to 35.9 in adult ARLEEN (obstructive sleep apnea) Obstructive sleep apnea (adult) (pediatric) documented in this encounter [facility] HealthcareEvaluation note* Diagnosis Coronary artery disease involving [place] coronary artery of [place] heart without angina pectoris (CMS/HCC)- Primary BPH with obstruction/lower urinary tract symptoms Class 2 obesity due to excess calories without serious comorbidity with body mass index (BMI) of 35.0 to 35.9 in adult Mixed hyperlipidemia (CMS/HCC) Mixed hyperlipidemia Encounter for Medicare annual wellness exam Coronary artery disease involving [place] coronary artery of [place] heart without angina pectoris (CMS/HCC)- Primary Benign prostatic hyperplasia without lower urinary tract symptoms BPH with obstruction/lower urinary tract symptoms Mixed hyperlipidemia (CMS/HCC) Mixed hyperlipidemia Medicare annual wellness visit, subsequent ARLEEN (obstructive sleep apnea)- Primary Obstructive sleep apnea (adult) (pediatric) Coronary artery disease involving [place] coronary artery of [place] heart without angina pectoris (CMS/HCC) Class 2 obesity due to excess calories without serious comorbidity with body mass index (BMI) of 35.0 to 35.9 in adult- Primary Mixed hyperlipidemia (CMS/HCC) Mixed hyperlipidemia Primary hypertension (CMS/HCC) Unspecified essential hypertension Primary hypertension (CMS/HCC)- Primary Unspecified essential hypertension Mixed hyperlipidemia (CMS/HCC) Mixed hyperlipidemia Class 2 obesity due to excess calories without serious comorbidity with body mass index (BMI) of 35.0 to 35.9 in adult ARLEEN (obstructive sleep apnea) Obstructive sleep apnea (adult) (pediatric) Benign prostatic hyperplasia without lower urinary tract symptoms documented in this encounter [facility] HealthcareEvaluation note* Diagnosis Coronary artery disease involving [place] coronary artery of [place] heart without angina pectoris (CMS/HCC)- Primary BPH with obstruction/lower urinary tract symptoms Class 2 obesity due to excess calories without serious comorbidity with body mass index (BMI) of 35.0 to 35.9 in adult Mixed hyperlipidemia (CMS/HCC) Mixed hyperlipidemia Encounter for Medicare annual wellness exam Coronary artery disease involving [place] coronary artery of [place] heart without angina pectoris (CMS/HCC)- Primary Benign prostatic hyperplasia without lower urinary tract symptoms BPH with obstruction/lower urinary tract symptoms Mixed hyperlipidemia (CMS/HCC) Mixed hyperlipidemia Medicare annual wellness visit, subsequent ARLEEN (obstructive sleep apnea)- Primary Obstructive sleep apnea (adult) (pediatric) Coronary artery disease involving [place] coronary artery of [place] heart without angina pectoris (CMS/HCC) Class 2 obesity due to excess calories without serious comorbidity with body mass index (BMI) of 35.0 to 35.9 in adult- Primary Mixed hyperlipidemia (CMS/HCC) Mixed hyperlipidemia Primary hypertension (CMS/HCC) Unspecified essential hypertension Primary hypertension (CMS/HCC)- Primary Unspecified essential hypertension Mixed hyperlipidemia (CMS/HCC) Mixed hyperlipidemia Class 2 obesity due to excess calories without serious comorbidity with body mass index (BMI) of 35.0 to 35.9 in adult ARLEEN (obstructive sleep apnea) Obstructive sleep apnea (adult) (pediatric) Primary hypertension (CMS/HCC)- Primary Unspecified essential hypertension Morbid (severe) obesity due to excess calories (CMS/HCC) Gastro-esophageal reflux disease without esophagitis Body mass index (BMI) 35.0-35.9, adult ARLEEN (obstructive sleep apnea) Obstructive sleep apnea (adult) (pediatric) Coronary artery disease involving [place] coronary artery of [place] heart without angina pectoris (CMS/HCC) BPH with obstruction/lower urinary tract symptoms Class 2 obesity due to excess calories without serious comorbidity with body mass index (BMI) of 35.0 to 35.9 in adult Mixed hyperlipidemia ([facility]/HCC) Mixed hyperlipidemia Bronchitis Bronchitis, not specified as acute or chronic documented in this encounter [facility] HealthcareEvaluation note* Diagnosis Coronary artery disease involving [place] coronary artery of [place] heart without angina pectoris ([facility]/HCC)- Primary BPH with obstruction/lower urinary tract symptoms Class 2 obesity due to excess calories without serious comorbidity with body mass index (BMI) of 35.0 to 35.9 in adult Mixed hyperlipidemia ([facility]/HCC) Mixed hyperlipidemia Encounter for Medicare annual wellness exam Coronary artery disease involving [place] coronary artery of [place] heart without angina pectoris ([facility])- Primary Benign prostatic hyperplasia without lower urinary tract symptoms BPH with obstruction/lower urinary tract symptoms Mixed hyperlipidemia ([facility]) Mixed hyperlipidemia Medicare annual wellness visit, subsequent ARLEEN (obstructive sleep apnea)- Primary Obstructive sleep apnea (adult) (pediatric) Coronary artery disease involving [place] coronary artery of [place] heart without angina pectoris ([facility]) Class 2 obesity due to excess calories without serious comorbidity with body mass index (BMI) of 35.0 to 35.9 in adult- Primary Mixed hyperlipidemia ([facility]) Mixed hyperlipidemia Primary hypertension ([facility]) Unspecified essential hypertension Primary hypertension ([facility])- Primary Unspecified essential hypertension Mixed hyperlipidemia ([facility]) Mixed hyperlipidemia Class 2 obesity due to excess calories without serious comorbidity with body mass index (BMI) of 35.0 to 35.9 in adult ARLEEN (obstructive sleep apnea) Obstructive sleep apnea (adult) (pediatric) Primary hypertension ([facility])- Primary Unspecified essential hypertension Morbid (severe) obesity due to excess calories ([facility]) Gastro-esophageal reflux disease without esophagitis Body mass index (BMI) 35.0-35.9, adult ARLEEN (obstructive sleep apnea) Obstructive sleep apnea (adult) (pediatric) Coronary artery disease involving [place] coronary artery of [place] heart without angina pectoris ([facility]) BPH with obstruction/lower urinary tract symptoms Class 2 obesity due to excess calories without serious comorbidity with body mass index (BMI) of 35.0 to 35.9 in adult Mixed hyperlipidemia ([facility]) Mixed hyperlipidemia Bronchitis Bronchitis, not specified as acute or chronic Coronary artery disease involving [place] coronary artery of [place] heart without angina pectoris ([facility]/HCC) Chronic heart failure with preserved ejection fraction (CMS/HCC) documented in this encounter [facility] HealthcareEvaluation note* Diagnosis Coronary artery disease involving [place] coronary artery of [place] heart without angina pectoris- Primary BPH with obstruction/lower urinary tract symptoms Class 2 obesity due to excess calories without serious comorbidity with body mass index (BMI) of 35.0 to 35.9 in adult Mixed hyperlipidemia Mixed hyperlipidemia Encounter for Medicare annual wellness exam Coronary artery disease involving [place] coronary artery of [place] heart without angina pectoris- Primary Benign prostatic hyperplasia without lower urinary tract symptoms BPH with obstruction/lower urinary tract symptoms Mixed hyperlipidemia Mixed hyperlipidemia Medicare annual wellness visit, subsequent ARLEEN (obstructive sleep apnea)- Primary Obstructive sleep apnea (adult) (pediatric) Coronary artery disease involving [place] coronary artery of [place] heart without angina pectoris Class 2 obesity due to excess calories without serious comorbidity with body mass index (BMI) of 35.0 to 35.9 in adult- Primary Mixed hyperlipidemia Mixed hyperlipidemia Primary hypertension Unspecified essential hypertension Primary hypertension- Primary Unspecified essential hypertension Mixed hyperlipidemia Mixed hyperlipidemia Class 2 obesity due to excess calories without serious comorbidity with body mass index (BMI) of 35.0 to 35.9 in adult ARLEEN (obstructive sleep apnea) Obstructive sleep apnea (adult) (pediatric) Primary hypertension- Primary Unspecified essential hypertension Morbid (severe) obesity due to excess calories ([facility]-HCC) Gastro-esophageal reflux disease without esophagitis Body mass index (BMI) 35.0-35.9, adult ARLEEN (obstructive sleep apnea) Obstructive sleep apnea (adult) (pediatric) 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 Class 2 obesity due to excess calories without serious comorbidity with body mass index (BMI) of 35.0 to 35.9 in adult Mixed hyperlipidemia Mixed hyperlipidemia Bronchitis Bronchitis, not specified as acute or chronic Coronary artery disease involving [place] coronary artery of [place] heart without angina pectoris- Primary Gastro-esophageal reflux disease without esophagitis Unspecified osteoarthritis, unspecified site Primary hypertension Unspecified essential hypertension Mixed hyperlipidemia Mixed hyperlipidemia Prostate cancer screening Special screening for malignant neoplasm of prostate BPH with obstruction/lower urinary tract symptoms documented in this encounter [facility] HealthcareEvaluation note* Diagnosis Onset Date Resolution Status Admit Date Swelling, mass, or lump on face acuteOctober 2024 8:12amHyperlipidemiainactiveOctober 2024 8:12am HypertensioninactiveOctober 2024 8:12[facility] Work Phone: Evaluation note* Diagnosis Coronary artery disease involving [place] coronary artery of [place] heart without angina pectoris- Primary BPH with obstruction/lower urinary tract symptoms Class 2 obesity due to excess calories without serious comorbidity with body mass index (BMI) of 35.0 to 35.9 in adult Mixed hyperlipidemia Encounter for Medicare annual wellness exam Coronary artery disease involving [place] coronary artery of [place] heart without angina pectoris- Primary Benign prostatic hyperplasia without lower urinary tract symptoms BPH with obstruction/lower urinary tract symptoms Mixed hyperlipidemia Medicare annual wellness visit, subsequent ARLEEN (obstructive sleep apnea)- Primary Obstructive sleep apnea (adult) (pediatric) Coronary artery disease involving [place] coronary artery of [place] heart without angina pectoris Class 2 obesity due to excess calories without serious comorbidity with body mass index (BMI) of 35.0 to 35.9 in adult- Primary Mixed hyperlipidemia Primary hypertension Unspecified essential hypertension Primary hypertension- Primary Unspecified essential hypertension Mixed hyperlipidemia Class 2 obesity due to excess calories without serious comorbidity with body mass index (BMI) of 35.0 to 35.9 in adult ARLEEN (obstructive sleep apnea) Obstructive sleep apnea (adult) (pediatric) Primary hypertension- Primary Unspecified essential hypertension Morbid (severe) obesity due to excess calories ([facility]) Gastro-esophageal reflux disease without esophagitis Body mass index (BMI) 35.0-35.9, adult ARLEEN (obstructive sleep apnea) Obstructive sleep apnea (adult) (pediatric) 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 Class 2 obesity due to excess calories without serious comorbidity with body mass index (BMI) of 35.0 to 35.9 in adult Mixed hyperlipidemia Bronchitis Bronchitis, not specified as acute or chronic Right hip pain Pain in joint, pelvic region and thigh documented in this encounter [facility] HealthcareHistory and physical note Author Phillip Alves [facility] January 16, 2024 8:40amNote Date/TimeNov2023 8:40[place] [address] Gastroenterology H&P Signed Patient: Belén Keenan MR#: [id number] : 1945 Acct:[id number] Age/Sex: 78 / M Adm Date: 4 Loc: Room: Type: [facility] Attending Dr: Phillip Alves MD Copies to: NON STAFF Phillip Alves MD~ Date of Service: 01/16/2024 HISTORY & PHYSICAL: Patient's history with special attention to the cardiovascular, pulmonary systems and the current problem was reviewed with the patient immediately prior to the procedure. Present medications and doses reviewed in the EMR. Allergies and pertinent laboratory tests were also re viewedat this time in the EMR. The physical [...] signed by Phillip Alves MD> 01/16/[address] [facility] Work Phone: History general Narrative - Reported* Type Description Date Medical History Hypertension Medical HistorycataractsMedical Historygall bladder diseaseMedical Historyheart diseaseSurgical Historycardiac bypass x [id number] Historyappendectomy Surgical HistorytonsillectomySurgical Historygall bladderSurgical Historythumb Surgical HistoryeyeHospitalization Historysee above surgical hx [employer] Other Hospital Discharge instructions Additional Instructions TOTAL HIP DISCHARGE: Recommended Equipment 1. Walker: to be used for post-operative gait. Will transition to straight cane. 2. Raised height toilet seat. 3. Mine Car Repairer/grabber 4. Other: Long handled Shoe Horn, Sock [...] high impact to left hip. b. Use spice miller to retrieve objects from the floor Dressing [...] follow-up appointment has been made with physician medical research assistant Shawn Richardson as previously scheduled 05/12/22 in [facility] office [address] [place] [address] Work Phone: Hospital Discharge instructions Additional Instructions [...] NOT operate machinery such as power tools, [place] mowers, snow blowers, sewing machines, etc. for [...] needed. -Follow up with PCP. -Office number [phone].[facility] Work Phone: Progress note Author Cory Em [facility] April 28, 2022 3:23pmNote Date/TimeFebruary 2022 3:[place] [address] Hospitalist Progress Note Signed Patient: Belén Keenan MR#: [id number] : 1945 Acct:[id number] Age/Sex: 76 / M Adm Date: 3 Loc: [place] Room: Type: [facility] Attending Dr: Gretchen Pulido Jr DO Copies to: ~ Date [...] breath or dysuria. Leukocytosis likely reactive from surgery.Discussed with the patient return toER if develops persistent fever or severe pain. Will recommend to resume his home medication on discharge. Documented By: Cory Em MD 04/28/22 1514 Signed By: <Electronically signed by Cory Em MD> 04/28/22 1523 [facility] Work Phone: Reason for referral (narrative)* Consultation (Routine) - Pending ReviewSpecialtyDiagnoses / ProceduresReferred By Contact Referred To ContactGastroenterology Diagnoses Screening for colon cancer Procedures [place] OFFICE/OUTPATIENT [facility] 60 MINUTES Jeanette Murillo NP [address] [place] [address] Julia Baltazar DO [address] [facility] [address] [place] [address] Referral IDStatusReasonStart DateExpiration DateVisits RequestedVisits [id number] Review Specialty Services Required / Scheduling Instructions Please include [facility] Request for this referral. (Under media) Thank you! BILL Chavarria for referral (narrative)No reason for referral information availableUniversity Hospitals [facility] Work Phone: Summary Purpose Family History No Family History Records Found Relationship Condition Age at Onset Recorded Date/T key Not Specified Heart murmur Unknown Malignant neoplasmUnknowndaughterMalignant neoplasm of throatUnknownfather Medical history unknownUnknownbrotherMyocardial infarctionUnknownbrotherTraffic vehicular accidental deathUnknown Relationship Condition Age at Onset Recorded Date/T key mother Heart murmur Unknown Malignant neoplasmUnknowndaughterMalignant neoplasm of throatUnknownfather Medical history unknownUnknownbrotherMyocardial infarctionUnknownbrotherTraffic vehicular accidental deathUnknownfatherDeceasedUnknownmotherDeceasedUnknown Relationship Condition Age at Onset Recorded Date/T key mother Heart murmur Unknown Malignant neoplasmUnknownHypertensionUnknowndaughterMalignant neoplasm of throat UnknownfatherMedical history unknownUnknownbrotherMyocardial infarctionUnknown Diabetes mellitusUnknownbrotherTraffic vehicular accidental deathUnknownfather DeceasedUnknownmotherDeceasedUnknown Advance Directives No Advanced Directives Records FoundDocuments on File TypeDate RecordedPatient RepresentativeExplanationAdvance Directives and Living WillPower of AttorneyTypeDate RecordedPatient RepresentativeExplanationACP- Advance DirectiveACP-Power of Shoe Repairer Apprentice Advance Directive Response Recorded Date/ Time Advance Directives No April 10, 2022 10:22am Advance Directive Response Recorded Date/ Time Advance Directives No April 10, 2022 11:22am Assessments Diagnosis Nocturia Urgency incontinence Urge incontinence Diagnosis BPH with obstruction/lower urinary tract symptoms Hypertrophy of prostate with urinary obstruction and other lower urinary tract symptoms (LUTS) Nocturia Urgency of urination Reason for Referral Reason *FU 12/07 Evaluate and Treat Hip Pain Per Dr Lizzy Johansen Schedule Directly with Dr Pulido (not PA or TOURS CAPTAIN) Diagnosis 1 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 Office will call patient and schedule Chief Complaint and Reason for Visit Chief Complaint DJD Chief Complaint DJD DJDReason for VisitOsteoarthritis of right hip Chief Complaint Screening Screening Chief Complaint Admit Date med refills December 25, 2024 8 :12am Reason for Visit Admit Date Swelling, mass, or lump on face December 25, 2024 8:12am Hyperlipidemia December 25, 2024 8 :12am Hypertension December 25, 2024 8 :12am Additional Source Comments (unrecognized sect ion and content) No Status Records FoundNo Status Records FoundNo Status Records FoundNo Status Records FoundNo Status Records FoundNo Status Records FoundNo Status Records FoundNo Status Records Found INFORMATION SOURCE (unrecogn ized section and content) DATE CREATED AUTHOR 08/29/2017 [facility] DATE CREATED AUTHOR AUTHOR'S ORGANIZ ATION 02/18/2018 [facility] DATE CREATED AUTHOR AUTHOR'S ORGANIZ ATION 09/29/2019 [facility] DATE CREATED AUTHOR AUTHOR'S ORGANIZ ATION 05/06/2020 [facility] DATE CREATED AUTHOR AUTHOR'S ORGANIZ ATION 04/21/2022 [facility] DATE CREATED AUTHOR AUTHOR'S ORGANIZ ATION 01/30/2024 [facility] DATE CREATED AUTHOR AUTHOR'S ORGANIZ ATION 02/12/2024 [facility] DATE CREATED AUTHOR AUTHOR'S ORGANIZ ATION 12/28/2024 [facility] EPIC REASON FOR VISIT (unrecogniz ed section and content) ReasonOnset DateCommentsMed [id number] RefillReason CommentsSleeping ProblemHere today to discuss results of sleep study;ReasonOnset DateCommentsMed [id number]onReasonOnset Date CommentsMed Muerhi4304/21/2024ReasonCommentsFollow-up Care Teams (unrecognized sec tion and content) Team Status: Inactive Member Role Status Dates Gretchen Pulido Jr, DO Attending Provider Active NON STAFFPrimary Care ProviderActive Team Status: Active Member Role Status Dates NON STAFF Primary Care Provider Active Team Status: Inactive Member Role Status Dates Gretchen Pulido Jr, Attending Provider Active NON STAFFPrimary Care ProviderActiveDolly Feldman RNOther ProviderActive Cher Burns RNOther ProviderActiveEtta Rosen RNOther ProviderActive Sanjana Hicks RNOther ProviderActiveMaribel Lawrence RNOther Provider ActiveModemetrice Dunbar RNOther ProviderActiveRaguru Martin MDOther Provider ActiveAnapamella Bartholomew MDOther ProviderActiveLisa Lizabeth Mcgill , APRNOther Provider ActiveRonluli Hicks DOOther ProviderActiveMusisaura Connell MDOther Provider ActiveYoshi Ascencio , DOOther ProviderActiveDm Lozano MDOther ProviderActiveYuliana Herzog MDOther ProviderActiveRachel Shelton , ANP-BC Other ProviderActivePerez Mattson MDOther ProviderActiveWander Velázquez MD Other ProviderActiveCory Em MDOther ProviderActiveLeeroy Doll MD Other ProviderActiveMicnewton Rodriguez , DOOther ProviderActiveDank Tong MDOther ProviderActiveEarcristopher Johnson MDOther ProviderActiveSwapna Feldman , TOURS CAPTAIN-COther ProviderActiveChavez Pagan MDOther ProviderActivePatricio Cook MD Other ProviderActiveAnoSchafer MDOther ProviderActiveMargo Lavon , DOOther ProviderActiveNeal R Liam , DOOther ProviderActiveAnthony M Miniluca , DO Other ProviderActiveLinda Estee , APRNOther ProviderActiveMando Guy , DO Other ProviderActiveFanny France MDOther ProviderActivePaula Alma Doll , APRNOther ProviderActivePatricia Wilkinson , DESOther ProviderActiveTeam Member RelationshipSpecialtyStart DateEnd Date Shaikh Grove MD [address] [place] [phone] PCP - [facility]03/12/22 Sony Rao MD [address] [place] [phone] [facility] - [facility] Jeanette Murillo NP [address] [place] [phone] [facility]/15/23 Team Status: Inactive Member Role Status Dates NON STAFF Primary Care Provider Active Start: January 16, 2024 End: January 15Manuel Wu ProviderActiveStart: January 16, 2024 End: January 16, 2024 Team Status: Active Member Role Status Dates NON STAFF Primary Care Provider Active Start: January 16, 2024 Manuel Moon Provider, Other ProviderActiveStart: January 16, 2024 Team MemberRelationshipSpecialtyStart DateEnd Date Shaikh Grove MD [address] [place] [address] PCP - [facility]03/12/2311 Sony Rao MD [address] [place] [phone] PCP - [facility] Medicine10/15/23 Jeanette Murillo NP [address] [place] [address] [facility]/15/23Team MemberRelationshipSpecialtyStart DateEnd Date Shaikh Grove MD [address] [place] [phone] PCP - [facility]03/12/22 Sony Rao MD [address] [place] [phone] PCP - [facility]10/15/23 Jeanette Murillo, [place] [address] [place] [address] [facility]10/15/23Team MemberRelationshipSpecialtyStart DateEnd Date Shaikh Grove MD [address] [place] [phone] PCP - [facility]03/12/22 Sony Rao MD [address] [place] [address] PCP - [facility]10/15/23 Jeanette Murillo NP [address] [place] [address] Nurse [facility]10/15/23Team MemberRelationshipSpecialtyStart DateEnd Date Shaikh Grove MD [address] [place] [address] PCP - [facility]03/12/22 Sony Rao MD [address] [place] [address] PCP - [facility]10/15/23 Jeanette Murillo NP [address] [place] [address] Nurse [facility]10/15/23Team MemberRelationshipSpecialtyStart DateEnd Date Shaikh Grove MD [address] [place] [address] PCP - [facility]/ Sony Rao MD [address] [place] [address] PCP - [facility]10/15/23 Jeanette Murillo NP [address] [place] [address] Nurse [facility]10/15/23Team MemberRelationshipSpecialtyStart DateEnd Date Shaikh Grove MD [address] [place] [address] PCP - [facility]03/12/2311 Sony Rao MD [address] [place] [address] PCP - [facility]10/15/23 Jeanette Murillo NP [address] [place] [address] [facility]10/15/23Team MemberRelationshipSpecialtyStart DateEnd Date Shaikh Grove MD [address] [place] [address] PCP - [facility]03/12/22 Sony Rao MD [address] [place] [address] PCP - [facility]10/15/23 Jeanette Murillo NP [address] [place] [address] [facility]10/15/23Team MemberRelationshipSpecialtyStart DateEnd Date Shaikh Grove MD [address] [place] [address] PCP - [facility]03/12/22 Sony Rao MD [address] [place] [address] PCP - [facility]10/15/23 Jeanette Murillo NP [address] [place] [address] [facility]10/15/23Team MemberRelationshipSpecialtyStart DateEnd Date Shaikh Grove MD [address] [place] [address] PCP - [facility]03/12/22 Sony Rao MD [address] [place] [address] PCP - [facility]10/15/23 Jeanette Murillo NP [address] [place] [address] [facility]/15/23Te MemberRelationshipSpecialtyStart DateEnd Date Shaikh Grove MD [address] [place] [address] PCP - [facility]03/12/22 Sony Rao MD [address] [place] [address] [facility]/23 Jeanette Murillo NP [address] [place] [address] [facility]10/15/23Team MemberRelationshipSpecialtyStart DateEnd Date Shaikh Grove MD [address] [place] [address] PCP - [facility]03/12/22 Sony Rao MD [address] [place] [address] PCP - [facility] Medicine10/15/23 Jeanette Murillo NP [address] [place] [address] [facility]10/15/23Team MemberRelationshipSpecialtyStart DateEnd Date Shaikh Grove MD [address] [place] [address] PCP - [facility]03/12/22 Sony Rao MD [address] [place] [address] PCP - [facility]10/15/23 Jeanette Murillo NP [address] [place] [address] [facility]10/15/23Team MemberRelationshipSpecialtyStart DateEnd Date Shaikh Grove MD [address] [place] [address] PCP - [facility]03/12/22 Sony Rao MD [address] [place] [address] PCP - [facility]10/15/23 Jeanette Murillo NP [address] [place] [address] [facility]10/15/23Team MemberRelationshipSpecialtyStart DateEnd Date Shaikh Grove MD [address] [place] [address] PCP - [facility]03/12/22 Sony Rao MD [address] [place] [address] PCP - [facility]10/15/23 Jeanette Murillo NP [address] [place] [address] [facility]10/15/23Team MemberRelationshipSpecialtyStart DateEnd Date Shaikh Grove MD [address] [place] [address] PCP - [facility]03/12/22 Sony Rao MD [address] [place] [address] PCP - [facility]11/14/24 Team Status: Inactive Member Role Status Dates NON STAFF Primary Care Provider Active Start: December 25, 2024 End: December 25, 2024Jeleilani Padilla , DOAttending ProviderActiveStart: December 25, 2024 End: December 25, 2024Team MemberRelationshipSpecialtyStart DateEnd Date Shaikh Grove MD [address] [place] [address] PCP - [facility]03/12/22 Sony Rao MD [address] [place] [address] PCP - GeneralFamily Medicine11/14/24 Goals (unrecognized section and content) Goals may [...] BE BASED ON THE PRIMARY CLINICAL RECORDS. [facility]. provides no warranty or guarantee of the accuracy or completeness of information in this document.
--- NOTE | 2024-12-31 12:55 | CT_ITS ---
The [address] [address] Patient Name: BELÉN ZAMORA MRN: [id number] date: 1945 Sex: M Assigned Patient Location: CT Current Patient Location: CT Accession/Order Number: [id number] Exam Date: 12/31/2024 12:45 Report Date: 12/31/2024 21:13 At the request of: RAYMOND BACA DO Procedure: CT facial bones wo con MAXILLOFACIAL CT WITHOUT CONTRAST: CLINICAL HISTORY: swelling, mass, or lump on face COMPARISON: None TECHNIQUE: Spiral axial unenhanced images were obtained through the facial bones. Coronal and sagittal reconstructions were also reviewed. This CT exam was performed using one or more following dose reduction techniques: Automated exposure control, adjustment of the mA and/or kV according to patient size, or use of iterative reconstruction technique. FINDINGS: There is a 1.8 x 1.7 cm soft tissue mass within the superior margin of the superficial lobe left parotid gland.. Otherwise no facial bone fracture or suspicious osseous lesion. Mild paranasal sinus disease. Left sided scleral buckle. Cataract surgery. Chronic changes intracranially. CT/CT facial bones wo con IMPRESSION: Lobulated mass superficial lobe left parotid gland gland 1.7 x 1.8 cm. If warranted, consider soft tissue ultrasound Impression dictated by: Eddie Davis M.D. 12/31/2024 9:13 PM Dictation Location: [place] [address] Electronically authenticated by: [id number] Y Date: 12/31/2024 21:13
== END 2024-12-31 12:32 | disposition home or self-care (01) ==
LOC: CT 12:31
PROVIDERS: PCP Nurse Practitioner; Visit Provider Family Medicine
DX: R22.0 Localized swelling, mass and lump, head (principal)
CPT/HCPCS: 70486